=== PATIENT | female | born 1960 | race Two or more races ===

== ENCOUNTER 2022-02-13 15:09 | Emergency (ER) | payer MEDICAID, SELFPAY ==
--- NOTE | ~2022-02-13 | CT_ITS ---
EXAMINATION: CT ABDOMEN AND PELVIS WITHOUT CONTRAST CLINICAL INFORMATION: Right upper quadrant pain. Epigastric pain. History of prior cholecystectomy. COMPARISON: None TECHNIQUE: Multidetector volumetric imaging was performed from the superior aspect of the liver through the pubic symphysis. Sagittal and coronal reformatted images were obtained on the technologist's workstation. This CT examination was performed using dose optimization techniques as appropriate, variously including the following: *Automated exposure control *Adjustment of mA and/or kV according to patient size (this includes techniques or standardized protocols for targeted exams where dose is matched to indication/reason for exam; i.e. extremities or head) *Use of iterative reconstruction technique DLP: 368 mGy-cm FINDINGS: LUNG BASES: The visualized lung bases are unremarkable. LIVER, GALLBLADDER, AND BILIARY TREE: The liver is normal in size, shape, and attenuation. No focal hepatic lesion or biliary ductal dilatation is present. Coarse calcification consistent with granuloma right lobe of liver. Status post cholecystectomy. PANCREAS: Unremarkable. SPLEEN: Unremarkable. ADRENAL GLANDS: Unremarkable. KIDNEYS AND URETERS: The kidneys are normal in size, shape, and attenuation. No hydronephrosis, hydroureter, or calculi seen. No perinephric stranding. BLADDER: Unremarkable. GASTROINTESTINAL TRACT: No acute abnormality of the bowel. There is no bowel wall thickening /edema. There is no bowel obstruction. There is a moderate to large volume of stool in the colon. The appendix is surgically absent . Surgical clips in right lower quadrant. No inflammatory change of the mesentery The small bowel loops are unremarkable. The stomach is normal. There is no hiatal hernia. ABDOMINAL WALL: No significant hernia is appreciated. LYMPH NODES: Normal. VASCULAR: Unremarkable. PELVIC VISCERA: Status post hysterectomy. OSSEOUS STRUCTURES: Unremarkable. CT/CT abdomen pelvis wo IV con IMPRESSION: No acute abnormality CT scan abdomen pelvis. Fleischner guidelines were followed.
[2022-02-13 16:40] VITALS: BP 113/42; PULSE 67; RESP 18; TEMP 36.7; O2SAT 99; BMI 23.8
[2022-02-13 16:56] LABS: MANUAL DIFF FLAG NO
[2022-02-13 16:59] LABS: Basophils Absolute Auto 0.1 X10*3/uL (0.0-0.2); Basophils Percent Auto 1.5 % (0-2); Eosinophils Absolute Auto 0.2 X10*3/uL (0.0-0.4); Eosinophils Percent Auto 1.9 % (0-4); Hematocrit 40.4 % (37.0-47.0); Hemoglobin 13.9 g/dl (12.0-16.0); Imm Gran Abs Auto 0.03 X10*3/uL (0.00-0.03); Imm Gran Pct Auto 0.4 % (0.0-0.4); Lymphocytes Absolute Auto 2.9 X10*3/uL (1.2-4.9); Lymphocytes Percent Auto 37.2 % (20-40); Mean Corpuscular HGB Conc 34.4 g/dl (31.0-35.0); Mean Platelet Volume 11.5 fL (9.4-12.3); Monocytes Absolute Auto 0.5 X10*3/uL (0.1-1.2); Monocytes Percent Auto 6.3 % (2-11); Neutrophils Absolute Auto 4.1 x10*3/uL (2.0-8.3); Neutrophils Percent Auto 52.7 % (45-73); Platelet Count 285 X10*3/uL (160-400); Red Blood Count 4.49 X10*6/uL (4.20-5.50); Red Cell Distribution Width 12.2 % (11.0-16.0); White Blood Count 7.8 X10*3/uL (4.8-10.8)
[2022-02-13 17:12] LABS: Alanine Aminotransferase 21 U/L (0-31); Albumin Level 4.3 g/dL (3.5-5.0); Alkaline Phosphatase 86 U/L (39-117); Anion Gap 13 (12-20); Aspartate Amino Transferase 19 U/L (5-31); Bilirubin Total 0.3 mg/dL (0.0-1.0); Blood Urea Nitrogen 22 mg/dL (9-16); Calcium 9.9 mg/dL (8.4-10.2); Carbon Dioxide 29 mmol/L (22-29); Chloride 105 mmol/L (96-108); Creatinine Clr Calc Pharmacy 54.9; Estimated Glomerular Filt Rate > 60; Glucose Random 87 mg/dL (60-115); Potassium 4.5 mmol/L (3.3-5.1); Sodium 142 mmol/L (135-145); Total Protein 7.5 g/dL (6.5-8.0)
--- NOTE | 2022-02-13 20:43 | ED.ABDPAIN ---
HPI - Abdominal Pain General Chief Complaint: Abdominal Pain Stated Complaint: abd pain Time Seen by Provider: 02/13/22 20:16 Source: patient and family Mode of arrival: ambulatory Limitations: language barrier ([place]-speaking) History of Present Illness HPI narrative: 61-year-old female with a past medical history Liver issues although is very vague [place]speaking presenting to the ED c c/o right upper quadrant/epigastric abdominal pain with abdominal distension that has been present for a few months although worse in the past 2 days and constant. She reports it is usually worse after she eats. She reports that she does not have a gallbladder. She reports associated nausea. She denies any fevers, chills, dizziness, headaches, neck pain/stiffness, trouble swallowing or breathing, chest pain or shortness of breath, vomiting, radiation of the abdominal pain, back pain, flank pain, dysuria, hematuria, abnormal vaginal discharge, black or bloody stools, diarrhea constipation, recent travel or sick contacts travel lower extremity edema or calf tenderness or any other symptoms complaints or concerns at this time. MD elicited complaint: abdominal pain Pertinent past history: other (See above) Onset (ago): day(s) (2) Pain Consistency: constant Location: epigastric and RUQ Severity: mild Quality: cramping, aching and fullness Radiation: none Migration to: no migration Exacerbating factors: eating Relieving factors: nothing Associated symptoms: nausea Related Data Previous Rx's Medication Instructions Recorded omeprazole 20 mg tablet,delayed 20 mg PO DAILY GERD #30 tabs 02/13/22 release Allergies Allergy/AdvReac Type Severity Reaction Status Date / Time ceftriaxone [From Rocephin] Allergy Rash Verified 02/13/22 16:42 Review of Systems Review of Systems Constitutional : No Fever, No Chills, No Night Sweats, No Fatigue, No Malaise Cardiovascular : No Chest Pain, No SOB Respiratory : No Cough, No Sputum, No Wheezing, No Dyspnea Gastrointestinal : + Nausea, No Vomiting, No Diarrhea, + abdominal Pain, No Hematochezia, No Melena Genitourinary : No irregular bleeding, No Dysuria, No Urinary Frequency, No Hematuria,No Urinary Incontinence, No Urgency, No Flank Pain Musculoskeletal : No joint pain, No Myalgias, No Joint Swelling Skin : No Skin Lesions, No rash Neuro : No Weakness, No Numbness, No Paresthesias, No Loss of Consciousness, No Dizziness, No Headache Heme/Lymph: No Lymphadenopathy Endocrine : No Temperature Intolerance Yes all other systems are reviewed and are negative [facility] Past Medical History Attestation statement: The following information was validated with the patient. Source: old records reviewed, obtained from family and nursing notes reviewed Social History Social History Advance Directives: No Advance Directives Information Provided: No Physical Exam ED Vital Signs: Vital Signs - 24 hr 02/13/22 16:40 02/13/22 21:19 Temperature 98.0 F 98.1 F Pulse Rate 67 71 Respiratory Rate 18 16 Blood Pressure 113/42 L 129/64 Pulse Oximetry 99 99 Oxygen Delivery Method Room Air Room Air BMI result Body Mass Index 23.8 Vital signs reviewed patient blood pressure 113/42. Otherwise all other vitals are within normal limits. Appearance: Alert. Oriented X3. No acute distress. Head: Normal external exam. Normocephalic. Eyes: PERRLA. EOMI. Conjunctiva and sclera normal. Eyelids normal. ENT: Pharynx normal. Uvula midline. Moist mucous membranes. No trismus noted. No drooling noted. No muffled voice noted. Neck: Normal inspection. Neck supple. FROM. No adenopathy. No meningeal signs. CVS: Normal heart rate and rhythm. Heart sound normal. No murmurs noted. Pulses normal throughout. Respiratory: No respiratory distress. Painless inspiration. Breath sounds normal. No wheezes/rales/rhonchi noted. Chest nontender. No accessory muscle usage noted or decreased air movement noted. Abdomen: Soft and mild tenderness palpation to right upper quadrant/epigastric area with guarding. She does appear mildly distended. No rigidity. Bowel sounds normal in all 4 quadrants. No distention noted. No organomegaly noted. No visible injury noted. No rebound tenderness. Negative Rovsing sign. Negative obturator's sign. Negative psoas sign. Negative Garrido sign. Back: No CVA tenderness. Full range of motion noted. Skin: Skin warm and dry. Normal skin color. Normal skin turgor. No rashes/lesions/lacerations noted. Extremities: Extremities exhibit normal range of motion. Extremities nontender. Neuro: Oriented X 3. No motor deficit. No sensory deficit. Reflexes normal. Normal steady gait. CN's II-XII intact bilaterally? Course Course Course Narrative: 20:10PM - 61-year-old female with a past medical history Liver issues although is very vague [place]speaking presenting to the ED c c/o right upper quadrant/epigastric abdominal pain with abdominal distension that has been present for a few months although worse in the past 2 days and constant. She reports it is usually worse after she eats. She reports that she does not have a gallbladder. She reports associated nausea. Patient had labs a she was in the waiting room BUN 22 otherwise all other labs are within normal limits. Therefore at this time will obtain a CT scan abdomen pelvis without IV contrast and UA and re-evaluate. Reevaluation(s) Reevaluation #1: - CT scan abdomen pelvis without IV contrast negative for any acute processes. - UA revealed blood otherwise no evidence of UTI. - therefore at this time patient most likely muscular skeletal pain will DC home with symptomatic treatment instructions return if any new or worsening symptoms to follow up with primary care provider. Patient understands agrees with this plan. Time: 21:51 [facility] - Abdominal Pain Medical Records Attestation: I reviewed the patient's medical records. Lab Data Attestation: I reviewed the patient's lab results. Result diagrams: 02/13/22 16:51 02/13/22 16:51 Labs: Lab Results 02/13/22 02/13/22 02/13/22 Range/Units 16:51 16:51 20:43 WBC 7.8 (4.8-10.8) X10*3/uL RBC 4.49 (4.20-5.50) X10*6/uL Hgb 13.9 (12.0-16.0) g/dl Hct 40.4 (37.0-47.0) % MCV 90.0 (80.0-98.0) fL MCH 31.0 (27.0-33.0) pg MCHC 34.4 (31.0-35.0) g/dl RDW 12.2 (11.0-16.0) % Plt Count 285 (160-400) X10*3/uL MPV 11.5 (9.4-12.3) fL Immature Gran % (Auto) 0.4 (0.0-0.4) % Neut % (Auto) 52.7 (45-73) % Lymph % (Auto) 37.2 (20-40) % Mercer % (Auto) 6.3 (2-11) % Eos % (Auto) 1.9 (0-4) % Baso % (Auto) 1.5 (0-2) % Lymph # (Auto) 2.9 (1.2-4.9) X10*3/uL [place] # (Auto) 0.5 (0.1-1.2) X10*3/uL Eos # (Auto) 0.2 (0.0-0.4) X10*3/uL Baso # (Auto) 0.1 (0.0-0.2) X10*3/uL Abs Immat Gran (auto) 0.03 (0.00-0.03) X10*3/uL Absolute Neuts (auto) 4.1 (2.0-8.3) x10*3/uL Absolute Nucleated RBC 0.000 (0.0-0.012) X10*3/uL Nucleated RBC % (auto) 0.0 (0.0-0.2) /100WBC Sodium 142 (135-145) mmol/L Potassium 4.5 (3.3-5.1) mmol/L Chloride 105 (96-108) mmol/L Carbon Dioxide 29 (22-29) mmol/L Anion Gap 13 (12-20) BUN 22 H (9-16) mg/dL Creatinine 0.85 (0.5-1.4) mg/dL Estim Creat Clear Calc 54.9 Estimated GFR > 60 Random Glucose 87 (60-115) mg/dL Calcium 9.9 (8.4-10.2) mg/dL Total Bilirubin 0.3 (0.0-1.0) mg/dL AST 19 (5-31) U/L ALT 21 (0-31) U/L Alkaline Phosphatase 86 (39-117) U/L Total Protein 7.5 (6.5-8.0) g/dL Albumin 4.3 (3.5-5.0) g/dL Lipase 30 (8-78) U/L Urine Color Yellow Urine Appearance Clear Urine pH 6.5 (5.0-9.0) Ur Specific [place] 1.020 (1.005-1.025) Urine Protein Negative (Neg-Trace) mg/dL Urine Glucose (UA) Negative (Negative) mg/dL Urine Ketones Negative (Negative) mg/dL Urine Blood Small (1+) H (Negative) Urine Nitrite Negative (Negative) Ur Leukocyte Esterase Negative (Negative) Urine RBC 6-10 H (0-2) /HPF Urine WBC 0-5 (0-5) /HPF Ur Squamous Epith Cells 0-2 (0-2) /HPF Urine Bacteria None Seen (None Seen) Hyaline Casts 0-2 (0-2) /LPF Imaging Data CT scan abdomen pelvis without IV contrast: Attestation: I personally reviewed and interpreted this imaging study as follows: Radiologist's impression: FINDINGS: LUNG BASES: The visualized lung bases are unremarkable.? LIVER, GALLBLADDER, AND BILIARY TREE: The liver is normal in size, shape, and attenuation. No focal hepatic lesion or biliary ductal dilatation is present. Coarse calcification consistent with granuloma right lobe of liver. Status post cholecystectomy.? PANCREAS: Unremarkable.? SPLEEN: Unremarkable.? ADRENAL GLANDS: Unremarkable.? KIDNEYS AND URETERS: The kidneys are normal in size, shape, and attenuation. No hydronephrosis, hydroureter, or calculi seen. No perinephric stranding. ? BLADDER: Unremarkable.? GASTROINTESTINAL TRACT: No acute abnormality of the bowel. There is no bowel wall thickening /edema. There is no bowel obstruction. There is a moderate to large volume of stool in the colon. The appendix is surgically absent . Surgical clips in right lower quadrant. No inflammatory change of the mesentery The small bowel loops are unremarkable. The stomach is normal. There is no hiatal hernia.? ABDOMINAL WALL: No significant hernia is appreciated.? LYMPH NODES: Normal. VASCULAR: Unremarkable. PELVIC VISCERA: Status post hysterectomy.? OSSEOUS STRUCTURES: Unremarkable.? CT/CT abdomen pelvis wo IV con IMPRESSION: No acute abnormality CT scan abdomen pelvis. ? Fleischner guidelines were followed. Discharge Plan Discharge Clinical Impression: Abdominal pain Patient Disposition: Home, Self-Care Instructions: Gastroesophageal Reflux Disease (ED), Abdominal Pain (ED) Prescriptions: New omeprazole 20 mg tablet,delayed release (DR/EC) 20 mg PO DAILY Qty: 30 0RF Referrals: Physician,Unknown J [Primary Care Provider] - (your pcp as needed) Print Language: [place]
[2022-02-13 21:19] VITALS: BP 129/64; PULSE 71; RESP 16; TEMP 36.7; O2SAT 99
[2022-02-13 21:33] LABS: Appearance Urine Clear; Color Urine Yellow; Glucose Urine UA Negative (Negative); Leukocyte Esterase Urine Negative (Negative); Nitrite Urine Negative (Negative); PH 6.5 (5.0-9.0); UMIC TRIGGER UACC YES; Urine Blood Small (1+) (Negative); Urine Ketones Negative (Negative); Urine Protein Negative (Neg-Trace)
[2022-02-13 21:35] LABS: Lipase 30 U/L (8-78)
[2022-02-13 21:39] LABS: Bacteria Urine None Seen (None Seen); Hyaline Casts Urine 0-2 /LPF (0-2); Squamous Epithelial Cell Urine 0-2 /HPF (0-2); WBC Urine 0-5 /HPF (0-5)
== END 2022-02-13 22:09 | disposition home or self-care (01) ==
PROVIDERS: Physician Assistant Medical; Emergency Provider Emergency Medicine
DX: R10.11 Right upper quadrant pain (principal); R10.13 Epigastric pain
CPT/HCPCS: 36415; 74176; 80053; 81001; 83690; 85025; 99282; 99284

== ENCOUNTER 2023-01-10 08:56 | Outpatient (REF) | payer MEDICAID, SELFPAY ==
--- NOTE | ~2023-01-10 | XR_ITS ---
EXAMINATION: XR LUMBOSACRAL SPINE CLINICAL INFORMATION: Lumbar pain COMPARISON: None available. TECHNIQUE: Three views of the lumbosacral spine. FINDINGS: There is no fracture or destructive process or alignment abnormality. Disc space heights appear preserved. Surgical clips are seen overlying the pelvis and in the right mid abdomen upper quadrant. XR/XR lumbar spine 2-3V IMPRESSION: Unremarkable plain film evaluation.
== END 2023-01-10 08:57 | disposition home or self-care (01) ==
LOC: HO.HHCX 08:56
PROVIDERS: Visit Provider Emergency Medicine
DX: M54.59 Other low back pain (principal)
CPT/HCPCS: 72100

== ENCOUNTER 2023-01-13 10:47 | Emergency (ER) | payer MEDICAID, SELFPAY ==
[2023-01-13 11:01] VITALS: BP 118/54; PULSE 91; RESP 19; TEMP 37.2; O2SAT 97; BMI 23.0
--- NOTE | 2023-01-13 11:03 | ED_ITS ---
HPI - Dizziness General Chief Complaint: Dizziness Stated Complaint: lower back pain Time Seen by Provider: 01/13/23 13:21 Related Data Previous Rx's Medication Instructions Recorded omeprazole 20 mg tablet,delayed 20 mg PO DAILY GERD #30 tabs 02/13/22 release acetaminophen 500 mg tablet 1,000 mg (2 x 500 mg) PO Q6H PRN 01/13/23 (Tylenol Extra Strength) fever or pain #20 tabs cyclobenzaprine 10 mg tablet 10 mg PO TID PRN muscle pain or 01/13/23 spasm #20 tabs oxycodone 5 mg tablet 5 mg PO Q6H PRN pain #14 tabs 01/13/23 Allergies Allergy/AdvReac Type Severity Reaction Status Date / Time ceftriaxone [From Rocephin] Allergy Rash Verified 01/13/23 11:01 seafood Allergy Rash Verified 01/13/23 11:01 [facility] Social History Social History Advance Directives: No Physical Exam 2 Vital Signs: Vital Signs: Last Vital Signs Temp 98.9 F 01/13/23 11:01 Pulse 72 01/13/23 12:23 Resp 14 01/13/23 12:23 BP 113/68 01/13/23 12:23 Pulse Ox 98 01/13/23 12:23 O2 Del Method Room Air 01/13/23 12:23 BMI result Body Mass Index 23.0 Course Course Course Narrative: RME - 62 yo German speaking female presenting to the ER for evaluation of ongoing dizziness and lightheadedness for the last 3 days. She had a fall due to dizziness 3 days ago and hit her head, hurt her back. She has felt weak with URI symptoms as well. She reports 8/10 lower back pain since she fell as well. No chest pain, SOB, SANCHEZ. VSS in triage. Plan: EKG, orthos, viral studies, labs, CT head and lumbar x-ray Medical Decision Making Lab Data 01/13/23 11:38 01/13/23 11:38 Labs: Lab Results 01/13/23 Range/Units 11:38 WBC 7.6 (4.8-10.8) X10*3/uL RBC 4.55 (4.20-5.50) X10*6/uL Hgb 14.0 (12.0-16.0) g/dl Hct 39.9 (37.0-47.0) % MCV 87.7 (80.0-98.0) fL MCH 30.8 (27.0-33.0) pg MCHC 35.1 H (31.0-35.0) g/dl RDW 13.1 (11.0-16.0) % Plt Count 276 (160-400) X10*3/uL MPV 11.5 (9.4-12.3) fL Immature Gran % (Auto) 0.3 (0.0-0.4) % Neut % (Auto) 64.5 (45-73) % Lymph % (Auto) 26.3 (20-40) % [place] % (Auto) 6.7 (2-11) % Eos % (Auto) 1.3 (0-4) % Baso % (Auto) 0.9 (0-2) % Lymph # (Auto) 2.0 (1.2-4.9) X10*3/uL [place] # (Auto) 0.5 (0.1-1.2) X10*3/uL Eos # (Auto) 0.1 (0.0-0.4) X10*3/uL Baso # (Auto) 0.1 (0.0-0.2) X10*3/uL Abs Immat Gran (auto) 0.02 (0.00-0.03) X10*3/uL Absolute Neuts (auto) 4.9 (2.0-8.3) x10*3/uL Absolute Nucleated RBC 0.000 (0.0-0.012) X10*3/uL Nucleated RBC % (auto) 0.0 (0.0-0.2) /100WBC Sodium 141 (135-145) mmol/L Potassium 3.9 (3.3-5.1) mmol/L Chloride 111 H (96-108) mmol/L Carbon Dioxide 22 (22-29) mmol/L Anion Gap 12 (12-20) BUN 17 H (9-16) mg/dL Creatinine 0.80 (0.5-1.4) mg/dL Estim Creat Clear Calc 60.3 Estimated GFR > 60 Random Glucose 87 (60-115) mg/dL Calcium 9.5 (8.4-10.2) mg/dL Magnesium 2.3 (1.6-2.6) mg/dL Total Bilirubin 0.5 (0.0-1.0) mg/dL Direct Bilirubin 0.1 (0.0-0.5) mg/dL AST 19 (5-31) U/L ALT 15 (0-31) U/L Alkaline Phosphatase 79 (39-117) U/L Troponin I High Sens < 2.7 (<3.5-17.0) ng/L Total Protein 7.3 (6.5-8.0) g/dL Albumin 4.1 (3.5-5.0) g/dL Urine Color Yellow Urine Appearance Clear Urine pH 7.5 (5.0-9.0) Ur Specific [place] 1.015 (1.005-1.025) Urine Protein Negative (Neg-Trace) mg/dL Urine Glucose (UA) Negative (Negative) mg/dL Urine Ketones Negative (Negative) mg/dL Urine Blood Small (1+) H (Negative) Urine Nitrite Negative (Negative) Ur Leukocyte Esterase Trace H (Negative) Urine RBC 6-10 H (0-2) /HPF Urine WBC 0-5 (0-5) /HPF Ur Squamous Epith Cells 0-2 (0-2) /HPF Urine Bacteria None Seen (None Seen) Hyaline Casts 0-2 (0-2) /LPF Influenza Type A (PCR) NEGATIVE (Negative) Influenza Type B (PCR) NEGATIVE (Negative) RSV RNA Qual (PCR) NEGATIVE (Negative) SARS-CoV-2 RNA (RT-PCR) NEGATIVE (Negative) Radiology Impression Discussion of test interpretation with radiology: I have reviewed the radiologist's reading. Radiologist Impression: CT head/brain wo IV con IMPRESSION: No evidence of acute intracranial hemorrhage or edematous territorial infarction. Dictated By: Tunde Mota DO XR lumbar spine 2-3V IMPRESSION: * Vertebral body heights are maintained. * Osteopenia. Dictated By: Diane Thomason MD Discharge Plan Discharge Clinical Impression: Fall Qualifiers: Encounter type: initial encounter Qualified Code(s): W19.XXXA - Unspecified fall, initial encounter Closed head injury Qualifiers: Encounter type: initial encounter Qualified Code(s): S09.90XA - Unspecified injury of head, initial encounter Back pain Qualifiers: Chronicity: acute Back pain laterality: bilateral Patient Disposition: Home, Self-Care Instructions: Head Injury (ED), Acute Low Back Pain (ED) Additional Instructions: The CT scan of your brain revealed no skull fracture or bleeding in the brain The x-ray of your back revealed no broken bones. Your blood work was normal. Your pain in your back is consistent with soft tissue injury (muscles, joints, tendons, ligaments) Take Tylenol (acetaminophen) 500 mg pills, 2 pills every 6 hours as needed for pain. For pain not relieved by Tylenol take oxycodone 5 mg pills, 1 pill every 4 hours as needed for pain. Do not drive or work while taking this medication since they can cause sleepiness. Oxycodone is a narcotic medication that can be addicting. If you are concerned about addiction you can ask the pharmacist for less pills or do not get this prescription filled. Take Flexeril (cyclobenzaprine) 10 mg pills, 1 pill every 6-8 hours as needed for pain or spasm. This medication will make you sleepy. Do not drive or work while taking this medication. Follow-up with your doctor in 2 days. Please return to the emergency department if your symptoms get worse or if you develop any symptoms that are concerning to you. Prescriptions: New cyclobenzaprine 10 mg tablet 10 mg PO TID PRN (Reason: muscle pain or spasm) Qty: 20 0RF oxycodone 5 mg tablet 5 mg PO Q6H PRN (Reason: pain) Qty: 14 0RF Rx Instructions: Patient may request partial refill; Partial Fill upon patient request. acetaminophen [Tylenol Extra Strength] 500 mg tablet 1,000 mg PO Q6H PRN (Reason: fever or pain) Qty: 20 0RF No Action omeprazole 20 mg tablet,delayed release (DR/EC) 20 mg PO DAILY Qty: 30 0RF Interventions: ED Discharge Assessment Last Done: 01/13/23 15:18 Discharge Date/Time: 01/13/23 15:18
[2023-01-13 12:21] VITALS: BP 101/51; BP 104/59; PULSE 67
[2023-01-13 12:22] VITALS: BP 113/68; PULSE 72
[2023-01-13 12:23] VITALS: BP 113/68; PULSE 72; RESP 14; O2SAT 98
== END 2023-01-13 15:18 | disposition home or self-care (01) ==
PROVIDERS: Emergency Provider Emergency Medicine Emergency Medical Services
DX: R42 Dizziness and giddiness (principal); S09.90XA Unspecified injury of head, initial encounter; W19.XXXA Unspecified fall, initial encounter; M54.50 Low back pain, unspecified; Y93.9 Activity, unspecified; Y92.9 Unspecified place or not applicable; Y99.9 Unspecified external cause status
CPT/HCPCS: 0241U; 36415; 70450; 72100; 80048; 80076; 81001; 83735; 84484; 85025; 93005; 99284

== ENCOUNTER 2023-02-12 16:22 | Outpatient (REF) | payer MEDICAID, SELFPAY ==
[2023-02-14 15:23] LABS: H Pylori Breath Test Negative (Negative)
== END 2023-02-12 16:23 | disposition home or self-care (01) ==
LOC: HO.LNP 16:22
PROVIDERS: Visit Provider Student in an Organized Health Care Education/Training Program
DX: K29.70 Gastritis, unspecified, without bleeding (principal)
CPT/HCPCS: 83013

== ENCOUNTER 2023-02-13 10:19 | Outpatient (REF) | payer MEDICAID, SELFPAY ==
[2023-02-13 11:34] LABS: Estimated Average Glucose 100 mg/dL; Hematocrit 45.1 % (37.0-47.0); Hemoglobin 15.4 g/dl (12.0-16.0); Hemoglobin A1c % 5.1 % (<6.0); Mean Corpuscular HGB Conc 34.1 g/dl (31.0-35.0); Mean Corpuscular Hemoglobin 30.3 pg (27.0-33.0); Mean Corpuscular Volume 88.6 fL (80.0-98.0); Mean Platelet Volume 11.9 fL (9.4-12.3); Platelet Count 310 X10*3/uL (160-400); Red Blood Count 5.09 X10*6/uL (4.20-5.50); Red Cell Distribution Width 12.6 % (11.0-16.0); White Blood Count 7.1 X10*3/uL (4.8-10.8)
[2023-02-13 12:16] LABS: Alanine Aminotransferase 17 U/L (0-31); Albumin Level 4.2 g/dL (3.5-5.0); Alkaline Phosphatase 96 U/L (39-117); Anion Gap 12 (12-20); Aspartate Amino Transferase 19 U/L (5-31); Bilirubin Total 0.8 mg/dL (0.0-1.0); Blood Urea Nitrogen 20 mg/dL (9-16); Calcium 9.6 mg/dL (8.4-10.2); Carbon Dioxide 28 mmol/L (22-29); Chloride 106 mmol/L (96-108); Cholesterol 263 mg/dL (<200); Estimated Glomerular Filt Rate > 60; Glucose Random 88 mg/dL (60-115); HDL Cholesterol 58 mg/dL (>40); LDL Cholesterol Calculated 180 mg/dL (<100); Potassium 4.2 mmol/L (3.3-5.1); Sodium 142 mmol/L (135-145); Total Protein 7.9 g/dL (6.5-8.0); Triglycerides 127 mg/dL (<150)
[2023-02-13 12:26] LABS: HBS Num1 64.56 mIU/mL (0-7.99); HBc Num1 0.09 S/CO (0.00-0.79); HIV AB/AG Nonreactive (Nonreactive); HIV Num 1 0.06 S/CO (0.00-0.99); Hepatitis B Core Antibody Nonreactive (Nonreactive); ~HepC Num1 0.08 S/CO (0.00-0.79); ~Hepatitis B Surface Antibody REACTIVE (Nonreactive); ~Hepatitis C Antibody Nonreactive (Nonreactive)
[2023-02-13 12:32] LABS: HBsAGNum1 0.26 S/CO (0.00-0.99); Hepatitis B Surface Antigen Negative (Negative)
[2023-02-13 12:34] LABS: Folate 13.5 ng/mL (> or = 4.0); Vitamin B12 417 pg/mL (200-900)
[2023-02-13 12:38] LABS: Syphilis Screen Nonreactive (Nonreactive)
[2023-02-13 12:42] LABS: TSH reflex Free T4 0.68 uIU/mL (0.32-4.0)
[2023-02-13 12:47] LABS: CT PCR NOT DETECTED (Not Detect.); NG PCR NOT DETECTED (Not Detect.)
[2023-02-18 01:19] LABS: VITAMIN D (1,25 OH) D3 46 pg/mL; Vit D (1,25-Dihydroxy) Total 46 pg/mL (18-72); Vitamin D (1,25 OH) D2 <8 pg/mL
== END 2023-02-13 10:20 | disposition home or self-care (01) ==
LOC: HO.HHCL 10:19
PROVIDERS: Visit Provider Student in an Organized Health Care Education/Training Program
DX: Z00.00 Encounter for general adult medical examination without abnormal findings (principal)
CPT/HCPCS: 0353U; 36415; 80053; 80061; 82607; 82652; 82746; 83036; 84443; 85027; 86704; 86706; 86780; 86803; 87340; 87389

== ENCOUNTER 2023-03-28 01:13 | Emergency (ER) | payer MEDICAID, SELFPAY ==
[2023-03-28 01:14] VITALS: BP 136/75; PULSE 113; RESP 18; TEMP 36.8; O2SAT 100; BMI 22.9
[2023-03-28 01:41] LABS: IDNOW Serial# BCCEAD1C; Strep A Nucleic Acid Negative (Negative)
[2023-03-28 02:10] VITALS: BP 117/64; PULSE 89; RESP 18; TEMP 36.6; O2SAT 98
[2023-03-28 02:10] LABS: Influenza A PCR NEGATIVE (Negative); Influenza B PCR NEGATIVE (Negative); Resp Syncy Virus RNA Qual PCR NEGATIVE (Negative); SARS COV2 PCR INHOUSE POSITIVE (Negative)
[2023-03-28 02:41] LABS: Appearance Urine Clear; Color Urine Yellow; Glucose Urine UA Negative (Negative); Leukocyte Esterase Urine Trace (Negative); Nitrite Urine Negative (Negative); Specific Gravity - Urine 1.015 (1.005-1.025); UMIC TRIGGER UACC YES; Urine Blood Moderate (2+) (Negative); Urine Ketones Negative (Negative); Urine Protein Negative (Neg-Trace)
[2023-03-28] MEDS: Acetaminophen 325 MG TABLET 650 MG PO (02:47)
[2023-03-28] MEDS: oxyCODONE HCl Immed Release 5 MG TABLET PO (02:48)
[2023-03-28] MEDS: Ondansetron ODT 4 MG TAB.RAPDIS TRANSLINGU (02:48)
--- NOTE | 2023-03-28 02:48 | ED_ITS ---
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 She also notes some mild low back pain. Unsure why she came for headache tonight reports she just cannot get it to go away with tylenol. No head injury or thinners MD elicited complaint: headache Pertinent past history: other (chronic headaches) Onset (ago): month(s) Onset description: gradually Location: right, left, frontal and band-like Severity: severe Quality & Timing: throbbing Exacerbating factors: light and noise Relieving factors: nothing Associated symptoms: photophobia Treatments prior to arrival: none Related Data Previous Rx's Medication Instructions Recorded omeprazole 20 mg tablet,delayed 20 mg PO DAILY GERD #30 tabs 02/13/22 release acetaminophen 500 mg tablet 1,000 mg (2 x 500 mg) PO Q6H PRN 01/13/23 (Tylenol Extra Strength) fever or pain #20 tabs cyclobenzaprine 10 mg tablet 10 mg PO TID PRN muscle pain or 01/13/23 spasm #20 tabs oxycodone 5 mg tablet 5 mg PO Q6H PRN pain #14 tabs 01/13/23 hydrocodone 5 mg-acetaminophen 325 1 tab PO Q6H PRN pain #10 tabs 03/28/23 mg tablet ondansetron 4 mg disintegrating 4 mg PO Q8H PRN nausea and 03/28/23 tablet vomiting #20 tabs Allergies Allergy/AdvReac Type Severity Reaction Status Date / Time ceftriaxone [From Rocephin] Allergy Rash Verified 03/28/23 01:20 seafood Allergy Rash Verified 03/28/23 01:20 Review of Systems Review of Systems: Constitutional : No Fever, No Chills, No Fatigue ENT/Mouth : pos sore throat, No Rhinorrhea Eyes: No Eye Pain, No Swelling, No Redness Cardiovascular : No Chest Pain, No SOB, No Dyspnea on Exertion Respiratory : pos Cough, No Sputum Gastrointestinal : No Nausea, No Vomiting, No Diarrhea, No abdominal Pain Genitourinary : No Dysuria, No Urinary Frequency, No Hematuria, Musculoskeletal : No joint pain, No Myalgias, No Joint Swelling, pos low back pain Skin : No Skin Lesions, No rash Neuro : No Weakness, No Numbness, No Dizziness, positive Headache Psych : No Anxiety/Panic, No Depression Heme/Lymph: No Bruising, No Bleeding,No Lymphadenopathy Endocrine : No Polyuria, No Polydipsia All other systems reviewed and are negative [facility] Past Medical History Attestation statement: The following information was validated with the patient. Source: old records reviewed Medical History Headache Social History Social History (Updated 03/28/23 @ 02:50 by Cami Maher DO) Patient Tobacco Use Status: Never used Tobacco Advance Directives: No Advance Directives Information Provided: No Physical Exam Vital Signs: Vital Signs: Last Vital Signs Temp 97.8 F 03/28/23 02:10 Pulse 89 03/28/23 02:10 Resp 18 03/28/23 02:10 BP 117/64 03/28/23 02:10 Pulse Ox 98 03/28/23 02:10 O2 Del Method Room Air 03/28/23 02:10 BMI result Body Mass Index 22.9 Appearance: Alert. Oriented X3. No acute distress. Eyes: Pupils equal, round and reactive to light. ENT: Pharynx normal. TMs normal bilaterally Neck: Normal inspection. Neck supple. no meningeal signs CVS: Normal heart rate and rhythm. Pulses normal. Respiratory: No respiratory distress. Breath sounds normal. Abdomen: Soft and nontender. Skin: Skin warm and dry. Normal skin color. Normal skin turgor. Extremities: No lower extremity edema. No calf ttp Neuro: Oriented X 3. No motor deficit. No sensory deficit. Medications Administered Discontinued Medications Generic Name Dose Route Start Last Admin Trade Name Freq PRN Reason Stop Dose Admin Acetaminophen 650 mg 03/28/23 02:31 03/28/23 02:47 Acetaminophen 325 Mg Tablet PO 03/28/23 02:32 650 mg ONCE ONE Administration Ondansetron HCl 4 mg 03/28/23 02:31 03/28/23 02:48 Ondansetron Odt 4 Mg Tab.Rapdis TRANSLINGU 03/28/23 02:32 4 mg ONCE ONE Administration Oxycodone HCl 5 mg 03/28/23 02:31 03/28/23 02:48 Oxycodone Hcl Immed Release 5 Mg Tablet PO 03/28/23 02:32 5 mg ONCE ONE Administration Medical Decision Making Medical Decision Making [facility] Narrative: 62 yo female with PMH of headaches for several months had normal CT scan in January during that time - 10 days of covid symptoms now here with persistent headaches - at this time afebrile, normal neuro exam just states headaches won't go away, no meningeal signs, not on thinners has had daily headaches - not consistent with [employer] infection or SAH. COVID + 10 days ago, has mild sore throat and dry cough. Also c/o some low back pain. At this time overall not toxic, PO medications ordered. Differential Diagnosis Differential Diagnoses: The differential diagnosis associated with the presentation includes tension headache, viral syndrome, migraine Admission/Observation Consideration of admission/observation: Escalation of care including admission/observation considered feels better stable for DC Lab Data [facility] Lab Attestation statement: I reviewed the patient's lab results. Labs: Lab Results 03/28/23 03/28/23 Range/Units 01:26 02:33 Urine Color Yellow Urine Appearance Clear Urine pH 6.0 (5.0-9.0) Ur Specific Shields 1.015 (1.005-1.025) Urine Protein Negative (Neg-Trace) mg/dL Urine Glucose (UA) Negative (Negative) mg/dL Urine Ketones Negative (Negative) mg/dL Urine Blood Moderate (2+) H (Negative) Urine Nitrite Negative (Negative) Ur Leukocyte Esterase Trace H (Negative) Urine RBC 6-10 H (0-2) /HPF Urine WBC 0-5 (0-5) /HPF Ur Squamous Epith Cells 0-2 (0-2) /HPF Urine Bacteria None Seen (None Seen) Hyaline Casts 0-2 (0-2) /LPF Influenza Type A (PCR) NEGATIVE (Negative) Influenza Type B (PCR) NEGATIVE (Negative) RSV RNA Qual (PCR) NEGATIVE (Negative) SARS-CoV-2 RNA (RT-PCR) POSITIVE A (Negative) S. pyogenes GrpA ELAN Negative (Negative) External Record Review External record reviewed: Inpatient record Prescription Management I considered prescription management with: Pain Medication and Other Discharge Plan Discharge Clinical Impression: Acute headache Qualifiers: Headache type: tension-type Intractability: not intractable Qualified Code(s): G44.209 - Tension-type headache, unspecified, not intractable Patient Disposition: Home, Self-Care Instructions: General Headache (ED) Additional Instructions: return for numbness, weakness, vision loss or any other concerns. talk to your doctor about daily headache medications or referral to a neurologist Regrese por entumecimiento, debilidad, p?rdida de visi?n o cualquier otra inquietud. hable con severino m?dico sobre los medicamentos diarios para el dolor de harley o rem?talo a un neur?logo Prescriptions: New hydrocodone-acetaminophen 5-325 mg tablet 1 tab PO Q6H PRN (Reason: pain) Qty: 10 0RF Rx Instructions: partial fill okay; Partial Fill upon patient request. ondansetron 4 mg tablet,disintegrating 4 mg PO Q8H PRN (Reason: nausea and vomiting) Qty: 20 0RF No Action omeprazole 20 mg tablet,delayed release (DR/EC) 20 mg PO DAILY Qty: 30 0RF cyclobenzaprine 10 mg tablet 10 mg PO TID PRN (Reason: muscle pain or spasm) Qty: 20 0RF oxycodone 5 mg tablet 5 mg PO Q6H PRN (Reason: pain) Qty: 14 0RF Rx Instructions: Patient may request partial refill; Partial Fill upon patient request. acetaminophen [Tylenol Extra Strength] 500 mg tablet 1,000 mg PO Q6H PRN (Reason: fever or pain) Qty: 20 0RF
[2023-03-28 03:29] LABS: Bacteria Urine None Seen (None Seen); Hyaline Casts Urine 0-2 /LPF (0-2); Squamous Epithelial Cell Urine 0-2 /HPF (0-2); WBC Urine 0-5 /HPF (0-5)
== END 2023-03-28 04:00 | disposition home or self-care (01) ==
PROVIDERS: Emergency Provider Emergency Medicine; PCP Student in an Organized Health Care Education/Training Program
DX: G44.209 Tension-type headache, unspecified, not intractable (principal); Z20.822 Contact with and (suspected) exposure to COVID-19; Z20.828 Contact with and (suspected) exposure to other viral communicable diseases; Z79.899 Other long term (current) drug therapy
CPT/HCPCS: 0241U; 81001; 87651; 99283

== ENCOUNTER 2023-05-10 09:34 | Outpatient (REF) | payer MEDICAID, SELFPAY ==
--- NOTE | ~2023-05-10 | MM_ITS ---
EXAMINATION: MM SCREENING DIGITAL BREAST TOMOSYNTHESIS, BILATERAL CLINICAL INFORMATION: Screening. Asymptomatic. COMPARISON: Mammography: There are no prior mammograms available for comparison. TECHNIQUE: Digital breast tomosynthesis is performed in both the craniocaudal and mediolateral oblique views along with computer-aided detection (CAD). Synthesized 2D images are generated from the tomosynthesis. FINDINGS: There are scattered areas of fibroglandular density (ACR BI-RADS breast composition Category b). There are no significant masses, abnormal calcifications, or other abnormalities. MM/MM tomosynthesis screening BI IMPRESSION: No mammographic evidence of malignancy. ASSESSMENT: BI-RADS BI-RADS 1 - Negative RECOMMENDATION: Routine annual mammography screening. 1 year F/U This examination should not preclude the clinical evaluation of a suspicious palpable abnormality. This patient's information was entered into a reminder system with a target due date for their next mammogram.
--- NOTE | ~2023-05-10 | MM_ITS ---
EXAMINATION: BONE DENSITOMETRY CLINICAL INDICATION: Patient with oophorectomy and chronic pain in bones. Encounter for screening for osteoporosis COMPARISON: This is the patient's baseline examination. TECHNIQUE: Using a [employer] TEK DXA System (software version: 13.1) manufactured by [email or web address], dual-energy x-ray absorptiometry was performed of the lumbar spine and left hip. The images are of good technical quality. Summary results are attached. FINDINGS: LEFT FEMUR, NECK: BMD 0.577 g/cm2, Z-score -1.8, T-score -3.3, osteoporosis. LEFT FEMUR, TOTAL: BMD 0.584 g/cm2, Z-score -2.1, T-score -3.4, osteoporosis. AP SPINE L1-L4: BMD 0.836 g/cm2, Z-score -1.2, T-score -2.9, osteoporosis. IDENTIFIED RISK FACTORS: Early menopause, secondary osteoporosis, hysterectomy, bilateral oophorectomy, recurrent falls. HISTORY OF FRACTURE: None listed. MEDICATIONS: Vitamin D. MM/XR DEXA axial skeleton IMPRESSION: 1. DIAGNOSIS: Osteoporosis based on the lowest T-score value of -3.4 in the total femur applying World Health Organization criteria. 2. 10-YEAR FRACTURE RISK PREDICTION, FRAX: According to the guidelines, FRAX calculation should only be performed on patients in the osteopenia bone density category. Therefore, FRAX was not performed on this patient. 3. Treatment Recommendations: NOF guidelines recommend consideration for treatment in postmenopausal women and men age 50 and older presenting with the following: -A hip or vertebral (clinical or morphometric) fracture. -T-score less than or equal to -2.5 at the femoral neck or spine after appropriate evaluation to exclude secondary causes. -Low bone mass at the hip or spine and a 10-year fracture probability by FRAX of greater than or equal to 3% for hip fracture or greater than or equal to 20% for major osteoporotic fracture based on the [place] adapted WHO algorithm. 4. Other Recommendations: All treatment decisions require clinical judgment and consideration of individual patient factors, including patient preferences, comorbidities, previous drug use, risk factors not captured in the FRAX model (e.g. frailty, falls, vitamin D deficiency, increased bone turnover, interval significant decline in bone density) and possible under or overestimation of fracture risk by FRAX. Additional medical evaluation for secondary cause of low bone mineral density may be appropriate. FUTURE SCAN RECOMMENDATION: People with diagnosed cases of osteoporosis or at high risk for fracture should have regular bone mineral density tests. For patients eligible for Medicare, routine testing is allowed once every 2 years. The testing frequency can be increased to one year for patients who have rapidly progressing disease, those who are receiving or discontinuing medical therapy to restore bone mass, or have additional risk factors.
== END 2023-05-10 09:35 | disposition home or self-care (01) ==
LOC: HO.MAMMO 09:34
PROVIDERS: PCP Student in an Organized Health Care Education/Training Program; Visit Provider Student in an Organized Health Care Education/Training Program
DX: Z12.31 Encounter for screening mammogram for malignant neoplasm of breast (principal); Z13.820 Encounter for screening for osteoporosis; Z78.0 Asymptomatic menopausal state; Z90.722 Acquired absence of ovaries, bilateral
CPT/HCPCS: 77063; 77067; 77080

== ENCOUNTER → 2023-05-10 10:00 | Outpatient (BNV) | payer MEDICAID, SELFPAY | PROVIDERS: PCP Student in an Organized Health Care Education/Training Program; Visit Provider Radiology Diagnostic Radiology | DX: Z12.31 Encounter for screening mammogram for malignant neoplasm of breast (principal) | CPT/HCPCS: 77063; 77067 ==

== ENCOUNTER 2023-05-23 | Outpatient (REF) | payer MEDICAID, SELFPAY ==
[2023-05-28 23:32] LABS: HPV mRNA E6/E7 rflx Not Detected (Not Detected)
== END 2023-05-23 00:01 | disposition home or self-care (01) ==
LOC: HO.HHCLNP
PROVIDERS: Visit Provider Advanced Practice Midwife
DX: Z01.419 Encounter for gynecological examination (general) (routine) without abnormal findings (principal)
CPT/HCPCS: 87624; 88142

== ENCOUNTER 2023-06-01 15:31 | Outpatient (REF) | payer MEDICAID, SELFPAY ==
--- NOTE | ~2023-06-01 | CT_ITS ---
EXAMINATION: CT ABDOMEN AND PELVIS WITHOUT CONTRAST CLINICAL INFORMATION: Chronic hematuria. COMPARISON: CT abdomen and pelvis without IV contrast 02/13/2022. TECHNIQUE: Multidetector volumetric imaging was performed from the superior aspect of the liver through the pubic symphysis. Sagittal and coronal reformatted images were obtained on the technologist's workstation. This CT examination was performed using dose optimization techniques as appropriate, variously including the following: *Automated exposure control *Adjustment of mA and/or kV according to patient size (this includes techniques or standardized protocols for targeted exams where dose is matched to indication/reason for exam; i.e. extremities or head) *Use of iterative reconstruction technique DLP: 348 mGy-cm FINDINGS: LUNG BASES: The visualized lung bases are unremarkable. LIVER, GALLBLADDER, AND BILIARY TREE: The liver is normal in size, shape, and attenuation. Few scattered calcifications are seen in the right hepatic lobe. No focal lesion seen. No intrahepatic biliary ductal dilatation is present. The gallbladder has been removed. PANCREAS: Unremarkable. SPLEEN: Unremarkable. ADRENAL GLANDS: Unremarkable. KIDNEYS AND URETERS: The kidneys are normal in size, shape, and attenuation. No hydronephrosis, hydroureter seen. There is a 2 mm radiopaque calculi mid pole right kidney. No additional radiopaque calculi or caliectasis seen. There is no hydronephrosis. There is a 1.3 cm hypodense simple cyst in the mid pole posterior cortex right kidney. No additional cyst seen. No further workup needed. No perinephric stranding. BLADDER: Unremarkable. GASTROINTESTINAL TRACT: There is scattered stool and gas seen throughout the colon without any significant distention. The small bowel loops are normal caliber. The stomach is nondistended. Surgical ryann are seen adjacent to the medial cecum likely from appendectomy. In addition, there are more ryann seen in the mid pelvis. ABDOMINAL WALL: No significant hernia is appreciated. LYMPH NODES: Normal. VASCULAR: Unremarkable. PELVIC VISCERA: There are postsurgical ryann in the abdomen from previous intervention. OSSEOUS STRUCTURES: There is mild osteopenia. No aggressive lytic or sclerotic process seen. CT/CT abdomen pelvis wo IV con IMPRESSION: 1. Nonobstructive 2 mm radiopaque calculi mid pole right kidney. There is no hydronephrosis. 2. Mild constipation. 3. Likely appendectomy. There are more surgical ryann in the [id number] pelvis from previous intervention. Correlate with clinical exam. Fleischner guidelines were followed.
== END 2023-06-01 15:32 | disposition home or self-care (01) ==
LOC: HO.CT 15:31
PROVIDERS: PCP Student in an Organized Health Care Education/Training Program; Visit Provider Student in an Organized Health Care Education/Training Program
DX: R10.2 Pelvic and perineal pain (principal); N20.0 Calculus of kidney; R31.9 Hematuria, unspecified
CPT/HCPCS: 74176

== ENCOUNTER 2023-06-03 13:52 | Emergency (ER) | payer MEDICAID, SELFPAY ==
--- NOTE | ~2023-06-03 | US_ITS ---
EXAMINATION: US RETROPERITONEAL LIMITED (RENAL ONLY) CLINICAL INFORMATION: Bilateral kidney pain with blood on urinalysis.. COMPARISON: CT abdomen pelvis dated 06/01/2023. TECHNIQUE: Renal ultrasound was performed. FINDINGS: RIGHT KIDNEY: 8.5 x 3.5 x 3.9 cm (SAG x AP x TRV). The kidney is normal in size, contour, and echogenicity. Renal cortical thickness is normal. No calculi or focal parenchymal lesions. No hydronephrosis. There is a lower pole cyst measuring 1.5 x 1.6 x 1.3 cm. LEFT KIDNEY: 10.5 x 5.1 x 5.1 cm (SAG x AP x TRV). The kidney is normal in size, contour, and echogenicity. Renal cortical thickness is normal. No calculi or focal parenchymal lesions. No hydronephrosis. There is an upper pole cyst measuring 0.6 x 0.3 x 0.5 cm. US/US renal BI IMPRESSION: There are bilateral simple renal cysts as described. No renal calculus. No hydronephrosis.
--- NOTE | ~2023-06-03 | CT_ITS ---
EXAMINATION: CT ABDOMEN AND PELVIS WITHOUT CONTRAST CLINICAL INFORMATION: Patient with chronic hematuria and chronic pelvic pain. History of nephrolithiasis COMPARISON: CT abdomen and pelvis 06/01/2023 TECHNIQUE: Multidetector volumetric imaging was performed from the superior aspect of the liver through the pubic symphysis. Sagittal and coronal reformatted images were obtained on the technologist's workstation. This CT examination was performed using dose optimization techniques as appropriate, variously including the following: *Automated exposure control *Adjustment of mA and/or kV according to patient size (this includes techniques or standardized protocols for targeted exams where dose is matched to indication/reason for exam; i.e. extremities or head) *Use of iterative reconstruction technique DLP: 412 mGy-cm FINDINGS: LUNG BASES: The visualized lung bases are unremarkable. LIVER, GALLBLADDER, AND BILIARY TREE: The liver is normal in size, shape, and attenuation. No focal hepatic lesion or biliary ductal dilatation is present. Punctate calcification in the right lobe of the liver, possibly sequela of prior granulomatous infection. The gallbladder is surgically absent. PANCREAS: Unremarkable. SPLEEN: Unremarkable. ADRENAL GLANDS: Unremarkable. KIDNEYS AND URETERS: The kidneys are normal in size. Punctate bilateral renal stones the largest of which measures 2 mm in the right kidney. Ureters appear normal bilaterally. BLADDER: Unremarkable. GASTROINTESTINAL TRACT: The small and large bowel are unremarkable. The appendix is unremarkable. ABDOMINAL WALL: Surgical clips in the lower abdomen LYMPH NODES: Normal. VASCULAR: Unremarkable. PELVIC VISCERA: Unremarkable. OSSEOUS STRUCTURES: Diffuse osteopenia. Mild degenerative changes of the lumbar spine CT/CT abdomen pelvis wo IV con IMPRESSION: Punctate nonobstructing renal stones measuring up to 2 mm in the right kidney. Fleischner guidelines were followed.
[2023-06-03 14:08] VITALS: BP 129/82; PULSE 85; RESP 20; TEMP 36.7; O2SAT 98; BMI 22.8
[2023-06-03 14:25] LABS: Appearance Urine Clear; Color Urine Yellow; Glucose Urine UA Negative (Negative); Leukocyte Esterase Urine Negative (Negative); Nitrite Urine Negative (Negative); PH 7.5 (5.0-9.0); Specific Gravity - Urine 1.015 (1.005-1.025); UMIC TRIGGER UACC YES; Urine Blood Small (1+) (Negative); Urine Ketones Negative (Negative); Urine Protein Negative (Neg-Trace)
[2023-06-03 14:30] LABS: Bacteria Urine None Seen (None Seen); Hyaline Casts Urine 0-2 /LPF (0-2); Squamous Epithelial Cell Urine 0-2 /HPF (0-2); WBC Urine 0-5 /HPF (0-5)
--- NOTE | 2023-06-03 14:42 | ED.GENADULT ---
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 Admits that two family members were ill with similar symptoms last week. She has been taking Tylenol without relief. Denies recent travel or long car rides. Denies chills, sore throat, sputum production, abdominal pain, N/V, diarrhea, constipation. Additionally she endorses kidney pain , frequent urination and dark/foul smelling urine. Endorses history of renal stones in which she has undergone 5 lithotripsies in [place]. She is not currently on medication for this. Denies dysuria or hematuria. bracer utilized during visit to communicate with patient. Related Data Previous Rx's Medication Instructions Recorded omeprazole 20 mg tablet,delayed 20 mg PO DAILY GERD #30 tabs 02/13/22 release acetaminophen 500 mg tablet 1,000 mg (2 x 500 mg) PO Q6H PRN 01/13/23 (Tylenol Extra Strength) fever or pain #20 tabs cyclobenzaprine 10 mg tablet 10 mg PO TID PRN muscle pain or 01/13/23 spasm #20 tabs oxycodone 5 mg tablet 5 mg PO Q6H PRN pain #14 tabs 01/13/23 hydrocodone 5 mg-acetaminophen 325 1 tab PO Q6H PRN pain #10 tabs 03/28/23 mg tablet ondansetron 4 mg disintegrating 4 mg PO Q8H PRN nausea and 03/28/23 tablet vomiting #20 tabs tamsulosin 0.4 mg capsule (Flomax) 0.4 mg PO BEDTIME #14 caps 06/03/23 Allergies Allergy/AdvReac Type Severity Reaction Status Date / Time ceftriaxone [From Rocephin] Allergy Rash Verified 06/03/23 14:06 seafood Allergy Rash Verified 06/03/23 14:06 Review of Systems Review of Systems: Constitutional: +fever, No chills, fatigue, night sweats, weight changes ENT/Mouth: No ear pain, hearing loss, nasal congestion, sinus pain, rhinorrhea, sore throat Eyes: No eye pain, swelling, redness, vision changes, discharge Cardio: No chest pain, palpitations, SANCHEZ, orthopnea, peripheral edema Pulm: No SOB, +cough, No sputum, wheezing, dyspnea, hemoptysis GI: No nausea, vomiting, hematemesis, abdominal pain, diarrhea, constipation, hematochezia, melena : No irregular bleeding, dysuria, +frequency, No urgency, hesitancy, hematuria, +flank pain, No urinary flow changes, urinary incontinence or retention MSK: No back pain, neck pain, joint pain, myalgias Skin: No lesions, rashes Neuro: No weakness, numbness, paresthesias, LOC, dizziness, headache Psych: No anxiety/panic, depression, SI/HI, AH/VH All other systems reviewed and are negative. [facility] Past Medical History Attestation statement: The following information was validated with the patient. Source: old records reviewed and nursing notes reviewed Medical History Headache Social History Social History Patient Tobacco Use Status: Never used Tobacco Physical Exam ED Vital Signs: Vital Signs - 24 hr 06/03/23 14:08 06/03/23 15:57 Temperature 98.0 F 98 F Pulse Rate 85 62 Respiratory Rate 20 16 Blood Pressure 129/82 139/65 Pulse Oximetry 98 100 Oxygen Delivery Method Room Air Room Air BMI result Body Mass Index 22.8 Vital signs stable, afebrile. Const General: cooperative, healthy appearing, comfortable and no acute distress Orientation/consciousness: patient oriented x3 Limitations: no limitations HENMT Other: posterior oropharynx without erythema or edema, no tonsillar exudates, uvula midline, controlling secretions, speaking in complete sentences Head: Yes normal to inspection, Yes normocephalic and Yes atraumatic Ears: hearing grossly normal bilaterally, external ears normal, TM's normal bilaterally, TM normal on the left, EAC's normal, mastoids normal and no periauricular adenopathy Eyes General: appearance normal, both eyes and all related structures Conjunctivae: conjunctivae normal Sclerae: sclerae normal Pupils: Equal, round and reactive pupils present Neck Neck: Yes normal visual inspection and Yes no lymphadenopathy Resp Effort & Inspection: normal respiratory effort Auscultation: clear to auscultation bilaterally Cardio Rate: regular rate Rhythm: regular rhythm GI Other: abdomen soft, nondistended, nontender, no rebound or guarding. normoactive bs x4. General: Yes no CVA tenderness Back/Spine/Pelvis Other: No midline spinous tenderness or step off deformity. No paraspinal muscle tenderness. Back: no CVA tenderness Skin General skin exam: no rashes or lesions noted Neuro General: patient oriented x3 and gait normal Cranial nerves: Yes Equal, round and reactive pupils present Extrem General: Yes normal to inspection and Yes capillary refill normal Course Course Course Narrative: 1630-- CBC without leukocytosis or anemia. H&H stable. No left shift. Chemistry without acute electrolyte abnormality requiring intervention. Normal renal function. Normal liver function. Urine does not demonstrate infection or . It does show a small amount of blood and RBCs which may indicate renal stone passage. She tested negative for influenza, COVID, RSV. Ultrasound of bilateral kidneys shows a simple renal cyst however there are no calculi or hydronephrosis noted. Low suspicion for obstructive uropathy. Results discussed with patient. Tylenol ordered for pain. > will obtain CT abdomen/pelvis to assess for ureteral or UVJ stone. 1800-- CT abdomen showing punctate nonobstructing renal stones in each kidney, the largest measuring up to 2 mm within the right kidney. There is no evidence of ureteral stone or obstruction. > discussed these results with patient. will send flomax to pharmacy. advised to take at night before bed. advised to follow up with her urologist as planned. > she also likely has a viral upper respiratory infection. Vital signs are stable here and she has not febrile. She received IVFs in ED. I offered to send home Tessalon Perles and Cepacol throat lozenges however patient declines. Advised her to take Tylenol and ibuprofen as needed for fevers or body aches. Patient has remained stable throughout ED visit today. Discussed worrisome signs and symptoms and when to return to the ED. All questions answered at this time. Patient is agreeable with disposition and stable for discharge. Medications Administered Discontinued Medications Generic Name Dose Route Start Last Admin Trade Name Freq PRN Reason Stop Dose Admin Acetaminophen 975 mg 06/03/23 16:29 06/03/23 17:22 Acetaminophen 325 Mg Tablet PO 06/03/23 16:30 975 mg ONCE ONE Administration Sodium Chloride 1,000 mls @ 999 mls/hr 06/03/23 15:15 06/03/23 17:20 Ns IV 06/03/23 16:15 Infused .Q1H1M EDDIE Infusion Medical Decision Making Medical Decision Making [facility] Narrative: 63 year old female with pmhx significant for neprholithiasis presents to the ED today for evaluation of subjective fevers, body aches, and cough x5 days. Vital signs stable, afebrile. Patient is nontoxic-appearing and in no acute distress. B/l EACs and TMs wnl. Posterior oropharynx wnl. Abdomen soft, ND/NT, no rebound tenderness or guarding. No CVAT bilateral. No rashes. Differential includes viral syndrome, bronchitis, urinary tract infection, renal colic, renal stones, obstructive uropathy Plan for labs, IVF, renal ultrasound, and pain control Differential Diagnosis Differential Diagnoses: The differential diagnosis associated with the presentation includes As above. Admission/Observation Not indicated. Lab Data [facility] Lab Attestation statement: I reviewed the patient's lab results. As above. 06/03/23 14:59 06/03/23 14:59 Labs: Lab Results 06/03/23 06/03/23 06/03/23 Range/Units 14:19 14:59 16:54 WBC 9.3 (4.8-10.8) X10*3/uL RBC 4.70 (4.20-5.50) X10*6/uL Hgb 14.4 (12.0-16.0) g/dl Hct 42.2 (37.0-47.0) % MCV 89.8 (80.0-98.0) fL MCH 30.6 (27.0-33.0) pg MCHC 34.1 (31.0-35.0) g/dl RDW 12.3 (11.0-16.0) % Plt Count 314 (160-400) X10*3/uL MPV 11.2 (9.4-12.3) fL Immature Gran % (Auto) 0.3 (0.0-0.4) % Neut % (Auto) 57.3 (45-73) % Lymph % (Auto) 33.1 (20-40) % [place] % (Auto) 6.9 (2-11) % Eos % (Auto) 1.4 (0-4) % Baso % (Auto) 1.0 (0-2) % Lymph # (Auto) 3.1 (1.2-4.9) X10*3/uL [place] # (Auto) 0.6 (0.1-1.2) X10*3/uL Eos # (Auto) 0.1 (0.0-0.4) X10*3/uL Baso # (Auto) 0.1 (0.0-0.2) X10*3/uL Abs Immat Gran (auto) 0.03 (0.00-0.03) X10*3/uL Absolute Neuts (auto) 5.3 (2.0-8.3) x10*3/uL Absolute Nucleated RBC 0.000 (0.0-0.012) X10*3/uL Nucleated RBC % (auto) 0.0 (0.0-0.2) /100WBC Sodium 139 (135-145) mmol/L Potassium 4.5 (3.3-5.1) mmol/L Chloride 107 (96-108) mmol/L Carbon Dioxide 25 (22-29) mmol/L Anion Gap 12 (12-20) BUN 18 H (9-16) mg/dL Creatinine 0.94 (0.5-1.4) mg/dL Estim Creat Clear Calc 50.7 Estimated GFR > 60 Random Glucose 92 (60-115) mg/dL Calcium 9.9 (8.4-10.2) mg/dL Total Bilirubin 0.3 (0.0-1.0) mg/dL AST 19 (5-31) U/L ALT 22 (0-31) U/L Alkaline Phosphatase 104 (39-117) U/L Total Protein 8.0 (6.5-8.0) g/dL Albumin 4.3 (3.5-5.0) g/dL Urine Color Yellow Urine Appearance Clear Urine pH 7.5 (5.0-9.0) Ur Specific [place] 1.015 (1.005-1.025) Urine Protein Negative (Neg-Trace) mg/dL Urine Glucose (UA) Negative (Negative) mg/dL Urine Ketones Negative (Negative) mg/dL Urine Blood Small (1+) H (Negative) Urine Nitrite Negative (Negative) Ur Leukocyte Esterase Negative (Negative) Urine RBC 6-10 H (0-2) /HPF Urine WBC 0-5 (0-5) /HPF Ur Squamous Epith Cells 0-2 (0-2) /HPF Urine Bacteria None Seen (None Seen) Hyaline Casts 0-2 (0-2) /LPF Urine Test NEGATIVE (NEGATIVE) Influenza Type A (PCR) NEGATIVE (Negative) Influenza Type B (PCR) NEGATIVE (Negative) RSV RNA Qual (PCR) NEGATIVE (Negative) SARS-CoV-2 RNA (RT-PCR) NEGATIVE (Negative) Independent Interpretation I performed an independent interpretation of an: Ultrasound and CT Scan Interpretation: I personally reviewed ultrasound and agree with radiologist's interpretation. I personally reviewed CT scan and agree with radiologist's interpretation. Radiology Impression Discussion of test interpretation with radiology: I have reviewed the radiologist's reading. Radiologist Impression: US/US renal BI IMPRESSION: There are bilateral simple renal cysts as described. No renal calculus. No hydronephrosis. CT abdomen pelvis wo IV con IMPRESSION: Punctate nonobstructing renal stones measuring up to 2 mm in the right kidney. Fleischner guidelines were followed. Prescription Management I considered prescription management with: Pain Medication Social Determinants Patient?s care significantly limited by Social Determinants of Health including: Other Social Determinant of Health Discharge Plan Discharge Clinical Impression: Renal calculus, Upper respiratory infection Patient Disposition: Home, Self-Care Instructions: Kidney Stones (ED), Upper Respiratory Infection (ED), Viral Syndrome (ED) Additional Instructions: Your labs today are reassuring. Your urine showed blood however no infection. This may be indicative of passing a kidney stone. The ultrasound of both of your kidneys was normal. The CT scan of your abdomen/pelvis shows kidney stones in both of your kidneys with the largest measuring 2 mm within your right kidney. This stone is nonobstucting. Flomax is a medication that has been sent to your pharmacy. Take this at night as discussed as it can affect your blood pressure. You may take Tylenol and Ibuprofen as needed for pain. Please follow up with your urologist. You tested negative for flu, covid, rsv. You likely have a viral infection. You may take tylenol or ibuprofen for pain/ fevers. Please follow up with your PCP as needed. Return for new or worsening symptoms. In the case of emergency call 911. Priti an?lisis de hoy son tranquilizadores. Winter orina mostr? sarita, chacho no hubo infecci?n. [place] puede ser indicativo de la expulsi?n de un c?lculo renal. La ecograf?a de ambos ri?ones fue normal. La tomograf?a computarizada de winter abdomen/pelvis muestra c?lculos renales en ambos ri?ones y el m?s sandor mide 2 mm dentro del ri??n derecho. Esta oscar no obstruye. Flomax es un medicamento que jacobo sido enviado a winter farmacia. Maynard esto por la noche aki se mencion?, ya que puede afectar winter presi?n arterial. Puede loren Tylenol e ibuprofeno seg?n sea necesario para el dolor. Por favor preston un seguimiento con winter ur?logo. Rajeev negativo en gripe, covid, rsv. Probablemente tengas damon infecci?n viral. Puede loren tylenol o ibuprofeno para el dolor o la fiebre. [place] un seguimiento con winter PCP seg?n sea necesario. Regrese si los s?ntomas son nuevos o empeoran. En christine de emergencia llame al 911. Prescriptions: New tamsulosin [Flomax] 0.4 mg capsule 0.4 mg PO BEDTIME Qty: 14 0RF No Action omeprazole 20 mg tablet,delayed release (DR/EC) 20 mg PO DAILY Qty: 30 0RF hydrocodone-acetaminophen 5-325 mg tablet 1 tab PO Q6H PRN (Reason: pain) Qty: 10 0RF Rx Instructions: partial fill okay; Partial Fill upon patient request. ondansetron 4 mg tablet,disintegrating 4 mg PO Q8H PRN (Reason: nausea and vomiting) Qty: 20 0RF cyclobenzaprine 10 mg tablet 10 mg PO TID PRN (Reason: muscle pain or spasm) Qty: 20 0RF oxycodone 5 mg tablet 5 mg PO Q6H PRN (Reason: pain) Qty: 14 0RF Rx Instructions: Patient may request partial refill; Partial Fill upon patient request. acetaminophen [Tylenol Extra Strength] 500 mg tablet 1,000 mg PO Q6H PRN (Reason: fever or pain) Qty: 20 0RF Interventions: ED Discharge Assessment Last Done: 06/03/23 18:35 Discharge Date/Time: 06/03/23 18:35 Print Language: Citizen [place]
[2023-06-03 15:03] LABS: MANUAL DIFF FLAG NO
[2023-06-03 15:04] LABS: Basophils Absolute Auto 0.1 X10*3/uL (0.0-0.2); Eosinophils Absolute Auto 0.1 X10*3/uL (0.0-0.4); Eosinophils Percent Auto 1.4 % (0-4); Hematocrit 42.2 % (37.0-47.0); Hemoglobin 14.4 g/dl (12.0-16.0); Imm Gran Abs Auto 0.03 X10*3/uL (0.00-0.03); Imm Gran Pct Auto 0.3 % (0.0-0.4); Lymphocytes Absolute Auto 3.1 X10*3/uL (1.2-4.9); Lymphocytes Percent Auto 33.1 % (20-40); Mean Corpuscular HGB Conc 34.1 g/dl (31.0-35.0); Mean Corpuscular Hemoglobin 30.6 pg (27.0-33.0); Mean Corpuscular Volume 89.8 fL (80.0-98.0); Mean Platelet Volume 11.2 fL (9.4-12.3); Monocytes Absolute Auto 0.6 X10*3/uL (0.1-1.2); Monocytes Percent Auto 6.9 % (2-11); Neutrophils Absolute Auto 5.3 x10*3/uL (2.0-8.3); Neutrophils Percent Auto 57.3 % (45-73); Platelet Count 314 X10*3/uL (160-400); Red Cell Distribution Width 12.3 % (11.0-16.0); White Blood Count 9.3 X10*3/uL (4.8-10.8)
[2023-06-03 15:05] LABS: Influenza A PCR NEGATIVE (Negative); Influenza B PCR NEGATIVE (Negative); Resp Syncy Virus RNA Qual PCR NEGATIVE (Negative); SARS COV2 PCR INHOUSE NEGATIVE (Negative)
[2023-06-03 15:18] LABS: Alanine Aminotransferase 22 U/L (0-31); Albumin Level 4.3 g/dL (3.5-5.0); Alkaline Phosphatase 104 U/L (39-117); Anion Gap 12 (12-20); Aspartate Amino Transferase 19 U/L (5-31); Bilirubin Total 0.3 mg/dL (0.0-1.0); Blood Urea Nitrogen 18 mg/dL (9-16); Calcium 9.9 mg/dL (8.4-10.2); Carbon Dioxide 25 mmol/L (22-29); Chloride 107 mmol/L (96-108); Creatinine Clr Calc Pharmacy 50.7; Estimated Glomerular Filt Rate > 60; Glucose Random 92 mg/dL (60-115); Potassium 4.5 mmol/L (3.3-5.1); Sodium 139 mmol/L (135-145)
[2023-06-03] MEDS: 0.9 % Sodium Chloride 1,000 ML 999 ML IV (15:45)
[2023-06-03 15:57] VITALS: BP 139/65; PULSE 62; RESP 16; TEMP 36.6; O2SAT 100
[2023-06-03 17:04] LABS: UPreg QC Valid YES; Urine Pregnancy NEGATIVE (NEGATIVE)
[2023-06-03] MEDS: Acetaminophen 325 MG TABLET 975 MG PO (17:22)
== END 2023-06-03 18:35 | disposition home or self-care (01) ==
PROVIDERS: Physician Assistant Medical; Emergency Provider Emergency Medicine; PCP Student in an Organized Health Care Education/Training Program
DX: N20.0 Calculus of kidney (principal); J06.9 Acute upper respiratory infection, unspecified; R50.9 Fever, unspecified; M79.10 Myalgia, unspecified site; R11.2 Nausea with vomiting, unspecified; R05.9 Cough, unspecified; Z20.822 Contact with and (suspected) exposure to COVID-19; Z11.52 Encounter for screening for COVID-19; Z79.899 Other long term (current) drug therapy
CPT/HCPCS: 0241U; 36415; 74176; 76775; 80053; 81001; 81025; 85025; 96360; 96361; 99284

== ENCOUNTER 2023-06-06 13:00 | Outpatient (RCR) | payer MEDICAID, SELFPAY | END 2023-06-06 16:25 | disposition home or self-care (01) | LOC: HO.PT 13:00 | PROVIDERS: PCP Student in an Organized Health Care Education/Training Program; Visit Provider Emergency Medicine | DX: M54.59 Other low back pain (principal) | CPT/HCPCS: 97014; 97110; 97140; 97161; 97530 ==

== ENCOUNTER 2023-06-17 15:04 | Emergency (ER) | payer MEDICAID, SELFPAY ==
--- NOTE | ~2023-06-17 | CT_ITS ---
EXAMINATION: CT ABDOMEN AND PELVIS WITHOUT CONTRAST CLINICAL INFORMATION: Flank pain COMPARISON: 06/03/2023 TECHNIQUE: Multidetector volumetric imaging was performed from the superior aspect of the liver through the pubic symphysis. Sagittal and coronal reformatted images were obtained on the technologist's workstation. This CT examination was performed using dose optimization techniques as appropriate, variously including the following: *Automated exposure control *Adjustment of mA and/or kV according to patient size (this includes techniques or standardized protocols for targeted exams where dose is matched to indication/reason for exam; i.e. extremities or head) *Use of iterative reconstruction technique DLP: 363 mGy-cm FINDINGS: LUNG BASES: The visualized lung bases are unremarkable. LIVER, GALLBLADDER, AND BILIARY TREE: Granulomata noted again. The liver is otherwise normal in size, shape, and attenuation. No focal hepatic lesion or biliary ductal dilatation is present. Clips consistent cholecystectomy. PANCREAS: Unremarkable. SPLEEN: Unremarkable. ADRENAL GLANDS: Unremarkable. KIDNEYS AND URETERS: Punctate 2 mm nonobstructing stone within the right kidney centrally similar. No hydronephrosis. No left-sided abnormality. No perinephric fluid. Cyst again noted on the right. BLADDER: Unremarkable. GASTROINTESTINAL TRACT: Staple is noted within the anterior pelvis consistent previous surgery. No obstruction. No inflammatory changes. ABDOMINAL WALL: No significant hernia is appreciated. LYMPH NODES: Normal. VASCULAR: Unremarkable. PELVIC VISCERA: Unremarkable. OSSEOUS STRUCTURES: Unremarkable. CT/CT abdomen pelvis wo IV con IMPRESSION: Nonobstructing right-sided renal stone. No hydronephrosis. Fleischner guidelines were followed.
[2023-06-17 16:00] VITALS: BP 132/47; PULSE 86; RESP 19; TEMP 36.6; O2SAT 98; BMI 22.7
--- NOTE | 2023-06-17 16:28 | ED.FEMALEGU ---
HPI - Female Genitourinary General Chief complaint: Urogenital-Female Stated complaint: Kidney Stones Related Data Previous Rx's Medication Instructions Recorded omeprazole 20 mg tablet,delayed 20 mg PO DAILY GERD #30 tabs 02/13/22 release acetaminophen 500 mg tablet 1,000 mg (2 x 500 mg) PO Q6H PRN 01/13/23 (Tylenol Extra Strength) fever or pain #20 tabs cyclobenzaprine 10 mg tablet 10 mg PO TID PRN muscle pain or 01/13/23 spasm #20 tabs oxycodone 5 mg tablet 5 mg PO Q6H PRN pain #14 tabs 01/13/23 hydrocodone 5 mg-acetaminophen 325 1 tab PO Q6H PRN pain #10 tabs 03/28/23 mg tablet ondansetron 4 mg disintegrating 4 mg PO Q8H PRN nausea and 03/28/23 tablet vomiting #20 tabs tamsulosin 0.4 mg capsule (Flomax) 0.4 mg PO BEDTIME #14 caps 06/03/23 Allergies Allergy/AdvReac Type Severity Reaction Status Date / Time ceftriaxone [From Rocephin] Allergy Rash Verified 06/17/23 15:59 seafood Allergy Rash Verified 06/17/23 15:59 [facility] Past Medical History Medical History Headache Social History Social History Patient Tobacco Use Status: Never used Tobacco Advance Directives: No Advance Directives Information Provided: No Physical Exam Vital Signs: Vital Signs: Last Vital Signs Temp 98 F 06/17/23 16:00 Pulse 86 06/17/23 16:00 Resp 19 06/17/23 16:00 BP 132/47 L 06/17/23 16:00 Pulse Ox 98 06/17/23 16:00 O2 Del Method Room Air 06/17/23 16:00 BMI result Body Mass Index 22.7 Course Course Course Narrative: This is a rapid medical exam. Defer additional HPI, ROS, PE to primary provider. 63-year-old female with history of kidney stones here with complaints of right flank pain/abdominal pain, hematuria less than 24 hrs. Will obtain labs, UA, CT VSS Medical Decision Making Lab Data 06/17/23 16:44 06/17/23 16:44 Labs: Lab Results 06/17/23 Range/Units 16:44 WBC 8.6 (4.8-10.8) X10*3/uL RBC 4.67 (4.20-5.50) X10*6/uL Hgb 14.1 (12.0-16.0) g/dl Hct 41.1 (37.0-47.0) % MCV 88.0 (80.0-98.0) fL MCH 30.2 (27.0-33.0) pg MCHC 34.3 (31.0-35.0) g/dl RDW 12.9 (11.0-16.0) % Plt Count 314 (160-400) X10*3/uL MPV 11.6 (9.4-12.3) fL Immature Gran % (Auto) 0.4 (0.0-0.4) % Neut % (Auto) 66.9 (45-73) % Lymph % (Auto) 26.0 (20-40) % [place] % (Auto) 5.4 (2-11) % Eos % (Auto) 0.5 (0-4) % Baso % (Auto) 0.8 (0-2) % Lymph # (Auto) 2.2 (1.2-4.9) X10*3/uL [place] # (Auto) 0.5 (0.1-1.2) X10*3/uL Eos # (Auto) 0.0 (0.0-0.4) X10*3/uL Baso # (Auto) 0.1 (0.0-0.2) X10*3/uL Abs Immat Gran (auto) 0.03 (0.00-0.03) X10*3/uL Absolute Neuts (auto) 5.7 (2.0-8.3) x10*3/uL Absolute Nucleated RBC 0.000 (0.0-0.012) X10*3/uL Nucleated RBC % (auto) 0.0 (0.0-0.2) /100WBC Sodium 142 (135-145) mmol/L Potassium 3.9 (3.3-5.1) mmol/L Chloride 107 (96-108) mmol/L Carbon Dioxide 25 (22-29) mmol/L Anion Gap 14 (12-20) BUN 20 H (9-16) mg/dL Creatinine 0.88 (0.5-1.4) mg/dL Estim Creat Clear Calc 54.1 Estimated GFR > 60 Random Glucose 96 (60-115) mg/dL Calcium 9.7 (8.4-10.2) mg/dL Total Bilirubin 0.3 (0.0-1.0) mg/dL Direct Bilirubin 0.1 (0.0-0.5) mg/dL AST 19 (5-31) U/L ALT 16 (0-31) U/L Alkaline Phosphatase 97 (39-117) U/L Total Protein 7.5 (6.5-8.0) g/dL Albumin 4.2 (3.5-5.0) g/dL Urine Color Yellow Urine Appearance Clear Urine pH 8.0 (5.0-9.0) Ur Specific [place] 1.015 (1.005-1.025) Urine Protein Negative (Neg-Trace) mg/dL Urine Glucose (UA) Negative (Negative) mg/dL Urine Ketones Negative (Negative) mg/dL Urine Blood Large (3+) H (Negative) Urine Nitrite Negative (Negative) Ur Leukocyte Esterase Negative (Negative) Urine RBC >20 H (0-2) /HPF Urine WBC 0-5 (0-5) /HPF Ur Squamous Epith Cells 0-2 (0-2) /HPF Urine Bacteria None Seen (None Seen) Hyaline Casts 0-2 (0-2) /LPF Discharge Plan Discharge Clinical Impression: Acute flank pain Patient Disposition: Left W/O Completing Treatment Prescriptions: No Action omeprazole 20 mg tablet,delayed release (DR/EC) 20 mg PO DAILY Qty: 30 0RF hydrocodone-acetaminophen 5-325 mg tablet 1 tab PO Q6H PRN (Reason: pain) Qty: 10 0RF Rx Instructions: partial fill okay; Partial Fill upon patient request. ondansetron 4 mg tablet,disintegrating 4 mg PO Q8H PRN (Reason: nausea and vomiting) Qty: 20 0RF cyclobenzaprine 10 mg tablet 10 mg PO TID PRN (Reason: muscle pain or spasm) Qty: 20 0RF oxycodone 5 mg tablet 5 mg PO Q6H PRN (Reason: pain) Qty: 14 0RF Rx Instructions: Patient may request partial refill; Partial Fill upon patient request. acetaminophen [Tylenol Extra Strength] 500 mg tablet 1,000 mg PO Q6H PRN (Reason: fever or pain) Qty: 20 0RF tamsulosin [Flomax] 0.4 mg capsule 0.4 mg PO BEDTIME Qty: 14 0RF Discharge Date/Time: 06/17/23 19:25
[2023-06-17 17:03] LABS: MANUAL DIFF FLAG NO
[2023-06-17 17:05] LABS: Basophils Absolute Auto 0.1 X10*3/uL (0.0-0.2); Basophils Percent Auto 0.8 % (0-2); Eosinophils Percent Auto 0.5 % (0-4); Hematocrit 41.1 % (37.0-47.0); Hemoglobin 14.1 g/dl (12.0-16.0); Imm Gran Abs Auto 0.03 X10*3/uL (0.00-0.03); Imm Gran Pct Auto 0.4 % (0.0-0.4); Lymphocytes Absolute Auto 2.2 X10*3/uL (1.2-4.9); Mean Corpuscular HGB Conc 34.3 g/dl (31.0-35.0); Mean Corpuscular Hemoglobin 30.2 pg (27.0-33.0); Mean Platelet Volume 11.6 fL (9.4-12.3); Monocytes Absolute Auto 0.5 X10*3/uL (0.1-1.2); Monocytes Percent Auto 5.4 % (2-11); Neutrophils Absolute Auto 5.7 x10*3/uL (2.0-8.3); Neutrophils Percent Auto 66.9 % (45-73); Platelet Count 314 X10*3/uL (160-400); Red Blood Count 4.67 X10*6/uL (4.20-5.50); Red Cell Distribution Width 12.9 % (11.0-16.0); White Blood Count 8.6 X10*3/uL (4.8-10.8)
[2023-06-17 17:06] LABS: Appearance Urine Clear; Color Urine Yellow; Glucose Urine UA Negative (Negative); Leukocyte Esterase Urine Negative (Negative); Nitrite Urine Negative (Negative); Specific Gravity - Urine 1.015 (1.005-1.025); UMIC TRIGGER UACC YES; Urine Blood Large (3+) (Negative); Urine Ketones Negative (Negative); Urine Protein Negative (Neg-Trace)
[2023-06-17 17:11] LABS: Bacteria Urine None Seen (None Seen); Hyaline Casts Urine 0-2 /LPF (0-2); RBC Urine >20 /HPF (0-2); Squamous Epithelial Cell Urine 0-2 /HPF (0-2); WBC Urine 0-5 /HPF (0-5)
[2023-06-17 17:19] LABS: Alanine Aminotransferase 16 U/L (0-31); Albumin Level 4.2 g/dL (3.5-5.0); Alkaline Phosphatase 97 U/L (39-117); Anion Gap 14 (12-20); Aspartate Amino Transferase 19 U/L (5-31); Bilirubin Direct 0.1 mg/dL (0.0-0.5); Bilirubin Total 0.3 mg/dL (0.0-1.0); Blood Urea Nitrogen 20 mg/dL (9-16); Calcium 9.7 mg/dL (8.4-10.2); Carbon Dioxide 25 mmol/L (22-29); Chloride 107 mmol/L (96-108); Creatinine Clr Calc Pharmacy 54.1; Estimated Glomerular Filt Rate > 60; Glucose Random 96 mg/dL (60-115); Potassium 3.9 mmol/L (3.3-5.1); Sodium 142 mmol/L (135-145); Total Protein 7.5 g/dL (6.5-8.0)
== END 2023-06-17 19:25 | disposition left against medical advice (07) ==
PROVIDERS: Nurse Practitioner Family; Emergency Provider Emergency Medicine; PCP Student in an Organized Health Care Education/Training Program
DX: R10.9 Unspecified abdominal pain (principal); R31.9 Hematuria, unspecified; Z79.899 Other long term (current) drug therapy; Z87.442 Personal history of urinary calculi
CPT/HCPCS: 36415; 74176; 80048; 80076; 81001; 85025; 99282; 99284

== ENCOUNTER 2023-07-06 13:55 | Outpatient (AMB) | payer MEDICAID, SELFPAY ==
--- NOTE | 2023-07-06 14:16 | MHC.OFFVIS ---
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 Accompanied by: Self / Same As Patient Allergies ceftriaxone [From Rocephin] Allergy (Verified 07/06/23 14:38) Rash seafood Allergy (Verified 07/06/23 14:38) Rash Medication List - Last Reconciled 07/06/23 by Lisa Hanson MD acetaminophen (Tylenol Extra Strength) 1,000 mg (2 x 500 mg) PO Q6H PRN alendronate (Fosamax) PO atorvastatin (Lipitor) PO cholecalciferol (vitamin D3) PO cyclobenzaprine 10 mg PO TID PRN omeprazole 20 mg PO DAILY ondansetron 8 mg PO BID-TID tamsulosin (Flomax) 0.4 mg PO BEDTIME HPI HPI Comments History of Present Illness Details pain right side went to ED twice punctate stones unable to take NSAIDS refilled flomax 24 hr urine, need Tonya to call [facility] Medical History Postmenopausal Chronic back pain Depression with anxiety Hyperlipidemia, unspecified Moderate episode of recurrent major depressive disorder Bipolar 1 disorder Mass of skin of back Other microscopic hematuria Gastro-esophageal reflux disease without esophagitis Headache Social History Patient Tobacco Use Status: Never used Tobacco Review of Systems Const All systems reviewed & are unremarkable except as noted in HPI and below Reports no additional complaints Eyes Reports no additional complaints ENT Reports no additional complaints Card Reports no additional complaints Resp Reports no additional complaints GI Reports no additional complaints Reports as per HPI Musc Reports no additional complaints Skin/Breast Reports system reviewed and no additional complaints, except as documented Neuro Reports no additional complaints Psych Reports no additional complaints Endo Reports no additional complaints Charlie/Lymph Reports no additional complaints Aller/Immun Reports no additional complaints Physical Exam Const General: cooperative, healthy appearing and no acute distress Orientation/consciousness: patient oriented x3 HEENT Head: Yes normal to inspection, Yes normocephalic and Yes atraumatic Eyes Conjunctivae: conjunctivae normal Neck Neck: Yes normal visual inspection and Yes trachea midline Chest Chest palpation & inspection: normal inspection of the chest Resp Effort & Inspection: normal respiratory effort Cardio Rate: regular rate GI Inspection: Yes normal to inspection Skin General skin exam: no rashes or lesions noted Neuro General: patient oriented x3 Extrem General: No edema Psych Appearance: grossly normal Results AMB Urinalysis, Automated UA Leukoctes 0 Yazan/uL Last Edit by Lisa Canales [facility] on 07/06/23 14:41 UA Nitrite Negative Last Edit by Lisa Canales [facility] on 07/06/23 14:41 UA Urobilinogen 0.2 mg/dL Last Edit by Lisa Canaleslinda Canales [facility] on 07/06/23 14:41 UA Protein 0 mg/dL Last Edit by Lisa Canales [facility] on 07/06/23 14:41 UA pH 6.5 Last Edit by Lisa Canales [facility] on 07/06/23 14:41 UA Blood 80 Enzo/uL Last Edit by iLsa Canales [facility] on 07/06/23 14:41 UA Specific [place] 1.020 Last Edit by Lisa Canales [facility] on 07/06/23 14:41 UA Ketone Negative Last Edit by Lisa Canales [facility] on 07/06/23 14:41 UA Bilirubin 0 mg/dL Last Edit by Lisa Canales [facility] on 07/06/23 14:41 UA Glucose 0 mg/dL Last Edit by Lisa Canales [facility] on 07/06/23 14:41 Results Reviewed Results Reviewed: Laboratory Last Values Urine pH (Auto) 6.5 07/06/23 14:40 Specific [place] (Auto) 1.020 07/06/23 14:40 Urine Protein (Auto) 0 mg/dL 07/06/23 14:40 Glucose (UA)(Auto) 0 mg/dL 07/06/23 14:40 Urine Ketones (Auto) Negative 07/06/23 14:40 Urine Blood (Auto) 80 Enzo/uL 07/06/23 14:40 Urine Nitrite (Auto) Negative 07/06/23 14:40 Urine Bilirubin (Auto) 0 mg/dL 07/06/23 14:40 Urine Urobilinogen (Auto) 0.2 mg/dL 07/06/23 14:40 Leukocyte Esterase (Auto) 0 Yazan/uL 07/06/23 14:40 Date of Service: 06/17/23 EXAMINATION: CT ABDOMEN AND PELVIS WITHOUT CONTRAST CLINICAL INFORMATION: Flank pain COMPARISON: 06/03/2023 TECHNIQUE: Multidetector volumetric imaging was performed from the superior aspect of the liver through the pubic symphysis. Sagittal and coronal reformatted images were obtained on the technologist's workstation. This CT examination was performed using dose optimization techniques as appropriate, variously including the following: *Automated exposure control *Adjustment of mA and/or kV according to patient size (this includes techniques or standardized protocols for targeted exams where dose is matched to indication/reason for exam; i.e. extremities or head) *Use of iterative reconstruction technique DLP: 363 mGy-cm FINDINGS: LUNG BASES: The visualized lung bases are unremarkable. LIVER, GALLBLADDER, AND BILIARY TREE: Granulomata noted again. The liver is otherwise normal in size, shape, and attenuation. No focal hepatic lesion or biliary ductal dilatation is present. Clips consistent cholecystectomy. PANCREAS: Unremarkable. SPLEEN: Unremarkable. ADRENAL GLANDS: Unremarkable. KIDNEYS AND URETERS: Punctate 2 mm nonobstructing stone within the right kidney centrally similar. No hydronephrosis. No left-sided abnormality. No perinephric fluid. Cyst again noted on the right. BLADDER: Unremarkable. GASTROINTESTINAL TRACT: Staple is noted within the anterior pelvis consistent previous surgery. No obstruction. No inflammatory changes. ABDOMINAL WALL: No significant hernia is appreciated. LYMPH NODES: Normal. VASCULAR: Unremarkable. PELVIC VISCERA: Unremarkable. OSSEOUS STRUCTURES: Unremarkable. IMPRESSION: Nonobstructing right-sided renal stone. No hydronephrosis. Assessment & Plan Assessment & Plan (1) Renal calculus: Code(s): N20.0 - Calculus of kidney (2) Hematuria: Code(s): R31.9 - Hematuria, unspecified Plan 24 hr urine, flomax prn, Orders: Orders AMB Urinalysis Automated 07/06/23 R33.9 - Retention of urine, unspecified Medications: New ondansetron 8 mg PO BID-TID 30 tabs 0RF nausea Refilled tamsulosin (Flomax) 0.4 mg PO BEDTIME 30 caps 0RF to help pass stones Patient Instructions: The patient had an opportunity to ask questions regarding treatment plan. All questions were answered. Imaging, Laboratory studies and physical exam results were discussed and reviewed in detail. No major barriers to understanding were identified. The patient expressed understanding and agreement with the above treatment plan. The patient is aware they should contact our office by phone for worsening of their current condition or the appearance of new symptoms. Compliance is encouraged with any medications and followup testing that is ordered. It is a privilege to be allowed the opportunity to participate in the urologic care of your patient. If you have any questions or concerns regarding treatment for the above conditions please do not hesitate to contact me. The office telephone contact is [phone]. This note is constructed in part using voice recognition software. While every effort has been made to ensure accuracy import export agent errors may have been included. Yours sincerely, Lisa Hanson MD Coding Level of Care Code New Pt Level 3 (41397) Diagnoses Renal calculus N20.0 Hematuria R31.9
== END 2023-07-06 15:19 | disposition home or self-care (01) ==
PROVIDERS: PCP Student in an Organized Health Care Education/Training Program; Visit Provider Urology
DX: N20.0 Calculus of kidney (principal); R31.9 Hematuria, unspecified
CPT/HCPCS: 99203

== ENCOUNTER → 2023-07-06 13:55 | Outpatient (BNVA) | payer MEDICAID, SELFPAY | PROVIDERS: PCP Student in an Organized Health Care Education/Training Program; Visit Provider Urology | DX: R31.9 Hematuria, unspecified (principal); N20.0 Calculus of kidney; R33.9 Retention of urine, unspecified | CPT/HCPCS: 81003; 99202 ==

== ENCOUNTER 2023-08-17 13:01 | Outpatient (REF) | payer MEDICAID, SELFPAY ==
--- NOTE | ~2023-08-17 | XR_ITS ---
EXAMINATION: XR SINUSES CLINICAL INFORMATION: Patient with headache, sinus tenderness. Order states nonintractable headache, sinus tenderness chronic. Patient stated she had pain for years in her sinus area. Patient had limited mobility in back and neck, best attempt for submental vertex view per technologist statement. Limited visualization. COMPARISON: None available. TECHNIQUE: 6 views of the paranasal sinuses. Patient had limited mobility in back and neck, best attempt for submental vertex view per technologist statement. Limited visualization. FINDINGS: No gross air-fluid level identified in the maxillary sinuses. Frontal sinuses appear clear. Limited visualization due to overlying bone and soft tissue structures. Ethmoid sinuses appear hazy. XR/XR sinus min 3V IMPRESSION: 1. No gross air-fluid level identified in the maxillary sinuses. Frontal sinuses appear clear. Limited visualization due to overlying bone and soft tissue structures. 2. Ethmoid sinuses appear hazy. 3. CT scan recommended for further evaluation as CT scan is much more sensitive for detection of intracranial/sinus pathology.
== END 2023-08-17 13:02 | disposition home or self-care (01) ==
LOC: HO.HHCX 13:01
PROVIDERS: Visit Provider Student in an Organized Health Care Education/Training Program
DX: R51.9 Headache, unspecified (principal)
CPT/HCPCS: 70220

== ENCOUNTER 2023-08-30 14:35 | Outpatient (AMB) | payer MEDICAID, SELFPAY ==
--- NOTE | 2023-08-30 14:43 | MHC.OFFVIS ---
Vital Signs 08/30/23 14:44 Height 5 ft 3 in Weight 132 lb 4.438 oz BMI 23.4 BP 123/58 L Blood Pressure Location Lt brachial Position Sitting Pulse 89 Intake Visit Reasons: Constipation / Gerd Intake Note: Leandra presents to in office visit today as a new patient for constipation and GERD. CC: Patient c/o GERD and constipation. She states that she takes Omeprazole and and pantoprazole but she still has symptoms. Last EGD and colonoscopy was 2 years ago in [place]. Patient also c/o nausea, vomiting once a week d/t heartburn, abdominal bloating, and cough. She also states that she has a hiatal hernia. 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 She is referred by [facility]. 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 She takes omeparzole and protonix. She has been having dysphagia at the GE jxn and bloating of the upper stomach. The dysphagia is with solid foods, even applesauce and she has a lot of hiccups. She also has CIC and she uses Miralax but this does not work very well as she is only moving her bowels q3 days. But when she takes OTC laxative pills she has cramping and bloating a nd pain. She will have intermittent LLQ pain. She generally has very hard stools and only passes small amts. She had a colonoscopy in 2020 in [place] - she was told everything was ok yet they had some difficulties passing the scope adn she had a CT colonoscopy. She had and EGD also with the colon and she was told she had HH and reflux. She has a hoarse voice r/t gerd. She is on fosamax which is usually contraindicated with severe chronic GERD. Start Linzess 145mcg and titrate. FHX of ovarian, breast and prostate ca but no known CRC or polyps Doorknob itching/painful hemorrhoids;, proctosol cream sent [facility] Medical History Endometriosis Postmenopausal Chronic back pain Depression with anxiety Hyperlipidemia, unspecified Moderate episode of recurrent major depressive disorder Bipolar 1 disorder Mass of skin of back Other microscopic hematuria Gastro-esophageal reflux disease without esophagitis Headache Surgical History History of esophagogastroduodenoscopy (EGD) H/O colonoscopy History of hysterectomy Family History Father Prostate cancer Mother Leukemia Social History Alcohol intake: former Patient Tobacco Use Status: Never used Tobacco Review of Systems Const Denies fatigue, Denies fever(s), Denies night sweats, Denies poor appetite and Denies weight loss ENT Reports Normal hearing present, Denies dental pain, Reports dysphagia, Denies hearing loss, Denies mouth pain, Denies odynophagia, Denies throat swelling, Denies tongue swelling and Reports other (Dentition adequate) Card Reports no additional complaints Resp Reports no additional complaints GI Details: Denies abdominal pain, Denies melena, Reports bloating, Denies hematochezia, Reports constipation, Denies GI cramping, Reports dysphagia, Denies excessive flatus, Denies early satiety, Reports heartburn, Denies diarrhea, Denies nausea, Denies odynophagia, Denies vomiting and Denies hematemesis Skin/Breast Denies pruritus, Denies lesions, Denies rash and Denies jaundice Neuro Reports Normal hearing present and Denies Abnormal speech present Endo Denies fatigue Aller/Immun Denies throat swelling and Denies tongue swelling Physical Exam Vital Signs: Last Vital Signs Pulse 89 08/30/23 14:44 BP 123/58 L 08/30/23 14:44 BMI result Body Mass Index 23.4 Const General: cooperative, no acute distress, well developed and well groomed Nutritional Appearance: average body habitus and well nourished Orientation/consciousness: oriented to person, oriented to place and oriented to time Limitations: language barrier HEENT Head: Yes normocephalic and Yes atraumatic Eyes General: appearance normal, both eyes and all related structures Pupils: Equal, round and reactive pupils present Neck Neck: Yes normal visual inspection and Yes no lymphadenopathy Thyroid: Thyroid normal Resp Effort & Inspection: normal respiratory effort and able to speak in complete sentences Auscultation: clear to auscultation bilaterally Cardio Rate: regular rate Rhythm: regular rhythm Heart sounds: Normal, physiologic split S2 sound present Peripheral pulses: radial pulses present and posterior tibial pulses present GI Inspection: No distended and No Abdominal panniculus present Palpation (GI): Soft to palpation, nontender, no guarding, not rigid and No hepatosplenomegaly present Percussion: Yes normal to percussion Auscultation: normal bowel sounds Rectal Exam - Female: deferred Skin General skin exam: no rashes or lesions noted, turgor normal, skin not dry, no jaundice, No spider nevi and no striae Rashes: no rashes Nails: normal Neuro General: oriented to person, oriented to place and oriented to time Cranial nerves: Yes Equal, round and reactive pupils present and Yes Normal hearing present Speech: No Abnormal speech present Extrem General: Yes normal to inspection, No clubbing, No cyanosis and No edema Psych Appearance: grossly normal and well kempt Mental Status: mental status grossly normal Speech and movement: Normal speech and movement present Affect: normal affect Attitude: cooperative Thought process: Normal thought process present and not confabulating Thought content: Normal thought content present Insight: Limited insight present (Psych) Judgement: Limited judgement present (Psych) Results Reviewed Results Reviewed: Laboratory Tests 06/17/23 16:44 WBC 8.6 Hgb 14.1 Hct 41.1 Plt Count 314 Estimated GFR > 60 Total Bilirubin 0.3 Direct Bilirubin 0.1 AST 19 ALT 16 Alkaline Phosphatase 97 Assessment & Plan Assessment & Plan (1) Chronic idiopathic constipation: Code(s): K59.04 - Chronic idiopathic constipation Category: Medical (2) Gastro-esophageal reflux disease without esophagitis: Code(s): K21.9 - Gastro-esophageal reflux disease without esophagitis Category: Medical (3) Upper abdominal pain: Code(s): R10.10 - Upper abdominal pain, unspecified Category: Medical Plan [employer] [facility] [employer] She says she has chronic reflux and HH pretty much her life. She takes omeprazole and protonix. She has been having dysphagia at the jxn and bloating of the upper stomach. The dysphagia is with solid foods, even applesauce and she has a lot of hiccups. She also has CIC and she uses Miralax but this does not work very well as she is only moving her bowels q3 days. But when she takes OTC laxative pills she has cramping and bloating a nd pain. She will have intermittent LLQ pain. She generally has very hard stools and only passes small amts. She had a colonoscopy in 2020 in [place] - she was told everything was ok yet they had some difficulties passing the scope adn she had a CT colonoscopy. She had and EGD also with the colon and she was told she had HH and reflux. She has a hoarse voice r/t gerd. She is on fosamax which is usually contraindicated with severe chronic GERD. Start Linzess 145mcg and titrate. FHX of ovarian, breast and prostate ca but no known CRC or polyps There are no prior problems with anesthesia or sedation. She denies any cardiac or respiratory problems. There are no infectious disease problems. Doorknob itching/painful hemorrhoids;, proctosol cream sent Orders: Orders H pylori Ag Stool 09/04/23 R10.10 - Upper abdominal pain, unspecified TSH reflex Free T4 08/30/23 K59.04 - Chronic idiopathic constipation EGD with Bowers - GI Use Only 08/30/23 R10.10 - Upper abdominal pain, unspecified [place] barium swallow 08/30/23 R10.10 - Upper abdominal pain, unspecified Medications: New linaclotide (Linzess) Take first thing in the morning with a full glass of water. 145 mcg PO QAM 30 caps 3RF K58.1 - Irritable bowel syndrome with constipation hydrocortisone 2.5% (Proctosol HC) BE SURE TO INCLUDE RECTAL APPICATOR!! 1 appl MO BID 30 grams 6RF hemorrhoids K64.9 - Unspecified hemorrhoids Coding Level of Care Code New Pt Level 3 (79404) Diagnoses Chronic idiopathic constipation K59.04 Gastro-esophageal reflux disease without esophagitis K21.9 Upper abdominal pain R10.10
[2023-08-30 14:44] VITALS: BP 123/58; PULSE 89; BMI 23.4
== END 2023-08-30 15:30 | disposition home or self-care (01) ==
PROVIDERS: PCP Student in an Organized Health Care Education/Training Program; Visit Provider Nurse Practitioner
DX: K59.04 Chronic idiopathic constipation (principal); K21.9 Gastro-esophageal reflux disease without esophagitis; R10.10 Upper abdominal pain, unspecified
CPT/HCPCS: 99203

== ENCOUNTER → 2023-08-30 14:35 | Outpatient (BNVA) | payer MEDICAID, SELFPAY | PROVIDERS: PCP Student in an Organized Health Care Education/Training Program; Visit Provider Nurse Practitioner | DX: K59.04 Chronic idiopathic constipation (principal); K21.9 Gastro-esophageal reflux disease without esophagitis; R10.10 Upper abdominal pain, unspecified | CPT/HCPCS: 99212 ==

== ENCOUNTER 2023-08-30 15:40 | Outpatient (REF) | payer MEDICAID, SELFPAY ==
[2023-08-30 19:39] LABS: Alanine Aminotransferase 23 U/L (0-31); Albumin Level 4.2 g/dL (3.5-5.0); Alkaline Phosphatase 88 U/L (39-117); Anion Gap 13 (12-20); Aspartate Amino Transferase 21 U/L (5-31); Bilirubin Total 0.3 mg/dL (0.0-1.0); Blood Urea Nitrogen 23 mg/dL (9-16); Calcium 9.8 mg/dL (8.4-10.2); Carbon Dioxide 27 mmol/L (22-29); Chloride 107 mmol/L (96-108); Cholesterol 247 mg/dL (<200); Estimated Glomerular Filt Rate > 60; Glucose Random 72 mg/dL (60-115); HDL Cholesterol 64 mg/dL (>40); LDL Cholesterol Calculated 161 mg/dL (<100); Potassium 4.1 mmol/L (3.3-5.1); Sodium 143 mmol/L (135-145); Total Protein 7.7 g/dL (6.5-8.0); Triglycerides 113 mg/dL (<150)
[2023-08-30 19:53] LABS: TSH reflex Free T4 0.34 uIU/mL (0.32-4.0)
== END 2023-08-30 15:41 | disposition home or self-care (01) ==
LOC: HO.LAB 15:40
PROVIDERS: PCP Student in an Organized Health Care Education/Training Program; Visit Provider Nurse Practitioner
DX: K59.04 Chronic idiopathic constipation (principal); E78.5 Hyperlipidemia, unspecified
CPT/HCPCS: 36415; 80053; 80061; 84443; 99212

== ENCOUNTER 2023-09-03 08:54 | Outpatient (REF) | payer MEDICAID, SELFPAY | END 2023-09-03 08:55 | disposition home or self-care (01) | LOC: HO.LNP 08:54 | PROVIDERS: Visit Provider Nurse Practitioner | DX: R10.10 Upper abdominal pain, unspecified (principal) | CPT/HCPCS: 87338 ==

== ENCOUNTER 2023-09-11 09:24 | Day surgery (SDC) | payer MEDICAID, SELFPAY ==
[2023-09-11 09:55] VITALS: BP 112/62; PULSE 90; RESP 18; TEMP 36.1; O2SAT 97
--- NOTE | 2023-09-11 09:56 | P.CONAN_ITS ---
[facility] Active Problems Active Problems: All Active Problems Upper abdominal pain (Acute) Gastro-esophageal reflux disease without esophagitis (Acute) Chronic idiopathic constipation (Acute) Chronic migraine with aura (Acute) Hematuria (Acute) Past Medical History Medical History Endometriosis Postmenopausal Chronic back pain Depression with anxiety Hyperlipidemia, unspecified Moderate episode of recurrent major depressive disorder Bipolar 1 disorder Mass of skin of back Other microscopic hematuria Gastro-esophageal reflux disease without esophagitis Headache Family History Family History Father Prostate cancer Mother Leukemia Family history of problems with anesthesia: No Surgical History Surgical History History of esophagogastroduodenoscopy (EGD) H/O colonoscopy History of hysterectomy History of Problems with Anesthesia: No Social History Social History Alcohol intake: former Patient Tobacco Use Status: Never used Tobacco Advance Directives: No Advance Directives Information Provided: Yes Meds Allergies Allergy/AdvReac Type Severity Reaction Status Date / Time ceftriaxone [From Rocephin] Allergy Rash Verified 08/30/23 14:55 seafood Allergy Rash Verified 08/30/23 14:55 Home Medications ?Medication ?Instructions ?Recorded ?Confirmed ?Last Taken ?Type alendronate 70 mg tablet 70 mg PO QWEEK 08/30/23 09/11/23 Unknown History alendronate [Fosamax] PO .once a week 08/30/23 Unknown History atorvastatin 10 mg tablet 10 mg PO QAM 08/30/23 09/11/23 Unknown History calcium carbonate 600 mg-vitamin 1 tab PO BID 08/30/23 09/11/23 Unknown History D3 20 mcg (800 unit) tablet magnesium oxide 400 mg (241.3 mg 400 mg PO QAM 08/30/23 09/11/23 Unknown History magnesium) tablet mirtazapine 7.5 mg tablet 7.5 mg PO BEDTIME 08/30/23 09/11/23 Unknown History pantoprazole 20 mg tablet,delayed 20 mg PO QAM 08/30/23 09/11/23 09/11/23 History release perphenazine 4 mg tablet 4 mg PO BID 08/30/23 09/11/23 Unknown History tobramycin 0.3 % eye drops 1 drp ophthalmic (eye) QID 08/30/23 09/11/23 Unknown History Exam Airway Mallampati Class: II Neck ROM: Full Loose/Missing/Broken Teeth: No Heart: rrr Lungs: cta Assessment and Plan Assessment Anesthesia Assessment: Anesthesia Plan Discussed and Chart Reviewed Final Anesthetic Review Family History of Problems with Anesthesia: No History of Problems with Anesthesia: No NPO: Yes ASA Class: II Final Preanesthetic Review: No Changes in Pt Med Stat, Meds/Allgs Chart Reviewed, Consent Obtained/Reviewed and Anes Risks/Benef Reviewed Patient Risk: Intermediate Procedure Risk: Intermediate Anesthetic Plan Anesthetic Plan: TIVA Disposition: Standard PACU
[2023-09-11 09:57] VITALS: BMI 23.0
[2023-09-11] MEDS: Lactated Ringers 1,000 ML 50 ML IVCONT (10:23)
--- NOTE | 2023-09-11 10:51 | MHC.SHP ---
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 Severe depression with anxiety and history of suicide ideation GERD Constipation GERD Endometriosis Nephrolithiasis Osteoporosis) History of Previous Operations: Relevant previous surgery/procedure and date(s) (Hysterectomy Colonoscopy-2020 cholecystectomy cataract surgery lymph node biospy renal stent s/p nephrolithiasis) Allergies: Allergies Allergy/AdvReac Type Severity Reaction Status Date / Time seafood Allergy Severe Anaphylaxis Verified 09/11/23 10:21 ceftriaxone [From Rocephin] Allergy Rash Verified 08/30/23 14:55 Review of Systems Sugical H&P ROS: Negative: Constitution, Cardiovascular, Respiratory, Neurological, Psychiatric, Hem-Onc, Allergic/Immunologic, Gastrointestinal, Genitourinary, Musculoskeletal, Integumentary, Endocrine and Eyes/Ears/Nose/Throat Exam Surgical H&P Exam: Normal: HEENT, Normal: Heart, Normal: Lungs, Normal: Extremities, Normal: Abdomen, Normal: Skin and Normal: Neurological Plan Diagnosis/Plan: Unchanged I have reviewed the history and physical and performed a pertinent physical examination on my patient. No changes have occurred unless specified. Time Spent With Patient Time: Total time managing care of this patient today ____ minutes.
--- NOTE | 2023-09-11 11:25 | W.PM.OPN ---
Operative Note Operative Note Date of Service: 09/11/23 Narrative: Procedure Description: EGD Indication: epigastric pain and sensation of food sticking in epigastrium Anesthesia: MAC FLEXIBLE TRANSORAL UPPER GASTROINTESTINAL ENDOSCOPY UPPER ENDOSCOPY Consent: Indications for the procedure and potential complications of bleeding, perforation, reaction to medications and missed diagnosis were discussed with the patient and informed consent was obtained. Instrument: Olympus GIF H 190 J mid size upper endoscope Monitoring: Vital signs and clinical assessment, continuous EKG monitoring, Pulse oximetry, Carbon Dioxide monitoring and blood pressure monitoring were done throughout the procedure. Procedure: The patient was placed in the left lateral decubitis position and pre-procedure medications were administered and a bite block was placed. The endoscope was inserted into the mouth and advanced under direct vision to the third part of duodenum. A careful inspection was made as the upper endoscope was withdrawn including a retroflexed examination of the proximal stomach; Findings and interventions are described below. Findings: Larynx:normal Esophagus: GE junction at 38 cm, diaphragm hiatus at 38 cm, normal mucosa, bx taken from distal esophagus --balloon dilation done at LES and UES to 20 mm with some heme noted at LES Stomach: patchy erythema and fundic gland polyps noted . Biopsies were obtained. Grade 2 flap valve on retroflexed examination of the cardia. The pylorus was stretched with wire guided balloon to 20 mm and heme noted around the pylorus Duodenum: Normal bulb and descending duodenum, bx taken Intervention: Biopsies as noted above, wire guided balloon dilation Impression/Findings: gastritis pyloric stricture PLAN: cont with PPI as doing GERD precautions
[2023-09-11 11:34] VITALS: BP 98/44; PULSE 93; RESP 16; TEMP 36.4; O2SAT 97
[2023-09-11 11:49] VITALS: BP 103/64; PULSE 90; RESP 18; TEMP 36.4; O2SAT 98
[2023-09-11 12:01] VITALS: BP 119/71; PULSE 87; RESP 16; TEMP 36.4; O2SAT 98
== END 2023-09-11 14:00 | disposition home or self-care (01) ==
PROVIDERS: PCP Student in an Organized Health Care Education/Training Program; Visit Provider Internal Medicine Gastroenterology
PROC: 0DJ08ZZ Inspection of Upper Intestinal Tract, Via Natural or Artificial Opening Endoscopic (ICD-10-PCS; CPT 43235; principal; 2023-09-11 11:40)
DX: R10.10 Upper abdominal pain, unspecified (principal); K21.9 Gastro-esophageal reflux disease without esophagitis; K31.1 Adult hypertrophic pyloric stenosis; K29.70 Gastritis, unspecified, without bleeding; J45.909 Unspecified asthma, uncomplicated; Z79.899 Other long term (current) drug therapy; Z88.1 Allergy status to other antibiotic agents
CPT/HCPCS: 43249; 43245; 43239; 88305; 88313; 88342; C1726; J1596; J2704

== ENCOUNTER → 2023-09-11 09:24 | Outpatient (BNV) | payer MEDICAID, SELFPAY | PROVIDERS: PCP Student in an Organized Health Care Education/Training Program; Visit Provider Internal Medicine Gastroenterology | DX: R10.13 Epigastric pain (principal); K29.70 Gastritis, unspecified, without bleeding; K31.1 Adult hypertrophic pyloric stenosis; R13.14 Dysphagia, pharyngoesophageal phase | CPT/HCPCS: 43239; 43245; 43249 ==

== ENCOUNTER 2023-09-25 14:14 | Outpatient (AMB) | payer MEDICAID, SELFPAY ==
[2023-09-25 14:16] VITALS: BP 106/42; PULSE 80; BMI 23.0
--- NOTE | 2023-09-25 14:16 | A.OFFVIS_ITS ---
Vital Signs 09/25/23 14:16 Height 5 ft 3 in Weight 130 lb 1.164 oz BMI 23.0 BP 106/42 L Blood Pressure Location Lt brachial Position Sitting Pulse 80 Intake Visit Reasons: s/p EGD 09/11/23 Intake Note: Leandra presents to in office visit today in follow up s/p EGD. CC: Patient reports that she was told that her esophagus was dilated but she continues to feel that the food stays stuck in her esophagus. She states that she takes the Linzess every 4 weeks because otherwise she gets watery diarrhea. She states that she continues to have N/V, GERD, and abdominal pain. Geodetic Survey Director Required: Yes Accompanied by: Self / Same As Patient Allergies seafood Allergy (Severe, Verified 09/25/23 14:25) Anaphylaxis ceftriaxone [From Rocephin] Allergy (Verified 09/25/23 14:25) Rash HPI HPI s/p EGD 09/11/23: Details: Assessment & Plan (1) Chronic idiopathic constipation: Code(s): K59.04 - Chronic idiopathic constipation Category: Medical (2) Gastro-esophageal reflux disease without esophagitis: Code(s): K21.9 - Gastro-esophageal reflux disease without esophagitis Category: Medical (3) Upper abdominal pain: Code(s): R10.10 - Upper abdominal pain, unspecified Category: Medical Plan [place] # Morris Live She says she has chronic reflux and HH pretty much her life. She takes omeprazole and protonix. She has been having dysphagia at the GE jxn and bloating of the upper stomach. The dysphagia is with solid foods, even applesauce and she has a lot of hiccups. She also has CIC and she uses Miralax but this does not work very well as she is only moving her bowels q3 days. But when she takes OTC laxative pills she has cramping and bloating and pain. She will have intermittent LLQ pain. She generally has very hard stools and only passes small amts. She had a colonoscopy in 2020 in [place] - she was told everything was ok yet they had some difficulties passing the scope adn she had a CT colonoscopy. She had and EGD also with the colon and she was told she had HH and reflux. She has a hoarse voice r/t gerd. She is on fosamax which is usually contraindicated with severe chronic GERD. Start Linzess 145mcg and titrate. FHX of ovarian, breast and prostate ca but no known CRC or polyps There are no prior problems with anesthesia or sedation. She denies any cardiac or respiratory problems. There are no infectious disease problems. Doorknob itching/painful hemorrhoids;, proctosol cream sent Orders: Orders H pylori Ag Stool 09/04/23 R10.10 - Upper abdominal pain, unspecified TSH reflex Free T4 08/30/23 K59.04 - Chronic idiopathic constipation EGD with Bowers - GI Use Only 08/30/23 R10.10 - Upper abdominal pain, unspecified FL barium swallow 08/30/23 R10.10 - Upper abdominal pain, unspecified Medications: New linaclotide (Linzess) Take first thing in the morning with a full glass of water. 145 mcg PO QAM 30 caps 3RF K58.1 - Irritable bowel syndrome with constipation hydrocortisone 2.5% (Proctosol HC) BE SURE TO INCLUDE RECTAL APPICATOR!! 1 appl [place] BID 30 grams 6RF hemorrhoids K64.9 - Unspecified hemorrhoids LABS: Laboratory Tests 08/30/23 09/03/23 16:02 11:45 TSH 0.34 Stool H. pylori Ag NEGATIVE BARIUM SWALLOW SCHEDULED FOR 11/02/2023 EGD 09/11/23 Findings: Larynx:normal Esophagus: GE junction at 38 cm, diaphragm hiatus at 38 cm, normal mucosa, bx taken from distal esophagus --balloon dilation done at LES and UES to 20 mm with some heme noted at LES Stomach: patchy erythema and fundic gland polyps noted . Biopsies were obtained. Grade 2 flap valve on retroflexed examination of the cardia. The pylorus was stretched with wire guided balloon to 20 mm and heme noted around the pylorus Duodenum: Normal bulb and descending duodenum, bx taken Intervention: Biopsies as noted above, wire guided balloon dilation Impression/Findings: gastritis pyloric stricture PLAN: cont with PPI as doing GERD precautions BIOPSY Received: 09/11/23 Diagnosis A. Duodenum, biopsy: Duodenal mucosa with predominantly preserved villi and no specific change. B. Stomach, biopsy: Gastric antral and body mucosa with minimal chronic inactive gastritis; negative for H pylori, intestinal metaplasia and dysplasia. C. Esophagus, distal, biopsy: Squamous mucosa with scant detached columnar mucosa; negative for intestinal metaplasia and dysplasia TODAY'S VISIT [place] # Garcia Salazar She has not had any relief with her GERD or her swallowing with the dilations. This is despite taking omeoprazole qam and pantoprazole qhs. I will try to switch her to Aciphex. She has a great deal of gas and bloating despite LInzess 145mcg being too strong (she was taking it only q3 days as it gave her diarrhea and made her weak). Will decrease to 72mcg and add creon and simehticone. ROV 6 weeks, also get GES to see if this is part of a problems. If we can not stabilize her swallowing medically may need to consider surgery. Keep alendronate in mind as well. [facility] Medical History Endometriosis Postmenopausal Chronic back pain Depression with anxiety Hyperlipidemia, unspecified Moderate episode of recurrent major depressive disorder Bipolar 1 disorder Mass of skin of back Other microscopic hematuria Gastro-esophageal reflux disease without esophagitis Headache Surgical History History of esophagogastroduodenoscopy (EGD) H/O colonoscopy History of hysterectomy Family History Father Prostate cancer Mother Leukemia Social History Alcohol intake: former Patient Tobacco Use Status: Never used Tobacco Review of Systems Const Denies fatigue, Denies fever(s), Denies night sweats, Reports poor appetite and Denies weight loss ENT Reports Normal hearing present, Denies dental pain, Reports dysphagia, Denies hearing loss, Denies mouth pain, Denies odynophagia, Denies throat swelling, Denies tongue swelling and Reports other (Dentition adequate) Card Reports no additional complaints Resp Reports no additional complaints GI Details: Denies abdominal pain, Denies melena, Reports bloating, Denies hematochezia, Reports constipation, Denies GI cramping, Reports dysphagia, Denies excessive flatus, Reports early satiety, Denies heartburn, Denies diarrhea, Reports nausea, Denies odynophagia, Denies vomiting and Denies hematemesis Skin/Breast Denies pruritus, Denies lesions, Denies rash and Denies jaundice Neuro Reports Normal hearing present and Denies Abnormal speech present Endo Denies fatigue Aller/Immun Denies throat swelling and Denies tongue swelling Physical Exam Vital Signs: Last Vital Signs Pulse 80 09/25/23 14:16 BP 106/42 L 09/25/23 14:16 BMI result Body Mass Index 23.0 Const General: cooperative, no acute distress, well developed and well groomed Nutritional Appearance: average body habitus and well nourished Orientation/consciousness: oriented to person, oriented to place and oriented to time Limitations: language barrier HEENT Head: Yes normocephalic and Yes atraumatic Eyes General: appearance normal, both eyes and all related structures Pupils: Equal, round and reactive pupils present Neck Neck: Yes normal visual inspection and Yes no lymphadenopathy Thyroid: Thyroid normal Resp Effort & Inspection: normal respiratory effort and able to speak in complete sentences Auscultation: clear to auscultation bilaterally Cardio Rate: regular rate Rhythm: regular rhythm Heart sounds: Normal, physiologic split S2 sound present Peripheral pulses: radial pulses present and posterior tibial pulses present GI Inspection: No distended and No Abdominal panniculus present Palpation (GI): Soft to palpation, nontender, no guarding, not rigid and No hepatosplenomegaly present Percussion: Yes normal to percussion Auscultation: normal bowel sounds Rectal Exam - Female: deferred Skin General skin exam: no rashes or lesions noted, turgor normal, skin not dry, no jaundice, No spider nevi and no striae Rashes: no rashes Nails: normal Neuro General: oriented to person, oriented to place and oriented to time Cranial nerves: Yes Equal, round and reactive pupils present and Yes Normal hearing present Speech: No Abnormal speech present Extrem General: Yes normal to inspection, No clubbing, No cyanosis and No edema Psych Appearance: grossly normal and well kempt Mental Status: mental status grossly normal Speech and movement: Normal speech and movement present Affect: normal affect Attitude: cooperative Thought process: Normal thought process present and not confabulating Thought content: Normal thought content present Insight: Limited insight present (Psych) Judgement: Limited judgement present (Psych) Results Reviewed Results Reviewed: Laboratory Tests 08/30/23 09/03/23 16:02 11:45 TSH 0.34 Stool H. pylori Ag NEGATIVE BARIUM SWALLOW SCHEDULED FOR 11/02/2023 EGD 09/11/23 Findings: Larynx:normal Esophagus: GE junction at 38 cm, diaphragm hiatus at 38 cm, normal mucosa, bx taken from distal esophagus --balloon dilation done at LES and UES to 20 mm with some heme noted at LES Stomach: patchy erythema and fundic gland polyps noted . Biopsies were obtained. Grade 2 flap valve on retroflexed examination of the cardia. The pylorus was stretched with wire guided balloon to 20 mm and heme noted around the pylorus Duodenum: Normal bulb and descending duodenum, bx taken Intervention: Biopsies as noted above, wire guided balloon dilation Impression/Findings: gastritis pyloric stricture PLAN: cont with PPI as doing GERD precautions BIOPSY Received: 09/11/23 Diagnosis A. Duodenum, biopsy: Duodenal mucosa with predominantly preserved villi and no specific change. B. Stomach, biopsy: Gastric antral and body mucosa with minimal chronic inactive gastritis; negative for H pylori, intestinal metaplasia and dysplasia. C. Esophagus, distal, biopsy: Squamous mucosa with scant detached columnar mu cosa; negative for intestinal metaplasia and dysplasia Assessment & Plan Assessment & Plan (1) Upper abdominal pain: Code(s): R10.10 - Upper abdominal pain, unspecified Category: Medical (2) Gastro-esophageal reflux disease without esophagitis: Code(s): K21.9 - Gastro-esophageal reflux disease without esophagitis Category: Medical (3) Chronic idiopathic constipation: Code(s): K59.04 - Chronic idiopathic constipation Category: Medical (4) IBS (irritable bowel syndrome): Code(s): K58.9 - Irritable bowel syndrome without diarrhea Category: Medical (5) Dysphagia: Code(s): R13.10 - Dysphagia, unspecified Category: Medical Plan [place] # Garcia LIve She has not had any relief with her GERD or her swallowing with the dilations. This is despite taking omeoprazole qam and pantoprazole qhs. I will try to switch her to Aciphex. She has a great deal of gas and bloating despite LInzess 145mcg being too strong (she was taking it only q3 days as it gave her diarrhea and made her weak). Will decrease to 72mcg and add creon and simehticone. ROV 6 weeks, also get GES to see if this is part of a problems. If we can not stabilize her swallowing medically may need to consider surgery. Keep alendronate in mind as well. Orders: Orders NM gastric emptying study Today K58.9 - Irritable bowel syndrome without diarrhea FL barium swallow Today R13.10 - Dysphagia, unspecified Medications: New linaclotide (Linzess) 72 mcg PO QAM 30 caps 6RF rabeprazole (AcipHex) 20 mg PO BID 60 tabs 6RF K21.9 - Gastro-esophageal reflux disease without esophagitis simethicone after meals 180 mg PO TID 90 caps 3RF 30 days [id number] 24,000-76,000 -120,000 unit (Creon) 2 caps PO BID 120 caps 1RF 30 days K58.9 - Irritable bowel syndrome without diarrhea Discontinued linaclotide (Linzess) Take first thing in the morning with a full glass of water. Discontinued Reason: Doctor's Order 145 mcg PO QAM 30 caps 3RF K58.1 - Irritable bowel syndrome with constipation Patient Instructions: Quiero cambiar algunos de magi medicamentos; 1. Suspender el omeprazol y el pantoprazol 2. Empiece a loren un nuevo medicamento llamado rabeprazol dos veces al d?a. 3. Inicie damon enzima digestiva llamada Creon: tome 2 c?psulas dos veces al d?a. 4. Refugio damon pastilla para los gases, simeticona 3 veces al d?a. Estoy ordenando damon prueba llamada estudio de vaciamiento g?strico para antoni si hay alg?n problema con severino est?jaylene. Coding Level of Care Code Est Pt Level 4 (55479) Diagnoses Upper abdominal pain R10.10 Gastro-esophageal reflux disease without esophagitis K21.9 Chronic idiopathic constipation K59.04 IBS (irritable bowel syndrome) K58.9 Dysphagia R13.10
== END 2023-09-25 15:50 | disposition home or self-care (01) ==
PROVIDERS: PCP Student in an Organized Health Care Education/Training Program; Visit Provider Nurse Practitioner
DX: R10.10 Upper abdominal pain, unspecified (principal); K21.9 Gastro-esophageal reflux disease without esophagitis; K59.04 Chronic idiopathic constipation; K58.9 Irritable bowel syndrome, unspecified; R13.10 Dysphagia, unspecified
CPT/HCPCS: 99214

== ENCOUNTER → 2023-09-25 14:14 | Outpatient (BNVA) | payer MEDICAID, SELFPAY | PROVIDERS: PCP Student in an Organized Health Care Education/Training Program; Visit Provider Nurse Practitioner | DX: R10.10 Upper abdominal pain, unspecified (principal); K21.9 Gastro-esophageal reflux disease without esophagitis; K59.04 Chronic idiopathic constipation; K58.9 Irritable bowel syndrome, unspecified; R13.10 Dysphagia, unspecified; K31.1 Adult hypertrophic pyloric stenosis; K29.70 Gastritis, unspecified, without bleeding; Z98.890 Other specified postprocedural states | CPT/HCPCS: 99212 ==

== ENCOUNTER 2023-11-02 08:15 | Outpatient (REF) | payer MEDICAID, SELFPAY ==
--- NOTE | ~2023-11-02 | FL_ITS ---
EXAMINATION: XR FLUOROSCOPY UPPER GI WITH AIR CLINICAL INFORMATION: Epigastric/mid chest discomfort after eating COMPARISON: None TECHNIQUE: Fluoroscopic air contrast upper GI examination was performed utilizing standard techniques with thin and thick barium and effervescent granules. Numerous spot images were obtained. FINDINGS: Images of the oropharynx and hypopharynx demonstrate normal swallow mechanism with normal epiglottic inversion and soft palate elevation. No tracheal penetration, glottic or subglottic aspiration identified. No nasopharyngeal reflux present. Hypopharyngeal structures appear normal without evidence of mass or diverticulum. Mild cricopharyngeal achalasia is present. Dual and single contrast images of the esophagus demonstrate normal caliber, contour, and mucosal pattern. No evidence of stricture, mass, or ulcerations identified. Esophageal peristalsis was normal. A very small type I hiatal hernia is present. No significant gastroesophageal reflux was seen during the course of the examination and on reflux views. Dual contrast and single contrast images of the stomach demonstrated a normal contour. The gastric rugal folds have a mildly thickened appearance. There are multiple tiny foci of contrast pooling in the fundus of the stomach that may represent small superficial ulcers. No masses are present. Contrast freely passed into the gastric antrum and duodenal bulb without delay. Cholecystectomy clips are present in the right upper quadrant. Single and air-contrast images of the duodenal bulb demonstrate no abnormality. The duodenal sweep has a normal appearance, course, and mucosal fold appearance. The imaged proximal jejunum has a normal fold pattern and caliber. FLUOROSCOPY TIME: 4 minutes 24 seconds Number of Spot Images: 9 Number of Cine: 14 DOSE AREA PRODUCT: 1840 uGy-m2 (microgray-meter squared) FL/FL barium swallow with air IMPRESSION: 1. Mild cricopharyngeal achalasia. 2. Very small type I hiatal hernia. 3. Mildly thickened gastric rugal folds. In addition there are multiple tiny foci of contrast pooling in the fundus of the stomach. These findings are suggestive of erosive gastritis. Recommend correlation with EGD. This procedure was performed by Justin Hung PA-C, and supervised by Dr. Maddox
== END 2023-11-02 08:16 | disposition home or self-care (01) ==
LOC: HO.XRAY 08:15
PROVIDERS: Visit Provider Nurse Practitioner
DX: R13.10 Dysphagia, unspecified (principal)
CPT/HCPCS: 74221

== ENCOUNTER → 2023-11-02 08:18 | Outpatient (BNV) | payer MEDICAID, SELFPAY | PROVIDERS: Visit Provider Physician Assistant Surgical | DX: R10.13 Epigastric pain (principal) | CPT/HCPCS: 74246 ==

== ENCOUNTER 2023-11-05 15:55 | Outpatient (REF) | payer MEDICAID, SELFPAY | END 2023-11-05 15:56 | disposition home or self-care (01) | LOC: HO.HHCX 15:55 | PROVIDERS: Visit Provider Internal Medicine | DX: Z13.89 Encounter for screening for other disorder (principal) ==

== ENCOUNTER 2023-11-07 14:07 | Outpatient (REF) | payer MEDICAID, SELFPAY | END 2023-11-07 14:08 | disposition home or self-care (01) | LOC: HO.HHCX 14:07 | PROVIDERS: Visit Provider Internal Medicine | DX: Z13.89 Encounter for screening for other disorder (principal) ==

== ENCOUNTER 2023-11-09 16:44 | Outpatient (REF) | payer MEDICAID, SELFPAY ==
--- NOTE | ~2023-11-09 | MR_ITS ---
EXAMINATION: MR LUMBAR SPINE WITHOUT CONTRAST CLINICAL INFORMATION: Worsening low back pain with radiation into extremities COMPARISON: None available. TECHNIQUE: MRI of the lumbar spine was obtained using routine sequences without contrast. FINDINGS: Mild dextrocurvature of the lumbar spine. Preservation of the normal lumbar lordosis. No listhesis. No acute bone marrow abnormality. The vertebral body heights are preserved. Multilevel disc desiccation without significant disc height loss. T12-L1: Shallow left paracentral disc protrusion. No significant spinal canal or neural foraminal narrowing. L1-2: Central disc protrusion. No significant spinal canal or neural foraminal narrowing. L2-3: Left foraminal disc protrusion and bilateral facet arthrosis. No significant spinal canal or neural foraminal narrowing. L3-4: Diffuse disc bulge and bilateral facet arthrosis. Mild bilateral neural foraminal narrowing with the disc abutting the exiting L3 nerve roots bilaterally. No significant spinal canal stenosis. L4-5: Shallow disc bulge with superimposed annular fissure. Bilateral facet arthrosis. Mild right neural foraminal narrowing with the disc abutting the exiting L4 nerve as bilaterally. L5-S1: Shallow disc bulge and bilateral facet arthrosis. No significant spinal canal or neural foraminal narrowing. The paravertebral soft tissues are unremarkable. Bilateral renal cysts. MR/MR lumbar spine wo con IMPRESSION: 1. Mild degenerative changes of the lumbar spine without significant spinal canal stenosis. 2. Mild neural foraminal narrowing at L3-L4 and L4-L5 with the disc abutting the exiting L3 and L4 nerve roots bilaterally. 3. L4-L5 annular fissure. Electronically signed by: Donna Rodriguez MD 12/06/2023 03:12 PM EDT
== END 2023-11-09 16:45 | disposition home or self-care (01) ==
LOC: HO.MRI 16:44
PROVIDERS: PCP Student in an Organized Health Care Education/Training Program; Visit Provider Student in an Organized Health Care Education/Training Program
DX: M54.9 Dorsalgia, unspecified (principal); G89.29 Other chronic pain
CPT/HCPCS: 72148

== ENCOUNTER → 2023-12-06 07:01 | Outpatient (REF) | payer MEDICAID, SELFPAY ==
--- NOTE | ~2023-12-06 | NM_ITS ---
EXAMINATION: NM RADIONUCLIDE SOLID FOOD GASTRIC EMPTYING 4-HOUR STUDY CLINICAL INFORMATION: Irritable bowel syndrome without diarrhea. COMPARISON: None TECHNIQUE: A standard meal consisting of 4 oz of Egg Beaters brand tagged with 1000 microcuries Tc-99m Sulfur Colloid, 8 oz water and one slice of toast with jelly was administered orally to the patient. Images were obtained using a dual head gamma camera in the anterior and posterior projections over of the stomach immediately post ingestion and at hourly intervals up to 4 hours post ingestion. The anterior and posterior counts at each time interval were averaged using the geometric mean and expressed as percentage of the immediate post ingestion counts. FINDINGS: There is good visualization of activity in the stomach immediately post ingestion. As the study progresses, there is good clearance of activity from the stomach and visualization of progressively increasing small bowel activity. By the end of the study, there is almost no retention noted in the stomach. Retention in the stomach at each time interval was: 1 hour 50% (normal 37%-90%) 2 hours 2% (normal 30%-60%) 3 hours 2% 4 hours estimation was not performed since only 2% retention was noted at 3 hours interval. NM/NM gastric emptying study IMPRESSION: Normal 4-hour solid food gastric emptying study. For solid meal, rapid gastric emptying is less than 30% at 60 minutes. Delayed gastric emptying criteria is more than 60% remaining at 120 minutes or more than 10% at 240 minutes. The 4-hour value is the best discriminator of a normal or abnormal result). Gastric emptying study grading per JNMT Consensus Recommendations in 2008 (https://tech.snmjournals.org/content/36//44) Grade 1 (mild retention): 11-20% at 4h Grade 2 (moderate retention): 21-35% at 4h Grade 3 (severe retention): 36-50% at 4h Grade 4 (very severe retention): >50% retention at 4h Electronically signed by: Lenny Fine MD 12/06/2023 02:51 PM EDT
== END ==
LOC: HO.NUCMED 07:01
PROVIDERS: PCP Student in an Organized Health Care Education/Training Program; Visit Provider Nurse Practitioner
DX: K58.9 Irritable bowel syndrome, unspecified (principal)
CPT/HCPCS: 78264; A9541

== ENCOUNTER 2023-12-06 21:57 | Emergency (ER) | payer MEDICAID, SELFPAY ==
--- NOTE | ~2023-12-06 | XR_ITS ---
EXAMINATION: XR CHEST CLINICAL INFORMATION: Chest pain status post fall COMPARISON: None available. TECHNIQUE: 2 views of the chest were obtained. FINDINGS: No significant abnormality is noted involving the heart, lungs, mediastinum, bony thorax or soft tissues. XR/XR chest 2V IMPRESSION: Unremarkable examination. Electronically signed by: Isaías Sharma DO 12/07/2023 01:59 AM EDT
[2023-12-06 23:10] VITALS: BP 105/56; PULSE 80; RESP 16; TEMP 36.3; O2SAT 100; BMI 23.6
[2023-12-06 23:33] LABS: MANUAL DIFF FLAG NO
[2023-12-06 23:34] LABS: Basophils Absolute Auto 0.1 X10*3/uL (0.0-0.2); Basophils Percent Auto 0.8 % (0-2); Eosinophils Absolute Auto 0.1 X10*3/uL (0.0-0.4); Eosinophils Percent Auto 0.5 % (0-4); Hematocrit 40.1 % (37.0-47.0); Hemoglobin 13.8 g/dl (12.0-16.0); Imm Gran Abs Auto 0.04 X10*3/uL (0.00-0.03); Imm Gran Pct Auto 0.4 % (0.0-0.4); Lymphocytes Percent Auto 27.5 % (20-40); Mean Corpuscular HGB Conc 34.4 g/dl (31.0-35.0); Mean Corpuscular Hemoglobin 30.3 pg (27.0-33.0); Mean Corpuscular Volume 88.1 fL (80.0-98.0); Mean Platelet Volume 11.3 fL (9.4-12.3); Monocytes Absolute Auto 0.6 X10*3/uL (0.1-1.2); Monocytes Percent Auto 5.9 % (2-11); Neutrophils Percent Auto 64.9 % (45-73); Platelet Count 290 X10*3/uL (160-400); Red Blood Count 4.55 X10*6/uL (4.20-5.50); Red Cell Distribution Width 12.9 % (11.0-16.0); White Blood Count 10.8 X10*3/uL (4.8-10.8)
[2023-12-06 23:48] LABS: IDNOW Serial# 08D9AD1C
[2023-12-06 23:49] LABS: Strep A Nucleic Acid Negative (Negative)
[2023-12-06 23:55] LABS: Anion Gap 12 (12-20); Blood Urea Nitrogen 18 mg/dL (9-16); Calcium 9.7 mg/dL (8.4-10.2); Carbon Dioxide 25 mmol/L (22-29); Chloride 109 mmol/L (96-108); Creatinine Clr Calc Pharmacy 51.2; Estimated Glomerular Filt Rate > 60; Glucose Fasting 93 mg/dL (60-99); Potassium 3.9 mmol/L (3.3-5.1); Sodium 142 mmol/L (135-145)
[2023-12-07 00:14] LABS: Influenza A PCR NEGATIVE (Negative); Influenza B PCR NEGATIVE (Negative); Resp Syncy Virus RNA Qual PCR NEGATIVE (Negative); SARS COV2 PCR INHOUSE NEGATIVE (Negative)
[2023-12-07 00:38] VITALS: BP 128/64; PULSE 71; RESP 17; TEMP 36.6; O2SAT 100
--- NOTE | 2023-12-07 01:34 | ED_ITS ---
HPI - General Adult General Chief complaint: General Medical Stated complaint: ear pain Time Seen by Provider: 12/07/23 01:06 Source: patient, RN notes reviewed and old records reviewed Mode of arrival: ambulatory Limitations: no limitations History of Present Illness ED Provider: Florence KING narrative: 63-year-old female with past medical history significant for IBS, GERD constipation, migraines presents for evaluation of sore throat Sore throat for about 1 month She also has pain radiating to her left ear Patient states that she has ?a white spot on the left side. ? She states that has also been there for a few weeks She saw her doctor and was referred to ear nose and throat and she has an appointment next week Denies any fevers or chills. She does have a dry cough The patient also reports that she slipped in the shower today and fell onto her chest She complains of mild chest pain in the center of her chest that does not radiate She did not hit her head or lose consciousness Related Data Home Medications ?Medication ?Instructions ?Recorded ?Confirmed alendronate 70 mg tablet 70 mg PO QWEEK 08/30/23 09/11/23 calcium carbonate 600 mg-vitamin 1 tab PO BID 08/30/23 09/11/23 D3 20 mcg (800 unit) tablet magnesium oxide 400 mg (241.3 mg 400 mg PO QAM 08/30/23 09/11/23 magnesium) tablet mirtazapine 7.5 mg tablet 7.5 mg PO BEDTIME 08/30/23 09/11/23 perphenazine 4 mg tablet 4 mg PO BID 08/30/23 09/11/23 atorvastatin 40 mg tablet 40 mg PO DAILY 09/25/23 Previous Rx's ?Medication ?Instructions ?Recorded acetaminophen 500 mg tablet 1,000 mg (2 x 500 mg) PO Q6H PRN 01/13/23 (Tylenol Extra Strength) fever or pain #20 tabs cyclobenzaprine 10 mg tablet 10 mg PO TID PRN muscle pain or 01/13/23 spasm #20 tabs ondansetron 8 mg disintegrating 8 mg PO BID-TID nausea #30 tabs 07/06/23 tablet tamsulosin 0.4 mg capsule (Flomax) 0.4 mg PO BEDTIME to help pass 07/06/23 stones #30 caps hydrocortisone 2.5 % topical cream 1 appl [place] BID hemorrhoids #30 grams 08/30/23 with perineal applicator (Proctosol HC) linaclotide 72 mcg capsule 72 mcg PO QAM #30 caps 09/25/23 (Linzess) [id number] 2 cap PO BID 30 days #120 caps 09/25/23 24,000-76,000-120,000 unit capsule,delayed rel (Creon) rabeprazole 20 mg tablet,delayed 20 mg PO BID #60 tabs 09/25/23 release (AcipHex) simethicone 180 mg capsule 180 mg PO TID 30 days #90 caps 09/25/23 sennosides 8.6 mg tablet (Senna 17.2 mg (2 x 8.6 mg) PO BEDTIME 12/14/23 Laxative) #60 tabs Allergies Allergy/AdvReac Type Severity Reaction Status Date / Time seafood Allergy Severe Anaphylaxis Verified 12/14/23 13:49 ceftriaxone [From Rocephin] Allergy Rash Verified 12/14/23 13:49 Review of Systems 2 Constitutional: Constitutional: Denies body ache(s), Denies chills, Denies fever(s), Denies frequent falls and Denies headache(s) Eyes: Eyes: Denies blurry vision ENT: Denies ear discharge, Reports otalgia, Denies headache(s) and Reports sore throat Cardiovascular: Cardiovascular: Reports chest pain and Denies dyspnea Respiratory: Respiratory: Denies cough and Denies dyspnea Gastrointestinal: Gastrointestinal: Denies abdominal pain, Denies nausea and Denies vomiting Musculoskeletal: Musculoskeletal: Denies back pain Integumentary/Breasts: Skin/Breast: Denies wounds Neurologic: Denies frequent falls and Denies headache(s) [facility] Past Medical History Medical History Endometriosis Postmenopausal Chronic back pain Depression with anxiety Hyperlipidemia, unspecified Moderate episode of recurrent major depressive disorder Bipolar 1 disorder Mass of skin of back Other microscopic hematuria Gastro-esophageal reflux disease without esophagitis Headache Surgical History History of esophagogastroduodenoscopy (EGD) H/O colonoscopy History of hysterectomy Family History Family History Father Prostate cancer Mother Leukemia Social History Social History Alcohol intake: former Patient Tobacco Use Status: Never used Tobacco Physical Exam ED Vital Signs: Vital Signs - 24 hr 12/06/23 23:10 12/07/23 00:38 12/07/23 02:00 Temperature 97.3 F 97.8 F 99.0 F Pulse Rate 80 71 71 Respiratory Rate 16 17 19 Blood Pressure 105/56 L 128/64 117/65 Pulse Oximetry 100 100 99 Oxygen Delivery Method Room Air Room Air Room Air BMI result Body Mass Index 23.6 Const General: healthy appearing, comfortable, no acute distress, alert and awake Nutritional Appearance: well nourished Orientation/consciousness: patient oriented x3 HENMT Other: Pharynx is diffusely erythematous. There does appear to be a tonsillolith on the left tonsil. No evidence of peritonsillar abscess. Head: Yes normocephalic and Yes atraumatic Ears: TM normal on the left Eyes Eyelids: Yes eyelids normal Conjunctivae: conjunctivae normal Sclerae: sclerae normal Corneas: corneas normal Pupils: Equal, round and reactive pupils present EOM: EOMs intact bilaterally Neck Neck: Yes full ROM Chest Chest palpation & inspection: normal inspection of the chest, normal palpation of entire chest wall and no crepitus Resp Effort & Inspection: normal respiratory effort, able to speak in complete sentences and not labored Skin General skin exam: elasticity normal Neuro General: patient oriented x3 Cranial nerves: Yes Equal, round and reactive pupils present and Yes Bilaterally intact EOM present Cognition (Neuro): normal cognition Extrem Other: Moving all extremities well without any obvious deformities Course Reevaluation(s) Reevaluation #1: 12/07/2023 0910 - see called, stating that they have a beta-lactam allergy as well as a cephalosporin allergy listed in patient's medical chart. Given findings, will switch patient over to azithromycin 500 mg on day 1, and 250 days 2 through 5. She tested negative for strep throat therefore this is appropriate treatment. Sent over new prescription. Medications Administered Discontinued Medications Generic Name Dose Route Start Last Admin Trade Name Freq PRN Reason Stop Dose Admin Amoxicillin/Clavulanate Potassium 875 mg 12/07/23 01:36 12/07/23 01:59 Amoxicillin/Potassium Clav 875 Mg Tablet PO 12/07/23 01:37 875 mg ONCE ONE Administration Medical Decision Making Medical Decision Making [facility] [place] Narrative: 63-year-old female presents for evaluation of sore throat, left ear pain. Clinically she does have pharyngitis with diffuse erythema, there was no evidence of abscess. We will treat with a course of amoxicillin was potassium clavulanate for 1 week and she will follow up with ENT next week as planned. There was no evidence of otitis media or otitis externa. Patient's chest x-ray shows no obvious fracture or pneumothorax. There is no crepitus on exam. Likely just a contusion from her fall today. Differential Diagnosis Differential Diagnoses: The differential diagnosis associated with the presentation includes Pharyngitis Upper respiratory infection Strep pharyngitis Mononucleosis Otitis media Otitis externa Chest contusion Rib fracture Lab Data [facility] [place] Lab Attestation statement: I reviewed the patient's lab results. No leukocytosis or anemia. Normal platelet count. No significant electrolyte abnormalities. Renal function at baseline. Viral swabs negative, strep swab negative 12/06/23 23:25 12/06/23 23:25 Labs: Lab Results 12/06/23 Range/Units 23:25 WBC 10.8 (4.8-10.8) X10*3/uL RBC 4.55 (4.20-5.50) X10*6/uL Hgb 13.8 (12.0-16.0) g/dl Hct 40.1 (37.0-47.0) % MCV 88.1 (80.0-98.0) fL MCH 30.3 (27.0-33.0) pg MCHC 34.4 (31.0-35.0) g/dl RDW 12.9 (11.0-16.0) % Plt Count 290 (160-400) X10*3/uL MPV 11.3 (9.4-12.3) fL Immature Gran % (Auto) 0.4 (0.0-0.4) % Neut % (Auto) 64.9 (45-73) % Lymph % (Auto) 27.5 (20-40) % [place] % (Auto) 5.9 (2-11) % Eos % (Auto) 0.5 (0-4) % Baso % (Auto) 0.8 (0-2) % Lymph # (Auto) 3.0 (1.2-4.9) X10*3/uL [place] # (Auto) 0.6 (0.1-1.2) X10*3/uL Eos # (Auto) 0.1 (0.0-0.4) X10*3/uL Baso # (Auto) 0.1 (0.0-0.2) X10*3/uL Abs Immat Gran (auto) 0.04 H (0.00-0.03) X10*3/uL Absolute Neuts (auto) 7.0 (2.0-8.3) x10*3/uL Absolute Nucleated RBC 0.000 (0.0-0.012) X10*3/uL Nucleated RBC % (auto) 0.0 (0.0-0.2) /100WBC Sodium 142 (135-145) mmol/L Potassium 3.9 (3.3-5.1) mmol/L Chloride 109 H (96-108) mmol/L Carbon Dioxide 25 (22-29) mmol/L Anion Gap 12 (12-20) BUN 18 H (9-16) mg/dL Creatinine 0.89 (0.5-1.4) mg/dL Estim Creat Clear Calc 51.2 Estimated GFR > 60 Fasting Glucose 93 (60-99) mg/dL Calcium 9.7 (8.4-10.2) mg/dL Influenza Type A (PCR) NEGATIVE (Negative) Influenza Type B (PCR) NEGATIVE (Negative) RSV RNA Qual (PCR) NEGATIVE (Negative) SARS-CoV-2 RNA (RT-PCR) NEGATIVE (Negative) S. pyogenes GrpA ELAN Negative (Negative) Independent Interpretation I performed an independent interpretation of an: Plain X-Ray (No acute cardiopulmonary pathology) Discharge Plan Discharge Clinical Impression: Pharyngitis Patient Disposition: Home, Self-Care Instructions: Pharyngitis (ED) Additional Instructions: Take the antibiotic twice daily for the next week Follow-up with ENT at your next appointment next week as planned To use saltwater gargles Follow-up with your primary doctor Return for new or worsening symptoms Prescriptions: No Action cyclobenzaprine 10 mg tablet 10 mg PO TID PRN (Reason: muscle pain or spasm) Qty: 20 0RF acetaminophen [Tylenol Extra Strength] 500 mg tablet 1,000 mg PO Q6H PRN (Reason: fever or pain) Qty: 20 0RF tamsulosin [Flomax] 0.4 mg capsule 0.4 mg PO BEDTIME Qty: 30 0RF ondansetron 8 mg tablet,disintegrating 8 mg PO BID-TID Qty: 30 0RF atorvastatin 40 mg tablet 40 mg PO DAILY Linzess 72 mcg capsule 72 mcg PO QAM Qty: 30 6RF rabeprazole [AcipHex] 20 mg tablet,delayed release (DR/EC) 20 mg PO BID Qty: 60 6RF Creon 24,000-76,000 -120,000 unit capsule,delayed release(DR/EC) 2 cap PO BID 30 Days Qty: 120 1RF simethicone 180 mg capsule 180 mg PO TID 30 Days Qty: 90 3RF Rx Instructions: after meals sennosides [Senna Laxative] 8.6 mg tablet 17.2 mg PO BEDTIME Qty: 60 6RF alendronate 70 mg tablet 70 mg PO QWEEK calcium carbonate-vitamin D3 600 mg-20 mcg (800 unit) tablet 1 tab PO BID mirtazapine 7.5 mg tablet 7.5 mg PO BEDTIME perphenazine 4 mg tablet 4 mg PO BID magnesium oxide 400 mg (241.3 mg magnesium) tablet 400 mg PO QAM hydrocortisone [Proctosol HC] 2.5 % cream with perineal applicator 1 appl [place] BID Qty: 30 6RF Rx Instructions: BE SURE TO INCLUDE RECTAL APPICATOR!! Interventions: ED Discharge Assessment Last Done: 12/07/23 02:00 Discharge Date/Time: 12/07/23 02:20 Print Language: Romanian
[2023-12-07] MEDS: Amoxicillin/Potassium Clav 875 MG TABLET PO (01:59)
[2023-12-07 02:00] VITALS: BP 117/65; PULSE 71; RESP 19; TEMP 37.2; O2SAT 99
== END 2023-12-07 02:20 | disposition home or self-care (01) ==
PROVIDERS: Emergency Provider Student in an Organized Health Care Education/Training Program; PCP Student in an Organized Health Care Education/Training Program
DX: J02.9 Acute pharyngitis, unspecified (principal); H92.02 Otalgia, left ear; R05.9 Cough, unspecified; R07.89 Other chest pain; Z03.818 Encounter for observation for suspected exposure to other biological agents ruled out; Z79.899 Other long term (current) drug therapy
CPT/HCPCS: 0241U; 71046; 80048; 85025; 87651; 99283; 99284

== ENCOUNTER 2023-12-14 13:30 | Outpatient (AMB) | payer MEDICAID, SELFPAY ==
--- NOTE | 2023-12-14 13:37 | A.OFFVIS_ITS ---
Vital Signs 12/14/23 13:39 Height 5 ft 2 in Weight 130 lb 1.164 oz BMI 23.8 BP 107/57 L Blood Pressure Location Lt brachial Position Sitting Pulse 92 Intake Visit Reasons: gastric empty study follow up Intake Note: Leandra presents to in office follow up of gastric emptying scan. CC: Leandra reports abdominal bloating, abdominal pain, N/V, and GERD. Denies other GI symptoms. Toe Former Stitchdowns Required: Yes Accompanied by: Self / Same As Patient Allergies seafood Allergy (Severe, Verified 12/14/23 13:49) Anaphylaxis ceftriaxone [From Rocephin] Allergy (Verified 12/14/23 13:49) Rash HPI HPI gastric empty study follow up: Details: Assessment & Plan (1) Upper abdominal pain: Code(s): R10.10 - Upper abdominal pain, unspecified Category: Medical (2) Gastro-esophageal reflux disease without esophagitis: Code(s): K21.9 - Gastro-esophageal reflux disease without esophagitis Category: Medical (3) Chronic idiopathic constipation: Code(s): K59.04 - Chronic idiopathic constipation Category: Medical (4) IBS (irritable bowel syndrome): Code(s): K58.9 - Irritable bowel syndrome without diarrhea Category: Medical (5) Dysphagia: Code(s): R13.10 - Dysphagia, unspecified Category: Medical Plan [place] # [place] LIve She has not had any relief with her GERD or her swallowing with the dilations. This is despite taking omeprazole qam and pantoprazole qhs. I will try to switch her to Aciphex. She has a great deal of gas and bloating despite LInzess 145mcg being too strong (she was taking it only q3 days as it gave her diarrhea and made her weak). Will decrease to 72mcg and add creon and simehticone. ROV 6 weeks, also get GES to see if this is part of a problems. If we can not stabilize her swallowing medically may need to consider surgery. Keep alendronate in mind as well. Orders: Orders NM gastric emptying study Today K58.9 - Irritable bowel syndrome without di arrhea FL barium swallow Today R13.10 - Dysphagia, unspecified Medications: New linaclotide (Linzess) 72 mcg PO QAM 30 caps 6RF rabeprazole (AcipHex) 20 mg PO BID 60 tabs 6RF K21.9 - Gastro-esophageal reflux disease without esophagitis simethicone after meals 180 mg PO TID 90 caps 3RF 30 days [id number] 24,000-76,000 -120,000 unit (Creon) 2 caps PO BID 120 caps 1RF 30 days K58.9 - Irritable bowel syndrome without diarrhea Discontinued linaclotide (Linzess) Take first thing in the morning with a full glass of water. Discontinued Reason: Doctor's Order 145 mcg PO QAM 30 caps 3RF K58.1 - Irritable bowel syndrome with constipation Patient Instructions: Quiero cambiar algunos de magi medicamentos; 1. Suspender el omeprazol y el pantoprazol 2. Empiece a loren un nuevo medicamento llamado rabeprazol dos veces al d?a. 3. Inicie damon enzima digestiva llamada Creon: tome 2 c?psulas dos veces al d?a. 4. [place] damon pastilla para los gases, simeticona 3 veces al d?a. Estoy ordenando damon prueba llamada estudio de vaciamiento g?strico para antoni si hay alg?n problema con severino est?jaylene. BARIUM SWALLOW 11/12/23 FINDINGS: Images of the oropharynx and hypopharynx demonstrate normal swallow mechanism with normal epiglottic inversion and soft palate elevation. No tracheal penetration, glottic or subglottic aspiration identified. No nasopharyngeal reflux present. Hypopharyngeal structures appear normal without evidence of mass or diverticulum. Mild cricopharyngeal achalasia is present. Dual and single contrast images of the esophagus demonstrate normal caliber, contour, and mucosal pattern. No evidence of stricture, mass, or ulcerations identified. Esophageal peristalsis was normal. A very small type I hiatal hernia is present. No significant gastroesophageal reflux was seen during the course of the examination and on reflux views. Dual contrast and single contrast images of the stomach demonstrated a normal contour. The gastric rugal folds have a mildly thickened appearance. There are multiple tiny foci of contrast pooling in the fundus of the stomach that may represent small superficial ulcers. No masses are present. Contrast freely passed into the gastric antrum and duodenal bulb without delay. Cholecystectomy clips are present in the right upper quadrant. Single and air-contrast images of the duodenal bulb demonstrate no abnormality. The duodenal sweep has a normal appearance, course, and mucosal fold appearance. The imaged proximal jejunum has a normal fold pattern and caliber. FLUOROSCOPY TIME: 4 minutes 24 seconds Number of Spot Images: 9 Number of Cine: 14 DOSE AREA PRODUCT: 1840 uGy-m2 (microgray-meter squared) FL/FL barium swallow with air IMPRESSION: 1. Mild cricopharyngeal achalasia. 2. Very small type I hiatal hernia. 3. Mildly thickened gastric rugal folds. In addition there are multiple tiny foci of contrast pooling in the fundus of the stomach. These findings are suggestive of erosive gastritis. Recommend correlation with EGD. GASTRIC EMPTYING STUDY 12/06/23 IMPRESSION: Normal 4-hour solid food gastric emptying study. TODAY'S VISIT [place] #[id number] At the last visit we decreased her Linzess to 72 micro g since she was having diarrhea, and we added Creon and simethicone for bloating. We also try changing her away from omeprazole and pantoprazole which she has failed and getting her rabeprazole twice a day. Also remember that if we can not get her GERD control she may need to stop her alendronate as this is contraindicated for patients who have uncontrolled GERD. Her GES and her barium swallow are fairly unremarkable as was her EGD in 09/2023 and she did not have much improvement in her swallowing with dialation. SHe also has pain across her upper abd that we can not find a GI cause for. SHe also has had [address] in 2023. Now she has a fairly unrevealing barium swallow along with a normal gastric emptying study. She received the LInzess at 72mcg and while she does not have diarrhea, she is not moving her bowels every day and her gas and bloating has not improved. She also is takign the creon and simethicone. With the aciphex despite bid dosing her GERD is not much improved. WIll add senna to the qhs and continue senna since her 145mcg dose was too strong. ROV 6 weeks. [facility] Medical History Endometriosis Postmenopausal Chronic back pain Depression with anxiety Hyperlipidemia, unspecified Moderate episode of recurrent major depressive disorder Bipolar 1 disorder Mass of skin of back Other microscopic hematuria Gastro-esophageal reflux disease without esophagitis Headache Surgical History History of esophagogastroduodenoscopy (EGD) H/O colonoscopy History of hysterectomy Family History Father Prostate cancer Mother Leukemia Social History Alcohol intake: former Patient Tobacco Use Status: Never used Tobacco Review of Systems Const Denies fatigue, Denies fever(s), Denies night sweats, Denies poor appetite and Denies weight loss Eyes Details: glasses Reports requires corrective lenses ENT Reports Normal hearing present, Denies dental pain, Reports dysphagia (But only rice), Denies hearing loss, Denies mouth pain, Denies odynophagia, Denies throat swelling, Denies tongue swelling and Reports other (Dentition adequate) Card Reports no additional complaints Resp Reports no additional complaints GI Details: Denies abdominal pain, Denies melena, Reports bloating, Denies hematochezia, Reports constipation, Denies GI cramping, Reports dysphagia (But only rice), Denies excessive flatus, Denies early satiety, Reports heartburn, Denies diarrhea, Denies nausea, Denies odynophagia, Denies vomiting and Denies hematemesis Skin/Breast Denies pruritus, Denies lesions, Denies rash and Denies jaundice Neuro Reports Normal hearing present and Denies Abnormal speech present Endo Denies fatigue Aller/Immun Denies throat swelling and Denies tongue swelling Physical Exam Vital Signs: Last Vital Signs Pulse 92 12/14/23 13:39 BP 107/57 L 12/14/23 13:39 BMI result Body Mass Index 23.8 Const General: cooperative, no acute distress, well developed and well groomed Nutritional Appearance: average body habitus and well nourished Orientation/consciousness: oriented to person, oriented to place and oriented to time Limitations: language barrier HEENT Head: Yes normocephalic and Yes atraumatic Eyes General: appearance normal, both eyes and all related structures Pupils: Equal, round and reactive pupils present Neck Neck: Yes normal visual inspection and Yes no lymphadenopathy Thyroid: Thyroid normal Resp Effort & Inspection: normal respiratory effort and able to speak in complete sentences Auscultation: clear to auscultation bilaterally Cardio Rate: regular rate Rhythm: regular rhythm Heart sounds: Normal, physiologic split S2 sound present Peripheral pulses: radial pulses present and posterior tibial pulses present GI Inspection: No distended and No Abdominal panniculus present Palpation (GI): Soft to palpation, nontender, no guarding, not rigid and No hepatosplenomegaly present Percussion: Yes normal to percussion Auscultation: normal bowel sounds Rectal Exam - Female: deferred Skin General skin exam: no rashes or lesions noted, turgor normal, skin not dry, no jaundice, No spider nevi and no striae Rashes: no rashes Nails: normal Neuro General: oriented to person, oriented to place and oriented to time Cranial nerves: Yes Equal, round and reactive pupils present and Yes Normal hearing present Speech: No Abnormal speech present Extrem General: Yes normal to inspection, No clubbing, No cyanosis and No edema Psych Appearance: grossly normal and well kempt Mental Status: mental status grossly normal Speech and movement: Normal speech and movement present Affect: normal affect Attitude: cooperative Thought process: Normal thought process present and not confabulating Thought content: Normal thought content present Insight: Limited insight present (Psych) Judgement: Limited judgement present (Psych) Results Reviewed Results Reviewed: BARIUM SWALLOW 11/12/23 FINDINGS: Images of the oropharynx and hypopharynx demonstrate normal swallow mechanism with normal epiglottic inversion and soft palate elevation. No tracheal penetration, glottic or subglottic aspiration identified. No nasopharyngeal reflux present. Hypopharyngeal structures appear normal without evidence of mass or diverticulum. Mild cricopharyngeal achalasia is present. Dual and single contrast images of the esophagus demonstrate normal caliber, contour, and mucosal pattern. No evidence of stricture, mass, or ulcerations identified. Esophageal peristalsis was normal. A very small type I hiatal hernia is present. No significant gastroesophageal reflux was seen during the course of the examination and on reflux views. Dual contrast and single contrast images of the stomach demonstrated a normal contour. The gastric rugal folds have a mildly thickened appearance. There are multiple tiny foci of contrast pooling in the fundus of the stomach that may represent small superficial ulcers. No masses are present. Contrast freely passed into the gastric antrum and duodenal bulb without delay. Cholecystectomy clips are present in the right upper quadrant. Single and air-contrast images of the duodenal bulb demonstrate no abnormality. The duodenal sweep has a normal appearance, course, and mucosal fold appearance. The imaged proximal jejunum has a normal fold pattern and caliber. FLUOROSCOPY TIME: 4 minutes 24 seconds Number of Spot Images: 9 Number of Cine: 14 DOSE AREA PRODUCT: 1840 uGy-m2 (microgray-meter squared) FL/FL barium swallow with air IMPRESSION: 1. Mild cricopharyngeal achalasia. 2. Very small type I hiatal hernia. 3. Mildly thickened gastric rugal folds. In addition there are multiple tiny foci of contrast pooling in the fundus of the stomach. These findings are suggestive of erosive gastritis. Recommend correlation with EGD. GASTRIC EMPTYING STUDY 12/06/23 IMPRESSION: Normal 4-hour solid food gastric emptying study. Assessment & Plan Assessment & Plan (1) Chronic idiopathic constipation: Code(s): K59.04 - Chronic idiopathic constipation Category: Medical (2) Gastro-esophageal reflux disease without esophagitis: Code(s): K21.9 - Gastro-esophageal reflux disease without esophagitis Category: Medical Plan [place] #[id number] At the last visit we decreased her Linzess to 72 micro g since she was having diarrhea, and we added Creon and simethicone for bloating. We also try changing her away from omeprazole and pantoprazole which she has failed and getting her rabeprazole twice a day. Also remember that if we can not get her GERD control she may need to stop her alendronate as this is contraindicated for patients who have uncontrolled GERD. Her GES and her barium swallow are fairly unremarkable as was her EGD in 09/2023 and she did not have much improvement in her swallowing with dialation. SHe also has pain across her upper abd that we can not find a GI cause for. SHe also has had [address]'s in 2023. Now she has a fairly unrevealing barium swallow along with a normal gastric emptying study. She received the LInzess at 72mcg and while she does not have diarrhea, she is not moving her bowels every day and her gas and bloating has not improved. She also is takign the creon and simethicone. With the aciphex despite bid dosing her GERD is not much improved. WIll add senna to the qhs and continue senna since her 145mcg dose was too strong. ROV 6 weeks. Medications: New sennosides (Senna Laxative) 17.2 mg (2 x 8.6 mg) PO BEDTIME 60 tabs 6RF K21.9 - Gastro-esophageal reflux disease without esophagitis, K59.04 - Chronic idiopathic constipation Coding Level of Care Code Est Pt Level 3 (31840) Diagnoses Chronic idiopathic constipation K59.04 Gastro-esophageal reflux disease without esophagitis K21.9
[2023-12-14 13:39] VITALS: BP 107/57; PULSE 92; BMI 23.8
== END 2023-12-14 14:49 | disposition home or self-care (01) ==
PROVIDERS: PCP Student in an Organized Health Care Education/Training Program; Visit Provider Nurse Practitioner
DX: K59.04 Chronic idiopathic constipation (principal); K21.9 Gastro-esophageal reflux disease without esophagitis
CPT/HCPCS: 99213

== ENCOUNTER → 2023-12-14 13:30 | Outpatient (BNVA) | payer MEDICAID, SELFPAY | PROVIDERS: PCP Student in an Organized Health Care Education/Training Program; Visit Provider Nurse Practitioner | DX: K58.1 Irritable bowel syndrome with constipation (principal); K21.9 Gastro-esophageal reflux disease without esophagitis; K59.04 Chronic idiopathic constipation; R14.0 Abdominal distension (gaseous); R10.10 Upper abdominal pain, unspecified | CPT/HCPCS: 99212 ==

== ENCOUNTER 2024-01-17 12:44 | Outpatient (AMB) | payer MEDICAID, SELFPAY ==
[2024-01-17 13:33] VITALS: BP 100/52; PULSE 73; O2SAT 97
--- NOTE | 2024-01-17 13:33 | A.OFFVIS_ITS ---
Vital Signs 01/17/24 13:33 Weight 130 lb BP 100/52 L Blood Pressure Location Lt brachial Position Sitting Pulse 73 Pulse Source Pulse Oximeter Pulse Oximetry (%) 97 Oxygen Delivery Method Room Air Intake Visit Reasons: Low back pain Allergies seafood Allergy (Severe, Verified 01/17/24 13:34) Anaphylaxis ceftriaxone [From Rocephin] Allergy (Verified 01/17/24 13:34) Rash Medication List - Last Reconciled 01/17/24 by Allison Lee acetaminophen (Tylenol Extra Strength) 1,000 mg (2 x 500 mg) PO Q6H PRN alendronate 70 mg PO QWEEK atorvastatin 40 mg PO DAILY calcium carbonate-vitamin D3 600 mg-20 mcg (800 unit) 1 tab PO BID cyclobenzaprine 10 mg PO TID PRN hydrocortisone 2.5% (Proctosol HC) 1 appl [place] BID linaclotide (Linzess) 72 mcg PO QAM [id number] 24,000-76,000 -120,000 unit (Creon) 2 caps PO BID 30 days magnesium oxide 400 mg PO QAM mirtazapine 7.5 mg PO BEDTIME ondansetron 8 mg PO BID-TID perphenazine 4 mg PO BID rabeprazole (AcipHex) 20 mg PO BID sennosides (Senna Laxative) 17.2 mg (2 x 8.6 mg) PO BEDTIME simethicone 180 mg PO TID 30 days tamsulosin (Flomax) 0.4 mg PO BEDTIME HPI Comments Details: Leandra is a very pleasant 63-year-old female who presents to the office today for evaluation management of her chronic lower back pain Visit was performed with clinical research coordinator #[id number] Cedric Recent MRI reviewed, results as per below Endorses 20 years of lower back pain radiation down both legs, left worse than right. Denies inciting injury, fall, trauma Completed physical therapy 3 months ago with no improvement of her pain. Continues with home exercise program She has tried Tylenol and nonsteroidal anti-inflammatory medications without improvement Pain is worse with sitting and standing Pain with forward flexion, pain is worse with extension Denies red flag symptoms including new loss of bowel, bladder or saddle anesthesia. In terms of muscle damage condition is described as aching, hot, burning, stabbing, sharp, shooting, cramping, squeezing, throbbing Pain is negatively impacting patient's enjoyment of life, general activity, normal work, recreational activities, sleep and walking Denies use of anticoagulants Denies implantable devices, pacemaker or defibrillator Denies current use of nicotine, tobacco, alcohol or illicit substances [facility] Medical History Endometriosis Postmenopausal Chronic back pain Depression with anxiety Hyperlipidemia, unspecified Moderate episode of recurrent major depressive disorder Bipolar 1 disorder Mass of skin of back Other microscopic hematuria Gastro-esophageal reflux disease without esophagitis Headache Surgical History History of esophagogastroduodenoscopy (EGD) H/O colonoscopy History of hysterectomy Family History Father Prostate cancer Mother Leukemia Social History Alcohol intake: former Patient Tobacco Use Status: Never used Tobacco Review of Systems Const All systems reviewed & are unremarkable except as noted in HPI and below Physical Exam Vital Signs: Last Vital Signs Pulse 73 01/17/24 13:33 BP 100/52 L 01/17/24 13:33 Pulse Ox 97 01/17/24 13:33 Oxygen Delivery Method Room Air 01/17/24 13:33 General: awake, alert, oriented. Answers questions appropriately. Fully engaged in examination. Skin: warm, dry, intact HEENT: Normocephalic. Hearing intact. Cardiac: External chest normal in appearance. Respiratory: No cough, audible wheezing or stridor. Abdomen: without gross distension. MS: No obvious swelling or deformities. Able to stand on bilateral tiptoes and bilateral heels.? Able to transition from sit to stand unassisted. Ambulates with bilaterally normal heel strike and toe off SLR positive bilaterally Tenderness over midline lumbar vertebrae and lumbar paraspinal muscles Minimally tender over bilateral PSIS Pain with forward flexion at 60 degrees, extension at 5 degrees. Negative footdrop, negative clonus Valsalva negative Neurological: Oriented to person, place, time and situation. Thought process intact. No gait abnormalities appreciated. Psychiatric: Appropriate mood and affect. Good judgment and insight. Results Reviewed Results Reviewed: 11/09/23 MRI LS FINDINGS: Mild dextrocurvature of the lumbar spine. Preservation of the normal lumbar lordosis. No listhesis. No acute bone marrow abnormality. The vertebral body heights are preserved. Multilevel disc desiccation without significant disc height loss. T12-L1: Shallow left paracentral disc protrusion. No significant spinal canal or neural foraminal narrowing. L1-2: Central disc protrusion. No significant spinal canal or neural foraminal narrowing. L2-3: Left foraminal disc protrusion and bilateral facet arthrosis. No significant spinal canal or neural foraminal narrowing. L3-4: Diffuse disc bulge and bilateral facet arthrosis. Mild bilateral neural foraminal narrowing with the disc abutting the exiting L3 nerve roots bilaterally. No significant spinal canal stenosis. L4-5: Shallow disc bulge with superimposed annular fissure. Bilateral facet arthrosis. Mild right neural foraminal narrowing with the disc abutting the exiting L4 nerve as bilaterally. L5-S1: Shallow disc bulge and bilateral facet arthrosis. No significant spinal canal or neural foraminal narrowing. The paravertebral soft tissues are unremarkable. Bilateral renal cysts. IMPRESSION: 1. Mild degenerative changes of the lumbar spine without significant spinal canal stenosis. 2. Mild neural foraminal narrowing at L3-L4 and L4-L5 with the disc abutting the exiting L3 and L4 nerve roots bilaterally. 3. L4-L5 annular fissure. Assessment & Plan Assessment & Plan (1) Lumbar radiculopathy: Code(s): M54.16 - Radiculopathy, lumbar region Category: Medical Plan Leandra is a very pleasant 63-year-old female who presented to the office today for evaluation and management of her chronic lower back pain MRI reviewed, results as per above History, physical exam and provocative testing consistent with lumbar spondylosis and lumbar radiculopathy Patient has exhausted conservative therapy including PT, home exercise program, [id number] medications, nonsteroidal anti-inflammatory medications all without improvement of her symptoms Discussed options for treatment including diagnostic interventional testing, epidural steroid injections, peripheral nerve stimulation with Sprint, RFA and more permanent neuromodulation. Will schedule for fluoroscopy guided bilateral L3-L4 transforaminal epidural steroid injections with local anesthetic. All questions and concerns have been answered and patient agrees with the plan. Follow up after injections and sooner if needed. Medications: New methocarbamol No driving while taking this medication. Do no take with alcohol or other [employer] Depressants 500 mg PO TID PRN 90 tabs 1RF muscle spasm Discontinued cyclobenzaprine Discontinued Reason: Doctor's Order 10 mg PO TID PRN 20 tabs 0RF muscle pain or spasm Coding Level of Care Code New Pt Level 4 (00190) Complex EM visit Add On G2211 Diagnoses Lumbar radiculopathy M54.16
== END 2024-01-17 13:51 | disposition home or self-care (01) ==
PROVIDERS: PCP Student in an Organized Health Care Education/Training Program; Visit Provider Registered Nurse Emergency
DX: M54.16 Radiculopathy, lumbar region (principal)
CPT/HCPCS: 99204

== ENCOUNTER → 2024-01-17 12:44 | Outpatient (BNVA) | payer MEDICAID, SELFPAY | PROVIDERS: PCP Student in an Organized Health Care Education/Training Program; Visit Provider Registered Nurse Emergency | DX: M54.16 Radiculopathy, lumbar region (principal) | CPT/HCPCS: 99212 ==

== ENCOUNTER 2024-02-08 20:38 | Emergency (ER) | payer MEDICAID, SELFPAY ==
--- NOTE | ~2024-02-08 | CT_ITS ---
EXAMINATION: CT HEAD WITHOUT CONTRAST CLINICAL INFORMATION: Change in mental status COMPARISON: 01/13/2023 TECHNIQUE: Contiguous axial imaging was performed from the skull base to vertex without intravenous administration of contrast. This CT examination was performed using dose optimization techniques as appropriate, variously including the following: *Automated exposure control *Adjustment of mA and/or kV according to patient size (this includes techniques or standardized protocols for targeted exams where dose is matched to indication/reason for exam; i.e. extremities or head) *Use of iterative reconstruction technique DLP: 667 mGy-cm FINDINGS: There is no evidence of acute intracranial hemorrhage or territorial infarction. No abnormal mass effect or midline shift is seen. Carranza to white matter differentiation is well preserved. No extra-axial fluid collections are identified. The ventricles are normal in size. There is no abnormal attenuation within the brain parenchyma. The osseous structures and soft tissues are normal. The mastoid air cells and visualized portions of the paranasal sinuses are well-aerated. CT/CT head/brain wo IV con IMPRESSION: No acute intracranial pathology. Electronically signed by: Rocael Lantigua MD 02/08/2024 08:53 PM EDT
--- NOTE | 2024-02-08 20:42 | ECG_ITS ---
Test Reason : AMS Blood Pressure : / mmHG Vent. Rate : 086 BPM Atrial Rate : 086 BPM P-R Int : 128 ms QRS Dur : 072 ms QT Int : 358 ms P-R-T Axes : 044 026 051 degrees QTc Int : 428 ms Normal sinus rhythm Normal ECG When compared with ECG of 13-JAN-2023 11:30, No significant change was found Referred By: Cami Maher Electronically Signed By:JOSE ENRIQUE NAVARRO
[2024-02-08 20:51] VITALS: BP 143/82; PULSE 74; O2SAT 90
--- NOTE | 2024-02-08 21:00 | PC.NURSE ---
patient awoke once moved into ER room. Patient very disoriented but once conference interpreter at bedside is able to answer some questions. patient is oriented to person, hospital and date. Patient reports taking sleeping medication tonight. pt states I just want to sleep and I am nauseaous . MD at bedside to reassess patient.
[2024-02-08 21:05] LABS: MANUAL DIFF FLAG NO
[2024-02-08 21:08] VITALS: BP 134/79; PULSE 79; RESP 22; TEMP 36.8; O2SAT 98; BMI 22.6
[2024-02-08 21:08] LABS: Venous Blood Gas Refer to POC result
[2024-02-08 21:09] LABS: Basophils Absolute Auto 0.1 X10*3/uL (0.0-0.2); Basophils Percent Auto 0.8 % (0-2); Eosinophils Absolute Auto 0.1 X10*3/uL (0.0-0.4); Eosinophils Percent Auto 1.2 % (0-4); Hematocrit 40.1 % (37.0-47.0); Imm Gran Abs Auto 0.03 X10*3/uL (0.00-0.03); Imm Gran Pct Auto 0.4 % (0.0-0.4); Lymphocytes Absolute Auto 2.6 X10*3/uL (1.2-4.9); Lymphocytes Percent Auto 30.5 % (20-40); Mean Corpuscular HGB Conc 34.9 g/dl (31.0-35.0); Mean Corpuscular Hemoglobin 30.6 pg (27.0-33.0); Mean Corpuscular Volume 87.7 fL (80.0-98.0); Mean Platelet Volume 11.2 fL (9.4-12.3); Monocytes Absolute Auto 0.5 X10*3/uL (0.1-1.2); Monocytes Percent Auto 6.3 % (2-11); Neutrophils Absolute Auto 5.1 x10*3/uL (2.0-8.3); Neutrophils Percent Auto 60.8 % (45-73); Platelet Count 307 X10*3/uL (160-400); Red Blood Count 4.57 X10*6/uL (4.20-5.50); Red Cell Distribution Width 13.1 % (11.0-16.0); White Blood Count 8.4 X10*3/uL (4.8-10.8)
[2024-02-08 21:13] LABS: Appearance Urine Clear; Color Urine Yellow; Glucose Urine UA Negative (Negative); Leukocyte Esterase Urine Negative (Negative); Nitrite Urine Negative (Negative); Specific Gravity - Urine <= 1.005 (1.005-1.025); UMIC TRIGGER UACC YES; Urine Blood Trace (Negative); Urine Ketones Negative (Negative); Urine Protein Negative (Neg-Trace)
[2024-02-08 21:17] LABS: INTERNATIONAL NORM RATIO 0.9 (0.9-1.1); Prothrombin Time 10.9 SEC (10.9-12.4)
[2024-02-08 21:18] LABS: Bacteria Urine None Seen (None Seen); Hyaline Casts Urine 0-2 /LPF (0-2); RBC Urine 0-2 /HPF (0-2); Squamous Epithelial Cell Urine 0-2 /HPF (0-2); WBC Urine 0-5 /HPF (0-5)
[2024-02-08 21:18] LABS: Ammonia 26 umol/L (13-55)
[2024-02-08 21:26] LABS: Alanine Aminotransferase 28 U/L (0-31); Albumin Level 4.1 g/dL (3.5-5.0); Alkaline Phosphatase 88 U/L (39-117); Anion Gap 12 (12-20); Aspartate Amino Transferase 23 U/L (5-31); Bilirubin Direct < 0.2 mg/dL (0.0-0.5); Bilirubin Total 0.2 mg/dL (0.0-1.0); Blood Urea Nitrogen 20 mg/dL (9-16); Calcium 9.9 mg/dL (8.4-10.2); Carbon Dioxide 25 mmol/L (22-29); Chloride 110 mmol/L (96-108); Creatinine Clr Calc Pharmacy 57.1; Estimated Glomerular Filt Rate > 60; Ethanol < 10 mg/dL; Glucose Random 97 mg/dL (60-115); Lipase 31 U/L (8-78); Magnesium 2.5 mg/dL (1.6-2.6); Potassium 4.2 mmol/L (3.3-5.1); Sodium 143 mmol/L (135-145); Total Protein 7.4 g/dL (6.5-8.0)
[2024-02-08 21:34] LABS: Troponin-I High Sensitivity < 2.7 ng/L (<3.5-17.0)
[2024-02-08 21:42] LABS: Influenza A PCR NEGATIVE (Negative); Influenza B PCR NEGATIVE (Negative); Resp Syncy Virus RNA Qual PCR NEGATIVE (Negative); SARS COV2 PCR INHOUSE NEGATIVE (Negative)
--- NOTE | 2024-02-08 21:45 | PC.NURSE ---
patient visitor at bedside. Patient alert and oriented to friend and reports how she wants to go home, friend at bedside is encouraging patient to stay in hospital for observation and left her phone number with RN to call for emergencies or a ride home.
[2024-02-08] MEDS: ondansetron HCL 4 MG/2 ML VIAL IVPUSH (21:46)
[2024-02-08 22:00] VITALS: BP 129/57; PULSE 68; RESP 13; TEMP 36.8; O2SAT 98
[2024-02-08 22:07] LABS: VBG pH 7.43 (7.32-7.43)
[2024-02-08 22:08] LABS: VBG Base Excess 4.7 mmol/L; VBG HCO3 29 mmol/L (22-26); VBG pCO2 44 mmHg; VBG pO2 58 mmHg
[2024-02-08 22:40] LABS: Amphetamine Screen Urine Not Detected (Not Detect); Barbiturates, Urine Not Detected (Not Detect); Benzodiazepines Screen Urine Not Detected (Not Detect); Buprenorphine Scr Not Detected (Not Detect); Cannabinoid Screen Urine Not Detected (Not Detect); Cocaine Screen Urine Not Detected (Not Detect); Fentanyl, urine Not Detected (Not Detect); Methadone Screen, Urine Not Detected (Not Detect); Opiate Screen Urine Not Detected (Not Detect); Oxycodone Screen Urine Not Detected (Not Detect); Phencyclidine Screen Urine Not Detected (Not Detect)
--- NOTE | 2024-02-08 22:40 | PC.NURSE ---
pt with outdoor emergency care technician attempted to stand and pivot to bedside commode with extreme weakness and fatigue. patient unable to ambulate safety on own at this time. aware.
--- NOTE | 2024-02-08 22:43 | ED.AMS ---
HPI - Altered Mental Status General Chief Complaint: Altered Mental Status Stated Complaint: AMS Time Seen by Provider: 02/08/24 20:42 Source: patient, EMS, old records reviewed and other (friend) Mode of arrival: EMS Limitations: altered mental status History of Present Illness ED Provider: NICKY KING narrative: 63 yo female with PMH of IBS, GERD, migraines, insomnia who has had a hard time sleeping so she was started on methocarbamol - friend notes she thinks she took an extra dose on accident tonight. No SI reported. The patient reported she took a sleeping pill. No trauma reported no falls no pain. She has no localizing symptoms - pupils has anisocoria but this is baseline per friend. No prior issues with sleeping medications or overdose in the past. MD complaint: altered mental status Onset (ago): hour(s) (1) Timing confirmed by: other (friend) Severity: moderate Consistency of symptoms: constant Context: change in medication Associated symptoms: denies other symptoms Related Data Home Medications ?Medication ?Instructions ?Recorded ?Confirmed alendronate 70 mg tablet 70 mg PO QWEEK 08/30/23 01/17/24 calcium carbonate 600 mg-vitamin 1 tab PO BID 08/30/23 01/17/24 D3 20 mcg (800 unit) tablet magnesium oxide 400 mg (241.3 mg 400 mg PO QAM 08/30/23 01/17/24 magnesium) tablet mirtazapine 7.5 mg tablet 7.5 mg PO BEDTIME 08/30/23 01/17/24 perphenazine 4 mg tablet 4 mg PO BID 08/30/23 01/17/24 atorvastatin 40 mg tablet 40 mg PO DAILY 09/25/23 01/17/24 Previous Rx's ?Medication ?Instructions ?Recorded acetaminophen 500 mg tablet 1,000 mg (2 x 500 mg) PO Q6H PRN 01/13/23 (Tylenol Extra Strength) fever or pain #20 tabs ondansetron 8 mg disintegrating 8 mg PO BID-TID nausea #30 tabs 07/06/23 tablet tamsulosin 0.4 mg capsule (Flomax) 0.4 mg PO BEDTIME to help pass 07/06/23 stones #30 caps hydrocortisone 2.5 % topical cream 1 appl [place] BID hemorrhoids #30 grams 08/30/23 with perineal applicator (Proctosol HC) linaclotide 72 mcg capsule 72 mcg PO QAM #30 caps 09/25/23 (Linzess) noazjx-zdalquhr-eszlzgz 2 cap PO BID 30 days #120 caps 09/25/23 24,000-76,000-120,000 unit capsule,delayed rel (Creon) rabeprazole 20 mg tablet,delayed 20 mg PO BID #60 tabs 09/25/23 release (AcipHex) simethicone 180 mg capsule 180 mg PO TID 30 days #90 caps 09/25/23 sennosides 8.6 mg tablet (Senna 17.2 mg (2 x 8.6 mg) PO BEDTIME 12/14/23 Laxative) #60 tabs methocarbamol 500 mg tablet 500 mg PO TID PRN muscle spasm #90 01/17/24 tabs Allergies Allergy/AdvReac Type Severity Reaction Status Date / Time seafood Allergy Severe Anaphylaxis Verified 02/08/24 21:12 ceftriaxone [From Rocephin] Allergy Rash Verified 02/08/24 21:12 Review of Systems Review of Systems: ROS unable to be obtained due to altered mental status [facility] Past Medical History Attestation statement: The following information was validated with the patient. Source: old records reviewed Medical History Endometriosis Postmenopausal Chronic back pain Depression with anxiety Hyperlipidemia, unspecified Moderate episode of recurrent major depressive disorder Bipolar 1 disorder Mass of skin of back Other microscopic hematuria Gastro-esophageal reflux disease without esophagitis Headache Surgical History History of esophagogastroduodenoscopy (EGD) H/O colonoscopy History of hysterectomy Family History Family History Father Prostate cancer Mother Leukemia Social History Social History Alcohol intake: former Patient Tobacco Use Status: Never used Tobacco Advance Directives: No Advance Directives Information Provided: No Do you have a plan to hurt others: No Plan Patient : No Physical Exam ED Vital Signs: Vital Signs - 24 hr 02/08/24 21:08 02/08/24 22:00 02/08/24 23:26 Temperature 98.2 F 98.2 F 98.1 F Pulse Rate 79 68 73 Respiratory Rate 22 H 13 18 Blood Pressure 134/79 129/57 L 108/47 L Pulse Oximetry 98 98 100 Oxygen Delivery Method Room Air Room Air Room Air BMI result Body Mass Index 22.6 Appearance: Somnolent but wakes to loud voice and tactile stimuli Oriented X3 but very slow to respond on arrival No acute distress. Eyes: Pupils R 3mm L pupil 2mm reactive ENT: Pharynx normal. atraumatic Neck: Normal inspection. Neck supple. CVS: Normal heart rate and rhythm. Pulses normal. Respiratory: No respiratory distress. Breath sounds normal. Abdomen: Soft and nontender. Skin: Skin warm and dry. Normal skin color. Normal skin turgor. Extremities: No lower extremity edema. No calf ttp Neuro: Oriented X 3. No motor deficit. No sensory deficit. very slow to respond to all questions and exam - no clonus no hyperreflexia Course Course Course Narrative: signed out to Dr. Avila pending clinical improvement Medications Administered Discontinued Medications Generic Name Dose Route Start Last Admin Trade Name Robertq PRN Reason Stop Dose Admin Ondansetron HCl 4 mg 02/08/24 21:35 02/08/24 21:46 Ondansetron Hcl 4 Mg/2 Ml Vial IVPUSH 02/08/24 21:36 4 mg ONCE ONE Administration Medical Decision Making Medical Decision Making [facility] Narrative: 63 yo female with PMH of IBS, GERD, migraines, insomnia here with c/o possible accidental ingestion of methocarbamol. No SI reported. She is somnolent on arrival but no localizing symptoms friend reports pupils unequal on baseline, metabolic/toxic labs ordered CT head for ICH will monitor until more awake. The patient admits to taking sleeping pill. Differential Diagnosis Differential Diagnoses: The differential diagnosis associated with the presentation includes ingestion, ICH, lyte abnormality Admission/Observation Consideration of admission/observation: Escalation of care including admission/observation considered physician observation started 1048pm pending improvement from medication Lab Data [facility] Lab Attestation statement: I reviewed the patient's lab results. 02/08/24 21:03 02/08/24 21:03 Labs: Lab Results 02/08/24 02/08/24 02/08/24 Range/Units 20:57 21:03 21:04 WBC 8.4 (4.8-10.8) X10*3/uL RBC 4.57 (4.20-5.50) X10*6/uL Hgb 14.0 (12.0-16.0) g/dl Hct 40.1 (37.0-47.0) % MCV 87.7 (80.0-98.0) fL MCH 30.6 (27.0-33.0) pg MCHC 34.9 (31.0-35.0) g/dl RDW 13.1 (11.0-16.0) % Plt Count 307 (160-400) X10*3/uL MPV 11.2 (9.4-12.3) fL Immature Gran % (Auto) 0.4 (0.0-0.4) % Neut % (Auto) 60.8 (45-73) % Lymph % (Auto) 30.5 (20-40) % Holmes % (Auto) 6.3 (2-11) % Eos % (Auto) 1.2 (0-4) % Baso % (Auto) 0.8 (0-2) % Lymph # (Auto) 2.6 (1.2-4.9) X10*3/uL Holmes # (Auto) 0.5 (0.1-1.2) X10*3/uL Eos # (Auto) 0.1 (0.0-0.4) X10*3/uL Baso # (Auto) 0.1 (0.0-0.2) X10*3/uL Abs Immat Gran (auto) 0.03 (0.00-0.03) X10*3/uL Absolute Neuts (auto) 5.1 (2.0-8.3) x10*3/uL Absolute Nucleated RBC 0.000 (0.0-0.012) X10*3/uL Nucleated RBC % (auto) 0.0 (0.0-0.2) /100WBC PT 10.9 (10.9-12.4) SEC INR 0.9 (0.9-1.1) VBG pH 7.43 (7.32-7.43) VBG pCO2 44 mmHg VBG pO2 58 mmHg VBG HCO3 29 H (22-26) mmol/L VBG O2 Saturation 83.0 % VBG Base Excess 4.7 mmol/L Sodium 143 (135-145) mmol/L Potassium 4.2 (3.3-5.1) mmol/L Chloride 110 H (96-108) mmol/L Carbon Dioxide 25 (22-29) mmol/L Anion Gap 12 (12-20) BUN 20 H (9-16) mg/dL Creatinine 0.87 (0.5-1.4) mg/dL Estim Creat Clear Calc 57.1 Estimated GFR > 60 Random Glucose 97 (60-115) mg/dL Lactic Acid 1.0 (0.5-2.0) mmol/L Calcium 9.9 (8.4-10.2) mg/dL Magnesium 2.5 (1.6-2.6) mg/dL Total Bilirubin 0.2 (0.0-1.0) mg/dL Direct Bilirubin < 0.2 (0.0-0.5) mg/dL AST 23 (5-31) U/L ALT 28 (0-31) U/L Alkaline Phosphatase 88 (39-117) U/L Ammonia 26 (13-55) umol/L Total Creatine Kinase 116 (26-140) U/L Troponin I High Sens < 2.7 (<3.5-17.0) ng/L Total Protein 7.4 (6.5-8.0) g/dL Albumin 4.1 (3.5-5.0) g/dL Lipase 31 (8-78) U/L Urine Color Urine Appearance Urine pH (5.0-9.0) Ur Specific [place] (1.005-1.025) Urine Protein (Neg-Trace) mg/dL Urine Glucose (UA) (Negative) mg/dL Urine Ketones (Negative) mg/dL Urine Blood (Negative) Urine Nitrite (Negative) Ur Leukocyte Esterase (Negative) Urine RBC (0-2) /HPF Urine WBC (0-5) /HPF Ur Squamous Epith Cells (0-2) /HPF Urine Bacteria (None Seen) Hyaline Casts (0-2) /LPF Urine Opiates Screen (Not Detect) Ur Buprenorphine Scrn (Not Detect) ng/mL Ur Oxycodone Screen (Not Detect) ng/mL Urine Methadone Screen (Not Detect) ng/mL Urine Fentanyl Screen (Not Detect) Ur Barbiturates Screen (Not Detect) Ur Phencyclidine Scrn (Not Detect) Ur Amphetamines Screen (Not Detect) U Benzodiazepines Scrn (Not Detect) Urine Cocaine Screen (Not Detect) U Marijuana (THC) Screen (Not Detect) Ethyl Alcohol < 10 mg/dL Influenza Type A (PCR) NEGATIVE (Negative) Influenza Type B (PCR) NEGATIVE (Negative) RSV RNA Qual (PCR) NEGATIVE (Negative) SARS-CoV-2 RNA (RT-PCR) NEGATIVE (Negative) 02/08/24 Range/Units 21:07 WBC (4.8-10.8) X10*3/uL RBC (4.20-5.50) X10*6/uL Hgb (12.0-16.0) g/dl Hct (37.0-47.0) % MCV (80.0-98.0) fL MCH (27.0-33.0) pg MCHC (31.0-35.0) g/dl RDW (11.0-16.0) % Plt Count (160-400) X10*3/uL MPV (9.4-12.3) fL Immature Gran % (Auto) (0.0-0.4) % Neut % (Auto) (45-73) % Lymph % (Auto) (20-40) % Holmes % (Auto) (2-11) % Eos % (Auto) (0-4) % Baso % (Auto) (0-2) % Lymph # (Auto) (1.2-4.9) X10*3/uL Holmes # (Auto) (0.1-1.2) X10*3/uL Eos # (Auto) (0.0-0.4) X10*3/uL Baso # (Auto) (0.0-0.2) X10*3/uL Abs Immat Gran (auto) (0.00-0.03) X10*3/uL Absolute Neuts (auto) (2.0-8.3) x10*3/uL Absolute Nucleated RBC (0.0-0.012) X10*3/uL Nucleated RBC % (auto) (0.0-0.2) /100WBC PT (10.9-12.4) SEC INR (0.9-1.1) VBG pH (7.32-7.43) VBG pCO2 mmHg VBG pO2 mmHg VBG HCO3 (22-26) mmol/L VBG O2 Saturation % VBG Base Excess mmol/L Sodium (135-145) mmol/L Potassium (3.3-5.1) mmol/L Chloride (96-108) mmol/L Carbon Dioxide (22-29) mmol/L Anion Gap (12-20) BUN (9-16) mg/dL Creatinine (0.5-1.4) mg/dL Estim Creat Clear Calc Estimated GFR Random Glucose (60-115) mg/dL Lactic Acid (0.5-2.0) mmol/L Calcium (8.4-10.2) mg/dL Magnesium (1.6-2.6) mg/dL Total Bilirubin (0.0-1.0) mg/dL Direct Bilirubin (0.0-0.5) mg/dL AST (5-31) U/L ALT (0-31) U/L Alkaline Phosphatase (39-117) U/L Ammonia (13-55) umol/L Total Creatine Kinase (26-140) U/L Troponin I High Sens (<3.5-17.0) ng/L Total Protein (6.5-8.0) g/dL Albumin (3.5-5.0) g/dL Lipase (8-78) U/L Urine Color Yellow Urine Appearance Clear Urine pH 7.0 (5.0-9.0) Ur Specific [place] <= 1.005 (1.005-1.025) Urine Protein Negative (Neg-Trace) mg/dL Urine Glucose (UA) Negative (Negative) mg/dL Urine Ketones Negative (Negative) mg/dL Urine Blood Trace H (Negative) Urine Nitrite Negative (Negative) Ur Leukocyte Esterase Negative (Negative) Urine RBC 0-2 (0-2) /HPF Urine WBC 0-5 (0-5) /HPF Ur Squamous Epith Cells 0-2 (0-2) /HPF Urine Bacteria None Seen (None Seen) Hyaline Casts 0-2 (0-2) /LPF Urine Opiates Screen Not Detected (Not Detect) Ur Buprenorphine Scrn Not Detected (Not Detect) ng/mL Ur Oxycodone Screen Not Detected (Not Detect) ng/mL Urine Methadone Screen Not Detected (Not Detect) ng/mL Urine Fentanyl Screen Not Detected (Not Detect) Ur Barbiturates Screen Not Detected (Not Detect) Ur Phencyclidine Scrn Not Detected (Not Detect) Ur Amphetamines Screen Not Detected (Not Detect) U Benzodiazepines Scrn Not Detected (Not Detect) Urine Cocaine Screen Not Detected (Not Detect) U Marijuana (THC) Screen Not Detected (Not Detect) Ethyl Alcohol mg/dL Influenza Type A (PCR) (Negative) Influenza Type B (PCR) (Negative) RSV RNA Qual (PCR) (Negative) SARS-CoV-2 RNA (RT-PCR) (Negative) Independent Interpretation I performed an independent interpretation of an: EKG and CT Scan (no ICH) Interpretation: Rate: 86 Rhythm: NSR Rock: normal Normal P waves. Normal DIPTI. Normal QRS complex. ST T wave : no EDMOND, inverted t waves V1-V2 qTC: 428 prior studies: no acute ischemia The study has been interpreted contemporaneously by me. . Radiology Impression Discussion of test interpretation with radiology: I have reviewed the radiologist's reading. Independent Historian Clinical information obtained from an independent historian. History obtained from or confirmed by: Friend and EMS External Record Review External record reviewed: Outpatient record Discharge Plan Discharge Clinical Impression: Altered mental status Qualifiers: Altered mental status type: somnolence Qualified Code(s): R40.0 - Somnolence Patient Disposition: Still a Patient Instructions: Altered Mental Status (ED) Additional Instructions: labs reassuring, CT head normal please monitor your medications and consider a pill box or safety plan for your medications cut your methocarbamol dose in half stay with responsible adult today Prescriptions: No Action acetaminophen [Tylenol Extra Strength] 500 mg tablet 1,000 mg PO Q6H PRN (Reason: fever or pain) Qty: 20 0RF tamsulosin [Flomax] 0.4 mg capsule 0.4 mg PO BEDTIME Qty: 30 0RF ondansetron 8 mg tablet,disintegrating 8 mg PO BID-TID Qty: 30 0RF atorvastatin 40 mg tablet 40 mg PO DAILY Linzess 72 mcg capsule 72 mcg PO QAM Qty: 30 6RF rabeprazole [AcipHex] 20 mg tablet,delayed release (DR/EC) 20 mg PO BID Qty: 60 6RF Creon 24,000-76,000 -120,000 unit capsule,delayed release(DR/EC) 2 cap PO BID 30 Days Qty: 120 1RF simethicone 180 mg capsule 180 mg PO TID 30 Days Qty: 90 3RF Rx Instructions: after meals sennosides [Senna Laxative] 8.6 mg tablet 17.2 mg PO BEDTIME Qty: 60 6RF alendronate 70 mg tablet 70 mg PO QWEEK calcium carbonate-vitamin D3 600 mg-20 mcg (800 unit) tablet 1 tab PO BID mirtazapine 7.5 mg tablet 7.5 mg PO BEDTIME perphenazine 4 mg tablet 4 mg PO BID magnesium oxide 400 mg (241.3 mg magnesium) tablet 400 mg PO QAM hydrocortisone [Proctosol HC] 2.5 % cream with perineal applicator 1 appl VT BID Qty: 30 6RF Rx Instructions: BE SURE TO INCLUDE RECTAL APPICATOR!! methocarbamol 500 mg tablet 500 mg PO TID PRN (Reason: muscle spasm) Qty: 90 1RF Rx Instructions: No driving while taking this medication. 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
[2024-02-08 23:26] VITALS: BP 108/47; PULSE 73; RESP 18; TEMP 36.7; O2SAT 100
[2024-02-09 01:06] VITALS: BP 100/48; PULSE 76; RESP 16; O2SAT 99
[2024-02-09 03:03] VITALS: BP 94/43; PULSE 75; RESP 16; O2SAT 96
[2024-02-09 04:53] VITALS: BP 94/56; PULSE 73; RESP 12; TEMP 36.8; O2SAT 97
--- NOTE | 2024-02-09 06:47 | PC.NURSE ---
Patient's BP's low when she is in a deep sleep, 100-106/50-55 when pt's is awake.
[2024-02-09 07:15] VITALS: BP 101/52; PULSE 80; RESP 12; TEMP 36.6; O2SAT 96
--- NOTE | 2024-02-09 07:19 | PC.NURSE ---
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
--- NOTE | 2024-02-09 09:38 | PC.NURSE ---
pt ambulated with stby assist, pt was able to ambulate with steady gait, pt states she felt ok to discharge, this nurse will call her friend for a ride.
[2024-02-09 09:56] VITALS: BP 106/53; PULSE 74; RESP 16; TEMP 36.7; O2SAT 97
== END 2024-02-09 09:56 | disposition still patient (30) ==
PROVIDERS: Emergency Provider Emergency Medicine
DX: R41.82 Altered mental status, unspecified (principal); G47.00 Insomnia, unspecified; Z03.818 Encounter for observation for suspected exposure to other biological agents ruled out; Z79.899 Other long term (current) drug therapy; Z51.81 Encounter for therapeutic drug level monitoring
CPT/HCPCS: 0241U; 36415; 70450; 80048; 80076; 80307; 81001; 82140; 82550; 82803; 83605; 83690; 83735; 84484; 85025; 85610; 93005; 99284; 99285; J2405

== ENCOUNTER → 2024-02-08 20:42 | Outpatient (BNV) | payer MEDICAID, SELFPAY | PROVIDERS: Emergency Provider Emergency Medicine; Visit Provider Internal Medicine | DX: R41.82 Altered mental status, unspecified (principal) | CPT/HCPCS: 93010 ==

== ENCOUNTER 2024-02-11 15:26 | Outpatient (REF) | payer MEDICAID, SELFPAY ==
--- NOTE | ~2024-02-11 | MR_ITS ---
EXAMINATION: MR BRAIN WITHOUT CONTRAST CLINICAL INFORMATION: Chronic headache. COMPARISON: CT head from 02/08/2024. TECHNIQUE: MRI of the brain was obtained using routine sequences without contrast. FINDINGS: No focal restricted diffusion is demonstrated to suggest acute or subacute cerebral ischemia. No evidence of acute or chronic hemorrhagic products on heme-sensitive imaging. Scattered and partially confluent periventricular, deep white matter, and brainstem T2 FLAIR hyperintensities consistent with mild to moderate underlying microangiopathy. The ventricles are normal in morphology and size. No abnormal mass effect. No midline shift. Normal appearance of the pituitary gland. Normal positioning of the cerebellar tonsils. Normal arterial and venous vascular flow voids are present. Normal, homogeneous marrow signal. Mild mucosal thickening of the paranasal sinuses. No signal abnormalities within the mastoids. Normal appearance of the internal auditory canals bilaterally. No demonstrated mass lesions along the cerebellopontine angles. Maintained normal T2 signal within the labyrinthine structures. Bilateral lens extractions. MR/MR head/brain wo con IMPRESSION: 1. No acute intracranial abnormalities. 2. Mild to moderate underlying microangiopathy. Electronically signed by: Toro Mota DO 03/19/2024 06:08 AM SAMREEN
== END 2024-02-11 15:27 | disposition home or self-care (01) ==
LOC: HO.MRI 15:26
PROVIDERS: PCP Student in an Organized Health Care Education/Training Program; Visit Provider Student in an Organized Health Care Education/Training Program
DX: R51.9 Headache, unspecified (principal)
CPT/HCPCS: 70551

== ENCOUNTER 2024-03-11 06:13 | Outpatient (REF) | payer MEDICAID, SELFPAY ==
--- NOTE | ~2024-03-11 | FL_ITS ---
EXAMINATION: FLUORO GUIDANCE IN TREATMENT ROOM CLINICAL INFORMATION: Radiculopathy, lumbar region. COMPARISON: None available. TECHNIQUE: Fluoroscopy supervised by: Dr. Michael Baker. Fluoroscopy time: 0.4 minutes. Cumulative Dose: 3.33 mGy. DAP: 0.0579 mGy-m2 (milligray-meter squared). Images: 5. FINDINGS: Bilateral transforaminal needles are seen overlying the lumbar spine at the same level. Contrast was injected bilaterally and is in the epidural space. The exact level cannot be ascertained from the provided spot films. FL/FL guidance in treatment room IMPRESSION: Fluoroscopy during procedure. Please see procedure report for additional information. Electronically signed by: Jamar Cerna MD 05/07/2024 04:14 PM [facility] JOSEPH
== END 2024-03-11 06:14 | disposition home or self-care (01) ==
LOC: CF 06:13
PROVIDERS: Visit Provider Anesthesiology
DX: M54.16 Radiculopathy, lumbar region (principal)
CPT/HCPCS: 64483; J2003; J3301; Q9967

== ENCOUNTER 2024-03-11 10:28 | Outpatient (AMB) | payer MEDICAID, SELFPAY ==
[2024-03-11 10:44] VITALS: BP 104/46; PULSE 75; O2SAT 99
--- NOTE | 2024-03-11 10:44 | A.OFFVIS_ITS ---
Vital Signs 03/11/24 10:44 03/11/24 11:16 BP 104/46 L 102/59 L Blood Pressure Location Lt brachial Lt brachial Position Sitting Sitting Pulse 75 79 Pulse Source Pulse Oximeter Pulse Oximeter Pulse Oximetry (%) 99 100 Oxygen Delivery Method Room Air Room Air Intake Visit Reasons: BILATERAL L3, L4, TFESI Allergies seafood Allergy (Severe, Verified 02/08/24 21:12) Anaphylaxis ceftriaxone [From Rocephin] Allergy (Verified 02/08/24 21:12) Rash PFSH Medical History Endometriosis Postmenopausal Chronic back pain Depression with anxiety Hyperlipidemia, unspecified Moderate episode of recurrent major depressive disorder Bipolar 1 disorder Mass of skin of back Other microscopic hematuria Gastro-esophageal reflux disease without esophagitis Headache Surgical History History of esophagogastroduodenoscopy (EGD) H/O colonoscopy History of hysterectomy Family History Father Prostate cancer Mother Leukemia Social History Alcohol intake: former Patient Tobacco Use Status: Never used Tobacco Physical Exam Vital Signs: Last Vital Signs Pulse 79 03/11/24 11:16 BP 102/59 L 03/11/24 11:16 Pulse Ox 100 03/11/24 11:16 Oxygen Delivery Method Room Air 03/11/24 11:16 Assessment & Plan Assessment & Plan (1) Lumbar radiculopathy: Code(s): M54.16 - Radiculopathy, lumbar region Category: Medical Plan Transforaminal L3-L4 bilateral epidural steroid injection Informed consent was thoroughly explained to the patient before the procedure. The risks were delineated as bleeding infection peripheral nerve damage spinal cord damage and headache. ? The patient came to the operating room. She was positioned prone on operating table with a pillow under his abdomen.? Time-out was performed delineating correct site and side of the procedure, nature of the injection, name and date of of the patient. The lower back of the patient was prepped with ChloraPrep and draped with sterile utility towels.? C-arm was brought over the operating field and sq picture of L3 vertebra were demonstrated on the screen.? The right side was chosen 1st as the side of the injection.? Tilting machine ipsilateral to the right at the level of L3 1st the most prominent picture of the right pedicle was obtained on the screen.? 3 mm below the level of the lowest point of the pedicle projection to the skin small amount of lidocaine 1% 2 cc was injected to anesthetize the skin.? After that 5 in 22 gauge Quincke point needle was inserted through the skin wheal and was advanced to were the L5-S1 foramina on anterior posterior , lateral and oblique views intermittently.? When tip of the needle entered foramina projection on AP view injection of the contrast was performed demonstrating epidural and perineural spread of the contrast.? On the lateral view contrast was spread in the epidural fashion. After that injection of the treatment medicine 4 cc of lidocaine 1% mixed with Kenalog 40 mg was inj ected into the foramina.? Injection of the contrast and injection of the treatment medicine was observed live on the screen.? No intrathecal and no intravascular spread of the contrast was noted. After that the procedure was performed in the mirroring fashion on L3-L4 level on the left Upon completion of the procedure sterile Band-Aids were applied. Patient tolerated procedure well she was taken outside of the operating room where she recovered uneventfully. She went home without immediate complications. Orders: Orders FL guidance in treatment room Today M54.16 - Radiculopathy, lumbar region Coding Level of Care Code Procedure Only Diagnoses Lumbar radiculopathy M54.16
[2024-03-11 11:16] VITALS: BP 102/59; PULSE 79; O2SAT 100
== END 2024-03-11 11:52 | disposition home or self-care (01) ==
LOC: HO.PMCPRC 10:28
PROVIDERS: Visit Provider Anesthesiology
DX: M54.16 Radiculopathy, lumbar region (principal)
CPT/HCPCS: 64483

== ENCOUNTER 2024-04-03 12:55 | Outpatient (AMB) | payer MEDICAID, SELFPAY ==
[2024-04-03 13:15] VITALS: BP 97/56; PULSE 83; O2SAT 98
--- NOTE | 2024-04-03 13:15 | MHC.OFFVIS ---
Vital Signs 04/03/24 13:15 Weight 128 lb BP 97/56 L Blood Pressure Location Rt brachial Position Sitting Pulse 83 Pulse Source Pulse Oximeter Pulse Oximetry (%) 98 Oxygen Delivery Method Room Air Intake Visit Reasons: BILATERAL L3, L4 TFESI Credit Collections Rep Required: Yes Credit Collections Rep Services: Credit Collections Rep Present Allergies seafood Allergy (Severe, Verified 04/03/24 13:16) Anaphylaxis ceftriaxone [From Rocephin] Allergy (Verified 04/03/24 13:16) Rash Medication List - Last Reconciled 04/03/24 by Cherelle Bello, PROJECT DEVELOPMENT MANAGER acetaminophen (Tylenol Extra Strength) 1,000 mg (2 x 500 mg) PO Q6H PRN alendronate 70 mg PO QWEEK atorvastatin 40 mg PO DAILY calcium carbonate-vitamin D3 600 mg-20 mcg (800 unit) 1 tab PO BID hydrocortisone 2.5% (Proctosol HC) 1 appl OR BID linaclotide (Linzess) 72 mcg PO QAM [id number]-ethsxkl 24,000-76,000 -120,000 unit (Creon) 2 caps PO BID 30 days magnesium oxide 400 mg PO QAM methocarbamol 500 mg PO TID PRN mirtazapine 7.5 mg PO BEDTIME ondansetron 8 mg PO BID-TID perphenazine 4 mg PO BID rabeprazole (AcipHex) 20 mg PO BID sennosides (Senna Laxative) 17.2 mg (2 x 8.6 mg) PO BEDTIME simethicone 180 mg PO TID 30 days tamsulosin (Flomax) 0.4 mg PO BEDTIME HPI Comments Details: Patient presents the office today for follow up, 3 weeks status post bilateral L3-L4 transforaminal epidural steroid injection with local anesthetic Visit was completed with rodeo rider [place], [id number] Pain today is rated as a 2/10. She endorses 70% pain relief with improvement in function and mobility. For several days after the procedure she states she felt unsteady and difficulty with initiating steps. This has since resolved and pain has improved. Prior: Leandra is a very pleasant 63-year-old female who presents to the office today for evaluation management of her chronic lower back pain Visit was performed with rodeo rider #[id number] Cedric Recent MRI reviewed, results as per below Endorses 20 years of lower back pain radiation down both legs, left worse than right. Denies inciting injury, fall, trauma Completed physical therapy 3 months ago with no improvement of her pain. Continues with home exercise program She has tried Tylenol and nonsteroidal anti-inflammatory medications without improvement Pain is worse with sitting and standing Pain with forward flexion, pain is worse with extension Denies red flag symptoms including new loss of bowel, bladder or saddle anesthesia. In terms of muscle damage condition is described as aching, hot, burning, stabbing, sharp, shooting, cramping, squeezing, throbbing Pain is negatively impacting patient's enjoyment of life, general activity, normal work, recreational activities, sleep and walking Denies use of anticoagulants Denies implantable devices, pacemaker or defibrillator Denies current use of nicotine, tobacco, alcohol or illicit substances [facility] Medical History Endometriosis Postmenopausal Chronic back pain Depression with anxiety Hyperlipidemia, unspecified Moderate episode of recurrent major depressive disorder Bipolar 1 disorder Mass of skin of back Other microscopic hematuria Gastro-esophageal reflux disease without esophagitis Headache Surgical History History of esophagogastroduodenoscopy (EGD) H/O colonoscopy History of hysterectomy Family History Father Prostate cancer Mother Leukemia Social History Alcohol intake: former Patient Tobacco Use Status: Never used Tobacco Review of Systems Const All systems reviewed & are unremarkable except as noted in HPI and below Physical Exam Vital Signs: Last Vital Signs Pulse 83 04/03/24 13:15 BP 97/56 L 04/03/24 13:15 Pulse Ox 98 04/03/24 13:15 Oxygen Delivery Method Room Air 04/03/24 13:15 General: awake, alert, oriented. Answers questions appropriately. Fully engaged in examination. Skin: warm, dry, intact HEENT: Normocephalic. Hearing intact. Cardiac: External chest normal in appearance. Respiratory: No cough, audible wheezing or stridor. Abdomen: without gross distension. MS: No obvious swelling or deformities. Ambulates with steady gait Neurological: Oriented to person, place, time and situation. Thought process intact. No gait abnormalities appreciated. Psychiatric: Appropriate mood and affect. Good judgment and insight. Results Reviewed Results Reviewed: 11/09/23 MRI LS FINDINGS: Mild dextrocurvature of the lumbar spine. Preservation of the normal lumbar lordosis. No listhesis. No acute bone marrow abnormality. The vertebral body heights are preserved. Multilevel disc desiccation without significant disc height loss. T12-L1: Shallow left paracentral disc protrusion. No significant spinal canal or neural foraminal narrowing. L1-2: Central disc protrusion. No significant spinal canal or neural foraminal narrowing. L2-3: Left foraminal disc protrusion and bilateral facet arthrosis. No significant spinal canal or neural foraminal narrowing. L3-4: Diffuse disc bulge and bilateral facet arthrosis. Mild bilateral neural foraminal narrowing with the disc abutting the exiting L3 nerve roots bilaterally. No significant spinal canal stenosis. L4-5: Shallow disc bulge with superimposed annular fissure. Bilateral facet arthrosis. Mild right neural foraminal narrowing with the disc abutting the exiting L4 nerve as bilaterally. L5-S1: Shallow disc bulge and bilateral facet arthrosis. No significant spinal canal or neural foraminal narrowing. The paravertebral soft tissues are unremarkable. Bilateral renal cysts. IMPRESSION: 1. Mild degenerative changes of the lumbar spine without significant spinal canal stenosis. 2. Mild neural foraminal narrowing at L3-L4 and L4-L5 with the disc abutting the exiting L3 and L4 nerve roots bilaterally. 3. L4-L5 annular fissure. Assessment & Plan Assessment & Plan (1) Lumbar radiculopathy: Code(s): M54.16 - Radiculopathy, lumbar region Category: Medical Plan Presented to the office today for follow up, 3 weeks status post bilateral L3-L4 transforaminal epidural steroid injection Endorses 70% pain relief with improvement in function and mobility. All questions and concerns were answered, patient agrees with the plan. Follow up when pain returns, sooner if needed Coding Level of Care Code Est Pt Level 3 (63235) Complex EM visit Add On G2211 Diagnoses Lumbar radiculopathy M54.16
== END 2024-04-03 13:21 | disposition home or self-care (01) ==
PROVIDERS: PCP Student in an Organized Health Care Education/Training Program; Visit Provider Registered Nurse Emergency
DX: M54.16 Radiculopathy, lumbar region (principal)
CPT/HCPCS: 99213

== ENCOUNTER → 2024-04-03 12:55 | Outpatient (BNVA) | payer MEDICAID, SELFPAY | PROVIDERS: PCP Student in an Organized Health Care Education/Training Program; Visit Provider Registered Nurse Emergency | DX: M54.16 Radiculopathy, lumbar region (principal) | CPT/HCPCS: 99212 ==

== ENCOUNTER 2024-06-10 14:27 | Outpatient (REF) | payer MEDICAID, SELFPAY ==
--- OUTSIDE RECORDS SUMMARY | 2024-06-10 18:21 | XMS_ITS | Clinical Summary ---
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 01/07/2024, 01/07/2024 Mammogram 05/10/2025 05/10/2023 Pap Smear 2026 2023 Cervical Cancer Screening 2028 HPV/Cotest 2028 2023 DTaP/Tdap/Td Vaccines (2 - T d or Tdap) 02/12/2033 02/12/2023 HIV Screening Completed 02/13/2023 Hepatitis C Screening Completed 02/13/2023 RSV Patients and Patients Aged 60 years or older Completed 05/24/2023 Zoster Vaccines Completed 07/26/2023, 05/24/2023 Influenza Vaccine Completed 12/20/2023, 02/12/2023, 01/27/2022 HIB Vaccines Aged Out No longer eligi ble based on patient's age to complete this topic HPV Vaccines Aged Out No longer eligi ble based on patient's age to complete this topic Hepatitis A Vaccines Aged Out No long er eligible based on patient's age to complete this topic Hepatitis B Vaccines Aged Out No long er eligible based on patient's age to complete this topic IPV Vaccines Aged Out No longer eligi ble based on patient's age to complete this topic Meningococcal Vaccine Aged Out No veda kingsley eligible based on patient's age to complete this topic RSV under 20 months Aged Out No longe r eligible based on patient's age to complete this topic Rotavirus Vaccines Aged Out No longer eligible based on patient's age to complete this topic Procedures Procedure Name Priority Date/Time Associated Diagnosis Comments HPV MRNA E6/E7 REFLEX TO HPV 16, 18/45 Routine 2023 11:31 AM EST PAP SMEAR Routine 2023 11:31 AM EST Cervical cancer screening BI MAMMOGRAM SCREENING TOMOSYNTHESIS BILATERAL Routine 05/10/2023 9:55 AM EST HEPATITIS C AB W/REFL TO HCV RNA, QN, PCR Routine 02/13/2023 10:20 AM EST Annual physical exam HIV 1/2 ANTIGEN/ANTIBODY, FOURTH GENERATION W/RFL Routine 02/13/2023 10:20 AM EST Annual physical exam from Last 3 Months or Most Recently Relevant to Health Maintenance Results * HPV mRNA E6/E7 w/Reflex to HPV Genotypes 16, 18/45 (2023 11:31 AM EST) HPV nRNA E6/E7 Not Detected Not Detected [facility] Comment:Methodology: Transcr iption-Mediated AmplificationThis assay detects E6/E7 viral messenger RNA (mRNA) from 14high-risk HPV types (16,18,31,33,35,39,45,51,52,56,58,59,66,68).Cervical sources are required for HPV testing.If a vaginal source from a patient who has had atotal hysterectomy with removal of cervix wassubmitted, please contact the testing laboratoryfor alternative testing options.For additional information, please refer [email or web address]/faq/UHV667n0(This link if provided for information/educational purposes only.)THIS TEST WAS PERFORMED AT:[employer] [place] [phone] COWART MD HPV mRNA E6/E7 [facility] HPV 16 RNA [facility] HPV 18/45 RNA TNP [facility] 2023 11:3 1 AM EST 05/24/2023 2:00 PM EST Eliud Bee CNM LAB CYTOLOGY ORDERABLES F inal Result [facility] [address] [place] [address] [phone] * Pap Smear (2023 11:31 AM EST) Swab 2023 11:3 1 AM EST 05/24/2023 2:00 PM EST Narrative [facility] - 06/12/2023 2:33 PM EST ----- ------- Name: Leandra Acevedo ? Age/Sex: 63/F ? : 1960 Unit#: [id number] ?? Attend Dr: ELIUD BEE CNM ?Re05/23/23 ?Status: DEP REF ? Location: HO.HHCLNP ? Disch: ? ----- ------- SPEC : [id number] ? RECD: 05/24/23-1400 ? STATUS: ??SOUT ? REQ NUM: [id number] ? ALFONSO: 05/23/23 ? SUBM DR: ELIUD BEE CNHumaira ? ENTERED: ??05/24/23 ?SP TYPE: Pap Smr ?OTHR : ? ORDERED: ??Pap Smear ? Interpretation ?? Satisfactory for evaluation. ?? Atrophic. ?? Negative for intraepithelial lesion or malignancy. ?HPV mRNA E6/E7: ?NOT DETECTED ? This assay detects E6/E7 viral messenger RNA (mRNA) from 14 high-risk HPV types (16, 18, ?? 31, 33, 35, 39, 45, 51, 52, 56, 58, 59, 66, 68) ?? HPV testing performed by [employer], [place], [place]. ??See reference laboratory ?? portion of the EMR for entire report. ?Clinical Information LMP: Unknown date Previous PAP test: Unknown date/findings ? Material Received ?? ThinPrep-Vaginal ----- ------- Signed (signature on file) MARCELLA Van ([facility]) 06/12/23 1433 ? ----- ------- ? END OF REPORT ? us Eliud Bee [facility] CYTOLOGY ORDERABLES F inal Result [facility] [address] [place] [phone] * BI Mammogram Screening Tomosynthesis Bilateral (05/10/2023 9:55 AM EST) Anatomical Region Laterality Modality Breast Bilateral Mammography 05/10/2023 9:55 AM EST Narrative 06/02/2023 1:19 PM EST ? [facility] [place] ? [address] [facility] ?[place] [address] ? Mammography Report ? Signed ? Patient: Leandra Acevedo ?MR#: [id number] ?? [id number] ? : 1960 ?Acct:[id number] ? Age/Sex: 62 / F ?ADM Date: 02/01/24 ? Loc: HO.MAMMO ? Attending Dr: Leandra Meng MD ? Ordering Physician: Leandra Orellana MD ?Re ?? sults: 1Negative ? Date of Service: 05/10/23 ?Follow Up: 1 Year From Orig ?? inal Mammogram ? Procedure(s): MM tomosynthesis screening BI ?? Accession Number(s): [id number] ? cc: Leandra Orellana MD ? EXAMINATION: ?? MM SCREENING DIGITAL BREAST TOMOSYNTHESIS, BILATERAL ? CLINICAL INFORMATION: ? Screening. Asymptomatic. ? COMPARISON: ?? Mammography: There are no prior mammograms available for comparison. ? TECHNIQUE: ?? Digital breast tomosynthesis is performed in both the craniocaudal and ?? mediolateral oblique views along with computer-aided detection (CAD). ?? Synthesized 2D images are generated from the tomosynthesis. ? FINDINGS: ?? There are scattered areas of fibroglandular density (ACR BI-RADS breast ?? composition Category b). ? There are no significant masses, abnormal calcifications, or other ?? abnormalities. ? MM/MM tomosynthesis screening BI ?? IMPRESSION: ?? No mammographic evidence of malignancy. ? ASSESSMENT: ? BI-RADS BI-RADS 1 - Negative ? RECOMMENDATION: ?? Routine annual mammography screening. ? 1 year F/U ? This examination should not preclude the clinical evaluation of a ?? suspicious palpable abnormality. ? This patient's information was entered into a reminder system with a ?? target due date for their next mammogram. ? Dictated By: ?Kylah Ly MD ? Signed By: ?<Electronically signed by Kylah Ly MD in OV> ? 06/02/23 1315 ? DD/ 4 ? TD/TT: ? Rehab Aide: ? Procedure Note Donmarioter, [facility] - [facility] [address] [place] [address] Mammography Report Signed Patient: Leandra AcevedoMR#: [id number] : 1Acct:[id number] Age/Sex: 62 / FADM Date: 05/10/23 Loc: [facility] Attending Dr: Leandra Meng MD Ordering Physician: Leandra Orellana sults: 1Negative Date of Service: 05/10/23Follow Up: 1 Year From Orig inal Mammogram Procedure(s): MM tomosynthesis screening BI Accession Number(s): [id number] cc: Leandra Orellana MD EXAMINATION: MM SCREENING DIGITAL BREAST TOMOSYNTHESIS, BILATERAL CLINICAL INFORMATION: Screening. Asymptomatic. COMPARISON: Mammography: There are no prior mammograms available for comparison. TECHNIQUE: Digital breast tomosynthesis is performed in both the craniocaudal and mediolateral oblique views along with computer-aided detection (CAD). Synthesized 2D images are generated from the tomosynthesis. FINDINGS: There are scattered areas of fibroglandular density (ACR BI-RADS breast composition Category b). There are no significant masses, abnormal calcifications, or other abnormalities. MM/MM tomosynthesis screening BI IMPRESSION: No mammographic evidence of malignancy. ASSESSMENT: BI-RADS BI-RADS 1 - Negative RECOMMENDATION: Routine annual mammography screening. 1 year F/U This examination should not preclude the clinical evaluation of a suspicious palpable abnormality. This patient's information was entered into a reminder system with a target due date for their next mammogram. Dictated By: Kylah Ly MD Signed By: <Electronically signed by Kylah Ly MD in OV> 06/02/23 1315 DD/ 0955 TD/TT: Rehab Aide: Leandra Meng MD IMG BI PROCEDURES Edited Result - Final * Hepatitis C Antibody with Reflex to HCV, RNA, Quantitative, Real-Time PCR (02/13/2023 10:20 AM EST) Hepatitis C Antibody Nonreactive Nonreactive [facility] Comment:Antibodies to HCV no t detected; does not exclude early acuteHCV infection. Blood Venous blood specimen / Unknown 02/13/2023 10:20 AM EST 02/13/2023 11:10 AM EST Leandra Meng MD LAB BLOOD ORDERAB LES Final Result Performing Organization Address [facility]/ZIP Co de Phone Number [facility] [address] [place] [phone] * HIV-1/2 Antigen and Antibodies, Fourth Generation, with Reflexes (02/13/2023 10:20 AM EST) HIV AB/AG Nonreactive Nonreactive [facility] Comment:HIV-1 p24 Ag and/or HIV-1/HIV-2 Ab not detected.A test result that is nonreactive does not exclude thepossibility of exposure to or infection with HIV-1 and/orHIV-2. Nonreactive results in this assay for individualswith prior exposure to HIV-1 and/or HIV-2 may be due toantigen and antibody levels that are below the limit ofdetection of this assay.The [employer] HIV Ag/Ab Combo assay result andsupplemental assay results should be interpreted inconjunction with the patient's clinical presentation,history and other laboratory results. If the results areinconsistent with clinical evidence, additional testing issuggested to confirm the result. Blood Venous blood specimen / Unknown 02/13/2023 10:20 AM EST 02/13/2023 11:10 AM EST us Leandra Meng MD LAB BLOOD ORDERAB LES Final Result Performing Organization Address City/[facility]/ZIP Co de Phone Number [facility] [address] [place] [phone] from Last 3 Months or Most Recently Relevant to Health Maintenance Insurance [facility] C3 HS FULL Care Teams Business Reporting Developer Relationship Specialty Start Date End Date Leandra Orellana MD [address] [place], [place] PCP - General Internal Medicine 02/12/23
--- OUTSIDE RECORDS SUMMARY | 2024-06-10 18:21 | XMS_ITS | Data Portability ---
Author Organization [place] - [facility], Allergy Address [address] [address] Care Team Providers Care Mortgage Branch Manager Name Role Phone KAYE GREEN Primary Care Provider [phone] Assessment Encounter Date Assessment Date Assessment LastModified by Organization Details LastModified Time 12/11/2023 12/11/2023 Patient has history and examination consistent with cryptic tonsils. Recommend symptomatic management. Consideration of topical rinses (with a recipe of 1 cup warm water, 1 tsp kosher/sea salt, 1/2 tsp baking soda) as well as trial of a WaterPik may be helpful to remove debris. Please avoid rigid instruments to dig into the tonsil surface as that may result in bleeding or scarring. Avoidance of alcohol based mouthwashes and smoking is encouraged. I see no indication for antibiotics at the present time. Given the risks of surgery to remove the tonsils, it would only be considered after maximal medical management was attempted. Offered followup in 4 months to review progress. At that time if the large left superior pole tonsil stone is present, could consider an extraction procedure in the office versus tonsillectomy [email or web address] Not available 12/11/2023 11:56:10 04/16/2024 04/16/2024 The patient meet s criteria for tonsillectomy. The surgery will be done under general anesthesia with no cuts through the skin. After the surgery the patient should expect temporary bad breath, ear aches, still neck and the worst sore throat of their life. It will typically last up to 2 weeks. There is a 5% risk of bleeding during the healing process when the scab falls off. If this occurs, they are encouraged to call the office to discuss management. Occasionally it requires a trip to the emergency room and or operating room to control the bleeding. Additional risks of dehydration, hospital readmission, throat pain, voice change, swallowing dysfunction and velopharyngeal insufficiency are also possible. Pain control with alternating doses of Tylenol (acetaminophen) and Motrin (ibuprofen) [id number] every 3 hours are recommended. Use of narcotics and antibiotics are not recommended. Usually 1 week out of school or work is needed to recover, and then they may return with light activities for an additional week before resuming regular routine. They will contact our office to schedule at a mutually convenient time. All questions were answered. [email or web address] Not available 04/16/2024 11:52:13 Plan of Treatment Reminders Order Date Submit Date Provider Last Modified By Organization Details Last Modified Time Details Appointments SURGERY 60 2024 01:45P M LYNDA WALLER MD Not available Not available Not available Lab None recorded. Referral None recorded. Procedures None recorded. Surgeries tonsillec britney (SURG) 2024 025 [email or web address] Not available 04/16/2024 16:02:20 Imaging None recorded. Medication Orders None recorded. Patient TargetsNo targets recorded. Patient InstructionsNo instructions recorded. Reason for Referral None Reported. 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 Medical Equipment None Reported. Allergies No known drug allergies Medications Name Sig Start Date Stop Date Status Note LastModified by Organization Details LastModified Time cyclobenzap rine 10 mg tablet TAKE 1 TABLET BY MOUTH THREE TIMES DAILY NEEDED FOR MUSCLE SPASMS (BACK) active Not Available Not Available No t Available atorvastati n 40 mg tablet TAKE 1 TABLET BY MOUTH EVERY DAY active Not Available Not Available No t Available methocarbam ol 500 mg tablet TAKE 1 TABLET BY MOUTH THREE TIMES DAILY NEEDED FOR MUSCLE SPASMS. DO NOT DRIVE WHILE TAKING. AVOID ALCOHOLIC BEVERAGES WHILE TAKING 04/16 completed Not Available Not Available Not Available perphenazin e 2 mg tablet TAKE 1 TABLET BY MOUTH TWICE DAILY 04/16 completed Not Available Not Available Not Available atorvastati n 10 mg tablet TAKE 1 TABLET BY MOUTH EVERY DAY IN THE MORNING active Not Available Not Available No t Available azithromyci n 250 mg tablet TAKE 2 TABLETS BY MOUTH ON DAY 1, THEN TAKE 1 TABLET DAILY ON DAYS 2-5 04/16 completed Not Available Not Available Not Available simethicone 180 mg capsule TAKE 1 CAPSULE ORALLY 3 TIMES A DAY FOR 30 DAYS AFTER MEALS active Not Available Not Available No t Available hydrocodone 5 mg-acetamin ophen 325 mg tablet TAKE 1 TABLET BY MOUTH EVERY 6 HOURS NEEDED FOR PAIN 12/10 completed Not Available Not Available Not Available senna 8.6 mg tablet TAKE 2 TABLET BY MOUTH AT BEDTIME active Not Available Not Available No t Available alendronate 70 mg tablet take 1 tablet by mouth once a week with 6 to 8 oz of water 30 min before first food of day. do not lie down for 30 minutes active Not Available Not Available No t Available sulfamethox azole 800 mg-trimetho prim 160 mg tablet TAKE 1 TABLET BY MOUTH TWICE DAILY FOR 3 DAYS active Not Available Not Available No t Available acetaminoph en 500 mg tablet TAKE 2 TABLETS BY MOUTH EVERY 6 HOURS NEEDED FOR PAIN OR FEVER 04/16 completed Not Available Not Available Not Available ondansetron 8 mg disintegrat ing tablet TAKE 1 TABLET BY MOUTH 2 TO 3 TIMES A DAY FOR NAUSEA active Not Available Not Available No t Available lidocaine-p rilocaine 2.5 %-2.5 % topical cream APPLY TOPICALLY TO THE AFFECTED AREA(S) ONCE DIRECTED active Not Available Not Available No t Available pantoprazol e 20 mg tablet,maryellen yed release TAKE 1 TABLET BY MOUTH EVERY DAY BEFORE BREAKFAST DO NOT BREAK, CRUSH, DISSOLVE OR CHEW active Not Available Not Available No t Available ketorolac 0.5 % eye drops INSTILL 1 DROP INTO LEFT EYE THREE TIMES A DAY START 2 DAYS PRIOR TO EYE SURGERY active Not Available Not Available No t Available meloxicam 7.5 mg tablet TAKE 1 TABLET BY MOUTH TWICE DAILY 12/10 completed Not Available Not Available Not Available hydrocortis one 2.5 % topical cream with perineal applicator APPLY RECTALLY 2 TIMES A DAY FOR HEMORRHOI DS active Not Available Not Available No t Available Deep Sea Nasal 0.65 % spray aerosol USE 1 SPRAY IN EACH NOSTRIL NEEDED FOR NASAL CONGESTIO N active Not Available Not Available No t Available famotidine 20 mg tablet TAKE 1 TABLET BY MOUTH TWICE DAILY 12/10 completed Not Available Not Available Not Available magnesium oxide 400 mg (241.3 mg magnesium) tablet TAKE 1 TABLET BY MOUTH EVERY DAY IN THE MORNING active Not Available Not Available No t Available tamsulosin 0.4 mg capsule TAKE 1 CAPSULE BY MOUTH EVERY DAY IN THE MORNING active Not Available Not Available No t Available erythromyci n 5 mg/gram (0.5 %) eye ointment APPLY 1 A SMALL AMOUNT ON EYELID EVERY NIGHT 12/10 completed Not Available Not Available Not Available tobramycin 0.3 % eye drops INSTILL 1 DROP INTO LEFT EYE 4 TIMES A DAY active Not Available Not Available No t Available perphenazin e 4 mg tablet TAKE 1 TABLET BY MOUTH TWICE DAILY active Not Available Not Available No t Available hydroxyzine HCl 10 mg tablet TAKE 1 TABLET BY MOUTH DAILY AT BEDTIME NEEDED FOR ITCHING 12/10 completed Not Available Not Available Not Available ondansetron 4 mg disintegrat ing tablet TAKE 1 TABLET BY MOUTH EVERY 8 HOURS NEEDED FOR NAUSEA AND VOMITING 12/10 completed Not Available Not Available Not Available fluticasone propionate 50 mcg/actuati on nasal spray,suspe nsion INSTILL 1-2 SPRAYS IN EACH NOSTRIL ONCE DAILY. SHAKE GENTLY active Not Available Not Available No t Available doxycycline hyclate 100 mg tablet TAKE 1 TABLET BY MOUTH TWICE DAILY FOR 7 DAYS. TAKE WITH A FULL GLASS OF WATER AND Do not lie down for 30 minutes after taking 04/16 completed Not Available Not Available Not Available Lotemax 0.5 % eye drops,suspe nsion INSTILL 1 DROP INTO BOTH EYES THREE TIMES A DAY TAPER DIRECTED 12/10 completed Not Available Not Available Not Available oxycodone 5 mg tablet TAKE 1 TABLET BY MOUTH EVERY 6 HOURS NEEDED FOR PAIN 12/10 completed Not Available Not Available Not Available mirtazapine 7.5 mg tablet TAKE 1 TABLET BY MOUTH ONCE DAILY AT BEDTIME active Not Available Not Available No t Available omeprazole active Not Available Not Av ailable Not Available Creon 24,000-76,0 00-120,000 unit capsule,del ayed release TAKE 2 CAPSULES BY MOUTH TWICE A DAY active Not Available Not Available No t Available calcium 600 mg (as carbonate)- vitamin D3 20 mcg (800 unit) tablet TAKE 1 TABLET BY MOUTH TWICE DAILY AT NOON AND IN THE EVENING active Not Available Not Available No t Available Linzess 145 mcg capsule TAKE 1 CAPSULE ORALLY EVERY MORNING TAKE FIRST THING IN THE MORNING WITH A FULL GLASS OF WATER. active Not Available Not Available No t Available Cepacol Sore Throat (benzocaine -menthol) 15 mg-2.6 mg lozenges DISSOLVE 1 LOZENGE BY MOUTH EVERY 2 HOURS NEEDED SORE THROAT active Not Available Not Available No t Available Vitals Date Recorded Body height Body mass index (BMI) Body weight Provider Name and Address Organization Details Last Updated DateTime 12/11/2023 160.02 cm 22.5 kg/m2 47628.23 g Samantha Mohamud [facility] 12/11/2023 11:24:38 Date Recorded Body height Body mass index (BMI) Body weight Provider Name and Address Organization Details Last Updated DateTime 04/16/2024 160.02 cm 22.1 kg/m2 28614.05 g Candi Green [facility] 04/16/2024 11:34:29 Social History None recorded. Functional Status None recorded. Mental Status None recorded. Family History Nothing Reported. Medical History No medical history recorded. Gynecological HistoryNo gynecological history recorded. Obstetrics History GPAL:G 0 P 0 0 0 0 Past Encounters Encounter ID Performer Location Encounter Start Date Encounter Closed Date Diagnosis/Indication Diagnosis SNOMED-CT Code Diagnosis ICD10 Code Diagnosis Note [id number] LYNDA WALLER MD [facility] [address] [address] 12/11/2023 11:16:49 12/11/2023 11:49:18 Amygdalolith 6940576 J35.8 [id number] LYNDA WALLER MD [facility] [address] [address] 04/16/2024 10:24:14 04/16/2024 11:57:42 Amygdalolith 7531358 J35.8 Patient has symptomati c left sided sore throat which is presumed related to tonsil stones. the tonsils are soft. possibilit y of malignancy was discussed but felt to be less likely Health Concerns Section Related Observation LastModified by Organization Detai ls LastModified Time None Recorded Concern Status LastModified by Organization Details LastModified Time None Recorded Advance Directives Directive None Recorded Payers Encounter Date Sequence Insurance Name Policy Number Policy [place] Covered Member ID [place] Member ID Guarantor Name 12/11/2023 1 [place] [facility] Leandra Glez [id number] Leandra Glez 04/16/2024 1 [place] Leandra Glez [id number] Leandra Glez Notes Date Note Type Note Provider Name and Address Organization Details Recorded Time 12/11/2023 text/html ipad - spanishso re throat on left sideradiates toward left earsees and feels a tonsil stonehas been present for 3 yearstrial of abx and saline gargle with no relief7/10 discomforttobacco - deniesno hemoptysischokes with solid food like rice, no difficulty with water works with GI for esophageal dilation with mild improvement last monthno improvement in throatno imaging with CT scans LYNDA WALLER MD [address] [facility],[address], [address], [place] - [facility] 12/11/2023 11:56:25 04/16/2024 text/html vietnamese - Friend translatingsore throat on left sideradiates toward left earsees and feels a tonsil stonehas been present for 3 yearstrial of abx and saline gargle with no relief7/10 discomforttobacco - deniesno hemoptysischokes with solid food like rice, no difficulty with waterno change with water pick and baking soda saline gargles works with GI for esophageal dilation with mild improvement last monthno improvement in throatno imaging with CT scans PV 12/11/23 Mary - left superior tonsil stone, advised conservative management LYNDA WALLER MD [address] [facility],[address], [address], [place] - [facility] 04/16/2024 11:55:03 OBGyn Episode No OBEpisode recorded.
--- OUTSIDE RECORDS SUMMARY | 2024-06-10 18:21 | XMS_ITS | Encounter Summary ---
Author Organization [employer] [facility] [employer] Address [address] [place] [address] [place] [address] Care Team Providers Care Marking Machine Tender Name Role Phone Leandra Orellana MD Primary Care Pro vider Reason for Visit * Reason Onset Date Comments Referral 06/05/2024 Encounter Details Date Type Department Care Team ([facility] Contact Info) Description 06/05/2024 Telephone [facility] MEDICINE [address] [place], [place] [phone] Leandra Orellana MD [address] [place], [place] [phone] Referral Social History Tobacco Use Types Packs/Day Years Used Date Smoking Tobacco: Never Passive Smoke Exposure: Never Smokeless Tobacco: Former Quit: 11/07/2022 Comments:Started at 20 y of age and [...] Orientation Straight 06/29/2023 11 :01 PM EDT documented as of this encounter Miscellaneous Notes * Telephone Encounter - Annie Donahue RN - 06/05/2024 2:52 PM EST TC placed to pt and LVM to call back the office * Telephone Encounter - Leta Yip - 06/05/2024 2:09 PM EST Pt walked in requesting a referral to digital account director in [facility]. documented in this encounter Plan of Treatment Upcoming Encounters Date Type Department Care Team (Late st Contact Info) Description 08/01/2024 1:45 PM EDT Office Visit [facility] MEDICINE [address] [place] [phone] Leandra Orellana MD [address], [place] [phone] documented as of this encounter Visit Diagnoses Not on filedocumented in this encounter Additional Health Concerns Assessment Noted Time PHQ-9 Depression Total Score: 17 024 8:34 AM EDT documented as of this encounter Care Teams Marking Machine Tender Relationship Specialty Start Date End Date Leandra Orellana MD [address] [place] [phone] PCP - General Internal Medicine 02/12/23 documented as of this encounter
--- OUTSIDE RECORDS SUMMARY | 2024-06-10 18:21 | XMS_ITS | Encounter Summary ---
Author Organization [employer] Address [address] [facility] 7t [place] [address] Care Team Providers Care Packager Head Name Role Phone Leandra Julien MD Primary Care Provide r Leandra Orellana MD Primary Care Pro vider Reason for Visit * Reason Onset Date Comments New Patient Appt 08/23/2022 Encounter Details Date Type Department Care Team ([facility] st Contact Info) Description 08/23/2022 Telephone [facility] MEDICINE [address] [place] [phone] Leandra Julien MD [address] [place], [place] [phone] New Patient Appt Social History Tobacco Use Types Packs/Day Years Used Date Smoking Tobacco: Never Smokeless Tobacco: Never Comments Unknown Sex and Gender Information Value Date Recorded Sex Assigned at Female 02/06/2022 10:40 AM EDT Legal Sex Female 10:40 AM EDT Gender Identity Female 02/06/2022 10:40 AM EDT Sexual Orientation Straight 06/29/2023 11 :01 PM EDT documented as of this encounter Miscellaneous Notes * Telephone Encounter - Lisa France - 08/23/2022 2:24 PM EDT PAR Lisa Ag[place] called pt to Offer HOUSEKEEPING ROOM ATTENDANT appt. Pt demographics and insurance information were verified. Pt reports has not seen a PCP before. Pt reports the following medical conditions: Asthma, Panics, Hernia (Stomach). Pt does not take medications at this time. Pt given HOUSEKEEPING ROOM ATTENDANT appt with on 09/26/2022 10:15 am . Pt will be sent appt reminder card and medical release form and agrees to complete and t o return to medical records prior to HOUSEKEEPING ROOM ATTENDANT appt. documented in this encounter Plan of Treatment Upcoming Encounters Date Type Department Care Team (Late st Contact Info) Description 08/01/2024 1:45 PM EDT Office Visit [facility] MEDICINE [address] [place], [place] [phone] Leandra Orellana MD [address] [place] [phone] documented as of this encounter Visit Diagnoses Not on filedocumented in this encounter Care Teams Packager Head Relationship Specialty Start Date End Date Leandra Julien MD [address] [place] [phone] PCP - General Internal Medicine 08/23/22 09/06/22 Leandra Orellana MD [address] [place] [phone] PCP - General Internal Medicine 02/12/23 documented as of this encounter
--- OUTSIDE RECORDS SUMMARY | 2024-06-10 18:21 | XMS_ITS | Encounter Summary ---
Author Organization [employer] Address [address] [facility] 7t [place] [address] Care Team Providers Care Drug And Alcohol Counsellor Name Role Phone Leandra Orellana MD Primary Care Pro vider Encounter Details Date Type Department Care Team ([facility] Contact Info) Description 06/27/2023 Telephone [facility] MEDICINE [address] [place] [address] Leandra Orellana MD [address] [place] [phone] Social History Tobacco Use Types Packs/Day Years Used Date Smoking Tobacco: Never Smokeless Tobacco: Former Quit: 11/07/2022 Comments:Started [...] Answer Date Recorded Patient Health Questionnaire-9 Score 14 05/08/2023 Patient Health Questionnaire-9 Score 14 05/08/2023 Last PHQ-9: Questionnaire Data Not on file 0 05/08/2023 Housing Stability Answer Date Recorded What is [...] Date Recorded Patient Health Questionnaire-2 Score 3 05/08/2023 Comments No Sex and Gender Information Value Date Recorded Sex Assigned at Female 02/06/2022 10:40 AM EDT Legal Sex Female 10:40 AM EDT Gender Identity Female 02/06/2022 10:40 AM EDT Sexual Orientation Straight 06/29/2023 11 :01 PM EDT documented as of this encounter Plan of Treatment Upcoming Encounters Date Type Department Care Team (Late st Contact Info) Description 08/01/2024 1:45 PM EDT Office Visit [facility] MEDICINE [address] [place] [phone] Leandra Orellana MD [address] [place] [phone] documented as of this encounter Visit Diagnoses Not on filedocumented in this encounter Additional Health Concerns Assessment Noted Time PHQ-9 Depression Total Score: 14 024 10:10 AM EST documented as of this encounter Care Teams Drug And Alcohol Counsellor Relationship Specialty Start Date End Date Leandra Orellana MD [address] [place] [phone] PCP - General Internal Medicine 02/12/23 documented as of this encounter
== END 2024-06-10 14:28 | disposition home or self-care (01) ==
LOC: HO.MAMMO 14:27
PROVIDERS: PCP Student in an Organized Health Care Education/Training Program; Visit Provider Student in an Organized Health Care Education/Training Program
DX: Z12.31 Encounter for screening mammogram for malignant neoplasm of breast (principal)
CPT/HCPCS: 77063; 77067

== ENCOUNTER → 2024-06-10 14:45 | Outpatient (BNV) | payer MEDICAID, SELFPAY | PROVIDERS: PCP Student in an Organized Health Care Education/Training Program; Visit Provider Internal Medicine | DX: Z12.31 Encounter for screening mammogram for malignant neoplasm of breast (principal) | CPT/HCPCS: 77063; 77067 ==

== ENCOUNTER 2024-08-06 11:18 | Outpatient (REF) | payer MEDICAID, SELFPAY ==
--- NOTE | ~2024-08-06 | XR_ITS ---
EXAMINATION: XR CERVICAL SPINE CLINICAL INFORMATION: PAIN COMPARISON: None available. TECHNIQUE: 3 views of the cervical spine were obtained. FINDINGS: Craniocervical junction is intact. Degenerative changes in the periodontal C1 region. Osteopenia versus osteoporosis. No acute cortical disruption or malalignment. Focal consolidation in the anterior intervertebral disc C5-C6. Upper airway is patent. XR/XR cervical spine 3V IMPRESSION: Mild cervical spondylosis. Electronically signed by: Yhair Brown MD 08/06/2024 12:51 PM EDT
--- OUTSIDE RECORDS SUMMARY | 2024-08-06 12:56 | XMS_ITS | Encounter Summary ---
Author Organization [employer] Address [address] [facility] [address] [place] [address] Care Team Providers Care Motor Analyst Name Role Phone Leandra Orellana MD Primary Care Pro vider Encounter Details Date Type Department Care Team (Latest Contact Info) Description 08/01/2024 Travel Social History Tobacco Use Types Packs/Day Years Used Date Smoking Tobacco: Never Passive Smoke Exposure: Never Smokeless Tobacco: Former Quit: 11/07/2022 Comments:Started at 20 y of age and stopped 60 y of age -4 y ago ( for 40 y) . Used to smoke 10 cig a day ---PQT niecy 20 a year Vape nicotine daily Alcohol Use Standard Drinks/Week Comments Not Currently 0 (1 standard drink = 0.6 oz pur e alcohol) -- hx of heavy alcohol use Depression Answer Date Recorded Patient Health Questionnaire-9 Score 17 08/01/2024 Patient Health Questionnaire-9 Score 17 08/01/2024 Last PHQ-9: Questionnaire Data Not on file 0 08/01/2024 Housing Stability Answer Date Recorded What is your housing situation today? I have [employer] [employer] 08/01/[address] you li ve. Do you have problems with any of the following? None of the above 08/01/2024 Food Insecurity Answer Date Recorded Within the past 12 months, y ou worried that your food would run out before you got money to buy more: Never True 08/01/2024 Within the past 12 months,th e food you bought just didn't last and you didn't have enough money to get more: Never True Transportation Answer Date Recorded In the past 12 months, has l ack of transportation kept you from medical appts, meetings, work or from getting things needed for daily living? No 08/01/2024 Utilities Answer Date Recorded In the past 12 months, has t he electric, gas, oil or water company threatened to shut off services in your home? No 08/01/2024 Depression Answer Date Recorded Patient Health Questionnaire-2 Score 5 08/01/2024 Internet Access Answer Date Recorded Internet Access Q1 No 08/01/2024 Internet Access Q2 I do not want or need it 07/09 Comments No Sex and Gender Information Value Date Recorded Sex Assigned at Female 02/06/2022 10:40 AM EDT Legal Sex Female 10:40 AM EDT Gender Identity Female 02/06/2022 10:40 AM EDT Sexual Orientation Straight 06/29/2023 11 :01 PM EDT documented as of this encounter Plan of Treatment Upcoming Encounters Date Type Department Care Team (Late st Contact Info) Description 10/09/2024 1:15 PM EDT Office Visit [facility] MEDICINE [address] [place] [phone] Leandra Orellana MD [address] [place] [phone] documented as of this encounter Visit Diagnoses Not on filedocumented in this encounter Additional Health Concerns Assessment Noted Time PHQ-9 Depression Total Score: 17 025 2:51 PM EDT documented as of this encounter Care Teams Motor Analyst Relationship Specialty Start Date End Date Leandra Orellana MD [address] [place] [phone] PCP - General Internal Medicine 02/12/23 documented as of this encounter
--- OUTSIDE RECORDS SUMMARY | 2024-08-06 12:56 | XMS_ITS | Clinical Summary ---
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 [facility] Comment:Antibodies to HCV no t detected; does not exclude early acuteHCV infection. Blood Venous blood specimen / Unknown 02/13/2023 10:20 AM EST 02/13/2023 11:10 AM EST us Leandra Meng MD LAB BLOOD ORDERAB LES Final Result Performing Organization Address [facility] Co de Phone Number [facility] [address] [place], [place] [phone] * HIV-1/2 Antigen and Antibodies, Fourth Generation, with Reflexes (02/13/2023 10:20 AM EST) HIV AB/AG Nonreactive Nonreactive [facility] Comment:HIV-1 p24 Ag and/or HIV-1/HIV-2 Ab not detected.A test result that is nonreactive does not exclude thepossibility of exposure to or infection with HIV-1 and/orHIV-2. Nonreactive results in this assay for individualswith prior exposure to HIV-1 and/or HIV-2 may be due toantigen and antibody levels that are below the limit ofdetection of this assay.The [employer] HIV Ag/Ab Combo assay result andsupplemental assay results should be interpreted inconjunction with the patient's clinical presentation,history and other laboratory results. If the results areinconsistent with clinical evidence, additional testing issuggested to confirm the result. Blood Venous blood specimen / Unknown 02/13/2023 10:20 AM EST 02/13/2023 11:10 AM EST us Leandra Meng MD LAB BLOOD ORDERAB LES Final Result [facility] [address] [place] [phone] from Last 3 Months or Most Recently Relevant to Health Maintenance Insurance [facility] C3 HSN FULL Care Teams Aircraft Maintenance Instructor Relationship Specialty Start Date End Date Leandra Orellana MD [address] [place] [phone] PCP - General Internal Medicine 02/12/23
--- OUTSIDE RECORDS SUMMARY | 2024-08-06 12:56 | XMS_ITS | Encounter Summary ---
Author Organization [employer] Address [address] [facility] 7t [place] [address] Care Team Providers Care Dock Manager Name Role Phone Leandra Julien MD Primary Care Provide r Leandra Orellana MD Primary Care Pro vider Reason for Visit * Reason Onset Date Comments New Patient Appt 08/23/2022 Encounter Details Date Type Department Care Team ([facility] st Contact Info) Description 08/23/2022 Telephone [facility] [address] [place], [place] [phone] Leandra Julien MD [address] [place], [place] [phone] New Patient Appt Social History Tobacco Use [...] - 08/23/2022 2:24 PM EDT PAR Lisa Aguayo called pt to Offer ALIGNMENT MECHANIC appt. Pt demographics and insurance information were verified. Pt reports has not seen a PCP before. Pt reports the following medical conditions: Asthma, Panics, Hernia (Stomach). Pt does not take medications at this time. Pt given ALIGNMENT MECHANIC appt with on 09/26/2022 10:15 am . Pt will be sent appt reminder card and medical release form and agrees to complete and t o return to medical records prior to ALIGNMENT MECHANIC appt. documented in this encounter Plan of Treatment Upcoming Encounters Date Type Department Care Team (Late st Contact Info) Description 10/09/2024 1:15 PM EDT Office Visit [facility] [address] [place] [address] [phone] Leandra Orellana MD [address] [place] [address] [phone] documented as of this encounter Visit Diagnoses Not on filedocumented in this encounter Care Teams Dock Manager Relationship Specialty Start Date End Date Leandra Julien MD [address] [place] [address] [phone] PCP - General Internal Medicine 08/23/22 09/06/22 Leandra Orellana MD [address] [place] [address] [phone] PCP - General Internal Medicine 02/12/23 documented as of this encounter
--- OUTSIDE RECORDS SUMMARY | 2024-08-06 12:56 | XMS_ITS | Encounter Summary ---
Author Organization [employer] Address [address] [facility] 7t [place] [address] Care Team Providers Care Hose Builder Name Role Phone Leandra Orellana MD Primary Care Pro vider Encounter Details Date Type Department Care Team ([facility] Contact Info) Description 06/27/2023 Telephone [facility] [address] [place], [place] [phone] Leandra Orellana MD [address] [place], [place] [phone] Social History Tobacco Use Types Packs/Day Years [...] Description 10/09/2024 1:15 PM EDT Office Visit [facility] [address] [place] [phone] Leandra Orellana MD [address] [place] [phone] documented as of this encounter Visit Diagnoses Not on filedocumented in this encounter Additional Health Concerns Assessment Noted Time PHQ-9 Depression Total Score: 14 024 10:10 AM EST documented as of this encounter Care Teams Hose Builder Relationship Specialty Start Date End Date Leandra Orellana MD [address] [place] [phone] PCP - General Internal Medicine 02/12/23 documented as of this encounter
--- OUTSIDE RECORDS SUMMARY | 2024-08-06 12:56 | XMS_ITS | Encounter Summary ---
Author Organization [employer] Address [address] [facility] 7 [place] [address] Care Team Providers Care Neighborhood Worker Name Role Phone Leandra Orellana MD Primary Care Pro vider Reason for Visit * Reason Onset Date Comments Lung screening Referral 08/05/2024 Encounter Details Date Type Department Care Team ([facility] st Contact Info) Description 08/05/2024 Telephone [facility] [address] [place] [phone] Leandra Orellana MD [address] [place] [phone] Lung screening Referral Social History Tobacco Use Types Packs/Day [...] encounter Miscellaneous Notes * Telephone Encounter - Lidia Pritchett [place] - 08/05/2024 9:03 AM EDT I faxed the Lung Screening Referral to [facility]. documented in this encounter Plan of Treatment Upcoming Encounters Date Type Department Care Team (Late st Contact Info) Description 10/09/2024 1:15 PM EDT Office Visit [facility] [address] [place] [phone] Leandra Orellana MD [address] [place] [phone] documented as of this encounter Visit Diagnoses Not on filedocumented in this encounter Additional Health Concerns Assessment Noted Time PHQ-9 Depression Total Score: 17 025 2:51 PM EDT documented as of this encounter Care Teams Neighborhood Worker Relationship Specialty Start Date End Date Leandra Orellana MD [address] [place] [phone] PCP - General Internal Medicine 02/12/23 documented as of this encounter
--- OUTSIDE RECORDS SUMMARY | 2024-08-06 12:56 | XMS_ITS | Data Portability ---
Author Organization [place] [facility], [facility] Address [address] [address] Care Team Providers Care Staff Electrical Engineer Name Role Phone KAEY GREEN Primary Care Provider Assessment Encounter Date Assessment Date Assessment LastModified [...] doses of Tylenol (acetaminophen) and Motrin (ibuprofen) [id number] every 3 hours are recommended. Use of [...] Organization Details Last Modified Time Details Appointments None recorded. Lab None recorded. Referral None recorded. Procedures None recorded. Surgeries tonsillecto my (SURG) 2024 025 [email or web address] Not available 16:02:20 Imaging None recorded. Medication Orders None recorded. Patient TargetsNo targets recorded. Patient InstructionsNo instructions recorded. Reason for Referral None Reported. Results Created Date Observation Date Name Description Value Unit Range Abnormal Flag Note LastModifiedBy Organization Detail LastModifiedTime Result Notes None recorded. Problems Name Problem SNOMED Code Status Onset Date Resolution Date Notes Provider Name and Address Organization Details Recorded Time [facility] 2232341 Active 024 LYNDA WALLER MD [address] [place] [address], [phone], [place] - [facility] 4 23:06:24 Problem Notes None recorded. Procedures Surgical History Date Name Laterality Status Provider Name and Address Organization Details Recorded Time 06/18/19 25 Removal of tonsils completed LYNDA WALLER MD [address] [place] [address], [phone], [place] - [facility] 06/17/2024 15:10:08 06/18/19 25 TONSILLECTOMY (SURG) completed Mehul Martin [place] - [facility] 06/20/2024 10:42:02 Imaging Results None recorded. Procedure Notes None recorded. Medical Equipment None Reported. [...] Updated DateTime 12/11/2023 160.02 cm 22.5 kg/m2 04140.23 g Samantha Mohamud [facility] 12/11/2023 11:24:38 Date Recorded Body height Body mass index (BMI) Body weight Provider Name and Address Organization Details Last Updated DateTime 04/16/2024 160.02 cm 22.1 kg/m2 30819.05 g Candi Green [facility] 04/16/2024 11:34:29 Social History None recorded. Functional Status None recorded. Mental Status None recorded. Family History Nothing Reported. Medical History No medical history recorded. Gynecological HistoryNo gynecological history recorded. Obstetrics History GPAL:G 0 P 0 0 0 0 Past Encounters Encounter ID Performer Location Encounter Start Date Encounter Closed Date Diagnosis/Indication Diagnosis SNOMED-CT Code Diagnosis ICD10 Code Diagnosis Note [id number] LYNDA WALLER MD [facility] [address] [phone] 12/11/2023 11:16:49 12/11/2023 11:49:18 [facility] 4835003 J35.8 [id number] LYNDA WALLER MD [facility] [address] [place] [address] 04/16/2024 10:24:14 04/16/2024 11:57:42 [facility] 5749750 J35.8 Patient has symptomati c left sided [...] Bedolla Member ID Guarantor Name 12/11/2023 1 [place] Leandra Glez [id number] Leandra Glez 04/16/2024 1 [place] Leandra Glez [id number] Leandra Glez Notes Date Note Type Note [...] with CT scans LYNDA WALLER MD [address], [phone], [place] - [facility] 12/11/2023 11:56:25 04/16/2024 text/html estonian - Friend translatingsore throat on left sideradiates [...] improvement in throatno imaging with CT scans 12/11/23 Mary - left superior tonsil stone, advised conservative management LYNDA WALLER MD [address] [place] [address], [place], [phone], [facility] - [facility] 04/16/2024 11:55:03 OBGyn Episode No OBEpisode recorded.
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
== END 2024-08-06 11:19 | disposition home or self-care (01) ==
LOC: HO.HHCX 11:18
PROVIDERS: Visit Provider Student in an Organized Health Care Education/Training Program
DX: M54.2 Cervicalgia (principal)
CPT/HCPCS: 72040

== ENCOUNTER → 2024-08-06 11:19 | Outpatient (BNV) | payer MEDICAID, SELFPAY | PROVIDERS: Visit Provider Radiology Diagnostic Radiology | DX: M54.2 Cervicalgia (principal) | CPT/HCPCS: 72040 ==

== ENCOUNTER 2024-09-10 10:24 | Outpatient (AMB) | payer OTHER, SELFPAY ==
--- NOTE | 2024-09-10 10:46 | A.OFFVIS_ITS ---
Vital Signs 09/10/24 11:05 Height 5 ft 2 in Weight 132 lb BMI 24.1 BP 118/57 L Blood Pressure Location Lt brachial Position Sitting Respiration 16 Pulse 80 Pulse Source Pulse Oximeter Pulse Oximetry (%) 99 Oxygen Delivery Method Room Air Intake Visit Reasons: Follow Up Customer Success Representative Required: Yes Customer Success Representative Name: jason sauceda [phone] Accompanied by: Self / Same As Patient Allergies seafood Allergy (Severe, Verified 09/10/24 11:09) Anaphylaxis ceftriaxone [From Rocephin] Allergy (Verified 09/10/24 11:09) Rash HPI Comments Details: Visit completed with sign language interpreter Jason, #[id number]. The patient is a 64-year-old female presenting with complaints of chronic low back pain, initially managed with bilateral L3-L4 transforaminal epidural steroid injections performed on 03/10/2024. At the follow-up visit dated 04/03/2024: She endorses 70% pain relief with improvement in function and mobility. For several days after the procedure she states she felt unsteady and difficulty with initiating steps. This has since resolved and pain has improved. Today she reports after the injection her pain did not improve but worsened thereafter, affecting her gait and mobility. She was then lost to follow-up due to loss of insurance. The pain is concentrated in the low back, radiating to both legs, particularly affecting the right side more than the left. Associated symptoms include a feeling of instability and heaviness in the legs when sitting or standing. The patient reports no recent trauma or physical exertion that could have exacerbated her condition but mentions the worsening condition post-injection. A n MRI revealed a disc bulge, not compressing nerve structures yet noted alongside spinal arthritis, suggesting a multifactorial etiology to her symptoms. There has been no surgical intervention, although the possibility of future surgical assessment was discussed as she has been referred by her PCP to [facility]. - Pain onset: Experienced significant increase post March' epidural inject ion - Quality and character: Severe, debilitating - Primary location: Low back - Areas of radiation: Bilateral legs, worse on the right - Exacerbating factors: Movement, sudden turning, standing, walking - Alleviating factors: Not specified; largely unrelieved by current measures - Activities impacted: Mobility, fear of falling, functional ambulation - Affect: Increased anxiety, fear of falling due to leg instability and severe pain - Analgesia: Previous epidural injections, with short-term relief; current efficacy significantly decreased - Adverse Effects: No specific medication side effects noted, though pain- regulating medication efficacy diminished post-injection - Activities of Daily Living: Greatly impacted; difficulty standing, walking, sitting without feeling instability - Aberrant Drug Related Behaviors: None reported or observed [facility] Medical History (Updated 09/10/24 @ 13:02 by Valeria Art, SCOOP FILLER, SPIRAL WINDER) Personal history of nicotine dependence Endometriosis Postmenopausal Chronic back pain Depression with anxiety Hyperlipidemia, unspecified Moderate episode of recurrent major depressive disorder Bipolar 1 disorder Mass of skin of back Other microscopic hematuria Gastro-esophageal reflux disease without esophagitis Headache Surgical History History of esophagogastroduodenoscopy (EGD) H/O colonoscopy History of hysterectomy Family History (Reviewed 12/14/23 @ 13:54 by Joy Castillo [facility]) Father Prostate cancer Mother Leukemia Social History Alcohol intake: former Patient Tobacco Use Status: Never used Tobacco Review of Systems Const Details: - Musculoskeletal: Reports low back pain, bilateral leg pain, leg instability, heaviness - Neurological: Reports numbness, tingling, leg weakness - Psychological: Reports anxiety related to worsening symptoms and mobility fear Physical Exam Vital Signs: Last Vital Signs Pulse 80 09/10/24 11:05 Resp 16 09/10/24 11:05 BP 118/57 L 09/10/24 11:05 Pulse Ox 99 09/10/24 11:05 Oxygen Delivery Method Room Air 09/10/24 11:05 BMI result Body Mass Index 24.1 General: awake, alert, oriented. Answers questions appropriately. Fully engaged in examination. Skin: warm, dry, intact HEENT: Normocephalic. Hearing intact. Cardiac: External chest normal in appearance. Respiratory: No cough, audible wheezing or stridor. Abdomen: without gross distension. MS: No obvious swelling or deformities. Ambulates with steady gait SLR negative bilaterally Bilateral lower extremity strength 5/5, negative footdrop, negative clonus Tenderness over midline lumbar vertebrae and lumbar paraspinal muscles Facet loading positive bilaterally Neurological: Oriented to person, place, time and situation. Thought process intact. No gait abnormalities appreciated. Psychiatric: Appropriate mood and affect. Good judgment and insight. Results Reviewed Results Reviewed: 11/09/23 MRI LS FINDINGS: Mild dextrocurvature of the lumbar spine. Preservation of the normal lumbar lordosis. No listhesis. No acute bone marrow abnormality. The vertebral body heights are preserved. Multilevel disc desiccation without significant disc height loss. T12-L1: Shallow left paracentral disc protrusion. No significant spinal canal or neural foraminal narrowing. L1-2: Central disc protrusion. No significant spinal canal or neural foraminal narrowing. L2-3: Left foraminal disc protrusion and bilateral facet arthrosis. No significant spinal canal or neural foraminal narrowing. L3-4: Diffuse disc bulge and bilateral facet arthrosis. Mild bilateral neural foraminal narrowing with the disc abutting the exiting L3 nerve roots bilaterally. No significant spinal canal stenosis. L4-5: Shallow disc bulge with superimposed annular fissure. Bilateral facet arthrosis. Mild right neural foraminal narrowing with the disc abutting the exiting L4 nerve as bilaterally. L5-S1: Shallow disc bulge and bilateral facet arthrosis. No significant spinal canal or neural foraminal narrowing. The paravertebral soft tissues are unremarkable. Bilateral renal cysts. IMPRESSION: 1. Mild degenerative changes of the lumbar spine without significant spinal canal stenosis. 2. Mild neural foraminal narrowing at L3-L4 and L4-L5 with the disc abutting the exiting L3 and L4 nerve roots bilaterally. 3. L4-L5 annular fissure. Assessment & Plan Assessment & Plan (1) Lumbar radiculopathy: Code(s): M54.16 - Radiculopathy, lumbar region Category: Medical (2) Lumbar facet arthropathy: Code(s): M47.816 - Spondylosis without myelopathy or radiculopathy, lumbar region Category: Medical (3) Degenerative disc disease, lumbar: Code(s): M51.369 - Other intervertebral disc degeneration, lumbar region without mention of lumbar back pain or lower extremity pain Category: Medical Plan We will proceed with diagnostic joint injections to evaluate and potentially treat the component of arthritis in the patient's symptomatology. These will be carried out without steroids to gauge responsiveness. The patient will consult with neurosurgery as referred by her primary care doctor for further evaluation of surgical possibilities. It was emphasized that an office visit with neurosurgery does not entail consent to surgery, allowing exploration of options with delineation of risks and benefits. Approval for these diagnostic procedures with her insurance will be requested, and I will follow up based on her results or worsening symptoms. I discussed extensively with the patient the chronic nature of her back pain and the limitations of previous treatments. The potential benefit of diagnostic injections to evaluate arthritis-related relief was explained, with emphasis on the safety and non-invasive nature of the procedure. The importance of neurosurgical consultation was also addressed, particularly for thorough assessment without immediate commitment to surgery, alleviating patient anxiety regarding this suggestion. The prospect of surgery remains contingent on symptom progression and response to current interventions. The patient expressed understanding and commitment to follow up with insurance approvals and making appointments as necessary. Will schedule for fluoroscopy guided diagnostic bilateral L3-L4 DR L5 medial bra nch blocks with local anesthetic Patient was informed and verbally consented to the use of an ambient scribe for clinic note documentation during this visit. Patient Instructions: - Await call to schedule diagnostic joint injections, pending insurance approval - Schedule a consultation with neurosurgery to discuss spinal issues per previous PCP referral. - Maintain communication regarding any changes or worsening of symptoms. - Keep a pain diary post-injections to inform us about symptom changes. Coding Level of Care Code Est Pt Level 3 (43807) Complex EM visit Add On G2211 Diagnoses Lumbar radiculopathy M54.16 Lumbar facet arthropathy M47.816 Degenerative disc disease, lumbar M51.369
--- OUTSIDE RECORDS SUMMARY | 2024-09-10 11:04 | XMS_ITS | Encounter Summary ---
Author Organization [employer] Address [address] [facility] [address] [place] [address] Care Team Providers Care Staff Readiness Officer Name Role Phone Leandra Julien MD Primary Care Provide r Leandra Orellana MD Primary Care Pro vider Reason for Visit * Reason Onset Date Comments New Patient Appt 08/23/2022 Encounter Details Date Type Department Care Team ([facility] st Contact Info) Description 08/23/2022 Telephone [facility] [address] [place], [place] [phone] Leandra Julien MD [address] [place], [place] [phone] New Patient Appt Social History Tobacco Use [...] PAR Lisa Aguayo called pt to Offer FINAL INSPECTION SUPERVISOR appt. Pt demographics and insurance information were verified. Pt reports has not seen a PCP before. Pt reports the following medical conditions: Asthma, Panics, Hernia (Stomach). Pt does not take medications at this time. Pt given FINAL INSPECTION SUPERVISOR appt with on 09/26/2022 10:15 am . Pt will be sent appt reminder card and medical release form and agrees to complete and t o return to medical records prior to FINAL INSPECTION SUPERVISOR appt. documented in this encounter Plan of Treatment Upcoming Encounters Date Type Department Care Team (Late st Contact Info) Description 10/09/2024 1:15 PM EDT Office Visit [facility] [address] [place] [address] [phone] Leandra Orellana MD [address] [place] [address] [phone] documented as of this encounter Visit Diagnoses Not on filedocumented in this encounter Care Teams Staff Readiness Officer Relationship Specialty Start Date End Date Leandra Julien MD [address] [place] [address] [phone] PCP - General Internal Medicine 08/23/22 09/06/22 Leandra Orellana MD [address] [place] [address] [phone] PCP - General Internal Medicine 02/12/23 documented as of this encounter
[2024-09-10 11:05] VITALS: BP 118/57; PULSE 80; RESP 16; O2SAT 99; BMI 24.1
== END 2024-09-10 11:39 | disposition home or self-care (01) ==
LOC: HO.PMC 10:25
PROVIDERS: Visit Provider Registered Nurse Emergency
DX: M54.16 Radiculopathy, lumbar region (principal); M47.816 Spondylosis without myelopathy or radiculopathy, lumbar region; M51.369 Other intervertebral disc degeneration, lumbar region without mention of lumbar back pain or lower extremity pain
CPT/HCPCS: 99213; G2211

== ENCOUNTER → 2024-09-10 10:24 | Outpatient (BNVA) | payer OTHER, SELFPAY | PROVIDERS: Visit Provider Registered Nurse Emergency | DX: M54.16 Radiculopathy, lumbar region (principal); M47.816 Spondylosis without myelopathy or radiculopathy, lumbar region; M51.369 Other intervertebral disc degeneration, lumbar region without mention of lumbar back pain or lower extremity pain | CPT/HCPCS: 99212 ==

== ENCOUNTER 2024-09-18 10:10 | Outpatient (AMB) | payer OTHER, SELFPAY ==
--- NOTE | 2024-09-18 10:22 | MHC.OFFVIS ---
Vital Signs 09/18/24 10:23 Height 5 ft 2 in Weight 132 lb BMI 24.1 BP 94/54 L Blood Pressure Location Rt brachial Position Sitting Pulse 78 Pulse Source Pulse Oximeter Pulse Oximetry (%) 97 Oxygen Delivery Method Room Air Intake Visit Reasons: CIC GERD Intake Note: Established patient for mgmt of GERD + CIC. CC; C.O. constipation persistence despite linzess. Pt is hoping for alternative or change in dose. Pt is doing OK with other meds. Needs refills of Rabeprazole, Simethicone, and Senna. Waiter/Waitress Club Required: Yes Waiter/Waitress Club Services: Waiter/Waitress Club Present Waiter/Waitress Club Name: [facility] Christiano Vazquez [id number] Accompanied by: Self / Same As Patient Allergies seafood Allergy (Severe, Verified 09/18/24 10:22) Anaphylaxis ceftriaxone [From Rocephin] Allergy (Verified 09/18/24 10:22) Rash HPI HPI CIC GERD: Details: Assessment & Plan (1) Chronic idiopathic constipation: Code(s): K59.04 - Chronic idiopathic constipation Category: Medical (2) Gastro-esophageal reflux disease without esophagitis: Code(s): K21.9 - Gastro-esophageal reflux disease without esophagitis Category: Medical Plan Bangl[place]hi #[id number] At the last visit we decreased her Linzess to 72 micro g since she was having diarrhea, and we added Creon and simethicone for bloating. We also try changing her away from omeprazole and pantoprazole which she has failed and getting her rabeprazole twice a day. Also remember that if we can not get her GERD control she may need to stop her alendronate as this is contraindicated for patients who have uncontrolled GERD. Her GES and her barium swallow are fairly unremarkable as was her EGD in 09/2023 and she did not have much improvement in her swallowing with dilation. She also has pain across her upper abd that we can not find a GI cause for. SHe also has had [address] in 2023. Now she has a fairly unrevealing barium swallow along with a normal gastric emptying study. She received the LInzess at 72mcg and while she does not have diarrhea, she is not moving her bowels every day and her gas and bloating has not improved. She also is taking the creon and simethicone. With the aciphex despite bid dosing her GERD is not much improved. WIll add senna to the qhs and continue senna since her 145mcg dose was too strong. ROV 6 weeks. Medications: New sennosides (Senna Laxative) 17.2 mg (2 x 8.6 mg) PO BEDTIME 60 tabs 6RF K21.9 - Gastro-esophageal reflux disease without esophagitis, K59.04 - Chronic idiopathic constipation TODAYS VISIT [place] [employer] She lost her insurance so this prevented her from follow up. She is outof all of her medications so all of he sx are uncontrolled. She feels that the GERD and the CIC was controlled with the aciphex and the LInzess/senna, but she still has a lot of bloating and she can't remember if the creon helped. We will re start and evaluate. She should be on Linzess, 72 micro g, senna 2 tablets at night, simethicone, AcipHex twice a day and Creon. She is due for a colonoscopy. Her last was in [place] but she is unsure of the exact date. No cardiac or respiratory problems. She was difficult to sedate in the past, but had no trouble during her 2023 EGD. No ID problems. She has a great deal of cancer in her family and is not entirely certain of who may have had CRC. Return office visit in 6 weeks [facility] Medical History (Updated 09/18/24 @ 12:10 by RAYNE Antonio) Upper abdominal pain Personal history of nicotine dependence Endometriosis Postmenopausal Chronic back pain Depression with anxiety Hyperlipidemia, unspecified Moderate episode of recurrent major depressive disorder Bipolar 1 disorder Mass of skin of back Other microscopic hematuria Gastro-esophageal reflux disease without esophagitis Headache Surgical History History of esophagogastroduodenoscopy (EGD) H/O colonoscopy History of hysterectomy Family History Father Prostate cancer Mother Leukemia Social History Alcohol intake: former Patient Tobacco Use Status: Never used Tobacco Review of Systems Const Details: glasses Denies fatigue, Denies fever(s), Denies night sweats, Denies poor appetite and Denies weight loss ENT Reports Normal hearing present, Denies dental pain, Denies dysphagia, Denies hearing loss, Denies mouth pain, Denies odynophagia, Denies throat swelling, Denies tongue swelling and Reports other (Dentition adequate) Card Reports no additional complaints Resp Reports no additional complaints GI Details: Reports abdominal pain, Denies melena, Reports bloating, Denies hematochezia, Reports constipation, Denies GI cramping, Denies dysphagia, Denies excessive flatus, Denies early satiety, Reports heartburn, Denies diarrhea, Reports loose stools, Reports nausea, Denies odynophagia, Denies vomiting and Denies hematemesis Skin/Breast Denies pruritus, Denies lesions, Denies rash and Denies jaundice Neuro Reports Normal hearing present and Denies Abnormal speech present Endo Denies fatigue Aller/Immun Denies throat swelling and Denies tongue swelling Physical Exam Vital Signs: Last Vital Signs Pulse 78 09/18/24 10:23 BP 94/54 L 09/18/24 10:23 Pulse Ox 97 09/18/24 10:23 Oxygen Delivery Method Room Air 09/18/24 10:23 BMI result Body Mass Index 24.1 Const General: cooperative, no acute distress, well developed and well groomed Nutritional Appearance: average body habitus and well nourished Orientation/consciousness: oriented to person, oriented to place and oriented to time Limitations: language barrier HEENT Head: Yes normocephalic and Yes atraumatic Eyes General: appearance normal, both eyes and all related structures Pupils: Equal, round and reactive pupils present Neck Neck: Yes normal visual inspection and Yes no lymphadenopathy Thyroid: Thyroid normal Resp Effort & Inspection: normal respiratory effort and able to speak in complete sentences Auscultation: clear to auscultation bilaterally Cardio Rate: regular rate Rhythm: regular rhythm Heart sounds: Normal, physiologic split S2 sound present Peripheral pulses: radial pulses present and posterior tibial pulses present GI Inspection: No distended and No Abdominal panniculus present Palpation (GI): Soft to palpation, nontender, no guarding, not rigid and No hepatosplenomegaly present Percussion: Yes normal to percussion Auscultation: normal bowel sounds Rectal Exam - Female: deferred Skin General skin exam: no rashes or lesions noted, turgor normal, skin not dry, no jaundice, No spider nevi and no striae Rashes: no rashes Nails: normal Neuro General: oriented to person, oriented to place and oriented to time Cranial nerves: Yes Equal, round and reactive pupils present and Yes Normal hearing present Speech: No Abnormal speech present Extrem General: Yes normal to inspection, No clubbing, No cyanosis and No edema Psych Appearance: grossly normal and well kempt Mental Status: mental status grossly normal Speech and movement: Normal speech and movement present Affect: normal affect Attitude: cooperative Thought process: Normal thought process present and not confabulating Thought content: Normal thought content present Insight: Limited insight present (Psych) Judgement: Limited judgement present (Psych) Assessment & Plan Assessment & Plan (1) Pre-op examination: Code(s): Z01.818 - Encounter for other preprocedural examination Category: Medical (2) Gastro-esophageal reflux disease without esophagitis: Code(s): K21.9 - Gastro-esophageal reflux disease without esophagitis Category: Medical (3) Chronic idiopathic constipation: Code(s): K59.04 - Chronic idiopathic constipation Category: Medical (4) IBS (irritable bowel syndrome): Code(s): K58.9 - Irritable bowel syndrome, unspecified Category: Medical Plan [place] #[employer] She lost her insurance so this prevented her from follow up. She is outof all of her medications so all of he sx are uncontrolled. She feels that the GERD and the CIC was controlled with the aciphex and the LInzess/senna, but she still has a lot of bloating and she can't remember if the creon helped. We will re start and evaluate. She should be on Linzess, 72 micro g, senna 2 tablets at night, simethicone, AcipHex twice a day and Creon. She is due for a colonoscopy. Her last was in [place] but she is unsure of the exact date. No cardiac or respiratory problems. She was difficult to sedate in the past, but had no trouble during her 2023 EGD. No ID problems. She has a great deal of cancer in her family and is not entirely certain of who may have had CRC. Return office visit in 6 weeks Orders: Orders Complete Blood Count no Diff 08/01/24 Z00.00 - Encounter for general adult medical examination without abnormal findings Comprehensive Met. Panel 08/01/24 Z00.00 - Encounter for general adult medical examination without abnormal findings Colonoscopy - GI Use Only Today Z01.818 - Encounter for other preprocedural examination Medications: New bisacodyl (Dulcolax (bisacodyl)) 10 mg (2 x 5 mg) PO BEDTIME 4 tabs 0RF 2 days peg 3350-electrolytes 236-22.74-6.74 -5.86 gram (Golytely) until fecal effluent is clear; do not exceed a total volume of 2,000 mL 240 mL PO Q10M 4,000 mL 0RF 1 day Z12.11 - Encounter for screening for malignant neoplasm of colon Refilled linaclotide (Linzess) 72 mcg PO QAM 30 caps 6RF [id number] 24,000-76,000 -120,000 unit (Creon) 2 caps PO BID 120 caps 1RF 30 days K58.9 - Irritable bowel syndrome, unspecified rabeprazole (AcipHex) 20 mg PO BID 60 tabs 6RF K21.9 - Gastro-esophageal reflux disease without esophagitis sennosides (Senna Laxative) 17.2 mg (2 x 8.6 mg) PO BEDTIME 60 tabs 6RF K21.9 - Gastro-esophageal reflux disease without esophagitis, K59.04 - Chronic idiopathic constipation simethicone after meals 180 mg PO TID 90 caps 3RF 30 days Coding Level of Care Code Est Pt Level 4 (59330) Diagnoses Pre-op examination Z01.818 Gastro-esophageal reflux disease without esophagitis K21.9 Chronic idiopathic constipation K59.04 IBS (irritable bowel syndrome) K58.9 Time Spent (min) 36
[2024-09-18 10:23] VITALS: BP 94/54; PULSE 78; O2SAT 97; BMI 24.1
--- OUTSIDE RECORDS SUMMARY | 2024-09-18 11:42 | XMS_ITS | Encounter Summary ---
Author Organization [employer] Address [address] [facility] [address] [place] [address] Care Team Providers Care Retail Receiving Clerk Name Role Phone Leandra Julien MD Primary Care Provide r Leandra Orellana MD Primary Care Pro vider Reason for Visit * Reason Onset Date Comments New Patient Appt 08/23/2022 Encounter Details Date Type Department Care Team ([facility] st Contact Info) Description 08/23/2022 Telephone [facility] [address] [place], [place] [phone] Leandra Julien MD [address] [place], [place] [phone] New Patient Appt Social History Tobacco Use [...] PAR Lisa Aguayo called pt to Offer SUPERVISOR HARD CANDY appt. Pt demographics and insurance information were verified. Pt reports has not seen a PCP before. Pt reports the following medical conditions: Asthma, Panics, Hernia (Stomach). Pt does not take medications at this time. Pt given SUPERVISOR HARD CANDY appt with on 09/26/2022 10:15 am . Pt will be sent appt reminder card and medical release form and agrees to complete and t o return to medical records prior to SUPERVISOR HARD CANDY appt. documented in this encounter Plan of Treatment Upcoming Encounters Date Type Department Care Team (Late st Contact Info) Description 10/09/2024 1:15 PM EDT Office Visit [facility] [address] [place] [address] [phone] Leandra Orellana MD [address] [place] [address] [phone] documented as of this encounter Visit Diagnoses Not on filedocumented in this encounter Care Teams Retail Receiving Clerk Relationship Specialty Start Date End Date Leandra Julien MD [address] [place] [address] [phone] PCP - General Internal Medicine 08/23/22 09/06/22 Leandra Orellana MD [address] [place] [address] [phone] PCP - General Internal Medicine 02/12/23 documented as of this encounter
== END 2024-09-18 10:57 | disposition home or self-care (01) ==
LOC: HO.HGI 10:11
PROVIDERS: Visit Provider Nurse Practitioner
DX: Z01.818 Encounter for other preprocedural examination (principal); Z12.11 Encounter for screening for malignant neoplasm of colon; K58.1 Irritable bowel syndrome with constipation; K21.9 Gastro-esophageal reflux disease without esophagitis
CPT/HCPCS: 99213

== ENCOUNTER → 2024-09-18 10:10 | Outpatient (BNVA) | payer OTHER, SELFPAY | PROVIDERS: Visit Provider Nurse Practitioner | DX: Z01.818 Encounter for other preprocedural examination (principal); K21.9 Gastro-esophageal reflux disease without esophagitis; K59.04 Chronic idiopathic constipation; K58.9 Irritable bowel syndrome, unspecified | CPT/HCPCS: 99212 ==

== ENCOUNTER 2024-10-06 08:33 | Outpatient (REF) | payer OTHER, SELFPAY ==
--- OUTSIDE RECORDS SUMMARY | 2024-10-06 08:47 | XMS_ITS | Encounter Summary ---
Author Organization [employer] Address 75 [facility] 7t [place] [address] Care Team Providers Care Teacher Dancing Name Role Phone Leandra Julien MD Primary Care Provide r Leandra Orellana MD Primary Care Pro vider Reason for Visit * Reason Onset Date Comments New Patient Appt 08/23/2022 Encounter Details Date Type Department Care Team ([facility] st Contact Info) Description 08/23/2022 Telephone [facility] MEDICINE [address] [place], [place] [phone] Leandra Julien MD [address] [place], [place] [phone] New Patient Appt Social History Tobacco Use [...] PAR Lisa Aguayo called pt to Offer FENCE BUILDER appt. Pt demographics and insurance information were verified. Pt reports has not seen a PCP before. Pt reports the following medical conditions: Asthma, Panics, Hernia (Stomach). Pt does not take medications at this time. Pt given FENCE BUILDER appt with on 09/26/2022 10:15 am . Pt will be sent appt reminder card and medical release form and agrees to complete and t o return to medical records prior to FENCE BUILDER appt. documented in this encounter Plan of Treatment Upcoming Encounters Date Type Department Care Team (Late st Contact Info) Description 10/09/2024 1:15 PM EDT Office Visit [facility] MEDICINE [address] [place] [address] [phone] Leandra Orellana MD [address] [place] [address] [phone] documented as of this encounter Visit Diagnoses Not on filedocumented in this encounter Care Teams Teacher Dancing Relationship Specialty Start Date End Date Leandra Julien MD [address] [place] [address] [phone] PCP - General Internal Medicine 08/23/22 09/06/22 Leandra Orellana MD [address] [place] [address] [phone] PCP - General Internal Medicine 02/12/23 documented as of this encounter
[2024-10-06 11:22] LABS: Hemoglobin 14.1 g/dl (12.0-16.0); Mean Corpuscular HGB Conc 33.6 g/dl (31.0-35.0); Mean Corpuscular Hemoglobin 30.5 pg (27.0-33.0); Mean Corpuscular Volume 90.7 fL (80.0-98.0); Mean Platelet Volume 12.7 fL (9.4-12.3); Platelet Count 296 X10*3/uL (160-400); Red Blood Count 4.63 X10*6/uL (4.20-5.50); Red Cell Distribution Width 13.2 % (11.0-16.0); White Blood Count 8.4 X10*3/uL (4.8-10.8)
[2024-10-06 11:50] LABS: Estimated Average Glucose 103 mg/dL; Hemoglobin A1c % 5.2 % (<6.0); Total Hemoglobin (HGBA1C) 3775.6406 umol/L
[2024-10-06 11:55] LABS: Alanine Aminotransferase 27 U/L (0-31); Alkaline Phosphatase 78 U/L (39-117); Anion Gap 10 (12-20); Aspartate Amino Transferase 26 U/L (5-31); Bilirubin Total 0.3 mg/dL (0.0-1.0); Blood Urea Nitrogen 18 mg/dL (9-16); Calcium 9.5 mg/dL (8.4-10.2); Carbon Dioxide 29 mmol/L (22-29); Chloride 107 mmol/L (96-108); Cholesterol 250 mg/dL (<200); Estimated Glomerular Filt Rate 57; Glucose Random 95 mg/dL (60-115); HDL Cholesterol 57 mg/dL (>40); LDL Cholesterol Calculated 162 mg/dL (<100); Potassium 4.4 mmol/L (3.3-5.1); Sodium 142 mmol/L (135-145); Total Protein 7.1 g/dL (6.5-8.0); Triglycerides 159 mg/dL (<150)
[2024-10-06 11:56] LABS: Vitamin D 25-OH Total 36.5 ng/mL (>30)
[2024-10-06 12:02] LABS: Syphilis Screen Nonreactive (Nonreactive)
[2024-10-06 12:04] LABS: HBS Num1 47.47 mIU/mL (0-7.99); HBc Num1 0.06 S/CO (0.00-0.79); HBsAGNum1 0.69 S/CO (0.00-0.99); HIV AB/AG Nonreactive (Nonreactive); HIV Num 1 0.06 S/CO (0.00-0.99); Hepatitis B Core Antibody Nonreactive (Nonreactive); Hepatitis B Surface Antigen Negative (Negative); ~HepC Num1 0.12 S/CO (0.00-0.79); ~Hepatitis B Surface Antibody REACTIVE (Nonreactive); ~Hepatitis C Antibody Nonreactive (Nonreactive)
[2024-10-06 12:10] LABS: Folate 9.4 ng/mL (> or = 4.0); Vitamin B12 316 pg/mL (200-900)
[2024-10-06 15:16] LABS: CT PCR Urine NOT DETECTED (Not Detect.); NG PCR Urine NOT DETECTED (Not Detect.)
== END 2024-10-06 08:34 | disposition home or self-care (01) ==
LOC: HO.HHCL 08:33
PROVIDERS: PCP Student in an Organized Health Care Education/Training Program; Referring Provider Nurse Practitioner; Visit Provider Student in an Organized Health Care Education/Training Program
DX: Z00.00 Encounter for general adult medical examination without abnormal findings (principal)
CPT/HCPCS: 36415; 80053; 80061; 82306; 82607; 82746; 83036; 84443; 85027; 86704; 86706; 86780; 86803; 87340; 87389; 87491; 87591

== ENCOUNTER 2024-10-28 06:14 | Outpatient (REF) | payer OTHER, SELFPAY ==
--- NOTE | ~2024-10-28 | FL_ITS ---
EXAMINATION: FL GUIDANCE ONLY HISTORY: M47.816 - Spondylosis without myelopathy or radiculopathy, lumbar region COMPARISON: None available. TECHNIQUE: Fluoroscopy time: 0.4 minutes. Cumulative Dose: 3.65 mGy. DAP: 0.0570 mGym2 Images: 6. FINDINGS: Fluoroscopic spot films of the lumbar spine in the AP projection demonstrate needles and contrast material in the regions of the bilateral L3-4, L4-5, and L5-S1 facet joints. FL/FL guidance in treatment room IMPRESSION: Fluoroscopy during procedure. Please see procedure report for additional information. Electronically signed by: Gus Shetty MD 10/28/2024 03:27 PM EDT
--- OUTSIDE RECORDS SUMMARY | 2024-10-28 06:16 | XMS_ITS | Data Portability ---
Author Organization [place] - [facility], Allergy Address [address] [address] Care Team Providers Care Packaging Inspector Name Role Phone KAYE GREEN Primary Care Provider Assessment Encounter Date [...] doses of Tylenol (acetaminophen) and Motrin (ibuprofen) [id number] every 3 hours are recommended. Use of [...] recorded. Surgeries tonsillecto my (SURG) 2024 025 [email or web address] [id number] Not available 16:02:20 Imaging None recorded. [...] and Address Organization Details Recorded Time [facility]gdal[facility] [id number] Active 024 LYNDA WALLER MD [address] [place] [address], [phone], [place] - [facility] 4 23:06:24 Problem Notes None recorded. Procedures Surgical History Date Name Laterality Status Provider Name and Address Organization Details Recorded Time 06/18/19 25 Removal of tonsils completed LYNDA WALLER MD [address] [place] [address], [phone], [place] - [facility] 06/17/2024 15:10:08 06/18/19 25 TONSILLECTOMY (SURG) completed Mehul Martin [place] - [facility] 06/20/2024 10:42:02 Imaging Results None recorded. [...] Updated DateTime 04/16/2024 160.02 cm 22.1 kg/m2 [address]39.[address] [facility] 04/16/2024 11:34:29 Date Recorded Body height Body mass index (BMI) Body weight Provider Name and Address Organization Details Last Updated DateTime 12/11/2023 160.02 cm 22.5 kg/m2 25450.[address] [facility] 12/11/2023 11:24:38 Social History None recorded. Functional Status None recorded. Mental Status None recorded. Family History Nothing Reported. Medical History No medical history recorded. Gynecological HistoryNo gynecological history recorded. Obstetrics History GPAL:G 0 P 0 0 0 0 Past Encounters Encounter ID Performer Location Encounter Start Date Encounter Closed Date Diagnosis/Indication Diagnosis SNOMED-CT Code Diagnosis ICD10 Code Diagnosis Note [id number] LYNDA WALLER MD [facility] [address] [address] 12/11/2023 11:16:49 12/11/2023 11:49:18 [facility] 6757329 J35.8 [id number] LYNDA WALLRE MD [facility] [address] [place] [address] 04/16/2024 10:24:14 04/16/2024 11:57:42 [facility] [id number] J35.8 Patient has symptomati c left sided sore throat which is presumed related to tonsil stones. the tonsils are soft. possibilit y of malignancy was discussed but felt to be less likely Health Concerns Section Related Observation LastModified by Organization Detai ls LastModified Time None Recorded Concern Status LastModified by Organization Details LastModified Time None Recorded Advance Directives Directive None Recorded Payers Insurance Date Sequence Insurance Name Policy Number Policy Bedolla Covered Member ID Bedolla Member ID Guarantor Name 10/29/2023 1 [place] [facility] Leandra Doyle [id number] Leandra Glez 06/12/2024 1 [place] [facility] Leandra Glez [id number] Leandra Glez Notes Date Note Type Note Provider Name and Address Organization Details Recorded Time 12/11/2023 text/html ipad - spanishso re throat on left sideradiates toward left earsees and feels a tonsil stonehas been present for 3 yearstrial of abx and saline gargle with no relief710 discomforttobacco - deniesno hemoptysischokes with solid food like rice, no difficulty with water works with GI for esophageal dilation with mild improvement last monthno improvement in throatno imaging with CT scans LYNDA WALLER MD [address], [address], [place] - [facility] 12/11/2023 11:56:25 04/16/2024 text/html turkish - Friend translatingsore throat on left sideradiates toward left earsees and feels a tonsil stonehas been present for 3 yearstrial of abx and saline gargle with no relief710 discomforttobacco - deniesno hemoptysischokes with solid food like rice, no difficulty with waterno change with water pick and baking soda saline gargles works with GI for esophageal dilation with mild improvement last monthno improvement in throatno imaging with CT scans 12/11/23 Mary - left superior tonsil stone, advised conservative management LYNDA WALLER MD [address] [place] [address], [place], [phone], [place] [facility] 04/16/2024 11:55:03 OBGyn Episode No OBEpisode recorded.
--- OUTSIDE RECORDS SUMMARY | 2024-10-28 06:16 | XMS_ITS | Encounter Summary ---
Author Organization [employer] Address 75 [facility] 7t [place] [address] Care Team Providers Care Wrapper Stemmer Operator Name Role Phone Leandra Orellana MD Primary Care Pro vider Encounter Details Date Type Department Care Team ([facility] Contact Info) Description 10/24/2024 Telephone [facility] MED & PEDS [address] [place], [place] [phone] Nataliia Ambriz, RN [address] [place], [place] [phone] Social History Tobacco Use Types Packs/Day Years [...] Answer Date Recorded Patient Health Questionnaire-9 Score 18 10/09/2024 Patient Health Questionnaire-9 Score 18 10/09/2024 Last PHQ-9: Questionnaire Data Not on file 0 10/09/2024 Housing Stability Answer Date Recorded What is [...] Answer Date Recorded Patient Health Questionnaire-2 Score 6 10/09/2024 Internet Access Answer Date Recorded Internet Access [...] encounter Miscellaneous Notes * Telephone Encounter - Nataliia Ambriz RN - 10/24/2024 8:45 AM EDT .What TOLL LINE INSPECTOR Tier would you like this patient to be? Tier 1 = HIGH RISK, Monthly TOLL LINE INSPECTOR visits Tier 2 = MODerate RISK, Q3 Month visits Tier 3 = LOW RISK = Q4-6 month visits documented in this encounter Plan of Treatment Upcoming Encounters Date Type Department Care Team (Late st Contact Info) Description 01/02/2025 9:30 AM EDT Clinical Support [facility] MEDICINE [address] [place] [address] Nataliia Ambriz RN [address] [place], [place] [phone] documented as of this encounter Visit Diagnoses Not on filedocumented in this encounter Additional Health Concerns Assessment Noted Time PHQ-9 Depression Total Score: 18 025 2:00 PM EDT documented as of this encounter Care Teams Wrapper Stemmer Operator Relationship Specialty Start Date End Date Leandra Orellana MD [address] [place] [address] PCP - General Internal Medicine 02/12/23 documented as of this encounter
== END 2024-10-28 06:15 | disposition home or self-care (01) ==
LOC: CF 06:14
PROVIDERS: Visit Provider Anesthesiology
DX: M47.816 Spondylosis without myelopathy or radiculopathy, lumbar region (principal)
CPT/HCPCS: 64493; 64494; A9585; J2003; J2795

== ENCOUNTER 2024-10-28 14:29 | Outpatient (AMB) | payer OTHER, SELFPAY ==
--- NOTE | 2024-10-28 14:47 | A.OFFVIS_ITS ---
Vital Signs 10/28/24 14:59 Weight 135 lb BP 118/51 L Blood Pressure Location Lt brachial Position Sitting Respiration 18 Pulse 80 Pulse Source Pulse Oximeter Pulse Oximetry (%) 99 Oxygen Delivery Method Room Air Intake Visit Reasons: BILATERAL DIAGNOSTIC L3 L4 DR L5 MBB Skating Rink Ice Maker Required: Yes Allergies seafood Allergy (Severe, Verified 09/18/24 10:22) Anaphylaxis ceftriaxone (From Rocephin) Allergy (Verified 09/18/24 10:22) Rash [facility] Medical History (Updated 10/29/24 @ 08:03 by Michael Baker MD) Upper abdominal pain Personal history of nicotine dependence Endometriosis Postmenopausal Chronic back pain Depression with anxiety Hyperlipidemia, unspecified Moderate episode of recurrent major depressive disorder Bipolar 1 disorder Mass of skin of back Other microscopic hematuria Gastro-esophageal reflux disease without esophagitis Headache Surgical History History of esophagogastroduodenoscopy (EGD) H/O colonoscopy History of hysterectomy Family History Father Prostate cancer Mother Leukemia Social History Alcohol intake: former Patient Tobacco Use Status: Never used Tobacco Physical Exam Vital Signs: Last Vital Signs Pulse 80 10/28/24 14:59 Resp 18 10/28/24 14:59 BP 118/51 L 10/28/24 14:59 Pulse Ox 99 10/28/24 14:59 Oxygen Delivery Method Room Air 10/28/24 14:59 Assessment & Plan Assessment & Plan (1) Spondylosis of lumbar region without myelopathy or radiculopathy: Code(s): M47.816 - Spondylosis without myelopathy or radiculopathy, lumbar region Category: Medical Plan Diagnostic medial branch block L3,L4 dorsal ramus L5 bilateral.? ? ?Informed consent was explained to the patient. All questions were explained and? answered.? The patient was taken inside the operating room where she was positioned prone on the operating table. Time-out was performed delineating correct site, side, the nature of the procedure, patient's allergy, . All operating room staff was participating in OR time-out procedure. Allergy to iodine contrast was noted. ? ? The lower back was prepped with ChloraPrep and draped with sterile towels.? C- arm was brought over the operating field and sq picture of L4-, L5 vertebra and S1 AREA were delineated on the screen.? Point of interest were delineated as c onfluence of superior articular process of L4 and L5 vertebra bilaterally with corresponding transverse processes as well as confluence of the sacral alae bilaterally with superior articular process of S1.? The projection of the point of interest to the skin were injected with the small amount of local anesthetic lidocaine 2% mixed with ropivacaine 0.5% 1-1 approximately 1 cc.? After that 22 gauge 5 inch spinal needle was driven sequentially to the points of interest in tunnel vision fashion. After needles gently contacted the bone at the point of interests the needle was injected with small amount of the contrast Gadavist.? The injection of the contrast did not demonstrate any intravascular or intrathecal spread of the contrast.? After that injection of the? ropivacaine 0.5%-1cc was performed at each needle location. ?after that the needles were removed and Bandaids were applied. Orders: Orders FL guidance in treatment room 10/28/24 M47.816 - Spondylosis without myelopathy or radiculopathy, lumbar region Coding Level of Care Code Procedure Only Diagnoses Spondylosis of lumbar region without myelopathy or radiculopathy M47.816
[2024-10-28 14:59] VITALS: BP 118/51; PULSE 80; RESP 18; O2SAT 99
--- OUTSIDE RECORDS SUMMARY | 2024-10-28 15:43 | XMS_ITS | Encounter Summary ---
Author Organization [employer] Address 75 [facility] 7t [place] [address] Care Team Providers Care Coo Name Role Phone Leandra Orellana MD Primary Care Pro vider Encounter Details Date Type Department Care Team ([facility] Contact Info) Description 10/24/2024 Telephone [facility] CHC MED & PEDS [address] [place], [place] [phone] Nataliia Ambriz, RN [address] [place], [place] [phone] Social History Tobacco Use Types Packs/Day Years [...] RN - 10/24/2024 8:45 AM EDT .What DRYWALL INSTALLER Tier would you like this patient to be? Tier 1 = HIGH RISK, Monthly DRYWALL INSTALLER visits Tier 2 = MODerate RISK, Q3 Month visits Tier 3 = LOW RISK = Q4-6 month visits documented in this encounter Plan of Treatment Upcoming Encounters Date Type Department Care Team (Late st Contact Info) Description 01/02/2025 9:30 AM EDT Clinical Support [facility] MEDICINE [address] [place] [address] Nataliia Ambriz RN [address] [place], [place] [phone] documented as of this encounter Visit Diagnoses Not on filedocumented in this encounter Additional Health Concerns Assessment Noted Time PHQ-9 Depression Total Score: 18 025 2:00 PM EDT documented as of this encounter Care Teams Coo Relationship Specialty Start Date End Date Leandra Orellana MD [address] [place] [address] PCP - General Internal Medicine 02/12/23 documented as of this encounter
== END 2024-10-28 15:45 | disposition home or self-care (01) ==
LOC: HO.PMCPRC 14:29
PROVIDERS: PCP Student in an Organized Health Care Education/Training Program; Visit Provider Anesthesiology
DX: M47.816 Spondylosis without myelopathy or radiculopathy, lumbar region (principal)
CPT/HCPCS: 64493; 64494

== ENCOUNTER 2024-10-31 09:46 | Outpatient (AMB) | payer OTHER, SELFPAY ==
--- NOTE | 2024-10-31 07:50 | A.OFFVIS_ITS ---
Intake Visit Reasons: LDCT Allergies seafood Allergy (Severe, Verified 09/18/24 10:22) Anaphylaxis ceftriaxone (From Rocephin) Allergy (Verified 09/18/24 10:22) Rash HPI HPI LDCT: Details: Initial visit for this 64yo smoker with a []PYH. Patient started smoking at age 25 for 39 years at 1-2ppd. Currently at 1/2ppd. . Denies marijuana use. Denies second hand smoke exposure. Denies exposure to chemicals or substances like asbestos. . Reports family history of lung cancer. Mother (non-smoker) Denies personal history of cancers. Denies chest CT in last year. . Denies recent travel outside the [place]. Denies recent respiratory illness or recent hospitalization for respiratory issues. Reports testing positive for COVID x3. Admits receiving COVID Vaccine. . Denies fever, chills, new/worsening cough, hemoptysis, hoarseness or dysphagia. Denies significant chest pain, significant dyspnea or unintentional weight loss. Patient Lung Cancer Screening Questionnaire reviewed with patient by provider. . Shared Decision Making Completed. Patient meets criteria. Discussed in detail with patient, the risk vs benefit of LDCT screening. Patient consents to proceed with scan. Discussed smoking cessation. REPLACED BY [facility] Medical History (Updated 10/31/24 @ 10:16 by Lidia Jones PA-C) Chronic back pain Spondylosis of lumbar region without myelopathy or radiculopathy Chronic migraine with aura Nicotine dependence, cigarettes, uncomplicated Endometriosis Postmenopausal Osteoporosis Hyperlipidemia, unspecified Gastro-esophageal reflux disease without esophagitis Upper abdominal pain Depression with anxiety Moderate episode of recurrent major depressive disorder Other microscopic hematuria Surgical History (Updated 10/31/24 @ 10:16 by Lidia Jones PA-C) History of hysterectomy History of cholecystectomy History of tonsillectomy History of esophagogastroduodenoscopy (EGD) H/O colonoscopy History of lipoma Family History Father Prostate cancer Mother Leukemia Lung cancer Social History (Updated 10/31/24 @ 10:04 by Lidia Jones PA-C) Alcohol intake: former Patient Tobacco Use Status: Current everyday Tobacco user Years Smoked: (onset 25yo, 1-2ppd x 39yrs, now 1/2ppd - 50pyh) Assessment & Plan Assessment & Plan (1) Nicotine dependence, cigarettes, uncomplicated: Comment: (onset 25yo, 1-2ppd x 39yrs, now 1/2ppd - 50pyh) Code(s): F17.210 - Nicotine dependence, cigarettes, uncomplicated Category: Medical Plan: - SDM visit completed today in office. - Patient meets criteria for LDCT for lung cancer screening purposes and is asymptomatic. - Smoking cessation counseling offered. Patients can always call [phone]. - Will arrange for a LDCT scan of the chest for screening purposes at [facility]. - Risks, benefits, and alternatives were discussed in detail and the patient agrees to proceed. - Risks discussed include but are not limited to: radiation exposure, anxiety during testing and while awaiting results, false negatives, false positives and possibility of additional intervention such as further imaging or surgical procedures for benign disease. - Benefits are obviously detection of lung cancer at an early stage which can lead to improved outcomes. - Discussed the importance of screening program compliance with adherence to yearly LDCT scan as scheduled - or sooner interval scans for personalized screening regimen. - Discussed follow up plan. Our office will send a letter discussing results and if needed set up phone call and office visit based on CT findings. - Patient educated on results categorization and the management decisions for suspicious findings potentially found on the screening LDCT scan. Any patient with a Lung RADS score of 3 or 4 will be reviewed by a multidisciplinary team at [facility] to form a plan of action in regards to scan findings. - If further work up is warranted for a suspicious lung finding this will be followed by the Lung Cancer Screening program in conjunction with the Thoracic Surgery Department at [facility]. - A copy of the office note and LDCT will be sent to the patient's PCP - as well as documentation on any associated further plans of care. - Incidental findings on LDCT are the PCP's responsibility. These findings are indicated with an S finding on the LDCT Assessment. A note discussing the findings will be sent to the PCP who is then responsible for further management. - All questions answered.? Coding Level of Care Code Lung Cancer Screening G0296 Diagnoses Nicotine dependence, cigarettes, uncomplicated F17.210
--- OUTSIDE RECORDS SUMMARY | 2024-10-31 10:01 | XMS_ITS | Encounter Summary ---
Author Organization [employer] Address 75 [facility] 7 [place] [address] Care Team Providers Care Rn Eligibility Name Role Phone Leandra Julien MD Primary Care Provide r Leandra Orellana MD Primary Care Pro vider Reason for Visit * Reason Onset Date Comments New Patient Appt 08/23/2022 Encounter Details Date Type Department Care Team (Late st Contact Info) Description 08/23/2022 Telephone [facility] MEDICINE [address] [place] [address] Leandra Julien MD [address] [place] [address] New Patient Appt Social History Tobacco Use [...] PAR Lisa Aguayo called pt to Offer SLUG PRESS OPERATOR appt. Pt demographics and insurance information were verified. Pt reports has not seen a PCP before. Pt reports the following medical conditions: Asthma, Panics, Hernia (Stomach). Pt does not take medications at this time. Pt given SLUG PRESS OPERATOR appt with on 09/26/2022 10:15 am . Pt will be sent appt reminder card and medical release form and agrees to complete and t o return to medical records prior to SLUG PRESS OPERATOR appt. documented in this encounter Plan of Treatment Upcoming Encounters Date Type Department Care Team (Late st Contact Info) Description 01/02/2025 9:30 AM EDT Clinical Support [facility] MEDICINE [address] [place] [address] Nataliia Ambriz, RACHELLE [address] [place] [address] documented as of this encounter Visit Diagnoses Not on filedocumented in this encounter Care Teams Rn Eligibility Relationship Specialty Start Date End Date Leandra Julien MD [address] [place] [address] PCP - General Internal Medicine 08/23/22 09/06/22 Leandra Orellana MD [address] [place] [address] PCP - General Internal Medicine 02/12/23 documented as of this encounter
--- OUTSIDE RECORDS SUMMARY | 2024-10-31 10:02 | XMS_ITS | Data Portability ---
Author Organization [place] - [facility], Allergy Address [address] [address] Care Team Providers Care Director Of Strategic Partnerships Name Role Phone KAYE GREEN Primary Care [...] doses of Tylenol (acetaminophen) and Motrin (ibuprofen) hhjwip-dpt-peial every 3 hours are recommended. Use of [...] recorded. Surgeries tonsillecto my (SURG) 2024 025 [id number] Not available 16:02:20 Imaging None recorded. 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 Procedures Surgical History Date Name Laterality Status Provider Name and Address Organization Details Recorded Time 06/18/19 25 Removal of tonsils completed LYNDA WALLER MD [address] [place] [address], [phone], [place] - [facility] 06/17/2024 15:10:08 06/18/19 25 TONSILLECTOMY (SURG) completed Mehul Martin [place] - [facility] 06/20/2024 10:42:02 Imaging Results None recorded. Procedure [...] Updated DateTime 04/16/2024 160.02 cm 22.1 kg/m2 90826.05 g Candi Green [facility] 04/16/2024 11:34:29 Date Recorded Body height Body mass index (BMI) Body weight Provider Name and Address Organization Details Last Updated DateTime 12/11/2023 160.02 cm 22.5 kg/m2 66953.23 g Samantha Mohamud [facility] 12/11/2023 11:24:38 Social History None recorded. Functional Status None recorded. Mental Status None recorded. Family History Nothing Reported. Medical History No medical history recorded. Gynecological HistoryNo gynecological history recorded. Obstetrics History GPAL:G 0 P 0 0 0 0 Past Encounters Encounter ID Performer Location Encounter Start Date Encounter Closed Date Diagnosis/Indication Diagnosis SNOMED-CT Code Diagnosis ICD10 Code Diagnosis Note [id number] LYNDA WALLER MD [facility] [address] [address] 12/11/2023 11:16:49 12/11/2023 11:49:18 Amygdalolith [id number] J35.8 [id number] LYNDA WALLER MD [facility] [address] [place] [address] 04/16/2024 10:24:14 04/16/2024 11:57:42 Amygdalolith [id number] J35.8 Patient has symptomati c left sided [...] Bedolla Member ID Guarantor Name 10/29/2023 1 [place] [facility] Leandra Doyle [id number] Leandra Glez 06/12/2024 1 [place] [facility] Leandra Glez [id number] Leandra Glez Notes Date Note Type Note Provider Name and Address Organization Details Recorded Time 12/11/2023 text/html ROS as noted in the HPI ipad - spanishsore throat on left sideradiates toward left earsees and feels a tonsil stonehas been present for 3 yearstrial of abx and saline gargle with no relief10/16 discomforttobacco - deniesno hemoptysischokes with solid food like rice, no difficulty with water works with GI for esophageal dilation with mild improvement last monthno improvement in throatno imaging with CT scans LYNDA WALLER MD [address] [place] [address], [phone], [place] - [facility] 12/11/2023 11:56:25 04/16/2024 text/html ROS as noted in the HPI malian - Friend translatingsore throat on left sideradiates [...] advised conservative management LYNDA WALLER MD [address] [facility],[place] [address], [place], [phone], [place] [facility] 04/16/2024 11:55:03 OBGyn Episode No OBEpisode recorded.
== END 2024-10-31 10:12 | disposition home or self-care (01) ==
LOC: HO.HPS 09:47
PROVIDERS: PCP Student in an Organized Health Care Education/Training Program; Referring Provider Student in an Organized Health Care Education/Training Program; Visit Provider Physician Assistant Medical
DX: F17.210 Nicotine dependence, cigarettes, uncomplicated (principal)
CPT/HCPCS: G0296

== ENCOUNTER 2024-10-31 10:03 | Outpatient (REF) | payer OTHER, SELFPAY ==
--- NOTE | ~2024-10-31 | CT_ITS ---
CLINICAL HISTORY: Z87.891 - Personal history of nicotine dependence CT lung cancer screening (LDCT) Comparison: None provided Technique: Axial CT images of the chest using low-dose technique. Referring provider counseled the patient on shared decision-making for LDCT screening. Additional counseling was provided on smoking cessation. Effective radiation dose total: DLP 28.6 mGycm, CTDIvol 0.9 mGy. Findings: Lung: There are no solid or semi solid lesions. Coronary artery calcifications: none Limited upper abdomen: Unremarkable Other: None Impression: Category 1:[ Normal ; Continue annual screening Category 1: Normal; continue annual screening Category 2: Benign appearance or behavior, continue annual screening Category 3: Probably benign, [address] recommended Category 4A: Suspicious, [address] recommended; may consider PET/CT Category 4B: Suspicious, Additional diagnostics and/or tissue sampling recommended Category 4X: Suspicious, Additional diagnostics and/or tissue sampling recommended Category 0: Recalls (incomplete screen due to Incomplete coverage, Noise, Respiratory motion, Expiration, Obscured by acute abnormality) This document has been electronically signed by: Jeff Matias MD on 11/01/2024 10:07:10
== END 2024-10-31 10:04 | disposition home or self-care (01) ==
LOC: HO.CT 10:03
PROVIDERS: PCP Student in an Organized Health Care Education/Training Program; Visit Provider Physician Assistant Medical
DX: Z12.2 Encounter for screening for malignant neoplasm of respiratory organs (principal); Z87.891 Personal history of nicotine dependence; M54.16 Radiculopathy, lumbar region; M47.816 Spondylosis without myelopathy or radiculopathy, lumbar region; M51.369 Other intervertebral disc degeneration, lumbar region without mention of lumbar back pain or lower extremity pain
CPT/HCPCS: 71271; 99212; G0296

== ENCOUNTER → 2024-10-31 10:05 | Outpatient (BNV) | payer OTHER, SELFPAY | PROVIDERS: PCP Student in an Organized Health Care Education/Training Program; Visit Provider Specialist | DX: Z12.2 Encounter for screening for malignant neoplasm of respiratory organs (principal); Z87.891 Personal history of nicotine dependence | CPT/HCPCS: 71271 ==

== ENCOUNTER 2024-10-31 13:41 | Outpatient (AMB) | payer OTHER, SELFPAY ==
[2024-10-31 13:43] VITALS: BP 120/66; PULSE 90; RESP 16; O2SAT 98; BMI 24.7
--- NOTE | 2024-10-31 13:43 | A.OFFVIS_ITS ---
Vital Signs 10/31/24 13:43 Height 5 ft 2 in Weight 135 lb BMI 24.7 BP 120/66 Blood Pressure Location Rt brachial Position Sitting Respiration 16 Pulse 90 Pulse Source Pulse Oximeter Pulse Oximetry (%) 98 Oxygen Delivery Method Room Air Intake Visit Reasons: BILATERAL DIAGNOSTIC L3 L4 DR L5 MBB Administrative Services Officer Required: Yes Administrative Services Officer Name: Kalia [id number] Accompanied by: Self / Same As Patient Allergies seafood Allergy (Severe, Verified 10/31/24 13:47) Anaphylaxis ceftriaxone (From Rocephin) Allergy (Verified 10/31/24 13:47) Rash HPI Comments Details: The patient is a 64-year-old female presenting with lumbar spine pain management. 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 She underwent bilateral diagnostic L3-L4 DR L5 medial branch blocks on October 28, 2024, which provided sustained 80% pain relief. Currently, her pain level is reported as 2 out of 10, indicating significant improvement post-procedure. The patient reports that while she can perform daily activities, she still experiences pain, particularly when pressure is applied to the affected area. - Onset: Pain is chronic due to arthritis in the lumbar spine. - Quality: Pain is significant but improved post-procedure. - Location: Lumbar spine, with pain exacerbated by pressure. - Exacerbating factors: Pressure on the affected area increases pain. - Relieving factors: Medial branch blocks provided temporary relief. - Affect: Pain impacts daily activities but is manageable. - Analgesia: Current pain level is 2/10 post-medial branch blocks. - Adverse Effects: No adverse effects from current pain management reported. - Activities of Daily Living: Patient can perform activities but with some pain. - Aberrant Drug Related Behaviors: No aberrant behaviors reported. - Current Medications: Tramadol is being used for pain management. [facility] Medical History (Updated 10/31/24 @ 10:16 by Lidia Jones PA-C) Chronic back pain Spondylosis of lumbar region without myelopathy or radiculopathy Chronic migraine with aura Nicotine dependence, cigarettes, uncomplicated Endometriosis Postmenopausal Osteoporosis Hyperlipidemia, unspecified Gastro-esophageal reflux disease without esophagitis Upper abdominal pain Depression with anxiety Moderate episode of recurrent major depressive disorder Other microscopic hematuria Surgical History (Updated 10/31/24 @ 10:17 by Lidia Jones PA-C) History of hysterectomy History of cholecystectomy History of tonsillectomy History of esophagogastroduodenoscopy (EGD) H/O colonoscopy History of lipoma Family History Father Prostate cancer Mother Leukemia Lung cancer Social History (Updated 10/31/24 @ 10:04 by Lidia Jones PA-C) Alcohol intake: former Patient Tobacco Use Status: Current everyday Tobacco user Years Smoked: (onset 25yo, 1-2ppd x 39yrs, now 1/2ppd - 50pyh) Review of Systems Const Details: - Musculoskeletal: Reports chronic lumbar spine pain, exacerbated by pressure. Physical Exam Exam Exam: General: awake, alert, oriented. Answers questions appropriately. Fully engaged in examination. Skin: warm, dry, intact HEENT: Normocephalic. Hearing intact. Cardiac: External chest normal in appearance. Respiratory: No cough, audible wheezing or stridor. Abdomen: without gross distension. MS: No obvious swelling or deformities. Neurological: Oriented to person, place, time and situation. Thought process intact. No gait abnormalities appreciated. Psychiatric: Appropriate mood and affect. Good judgment and insight. Vital Signs: Last Vital Signs Pulse 90 10/31/24 13:43 Resp 16 10/31/24 13:43 BP 120/66 10/31/24 13:43 Pulse Ox 98 10/31/24 13:43 Oxygen Delivery Method Room Air 10/31/24 13:43 BMI result Body Mass Index 24.7 Results Reviewed Results Reviewed: 11/09/23 MRI LS FINDINGS: Mild dextrocurvature of the lumbar spine. Preservation of the normal lumbar lordosis. No listhesis. No acute bone marrow abnormality. The vertebral body heights are preserved. Multilevel disc desiccation without significant disc height loss. T12-L1: Shallow left paracentral disc protrusion. No significant spinal canal or neural foraminal narrowing. L1-2: Central disc protrusion. No significant spinal canal or neural foraminal narrowing. L2-3: Left foraminal disc protrusion and bilateral facet arthrosis. No significant spinal canal or neural foraminal narrowing. L3-4: Diffuse disc bulge and bilateral facet arthrosis. Mild bilateral neural foraminal narrowing with the disc abutting the exiting L3 nerve roots bilaterally. No significant spinal canal stenosis. L4-5: Shallow disc bulge with superimposed annular fissure. Bilateral facet arthrosis. Mild right neural foraminal narrowing with the disc abutting the exiting L4 nerve as bilaterally. L5-S1: Shallow disc bulge and bilateral facet arthrosis. No significant spinal canal or neural foraminal narrowing. The paravertebral soft tissues are unremarkable. Bilateral renal cysts. IMPRESSION: 1. Mild degenerative changes of the lumbar spine without significant spinal canal stenosis. 2. Mild neural foraminal narrowing at L3-L4 and L4-L5 with the disc abutting the exiting L3 and L4 nerve roots bilaterally. 3. L4-L5 annular fissure. Assessment & Plan Assessment & Plan (1) Lumbar radiculopathy: Code(s): M54.16 - Radiculopathy, lumbar region Category: Medical (2) Lumbar facet arthropathy: Code(s): M47.816 - Spondylosis without myelopathy or radiculopathy, lumbar region Category: Medical (3) Degenerative disc disease, lumbar: Code(s): M51.369 - Other intervertebral disc degeneration, lumbar region without mention of lumbar back pain or lower extremity pain Category: Medical Plan Discussed with the patient options for treatment of her axial back pain given positive results of the diagnostic medial branch blocks including radiofrequency ablation and a sprint temporary nerve stimulator device. The radiofrequency ablation involves a single procedure where the nerves are ablated to provide pain relief. The temporary nerve stimulator device involves two procedures (each side performed individually per insurance requirements), with the device remain ing in place for eight weeks, providing relief for nine months to a year. The patient has expressed a preference for the temporary nerve stimulator device. I will submit the necessary paperwork to the insurance company for approval of the procedure. Once approved, the patient will be contacted to schedule the procedure. Additionally, a muscle relaxer will be prescribed to help alleviate muscle t ightness, with instructions to avoid driving and not to take it with tramadol. Patient was informed and verbally consented to the use of an ambient scribe for clinic note documentation during this visit. Medications: Refilled methocarbamol No driving while taking this medication. Do no take with alcohol or other INFORMATION RESOURCES DIRECTOR Depressants 500 mg PO TID PRN 90 tabs 1RF muscle spasm Patient Instructions: - Follow up with the clinic once the insurance approves the procedure. - Avoid driving when taking the prescribed muscle relaxer. - Do not take the muscle relaxer with tramadol. Coding Level of Care Code Est Pt Level 3 (10214) Complex EM visit Add On G2211 Diagnoses Lumbar radiculopathy M54.16 Lumbar facet arthropathy M47.816 Degenerative disc disease, lumbar M51.369
== END 2024-10-31 14:25 | disposition home or self-care (01) ==
LOC: HO.PMC 13:41
PROVIDERS: Visit Provider Registered Nurse Emergency
DX: M54.16 Radiculopathy, lumbar region (principal); M47.816 Spondylosis without myelopathy or radiculopathy, lumbar region; M51.369 Other intervertebral disc degeneration, lumbar region without mention of lumbar back pain or lower extremity pain
CPT/HCPCS: 99213; G2211

== ENCOUNTER 2024-11-04 13:23 | Outpatient (REF) | payer OTHER, SELFPAY ==
[2024-11-04 14:59] LABS: Appearance Urine Clear; Glucose Urine UA Negative (Negative); PH 7.0 (5.0-9.0); Specific Gravity - Urine 1.020 (1.005-1.025); UMIC TRIGGER UACC YES
[2024-11-04 15:31] LABS: Alanine Aminotransferase 31 U/L (0-31); Albumin Level 4.2 g/dL (3.5-5.0); Alkaline Phosphatase 72 U/L (39-117); Anion Gap 9 (12-20); Aspartate Amino Transferase 23 U/L (5-31); Blood Urea Nitrogen 16 mg/dL (9-16); Calcium 8.9 mg/dL (8.4-10.2); Carbon Dioxide 25 mmol/L (22-29); Chloride 111 mmol/L (96-108); Estimated Glomerular Filt Rate > 60; Potassium 4.3 mmol/L (3.3-5.1); Sodium 141 mmol/L (135-145); Total Protein 7.4 g/dL (6.5-8.0)
== END 2024-11-04 13:24 | disposition home or self-care (01) ==
LOC: HO.LAB 13:23
PROVIDERS: PCP Student in an Organized Health Care Education/Training Program; Visit Provider Nurse Practitioner
DX: Z01.818 Encounter for other preprocedural examination (principal); K21.9 Gastro-esophageal reflux disease without esophagitis; K59.04 Chronic idiopathic constipation; K58.9 Irritable bowel syndrome, unspecified; K30 Functional dyspepsia; R94.4 Abnormal results of kidney function studies
CPT/HCPCS: 36415; 80053; 81001; 99212

== ENCOUNTER 2024-11-04 13:23 | Outpatient (AMB) | payer OTHER, SELFPAY ==
--- NOTE | 2024-11-04 13:26 | A.OFFVIS_ITS ---
Vital Signs 11/04/24 13:28 Height 5 ft 2 in Weight 137 lb 2.04 oz BMI 25.1 BP 112/65 Blood Pressure Location Rt brachial Position Sitting Pulse 91 Intake Visit Reasons: 6w Intake Note: Leandra returns to in office follow up of constipation, GERD, lab results. CC: Pérez c/o left pelvic cramps, and abdominal bloating. Per patient she gets heartburn when she drinks coffee or some juices but when she takes her medication it helps. Analytical Data Miner Required: Yes Accompanied by: Self / Same As Patient Allergies seafood Allergy (Severe, Verified 11/04/24 13:45) Anaphylaxis ceftriaxone (From Rocephin) Allergy (Verified 11/04/24 13:45) Rash HPI HPI 6w: Details: Assessment & Plan (1) Pre-op examination: Code(s): Z01.818 - Encounter for other preprocedural examination Category: Medical (2) Gastro-esophageal reflux disease without esophagitis: Code(s): K21.9 - Gastro-esophageal reflux disease without esophagitis Category: Medical (3) Chronic idiopathic constipation: Code(s): K59.04 - Chronic idiopathic constipation Category: Medical (4) IBS (irritable bowel syndrome): Code(s): K58.9 - Irritable bowel syndrome, unspecified Category: Medical Plan Slovenian #[employer] She lost her insurance so this prevented her from follow up. She is outof all of her medications so all of he sx are uncontrolled. She feels that the GERD and the CIC was controlled with the aciphex and the LInzess/senna, but she still has a lot of bloating and she can't remember if the creon helped. We will re start and evaluate. She should be on Linzess, 72 micro g, senna 2 tablets at night, simethicone, AcipHex twice a day and Creon. She is due for a colonoscopy. Her last was in [place] but she is unsure of the exact date. No cardiac or respiratory problems. She was difficult to sedate in the past, but had no trouble during her 2023 EGD. No ID problems. She has a great deal of cancer in her family and is not entirely certain of who may have had CRC. Return office visit in 6 weeks Orders: Orders Complete Blood Count no Diff 08/01/24 Z00.00 - Encounter for general adult medical examination without abnormal findings Comprehensive Met. Panel 08/01/24 Z00.00 - Encounter for general adult medical examination without abnormal findings Colonoscopy - GI Use Only Today Z01.818 - Encounter for other preprocedural examination Medications: New bisacodyl (Dulcolax (bisacodyl)) 10 mg (2 x 5 mg) PO BEDTIME 4 tabs 0RF 2 days peg 3350-electrolytes 236-22.74-6.74 -5.86 gram (Golytely) until fecal effluent is clear; do not exceed a total volume of 2,000 mL 240 mL PO Q10M 4,000 mL 0RF 1 day Z12.11 - Encounter for screening for malignant neoplasm of colon Refilled linaclotide (Linzess) 72 mcg PO QAM 30 caps 6RF borenc-qhzosina-pwpxyqv 24,000-76,000 -120,000 unit (Creon) 2 caps PO BID 120 caps 1RF 30 days K58.9 - Irritable bowel syndrome, unspecified rabeprazole (AcipHex) 20 mg PO BID 60 tabs 6RF K21.9 - Gastro-esophageal reflux disease without esophagitis sennosides (Senna Laxative) 17.2 mg (2 x 8.6 mg) PO BEDTIME 60 tabs 6RF K21.9 - Gastro-esophageal reflux disease without esophagitis, K59.04 - Chronic idiopathic constipation simethicone after meals 180 mg PO TID 90 caps 3RF 30 days LABS: Laboratory Tests 10/06/24 08:40 WBC 8.4 Hgb 14.1 Hct 42.0 Plt Count 296 Estimated GFR 57 Total Bilirubin 0.3 AST 26 ALT 27 Alkaline Phosphatase 78 TSH 2.50 COLONOSCOPY BIOPSY TODAY'S VISIT Slovenian #Sylvia and Oumou Linzess, 72 micro g, senna 2 tablets at night, simethicone, AcipHex twice a day and Creon. She continues to have swelling after eating. It will take about 2 hours to resolve after a meal and is worse if she eats meat. Despite her normal GES in 2023, I want to try a trial of reglan qac. I note a decreased GFR which concerns me with bid PPI, she could have just been dry but I would like to get additional labs to investigate this. She only eats once a day, at times twice with a very small breakfast, so it seems likely she is not drinking enough. However, she says she drinks a lot of coconut water. ROV 4 weeks. [facility] Medical History Chronic back pain Spondylosis of lumbar region without myelopathy or radiculopathy Chronic migraine with aura Nicotine dependence, cigarettes, uncomplicated Endometriosis Postmenopausal Osteoporosis Hyperlipidemia, unspecified Gastro-esophageal reflux disease without esophagitis Upper abdominal pain Depression with anxiety Moderate episode of recurrent major depressive disorder Other microscopic hematuria Surgical History History of hysterectomy History of cholecystectomy History of tonsillectomy History of esophagogastroduodenoscopy (EGD) H/O colonoscopy History of lipoma Family History Father Prostate cancer Mother Leukemia Lung cancer Social History Alcohol intake: former Patient Tobacco Use Status: Current everyday Tobacco user Years Smoked: (onset 25yo, 1-2ppd x 39yrs, now 1/2ppd - 50pyh) Review of Systems Const Denies fatigue, Denies fever(s), Denies night sweats, Denies poor appetite and Denies weight loss Eyes Details: glasses Reports requires corrective lenses ENT Reports Normal hearing present, Denies dental pain, Denies dysphagia, Denies hearing loss, Denies mouth pain, Denies odynophagia, Denies throat swelling, Denies tongue swelling and Reports other (Dentition adequate) GI Details: Denies abdominal pain, Denies melena, Denies bloating, Denies hematochezia, Denies constipation, Denies GI cramping, Denies dysphagia, Denies excessive flatus, Denies early satiety, Denies heartburn, Denies diarrhea, Denies nausea, Denies odynophagia, Denies vomiting and Denies hematemesis Skin/Breast Denies pruritus, Denies lesions, Denies rash and Denies jaundice Neuro Reports Normal hearing present and Denies Abnormal speech present Endo Denies fatigue Aller/Immun Denies throat swelling and Denies tongue swelling Physical Exam Vital Signs: Last Vital Signs Pulse 91 11/04/24 13:28 BP 112/65 11/04/24 13:28 BMI result Body Mass Index 25.1 Const General: cooperative, no acute distress, well developed and well groomed Nutritional Appearance: average body habitus and well nourished Orientation/consciousness: oriented to person, oriented to place and oriented to time Limitations: language barrier HEENT Head: Yes normocephalic and Yes atraumatic Eyes General: appearance normal, both eyes and all related structures Pupils: Equal, round and reactive pupils present Neck Neck: Yes normal visual inspection and Yes no lymphadenopathy Thyroid: Thyroid normal Resp Effort & Inspection: normal respiratory effort and able to speak in complete sentences Auscultation: clear to auscultation bilaterally Cardio Rate: regular rate Rhythm: regular rhythm Heart sounds: Normal, physiologic split S2 sound present Peripheral pulses: radial pulses present and posterior tibial pulses present GI Inspection: No distended and No Abdominal panniculus present Palpation (GI): Soft to palpation, nontender, no guarding, not rigid and No hepatosplenomegaly present Percussion: Yes normal to percussion Auscultation: normal bowel sounds Rectal Exam - Female: deferred Skin General skin exam: no rashes or lesions noted, turgor normal, skin not dry, no jaundice, No spider nevi and no striae Rashes: no rashes Nails: normal Neuro General: oriented to person, oriented to place and oriented to time Cranial nerves: Yes Equal, round and reactive pupils present and Yes Normal hearing present Speech: No Abnormal speech present Extrem General: Yes normal to inspection, No clubbing, No cyanosis and No edema Psych Appearance: grossly normal and well kempt Mental Status: mental status grossly normal Speech and movement: Normal speech and movement present Affect: normal affect Attitude: cooperative Thought process: Normal thought process present and not confabulating Thought content: Normal thought content present Insight: Fair insight present (Psych) Judgement: Fair judgement present (Psych) Assessment & Plan Assessment & Plan (1) Functional dyspepsia: Code(s): K30 - Functional dyspepsia Category: Medical (2) Gastro-esophageal reflux disease without esophagitis: Code(s): K21.9 - Gastro-esophageal reflux disease without esophagitis Category: Medical (3) Chronic idiopathic constipation: Code(s): K59.04 - Chronic idiopathic constipation Category: Medical (4) IBS (irritable bowel syndrome): Code(s): K58.9 - Irritable bowel syndrome, unspecified Category: Medical (5) Decreased GFR: Code(s): R94.4 - Abnormal results of kidney function studies Category: Medical Plan Slovenian #Sylvia and Oumou Linzess, 72 micro g, senna 2 tablets at night, simethicone, AcipHex twice a day and Creon. She continues to have swelling after eating. It will take about 2 hours to resolve after a meal and is worse if she eats meat. Despite her normal GES in 2023, I want to try a trial of reglan qac. I note a decreased GFR which concerns me with bid PPI, she could have just been dry but I would like to get additional labs to investigate this. She only eats once a day, at times twice with a very small breakfast, so it seems likely she is not drinking enough. However, she says she drinks a lot of coconut water. ROV 4 weeks. Orders: Orders UA CC w/rflx Micro + Cult Today R94.4 - Abnormal results of kidney function studies Comprehensive Met. Panel Today R94.4 - Abnormal results of kidney function studies Medications: New metoclopramide HCl (Reglan) 5 mg PO .bidac 60 tabs 3RF K30 - Functional dyspepsia Coding Level of Care Code Est Pt Level 3 (53802) Diagnoses Functional dyspepsia K30 Gastro-esophageal reflux disease without esophagitis K21.9 Chronic idiopathic constipation K59.04 IBS (irritable bowel syndrome) K58.9 Decreased GFR R94.4
[2024-11-04 13:28] VITALS: BP 112/65; PULSE 91; BMI 25.1
--- OUTSIDE RECORDS SUMMARY | 2024-11-04 14:15 | XMS_ITS | Encounter Summary ---
Author Organization [employer] Address [address] [facility] 7 [place] [address] Care Team Providers Care Medicine Teacher Name Role Phone Leandra Julien MD Primary Care Provide r Leandra Orellana MD Primary Care Pro vider Reason for Visit * Reason Onset Date Comments New Patient Appt 08/23/2022 Encounter Details Date Type Department Care Team (Late st Contact Info) Description 08/23/2022 Telephone [facility] [address] [place] [address] Leandra Julien MD [address] [place] [address] New Patient Appt Social History Tobacco Use [...] PAR Lisa Aguayo called pt to Offer [address] STENOGRAPHER appt. Pt demographics and insurance information were verified. Pt reports has not seen a PCP before. Pt reports the following medical conditions: Asthma, Panics, Hernia (Stomach). Pt does not take medications at this time. Pt given [address] STENOGRAPHER appt with on 09/26/2022 10:15 am . Pt will be sent appt reminder card and medical release form and agrees to complete and t o return to medical records prior to [facility] STENOGRAPHER appt. documented in this encounter Plan of Treatment Upcoming Encounters Date Type Department Care Team (Late st Contact Info) Description 01/02/2025 9:30 AM EDT Clinical Support [facility] [address] [place] [id number] Nataliia Ambriz, RACHELLE [address] [place] [address] documented as of this encounter Visit Diagnoses Not on filedocumented in this encounter Care Teams Medicine Teacher Relationship Specialty Start Date End Date Leandra Julien MD [address] [place] [id number] PCP - General Internal Medicine 08/23/22 09/06/22 Leandra Orellana MD [address] [place] [address] PCP - General Internal Medicine 02/12/23 documented as of this encounter
--- OUTSIDE RECORDS SUMMARY | 2024-11-04 14:15 | XMS_ITS | Data Portability ---
Author Organization [place] - [facility], Allergy Address [address] [address] Care Team Providers Care Reticle Printer Name Role Phone KAYE GREEN Primary Care Provider [phone] Assessment Encounter Date Assessment Date Assessment LastModified [...] doses of Tylenol (acetaminophen) and Motrin (ibuprofen) [id number] every 3 hours are recommended. Use of [...] recorded. Surgeries tonsillecto my (SURG) 2024 025 [email or web address] Not available 16:02:20 Imaging None recorded. 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 Procedures Surgical History Date Name Laterality Status Provider Name and Address Organization Details Recorded Time 06/18/19 25 Removal of tonsils completed LYNDA WALLER MD [address] [place] [address], [id number], [place] - [facility] [...] Updated DateTime 04/16/2024 160.02 cm 22.1 kg/m2 86731.05 g Candi Green [facility] 04/16/2024 11:34:29 Date Recorded Body height Body mass index (BMI) Body weight Provider Name and Address Organization Details Last Updated DateTime 12/11/2023 160.02 cm 22.5 kg/m2 10029.23 g Samantha Mohamud [facility] [...] SNOMED-CT Code Diagnosis ICD10 Code Diagnosis Note [id number] LYNDA WALLER MD [facility] [address] [address] 12/11/2023 11:16:49 12/11/2023 11:49:18 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
== END 2024-11-04 14:12 | disposition home or self-care (01) ==
LOC: HO.HGI 13:24
PROVIDERS: Visit Provider Nurse Practitioner
DX: K30 Functional dyspepsia (principal); K21.9 Gastro-esophageal reflux disease without esophagitis; K59.04 Chronic idiopathic constipation; K58.9 Irritable bowel syndrome, unspecified; R94.4 Abnormal results of kidney function studies
CPT/HCPCS: 99213

== ENCOUNTER 2024-11-21 08:51 | Outpatient (AMB) | payer OTHER, SELFPAY ==
--- OUTSIDE RECORDS SUMMARY | 2024-11-21 09:08 | XMS_ITS | Encounter Summary ---
Author Organization [employer] Address [address] [facility] 7t [place] [address] Care Team Providers Care Diamond Wheel Edger Name Role Phone Leandra Julien MD Primary Care Provide r Leandra Orellana MD Primary Care Pro vider Reason for Visit * Reason Onset Date Comments New Patient Appt 08/23/2022 Encounter Details Date Type Department Care Team (Late st Contact Info) Description 08/23/2022 Telephone [facility] [address] [place] [address] Leandra Julien MD [address] [place] [address] New Patient Appt Social History Tobacco Use [...] PAR Lisa Aguayo called pt to Offer REGIONAL BUSINESS DEVELOPMENT MANAGER appt. Pt demographics and insurance information were verified. Pt reports has not seen a PCP before. Pt reports the following medical conditions: Asthma, Panics, Hernia (Stomach). Pt does not take medications at this time. Pt given REGIONAL BUSINESS DEVELOPMENT MANAGER appt with on 09/26/2022 10:15 am . Pt will be sent appt reminder card and medical release form and agrees to complete and t o return to medical records prior to REGIONAL BUSINESS DEVELOPMENT MANAGER appt. documented in this encounter Plan of Treatment Upcoming Encounters Date Type Department Care Team (Late st Contact Info) Description 01/02/2025 11:00 AM EDT Clinical Support [facility] MEDICINE [address] [place] [address] Nataliia Ambriz, RACHELLE [address] [place] [address] documented as of this encounter Visit Diagnoses Not on filedocumented in this encounter Care Teams Diamond Wheel Edger Relationship Specialty Start Date End Date Leandra Julien MD [address] [place] [address] PCP - General Internal Medicine 08/23/22 09/06/22 Leandra Orellana MD [address] [place] [address] PCP - General Internal Medicine 02/12/23 documented as of this encounter
[2024-11-21 09:31] VITALS: BP 113/54; PULSE 65; RESP 16; O2SAT 96; BMI 24.9
--- NOTE | 2024-11-21 09:31 | A.OFFVIS_ITS ---
Vital Signs 11/21/24 09:31 Height 5 ft 2 in Weight 136 lb BMI 24.9 BP 113/54 L Blood Pressure Location Lt brachial Position Sitting Respiration 16 Pulse 65 Pulse Source Pulse Oximeter Pulse Oximetry (%) 96 Oxygen Delivery Method Room Air Intake Visit Reasons: PROCEDURE DISCUSSION [employer] Supervisor Required: Yes [employer] Supervisor Name: Kalia [email or web address] Accompanied by: Self / Same As Patient Allergies seafood Allergy (Severe, Verified 11/21/24 09:32) Anaphylaxis ceftriaxone (From Rocephin) Allergy (Verified 11/21/24 09:32) Rash HPI Comments Details: Visit completed with public relations counselor Kalia Flores73. The patient is a 64-year-old female presenting with chronic back pain and bilateral leg heaviness. The chronic back pain has been persistent, with previous interventions including diagnostic injections that provided temporary relief. She underwent bilateral diagnostic L3-L4 DR L5 medial branch blocks on October 28, 2024, which provided sustained 80% pain relief. The pain initially improved with local diagnostic injections but has progressively worsened, leading to increased discomfort and heaviness in the legs. The leg heaviness is described as a sensation of heaviness from the hip down, with the right side being more affected than the left. The heaviness has been accompanied by a sensation of cracking in the bones and difficulty in initiating steps, which has progressively worsened over time. - Onset: Chronic, persistent pain - Quality: Heaviness and cracking sensation in legs - Location: From hip down, right side more affected - Exacerbating factors: Progressively worsens over time - Relieving factors: Temporary relief with local numbing medicine - Affect: Pain impacts daily activities and mobility - Analgesia: Previous diagnostic injections provided temporary relief - Activities of Daily Living: Difficulty in initiating steps due to leg heaviness [facility] Medical History Chronic back pain Spondylosis of lumbar region without myelopathy or radiculopathy Chronic migraine with aura Nicotine dependence, cigarettes, uncomplicated Endometriosis Postmenopausal Osteoporosis Hyperlipidemia, unspecified Gastro-esophageal reflux disease without esophagitis Upper abdominal pain Depression with anxiety Moderate episode of recurrent major depressive disorder Other microscopic hematuria Surgical History History of hysterectomy History of cholecystectomy History of tonsillectomy History of esophagogastroduodenoscopy (EGD) H/O colonoscopy History of lipoma Family History Father Prostate cancer Mother Leukemia Lung cancer Social History Alcohol intake: former Patient Tobacco Use Status: Current everyday Tobacco user Years Smoked: (onset 25yo, 1-2ppd x 39yrs, now 1/2ppd - 50pyh) Review of Systems Const Details: - Musculoskeletal: Reports chronic back pain and leg heaviness, right side more affected - Neurological: Denies numbness or tingling in extremities Physical Exam Exam Exam: General: awake, alert, oriented. Answers questions appropriately. Fully engaged in examination. Skin: warm, dry, intact HEENT: Normocephalic. Hearing intact. Cardiac: External chest normal in appearance. Respiratory: No cough, audible wheezing or stridor. Abdomen: without gross distension. MS: No obvious swelling or deformities. Rises from sit to stand without assistance SLR negative bilaterally Left lower extremity strength 5/5, right lower extremity strength 4/5. negative footdrop, negative clonus Tenderness over midline lumbar vertebrae and lumbar paraspinal muscles Facet loading positive bilaterally Neurological: Oriented to person, place, time and situation. Thought process intact. Antalgic gait. Psychiatric: Appropriate mood and affect. Good judgment and insight. Vital Signs: Last Vital Signs Pulse 65 11/21/24 09:31 Resp 16 11/21/24 09:31 BP 113/54 L 11/21/24 09:31 Pulse Ox 96 11/21/24 09:31 Oxygen Delivery Method Room Air 11/21/24 09:31 BMI result Body Mass Index 24.9 Results Reviewed Results Reviewed: 11/09/23 MRI LS FINDINGS: Mild dextrocurvature of the lumbar spine. Preservation of the normal lumbar lordosis. No listhesis. No acute bone marrow abnormality. The vertebral body heights are preserved. Multilevel disc desiccation without significant disc height loss. T12-L1: Shallow left paracentral disc protrusion. No significant spinal canal or neural foraminal narrowing. L1-2: Central disc protrusion. No significant spinal canal or neural foraminal narrowing. L2-3: Left foraminal disc protrusion and bilateral facet arthrosis. No significant spinal canal or neural foraminal narrowing. L3-4: Diffuse disc bulge and bilateral facet arthrosis. Mild bilateral neural foraminal narrowing with the disc abutting the exiting L3 nerve roots bilaterally. No significant spinal canal stenosis. L4-5: Shallow disc bulge with superimposed annular fissure. Bilateral facet arthrosis. Mild right neural foraminal narrowing with the disc abutting the exiting L4 nerve as bilaterally. L5-S1: Shallow disc bulge and bilateral facet arthrosis. No significant spinal canal or neural foraminal narrowing. The paravertebral soft tissues are unremarkable. Bilateral renal cysts. IMPRESSION: 1. Mild degenerative changes of the lumbar spine without significant spinal canal stenosis. 2. Mild neural foraminal narrowing at L3-L4 and L4-L5 with the disc abutting the exiting L3 and L4 nerve roots bilaterally. 3. L4-L5 annular fissure. Assessment & Plan Assessment & Plan (1) Lumbar radiculopathy: Code(s): M54.16 - Radiculopathy, lumbar region Category: Medical (2) Lumbar facet arthropathy: Code(s): M47.816 - Spondylosis without myelopathy or radiculopathy, lumbar region Category: Medical (3) Degenerative disc disease, lumbar: Code(s): M51.369 - Other intervertebral disc degeneration, lumbar region without mention of lumbar back pain or lower extremity pain Category: Medical (4) Spondylosis of lumbar region without myelopathy or radiculopathy: Code(s): M47.816 - Spondylosis without myelopathy or radiculopathy, lumbar region Category: Medical Plan The plan involves obtaining an MRI of the back to evaluate the cause of the chronic pain and leg heaviness. Once the MRI is approved and completed, the results will be reviewed to determine the next steps in management. The patient was informed about potential pain management options, including radiofrequency ablation, which targets the small nerves going to the joints and may provide long-term relief given patient's previously positive results of diagnostic medial branch blocks. The risks and benefits of this procedure, as well as alternative treatments like repeat steroid injections, were discussed. I discussed with the patient the denial of the Sprint device by the insurance and the alternative options available, including repeat steroid injections and radiofrequency ablation. I explained the procedure of radiofrequency ablation, its potential for long-term relief, and the associated risks such as bleeding and infection. We also discussed the temporary relief provided by steroid injections and their side effects, including increased blood sugar and osteoporosis risk. I proposed obtaining an MRI to further investigate the cause of the symptoms, and once approved, the patient will be contacted to schedule it. We agreed to review the MRI results before deciding on further procedures. Patient was informed and verbally consented to the use of an ambient scribe for clinic note documentation during this visit. Orders: Orders MR lumbar spine wo con Today M47.816 - Spondylosis without myelopathy or radiculopathy, lumbar region, M51.369 - Other intervertebral disc degeneration, lumbar region without mention of lumbar back pain or lower extremity pain, M54.16 - Radiculopathy, lumbar region Patient Instructions: - Await contact for MRI scheduling once insurance approval is obtained. - Follow up after MRI to discuss results and next steps. - Consider potential pain management options discussed, including radiofrequency ablation. Coding Level of Care Code Est Pt Level 3 (88243) Complex EM visit Add On G2211 Diagnoses Lumbar radiculopathy M54.16 Lumbar facet arthropathy M47.816 Degenerative disc disease, lumbar M51.369 Spondylosis of lumbar region without myelopathy or radiculopathy M47.816
== END 2024-11-21 10:04 | disposition home or self-care (01) ==
LOC: HO.PMC 08:52
PROVIDERS: PCP Student in an Organized Health Care Education/Training Program; Visit Provider Registered Nurse Emergency
DX: M54.16 Radiculopathy, lumbar region (principal); M47.816 Spondylosis without myelopathy or radiculopathy, lumbar region; M51.369 Other intervertebral disc degeneration, lumbar region without mention of lumbar back pain or lower extremity pain
CPT/HCPCS: 99213

== ENCOUNTER → 2024-11-21 08:51 | Outpatient (BNVA) | payer OTHER, SELFPAY | PROVIDERS: PCP Student in an Organized Health Care Education/Training Program; Visit Provider Registered Nurse Emergency | DX: M54.16 Radiculopathy, lumbar region (principal); M47.816 Spondylosis without myelopathy or radiculopathy, lumbar region; M51.369 Other intervertebral disc degeneration, lumbar region without mention of lumbar back pain or lower extremity pain | CPT/HCPCS: 99212 ==

== ENCOUNTER 2024-11-29 09:44 | Outpatient (REF) | payer OTHER, SELFPAY ==
--- OUTSIDE RECORDS SUMMARY | 2024-11-29 09:46 | XMS_ITS | Encounter Summary ---
Author Organization [employer] Address [address] [facility] 7t [place] [address] Care Team Providers Care Title Search Manager Name Role Phone Leandra Julien MD Primary Care Provide r Leandra Orellana MD Primary Care Pro vider Reason for Visit * Reason Onset Date Comments New Patient Appt 08/23/2022 Encounter Details Date Type Department Care Team (Late st Contact Info) Description 08/23/2022 Telephone [facility] MEDICINE [address] [place] [address] Leandra Julien MD [address] [place] [address] New Patient Appt Social History Tobacco Use [...] PAR Lisa Aguayo called pt to Offer PLACING JUDGE appt. Pt demographics and insurance information were verified. Pt reports has not seen a PCP before. Pt reports the following medical conditions: Asthma, Panics, Hernia (Stomach). Pt does not take medications at this time. Pt given PLACING JUDGE appt with on 09/26/2022 10:15 am . Pt will be sent appt reminder card and medical release form and agrees to complete and t o return to medical records prior to PLACING JUDGE appt. documented in this encounter Plan of Treatment Upcoming Encounters Date Type Department Care Team (Late st Contact Info) Description 01/02/2025 11:00 AM EDT Clinical Support [facility] MEDICINE [address] [place] [address] Nataliia Ambriz, RACHELLE [address] [place] [address] documented as of this encounter Visit Diagnoses Not on filedocumented in this encounter Care Teams Title Search Manager Relationship Specialty Start Date End Date Leandra Julien MD [address] [place] [address] PCP - General Internal Medicine 08/23/22 09/06/22 Leandra Orellana MD [address] [place] [address] PCP - General Internal Medicine 02/12/23 documented as of this encounter
== END 2024-11-29 09:45 | disposition home or self-care (01) ==
LOC: HO.CT 09:44
PROVIDERS: PCP Student in an Organized Health Care Education/Training Program; Visit Provider Family Medicine
DX: Z13.89 Encounter for screening for other disorder (principal)

== ENCOUNTER 2024-12-05 14:14 | Outpatient (AMB) | payer OTHER, SELFPAY ==
--- OUTSIDE RECORDS SUMMARY | 2024-12-05 14:16 | XMS_ITS | Encounter Summary ---
Author Organization [employer] Address [address] [facility] 7 [place] [address] Care Team Providers Care Range Examiner Name Role Phone Leandra Orellana MD Primary Care Pro vider Encounter Details Date Type Department Care Team ([facility] Contact Info) Description 10/06/2024 Results Follow-Up [facility] MEDICINE [address] [place] [address] Leandra Orellana MD [address] [place] [address] Hemoglobin A1c, Hepatitis B Core Antibody, Total, Hepatitis B Surface Antibody, Qualitative, Additional followed-up results: 8 Social History Tobacco Use Types Packs/Day Years [...] the past 12 months, has t he [email or web address], gas, oil or water company threatened to [...] PM EDT documented as of this encounter Functional Status * Over the past 2 weeks, how often have you been bothered by any of the following problems? Question Answer Date of Assessment Author Patient Health Questionnaire-2 Score 6 10/09/2024 2:00 PM EDT Ryan Hicks LICSW * Little interest or pleasure in doing things Answer Date of Assessment Author Nearly every day 10/09/2024 2:00 PM EDT Charisma Hicks LICSW * Feeling down, depressed, or hopeless Answer Date of Assessment Author Nearly every day 10/09/2024 2:00 PM EDT Charisma Hicks LICSW * Trouble falling or staying asleep, or sleeping too much Answer Date of Assessment Author Nearly every day 10/09/2024 2:00 PM EDT Charisma Hicks LICSW * Feeling tired or having little energy Answer Date of Assessment Author Nearly every day 10/09/2024 2:00 PM EDT Charisma Hicks LICSW * Poor appetite or overeating Answer Date of Assessment Author Not at all 10/09/2024 2:00 PM EDT Charisma Hicks LICSW * Feeling bad about yourself - or that you are a failure or have let yourself or your family down Answer Date of Assessment Author Nearly every day 10/09/2024 2:00 PM EDT Charisma Hicks LICSW * Trouble concentrating on things, such as reading the newspaper or watching television Answer Date of Assessment Author Nearly every day 10/09/2024 2:00 PM EDT Charisma Hicks LICSW * Moving or speaking so slowly that other people could have noticed? Or the opposite - being so fidgety or restless that you have been moving around a lot more than usual. Answer Date of Assessment Author Not at all 10/09/2024 2:00 PM EDT Charisma Hicks LICSW * Thoughts that you would be better off or hurting yourself in some way Answer Date of Assessment Author Not at all 10/09/2024 2:00 PM EDT Charisma Hicks LICSW * Patient Health Questionnaire-9 Score Answer Date of Assessment Author 18 10/09/2024 2:00 PM EDT Charisma Hicks LICSW * How difficult have these problems made it for you to do your work, take care of things at home, or get along with other people? Answer Date of Assessment Author Extremely difficult 10/09/2024 2:00 PM EDT Charisma Mallory LICSW documented as of this encounter Miscellaneous Notes * Result Encounter Note - Leandra Meng MD - 10/06/2024 3:19 PM EDT Please call patient to advise to come to already scheduled apt with me to go over abnormal labs Thanks documented in this encounter Plan of Treatment Upcoming Encounters Date Type Department Care Team (Late st Contact Info) Description 01/02/2025 11:00 AM EDT Clinical Support [facility] MEDICINE [address] [place] [address] Nataliia Ambriz RN [address] [place], [place] [phone] documented as of this encounter Visit Diagnoses Not on filedocumented in this encounter Additional Health Concerns Assessment Noted Time PHQ-9 Depression Total Score: 17 025 2:51 PM EDT documented as of this encounter Care Teams Range Examiner Relationship Specialty Start Date End Date Leandra Orellana MD [address] [place] [address] PCP - General Internal Medicine 02/12/23 documented as of this encounter
--- OUTSIDE RECORDS SUMMARY | 2024-12-05 14:16 | XMS_ITS | Encounter Summary ---
Author Organization [employer] Address [address] [facility] 7t [place] [address] Care Team Providers Care Printing Table Worker Name Role Phone Leandra Julien MD Primary Care Provide r Leandra Orellana MD Primary Care Pro vider Reason for Visit * Reason Onset Date Comments New Patient Appt 08/23/2022 Encounter Details Date Type Department Care Team (Late st Contact Info) Description 08/23/2022 Telephone [facility] MEDICINE [address] [place] [address] Leandra Julien MD [address] [place] [address] New Patient Appt Social History Tobacco Use [...] PAR Lisa Aguayo called pt to Offer COSMETIC CONSULTANT appt. Pt demographics and insurance information were verified. Pt reports has not seen a PCP before. Pt reports the following medical conditions: Asthma, Panics, Hernia (Stomach). Pt does not take medications at this time. Pt given COSMETIC CONSULTANT appt with on 09/26/2022 10:15 am . Pt will be sent appt reminder card and medical release form and agrees to complete and t o return to medical records prior to COSMETIC CONSULTANT appt. documented in this encounter Plan of Treatment Upcoming Encounters Date Type Department Care Team (Late st Contact Info) Description 01/02/2025 11:00 AM EDT Clinical Support [facility] MEDICINE [address] [place] [address] Nataliia Ambriz, RACHELLE [address] [place] [address] documented as of this encounter Visit Diagnoses Not on filedocumented in this encounter Care Teams Printing Table Worker Relationship Specialty Start Date End Date Leandra Julien MD [address] [place] [address] PCP - General Internal Medicine 08/23/22 09/06/22 Leandra Orellana MD [address] [place] [address] PCP - General Internal Medicine 02/12/23 documented as of this encounter
--- OUTSIDE RECORDS SUMMARY | 2024-12-05 14:17 | XMS_ITS | Encounter Summary ---
Author Organization [employer] Address [address] [facility] 7 [place] [address] Care Team Providers Care Education Professional Name Role Phone Leandra Orellana MD Primary Care Pro vider Encounter Details Date Type Department Care Team ([facility] st Contact Info) Description 11/03/2024 Results Follow-Up [facility] MEDICINE [address] [place] [address] Leandra Orellana MD [address] [place] [address] CT Lung Screening Low dose Social History Tobacco Use Types Packs/Day Years [...] Encounter Note - Leandra Meng MD - 11/03/2024 8:27 PM EDT Please inform pt of normal CT lung screening Thanks documented in this encounter Plan of Treatment Upcoming Encounters Date Type Department Care Team (Late st Contact Info) Description 01/02/2025 11:00 AM EDT Clinical Support [facility] MEDICINE [address] [place] [address] Nataliia Ambriz RN [address] [place], [place] [phone] documented as of this encounter Visit Diagnoses Not on filedocumented in this encounter Additional Health Concerns Assessment Noted Time PHQ-9 Depression Total Score: 18 025 2:00 PM EDT documented as of this encounter Care Teams Education Professional Relationship Specialty Start Date End Date Leandra Orellana MD [address] [place] [address] PCP - General Internal Medicine 02/12/23 documented as of this encounter
--- OUTSIDE RECORDS SUMMARY | 2024-12-05 14:17 | XMS_ITS | Encounter Summary ---
Author Organization [employer] Address [address] [facility] 7t [place] [address] Care Team Providers Care Supply Chain Engineer Name Role Phone Leandra Orellana MD Primary Care Pro vider Encounter Details Date Type Department Care Team ([facility] st Contact Info) Description 06/27/2023 Telephone [facility] MEDICINE [address] [place] [address] Leandra Orellana MD [address] [place] [address] Social History Tobacco Use Types Packs/Day Years [...] Description 01/02/2025 11:00 AM EDT Clinical Support [facility] MEDICINE [address] [place] [address] Nataliia Ambriz, RACHELLE [address] [place] [address] documented as of this encounter Visit Diagnoses Not on filedocumented in this encounter Additional Health Concerns Assessment Noted Time PHQ-9 Depression Total Score: 14 024 10:10 AM EST documented as of this encounter Care Teams Supply Chain Engineer Relationship Specialty Start Date End Date Leandra Orellana MD [address] [place] [address] PCP - General Internal Medicine 02/12/23 documented as of this encounter
--- OUTSIDE RECORDS SUMMARY | 2024-12-05 14:17 | XMS_ITS | Clinical Summary ---
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 ng/mL Insufficient> 30 ng/mL Sufficient*Rush SMITH. N Engl J Med. 2007;357:266-280There is no well-established upper level of normal vitamin Dlevels. Some laboratories use 50 ng/mL as an upper limit ofnormal. However, toxicity is patient-dependent and may occurat any level. Careful correlation with the patient'spresentation is necessary and, if there is concern forvitamin D toxicity, treatment should be consideredirrespective of the serum level.Care must be taken in interpreting Vitamin D results fromdifferent laboratories and methodologies. Published datademonstrated that results from patients undergoinghemodialysis may show a negative bias when tested withvarious automated 25-OH vitamin D assays when compared toLC-MS/MS.When testing samples from patients whose predominant form ofVitamin D is Vitamin D2, such as patients receiving VitaminD2 supplementation, results that are subtherapeutic shouldbe confirmed with another method such as LC-MS/MS. Blood Venous blood specimen / Unknown 10/06/2024 8:40 AM EDT 10/06/2024 10:59 AM EDT us Leandra Meng MD LAB BLOOD ORDERAB LES Final Result Performing Organization Address City/[facility]/ZIP Co de Phone Number [facility] [address] [place] [phone] * Vitamin B12 (Cobalamin) and Folate Panel, Serum (10/06/2024 8:40 AM EDT) Vitamin B12 316 200 - 900 pg/mL [facility] Comment:NORMAL 200-900 PG/ML INDETERMINATE 160-199 PG/ML DEFICIENT < 160 PG/ML Folate 9.4 > or = 4.0 ng/mL [facility] Comment:Reference Values:> o r = 4.0 ng/mL< 4.0 ng/mL suggests folate deficiency Methotrexate, aminopterin and folinic acid(leucovorin) are chemotherapeutic agents whose molecularstructures are similar to folate; therefore, the Architectfolate assay cannot be used for patients using these drugs. Blood 10/06/2024 8:40 AM EDT 10/06/2024 10:59 AM EDT Leandra Meng MD LAB BLOOD ORDERAB LES Final Result Performing Organization Address City/[facility]/ZIP Co de Phone Number [facility] [address] [place] [address] [phone] * TSH with Reflex to Free T4 (10/06/2024 8:40 AM EDT) TSH reflex Free T4 2.50 0.32 - 4.0 uIU/mL [facility] Blood 10/06/2024 8:40 AM EDT 10/06/2024 10:59 AM EDT Leandra Meng MD LAB BLOOD ORDERAB LES Final Result Performing Organization Address [facility] Co de Phone Number [facility] [address] [place] [phone] * Hepatitis C Antibody with Reflex to HCV, RNA, Quantitative, Real-Time PCR (10/06/2024 8:40 AM EDT) Hepatitis C Antibody Nonreactive Nonreactive [facility] Comment:Antibodies to HCV no t detected; does not exclude early acuteHCV infection. Blood Venous blood specimen / Unknown 10/06/2024 8:40 AM EDT 10/06/2024 10:59 AM EDT Leandra Meng MD LAB BLOOD ORDERAB LES Final Result Performing Organization Address City/[facility]/ZIP Co de Phone Number [facility] [address] [place] [phone] * Hepatitis B surface antigen, EIA (10/06/2024 8:40 AM EDT) Hepatitis B Surface Ag Negative Negative [facility] Blood Venous blood specimen / Unknown 10/06/2024 8:40 AM EDT 10/06/2024 10:59 AM EDT Leandra Meng MD LAB BLOOD ORDERAB LES Final Result Performing Organization Address [facility]/ZIP Co de Phone Number [facility] [address] [place] [phone] * Hepatitis B Core Antibody, Total (10/06/2024 8:40 AM EDT) Hepatitis B Core Antibody Nonreactive Nonreactive [facility] Blood Venous blood specimen / Unknown 10/06/2024 8:40 AM EDT 10/06/2024 10:59 AM EDT Leandra Meng MD LAB BLOOD ORDERAB LES Final Result Performing Organization Address City/[facility]/ZIP Co de Phone Number [facility] [address] [place] [phone] * HIV-1/2 Antigen and Antibodies, Fourth Generation, with Reflexes (10/06/2024 8:40 AM EDT) Pathologist [facility] [place] HIV AB/AG Nonreactive Nonreactive [facility] Comment:HIV-1 p24 Ag and/or HIV-1/HIV-2 Ab not detected.A test result that is nonreactive does not exclude thepossibility of exposure to or infection with HIV-1 and/orHIV-2. Nonreactive results in this assay for individualswith prior exposure to HIV-1 and/or HIV-2 may be due toantigen and antibody levels that are below the limit ofdetection of this assay.The [employer] HIV Ag/Ab Combo assay result andsupplemental assay results should be interpreted inconjunction with the patient's clinical presentation,history and other laboratory results. If the results areinconsistent with clinical evidence, additional testing issuggested to confirm the result. Blood Venous blood specimen / Unknown 10/06/2024 8:40 AM EDT 10/06/2024 10:59 AM EDT us Leandra Meng MD LAB BLOOD ORDERAB LES Final Result Performing Organization Address City/[facility]/ZIP Co de Phone Number [facility] [address] [place] [address] [phone] * Hepatitis B Surface Antibody, Qualitative (10/06/2024 8:40 AM EDT) Pathologist [facility] [place] ~Hepatitis B Surface Antibody REACTIVE Nonreactive [facility] Comment:REACTIVE: > 11.99 mI U/mL Blood Venous blood specimen / Unknown 10/06/2024 8:40 AM EDT 10/06/2024 10:59 AM EDT us Leandra Meng MD LAB BLOOD ORDERAB LES Final Result Performing Organization Address [facility]/ZIP Co de Phone Number [facility] [address] [place] [phone] * (ABNORMAL) CBC (10/06/2024 8:40 AM EDT) Pathologist [facility] [place] White Blood Count 8.4 4.8 - 10.8 X10*3/uL [facility] Red Blood Count 4.63 4.20 - 5.50 X10*6/uL [facility] Hemoglobin 14.1 12.0 - 16.0 g/dl [facility] Hematocrit 42.0 37.0 - 47.0 % [facility] Mean Corpuscular Volume 90.7 80.0 - 98.0 fL [facility] Mean Corpuscular Hemoglobin 30.5 27.0 - 33.0 pg [facility] Mean Corpuscular HGB Conc 33.6 31.0 - 35.0 g/dl [facility] Red Cell Distribution Width 13.2 11.0 - 16.0 % [facility] Platelet Count 296 160 - 400 X10*3/uL [facility] Mean Platelet Volume 12.7(H) 9.4 - 12.3 fL [facility] NRBC Pct Auto 0.0 0.0 - 0.2 /100WBC [facility] NRBC Abs Auto 0.000 0.0 - 0.012 X10*3/uL [facility] 10/06/2024 8:40 AM EDT 10/06/2024 11:33 AM EDT us Generic External Data Provider LAB BLOOD ORDERAB LES Final Result Performing Organization Address City/State/[facility] Co de Phone Number [facility] [address] [place] [phone] * Hemoglobin A1c (10/06/2024 8:40 AM EDT) Hemoglobin A1c 5.2 <6.0 % [facility] Comment:Hemoglobin A1C Refer ence Range Adults: 4.8 - 6.0 % Non diabetic: < 6.0 % Goal: < 7.0 %Additional Action Suggested: > 8.0 %Note: Hemoglobin A1c results are invalid for patients with abnormal amounts of HbF. Blood transfusions may impact the HbA1c concentration in the patient sample. Estimated Average Glucose 103 mg/dL [facility] Comment:eAG = Estimated ave rage glucose which is %A1C expressed asaverage glucose, using the formula of the M3B-PyjdxoxIjuhibd Glucose study (ADAG), Diabetes Care, Vol.31,#8,2007 Blood Venous blood specimen / Unknown 10/06/2024 8:40 AM EDT 10/06/2024 10:59 AM EDT us Leandra Meng MD LAB BLOOD ORDERAB LES Final Result Performing Organization Address City/[facility]/ZIP Co de Phone Number [facility] [address] [place] [phone] * (ABNORMAL) Lipid Panel, Standard (10/06/2024 8:40 AM EDT) Triglycerides 159(H) <150 mg/dL [facility] Comment:Desirable Triglyceri de: less than 150 mg/dLBorderline High Triglyceride 150-199 mg/dLHigh Triglyceride: 200-499 mg/dLVery High Triglyceride: greater than or equal to 5OO mg/dL Cholesterol 250(H) <200 mg/dL [facility] Comment:Desirable Cholestero l: less than 200 mg/dLBorderline High Cholesterol: 200-239 mg/dLHigh Cholesterol: greater than 239 mg/dL LDL Cholesterol Calculated 162(H) <100 mg/dL [facility] Comment:Desirable LDL: less than 100 mg/dLNear Optimal/Above Optimal LDL: 110- 129 mg/dLBorderline High LDL: 130-159 mg/dLHigh LDL: 160-189 mg/dLVery High LDL: greater than or equal to 190 mg/dL HDL Cholesterol 57 >40 mg/dL [facility] Comment:Desirable HDL: great er than 40 mg/dL Note: This HDL assay may give artificially low results in patients with liver disease. Blood Venous blood specimen / Unknown 10/06/2024 8:40 AM EDT 10/06/2024 10:59 AM EDT us Leandra Meng MD LAB BLOOD ORDERAB LES Final Result Performing Organization Address City/[facility]/ZIP Co de Phone Number [facility] [address] [place] [phone] * Chlamydia/Trichomonas/Neisseria gonorrhoeae, PCR, Urine (10/06/2024 8:38 AM EDT) CT PCR, Urine NOT DETECTED Not Detect. [facility] Comment:A not detected test result does not exclude the possibilityof infection because test results can be affected byimproper specimen collection, concurrent antibiotic therapy,or the number of organisms in the specimen which may bebelow the sensitivity of the test. As with many diagnostictests, results from the Xpert CT/NG assay should beinterpreted in conjunction with other laboratory andclinical data available to the clinician.The Xpert CT/NG assay should not be used for the evaluationof suspected sexual abuse or for other medico-legalindications. Additional testing is recommended in anycircumstance when false positive or false negative resultscould lead to adverse medical, social or psychologicalconsequences. NG PCR, Urine NOT DETECTED Not Detect. [facility] Comment:A not detected test result does not exclude the possibilityof infection because test results can be affected byimproper specimen collection, concurrent antibiotic therapy,or the number of organisms in the specimen which may bebelow the sensitivity of the test. As with many diagnostictests, results from the Xpert CT/NG assay should beinterpreted in conjunction with other laboratory andclinical data available to the clinician.The Xpert CT/NG assay should not be used for the evaluationof suspected sexual abuse or for other medico-legalindications. Additional testing is recommended in anycircumstance when false positive or false negative resultscould lead to adverse medical, social or psychologicalconsequences. 10/06/2024 8:38 AM EDT 10/06/2024 11:45 AM EDT Leandra Meng MD LAB URINE ORDERAB LES Final Result Performing Organization Address City/State/[facility] Co de Phone Number [facility] [address] [place] [phone] * BI Mammogram Screening Tomosynthesis Bilateral (06/10/2024 2:35 PM EST) Anatomical Region Laterality Modality Breast Bilateral Mammography 06/10/2024 2:35 PM EST Narrative 06/12/2024 11:46 AM EST [facility] [address] [place] [address] Mammography Report Signed Patient: Leandra Acevedo MR#: [id number] : 1960 Acct:[id number] Age/Sex: 64 / F ADM Date: 06/10/24 Loc: MAMMO Attending Dr: Leandra Meng MD Ordering Physician: Leandra Orellana MD Re sults: 1Negative Date of Service: 06/10/24 Follow Up: 1 Year From Orig inal Mammogram Procedure(s): MM tomosynthesis screening BI Accession Number(s): [id number] cc: Leandra Orellana MD EXAMINATION: MM SCREENING [...] 06/12/24 1144 DD/ 1435 TD/TT: 06/10/24 1450 Business Office Representative: Procedure Note Donotuseinterpreter, Image - 06/12/2024 [facility] [address] [place] [address] [place] [address] Mammography Report Signed Patient: Leandra AcevedoMR#: [id number] : 1Acct:[id number] Age/Sex: 64 / FADM Date: 06/10/24 Loc: MAMMO Attending Dr: Leandra Meng MD Ordering Physician: Leandra Orellana sults: 1Negative Date of Service: 06/10/24Follow Up: 1 Year From Orig inal Mammogram Procedure(s): MM tomosynthesis screening BI Accession Number(s): [id number] cc: Leandra Orellana MD EXAMINATION: MM SCREENING [...] 06/12/24 1144 DD/ 1435 TD/TT: 06/10/24 1450 Business Office Representative: Leandra Meng MD [facility] BI PROCEDURES Final Result * HPV mRNA E6/E7 w/Reflex to HPV Genotypes 16, 18/45 (2023 11:31 AM EST) HPV nRNA E6/E7 Not Detected Not Detected [facility] Comment:Methodology: Transcr iption-Mediated AmplificationThis assay detects E6/E7 viral messenger RNA (mRNA) from 14high-risk HPV types (16,18,31,33,35,39,45,51,52,56,58,59,66,68).Cervical sources are required for HPV testing.If a vaginal source from a patient who has had atotal hysterectomy with removal of cervix wassubmitted, please contact the testing laboratoryfor alternative testing options.For additional information, please refer [email or web address]/[email or web address](This link if provided for information/educational purposes only.)THIS TEST WAS PERFORMED AT:[facility] [place] [phone] COWART MD HPV mRNA E6/E7 TNP [facility] HPV 16 RNA TNP [facility] HPV 18/45 RNA [facility] 2023 11:3 1 AM EST 05/24/2023 2:00 PM EST Eliud Bee CNM LAB CYTOLOGY ORDERABLES F inal Result [facility] [address] [place] [phone] * Pap Smear (2023 11:31 AM EST) Swab 2023 11:3 1 AM EST 05/24/2023 2:00 PM EST [facility] - 06/12/2023 2:33 PM EST ----- ------- Name: Leandra Acevedo Age/Sex: 63/F : 1960 Unit#: [id number] Attend Dr: ELIUD BEE CNM Re05/23/23 Status: DEP REF Location: [facility] Disch: ----- ------- SPEC : [id number] RECD: 05/24/23-1399 STATUS: ALEXY HINES NUM: [id number] ALFONSO: 05/23/23-[address] [facility] [address]: ELIUD BEE [facility] ENTERED: 05/24/23141 SP TYPE: Pap Smr OTHR DR: ORDERED: Pap Smear Interpretation Satisfactory for evaluation. Atrophic. Negative for intraepithelial lesion or malignancy. HPV mRNA E6/E7: NOT DETECTED This assay detects E6/E7 viral messenger RNA (mRNA) from 14 high-risk HPV types (16, 18, 31, 33, 35, 39, 45, 51, 52, 56, 58, 59, 66, 68) HPV testing performed by [facility], [place], [place]. See reference laboratory portion of the EMR for entire report. 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
--- NOTE | 2024-12-05 14:50 | A.OFFVIS_ITS ---
Vital Signs 12/05/24 14:57 Height 5 ft 2 in Weight 137 lb BMI 25.1 BP 124/60 Blood Pressure Location Lt brachial Position Sitting Intake Visit Reasons: 4 wks f/u Func dyspesia , GFR reduced Administrative Library Assistant Required: Yes Administrative Library Assistant Services: Administrative Library Assistant Present (in person) Accompanied by: Self / Same As Patient Allergies seafood Allergy (Severe, Verified 12/05/24 14:59) Anaphylaxis ceftriaxone (From Rocephin) Allergy (Verified 12/05/24 14:59) Rash HPI HPI 4 wks f/u Func dyspesia , GFR reduced: Details: Assessment & Plan (1) Functional dyspepsia: Code(s): K30 - Functional dyspepsia Category: Medical (2) Gastro-esophageal reflux disease without esophagitis: Code(s): K21.9 - Gastro-esophageal reflux disease without esophagitis Category: Medical (3) Chronic idiopathic constipation: Code(s): K59.04 - Chronic idiopathic constipation Category: Medical (4) IBS (irritable bowel syndrome): Code(s): K58.9 - Irritable bowel syndrome, unspecified Category: Medical (5) Decreased GFR: Code(s): R94.4 - Abnormal results of kidney function studies Category: Medical Plan Malagasy #Sylvia and Oumou Lombardis, 72 micro g, senna 2 tablets at night, simethicone, AcipHex twice a day and Creon. She continues to have swelling after eating. It will take about 2 hours to resolve after a meal and is worse if she eats meat. Despite her normal GES in 2023, I want to try a trial of reglan qac. I note a decreased GFR which concerns me with bid PPI, she could have just been dry but I would like to get additional labs to investigate this. She only eats once a day, at times twice with a very small breakfast, so it seems likely she is not drinking enough. However, she says she drinks a lot of coconut water. ROV 4 weeks. Orders: Orders UA CC w/rflx Micro + Cult Today R94.4 - Abnormal results of kidney function studies Comprehensive Met. Panel Today R94.4 - Abnormal results of kidney function studies Medications: New metoclopramide HCl (Reglan) 5 mg PO .bidac 60 tabs 3RF K30 - Functional dyspepsia Laboratory Tests 11/04/24 14:31 Estimated GFR > 60 Total Bilirubin 0.4 AST 23 ALT 31 Alkaline Phosphatase 72 11/04/24-[address]: Minesh Meng,Leandra Herrera MD ORDERED: [facility] w Micros QUERIES: Source: Urine, Clean Catch Test Result Flag Reference Ur Color Yellow Ur Appear Clear PH 7.0 5.0-9.0 Ur Glu Negative Negative mg/dL Urine Blood Small (1+) H Negative Spec Elfrida Ur 1.020 1.005-1.025 Urine Protein Negative Neg-Trace mg/dL Urine Ketones Negative Negative mg/dL Ur Nitrite Negative Negative Ur Yazan Esterase Negative Negative Ur RBC 6-10 H 0-2 /HPF Ur WBC 0-5 0-5 /HPF Ur Squam Epi 0-2 0-2 /HPF Ur Bact None Seen None Seen Ur Hyaline Medical Management Specialist 0-2 0-2 /LPF [facility] Malagasy #Arsenio Live Linzess, 72 micro g, senna 2 tablets at night, simethicone, AcipHex twice a day and Creon. She feels that the reglan helped her bloating, but she only eats qd and is only taking it qd. I advise her that I want her to take it bid to mimic better the normal GI motility and give her better relief. she still has a LLQ pain that is usually there but is worse after a BM. SHe has success in treating this with external rubs like Gael Gqy. ROV 6 mos. COLONOSCOPY BIOSPY PFSH Medical History Chronic back pain Spondylosis of lumbar region without myelopathy or radiculopathy Chronic migraine with aura Nicotine dependence, cigarettes, uncomplicated Endometriosis Postmenopausal Osteoporosis Hyperlipidemia, unspecified Gastro-esophageal reflux disease without esophagitis Upper abdominal pain Depression with anxiety Moderate episode of recurrent major depressive disorder Other microscopic hematuria Surgical History History of hysterectomy History of cholecystectomy History of tonsillectomy History of esophagogastroduodenoscopy (EGD) H/O colonoscopy History of lipoma Family History Father Prostate cancer Mother Leukemia Lung cancer Social History Alcohol intake: former Patient Tobacco Use Status: Current everyday Tobacco user Years Smoked: (onset 25yo, 1-2ppd x 39yrs, now 1/2ppd - 50pyh) Review of Systems Const Denies fatigue, Denies fever(s), Denies night sweats, Denies poor appetite and Denies weight loss ENT Reports Normal hearing present, Denies dental pain, Denies dysphagia, Denies hearing loss, Denies mouth pain, Denies odynophagia, Denies throat swelling, Denies tongue swelling and Reports other (Dentition adequate) Card Reports no additional complaints Resp Reports no additional complaints GI Details: Reports abdominal pain, Denies melena, Reports bloating, Denies hematochezia, Reports constipation, Reports GI cramping, Denies dysphagia, Denies excessive flatus, Denies early satiety, Reports heartburn, Denies diarrhea, Denies nausea, Denies odynophagia, Denies vomiting and Denies hematemesis Skin/Breast Denies pruritus, Denies lesions, Denies rash and Denies jaundice Neuro Reports Normal hearing present and Denies Abnormal speech present Endo Denies fatigue Aller/Immun Denies throat swelling and Denies tongue swelling Physical Exam Vital Signs: Last Vital Signs BP 124/60 12/05/24 14:57 BMI result Body Mass Index 25.1 Const General: cooperative, no acute distress, well developed and well groomed Nutritional Appearance: average body habitus and well nourished Orientation/consciousness: oriented to person, oriented to place and oriented to time Limitations: No language barrier HEENT Head: Yes normocephalic and Yes atraumatic Eyes General: appearance normal, both eyes and all related structures Pupils: Equal, round and reactive pupils present Neck Neck: Yes normal visual inspection and Yes no lymphadenopathy Thyroid: Thyroid normal Resp Effort & Inspection: normal respiratory effort and able to speak in complete sen tences Auscultation: clear to auscultation bilaterally Cardio Rate: regular rate Rhythm: regular rhythm Heart sounds: Normal, physiologic split S2 sound present Peripheral pulses: radial pulses present and posterior tibial pulses present GI Inspection: No distended and No Abdominal panniculus present Palpation (GI): Soft to palpation, nontender, no guarding, not rigid and No hepa tosplenomegaly present Percussion: Yes normal to percussion Auscultation: normal bowel sounds Rectal Exam - Female: deferred Skin General skin exam: no rashes or lesions noted, turgor normal, skin not dry, no jaundice, No spider nevi and no striae Rashes: no rashes Nails: normal Neuro General: oriented to person, oriented to place and oriented to time Cranial nerves: Yes Equal, round and reactive pupils present and Yes Normal hearing present Speech: No Abnormal speech present Extrem General: Yes normal to inspection, No clubbing, No cyanosis and No edema Psych Appearance: grossly normal and well kempt Mental Status: mental status grossly normal Speech and movement: Normal speech and movement present Affect: normal affect Attitude: cooperative Thought process: Normal thought process present and not confabulating Thought content: Normal thought content present Insight: Good insight present (Psych) Judgement: Good judgement present (Psych) Results Reviewed Results Reviewed: Laboratory Tests 11/04/24 14:31 Estimated GFR > 60 Total Bilirubin 0.4 AST 23 ALT 31 Alkaline Phosphatase 72 11/04/24-[address]: Leandra Orellana MD ORDERED: [facility] w Micros QUERIES: Source: Urine, Clean Catch Test Result Flag Reference Ur Color Yellow Ur Appear Clear PH 7.0 5.0-9.0 Ur Glu Negative Negative mg/dL Urine Blood Small (1+) H Negative Spec Elfrida Ur 1.020 1.005-1.025 Urine Protein Negative Neg-Trace mg/dL Urine Ketones Negative Negative mg/dL Ur Nitrite Negative Negative Ur Yazan Esterase Negative Negative Ur RBC 6-10 H 0-2 /HPF Ur WBC 0-5 0-5 /HPF Ur Squam Epi 0-2 0-2 /HPF Ur Bact None Seen None Seen Ur Hyaline Medical Management Specialist 0-2 0-2 /LPF Assessment & Plan Assessment & Plan (1) Chronic idiopathic constipation: Code(s): K59.04 - Chronic idiopathic constipation Category: Medical (2) Gastro-esophageal reflux disease without esophagitis: Code(s): K21.9 - Gastro-esophageal reflux disease without esophagitis Category: Medical (3) Dysphagia: Code(s): R13.10 - Dysphagia, unspecified Category: Medical (4) IBS (irritable bowel syndrome): Code(s): K58.9 - Irritable bowel syndrome, unspecified Category: Medical (5) Functional dyspepsia: Code(s): K30 - Functional dyspepsia Category: Medical Plan Malagasy #Arsenio Live Linzess, 72 micro g, senna 2 tablets at night, simethicone, AcipHex twice a day and Creon. She feels that the reglan helped her bloating, but she only eats qd and is only taking it qd. I advise her that I want her to take it bid to mimic better the normal GI motility and give her better relief. she still has a LLQ pain that is usually there but is worse after a BM. SHe has success in treating this with external rubs like Gael Gqy. ROV 6 mos. COLONOSCOPY BIOSPY Coding Level of Care Code Est Pt Level 3 (70443) Diagnoses Chronic idiopathic constipation K59.04 Gastro-esophageal reflux disease without esophagitis K21.9 Dysphagia R13.10 IBS (irritable bowel syndrome) K58.9 Functional dyspepsia K30
[2024-12-05 14:57] VITALS: BP 124/60; BMI 25.1
== END 2024-12-05 15:22 | disposition home or self-care (01) ==
LOC: HO.HGI 14:15
PROVIDERS: PCP Student in an Organized Health Care Education/Training Program; Visit Provider Nurse Practitioner
DX: K59.04 Chronic idiopathic constipation (principal); K21.9 Gastro-esophageal reflux disease without esophagitis; R13.10 Dysphagia, unspecified; K58.9 Irritable bowel syndrome, unspecified; K30 Functional dyspepsia
CPT/HCPCS: 99213

== ENCOUNTER → 2024-12-05 14:14 | Outpatient (BNVA) | payer OTHER, SELFPAY | PROVIDERS: PCP Student in an Organized Health Care Education/Training Program; Visit Provider Nurse Practitioner | DX: K30 Functional dyspepsia (principal); R13.10 Dysphagia, unspecified; K59.04 Chronic idiopathic constipation; K21.9 Gastro-esophageal reflux disease without esophagitis; K58.9 Irritable bowel syndrome, unspecified; R94.4 Abnormal results of kidney function studies | CPT/HCPCS: 99212 ==

== ENCOUNTER → 2024-12-23 16:27 | Outpatient (BNV) | payer OTHER, SELFPAY | PROVIDERS: PCP Student in an Organized Health Care Education/Training Program; Visit Provider Radiology Diagnostic Radiology | DX: M54.16 Radiculopathy, lumbar region (principal) | CPT/HCPCS: 72148 ==

== ENCOUNTER 2024-12-23 16:40 | Outpatient (REF) | payer OTHER, SELFPAY ==
--- NOTE | ~2024-12-23 | MR_ITS ---
EXAM: MRI Lumbar Spine without Contrast. TECHNIQUE: Multiplanar multisequence MR imaging was performed through the lumbar spine without contrast. INDICATION: Lumbar radiculopathy. The 6 weeks conservative therapy PRIOR: November 09, 2023 FINDINGS: 5 non-rib bearing lumbar segments are assumed for numbering purposes. If level specific intervention is planned, correlate with an x-ray to ensure concordant numbering. Marrow and end-plates: There are no marrow replacing lesions. Alignment: L5-S1 demonstrates subtle retrolisthesis, unchanged Soft tissues: Benign simple renal cysts are present bilaterally, largest is in the mid right kidney. Conus: The termination of conus medullaris is within normal limits at the level of lower L1. T12-L1: Mild circumferential broad-based disc bulge with small cephalad central extrusion does not result in spinal stenosis or foraminal narrowing. Unchanged L1-L2: Mild circumferential broad-based disc bulge with small central protrusion indenting thecal sac does not cause spinal stenosis or foraminal narrowing, unchanged. L2-L3: Mild broad-based disc bulge does not cause spinal stenosis or foraminal narrowing. Unchanged L3-L4: Mild circumferential broad-based disc bulge is evident along with moderate facet degeneration and ligament flavum thickening not resulting in spinal stenosis. Mild right foraminal narrowing is unchanged. L4-L5: Again seen is circumferential broad-based disc bulge with central annular fissuring and mild facet arthropathy with ligament flavum thickening not resulting in spinal stenosis. Mild bilateral foraminal narrowing is unchanged. L5-S1: Circumferential broad-based disc bulge with right central extrusion indents the thecal sac and minimally narrows the right lateral recess. There is mild facet arthropathy. There is no foraminal narrowing. Unchanged. MR/MR lumbar spine wo con IMPRESSION: Stable mild degenerative changes without spinal stenosis or moderate foraminal narrowing. L3-L4: Mild right foraminal narrowing is unchanged. L4-L5: Mild bilateral foraminal narrowing is unchanged. L5-S1: Disc minimally narrows the right lateral recess. Unchanged. Electronically signed by: Troy Brown MD 12/23/2024 05:32 PM EDT
--- OUTSIDE RECORDS SUMMARY | 2024-12-23 19:10 | XMS_ITS | Encounter Summary ---
Author Organization [employer] Address [address] [place] [address] Care Team Providers Care Field Training Agent Name Role Phone Leandra Orellana MD Primary Care Pro vider Encounter Details Date Type Department Care Team ([facility] Contact Info) Description 12/23/2024 Orders Only [facility] External Provider, [facility] Social History Tobacco Use Types Packs/Day Years [...] Description 01/02/2025 11:00 AM EDT Clinical Support [facility] [address] [place] [address] Nataliia Ambriz, RACHELLE [address] [place] [address] documented as of this encounter Procedures Procedure Name Priority Date/Time Associated Diagnosis Comments MR LUMBAR SPINE WO CONTRAST Routine 12/23/2024 4:44 PM EDT documented in this encounter Results * MR Lumbar Spine w/o Contrast (12/23/2024 4:44 PM EDT) Anatomical Region Laterality Modality Spine, L-spine Magnetic Resonan ce 12/23/2024 4:44 PM EDT Narrative 12/23/2024 5:35 PM EDT [address] [address] Magnetic Resonance Report Signed Patient: Leandra Acevedo MR#: [id number] : 1960 Acct:[id number] Age/Sex: 64 / F ADM Date: 12/23/24 Loc: HO.MRI Attending Dr: Valeria Art APRN, CNP Ordering Physician: Valeria Art APRN, CNP Date of Service: 12/23/24 Procedure(s): MR lumbar spine wo con Accession Number(s): [id number] cc: Valeria Art APRN, PLAYER SERVICES REPRESENTATIVE; Leadnra Orellana MD Reason for Exam: M54.16 - Radiculopathy, lumbar region EXAM: MRI Lumbar Spine without Contrast. TECHNIQUE: Multiplanar multisequence MR imaging was performed through the lumbar spine without contrast. INDICATION: Lumbar radiculopathy. The 6 weeks conservative therapy PRIOR: November 09, 2023 FINDINGS: 5 non-rib bearing lumbar segments are assumed for numbering purposes. If level specific intervention is planned, correlate with an x-ray to ensure concordant numbering. Marrow and end-plates: There are no marrow replacing lesions. Alignment: L5-S1 demonstrates subtle retrolisthesis, unchanged Soft tissues: Benign simple renal cysts are present bilaterally, largest is in the mid right kidney. Conus: The termination of conus medullaris is within normal limits at the level of lower L1. T12-L1: Mild circumferential broad-based disc bulge with small cephalad central extrusion does not result in spinal stenosis or foraminal narrowing. Unchanged L1-L2: Mild circumferential broad-based disc bulge with small central protrusion indenting thecal sac does not cause spinal stenosis or foraminal narrowing, unchanged. L2-L3: Mild broad-based disc bulge does not cause spinal stenosis or foraminal narrowing. Unchanged L3-L4: Mild circumferential broad-based disc bulge is evident along with moderate facet degeneration and ligament flavum thickening not resulting in spinal stenosis. Mild right foraminal narrowing is unchanged. L4-L5: Again seen is circumferential broad-based disc bulge with central annular fissuring and mild facet arthropathy with ligament flavum thickening not resulting in spinal stenosis. Mild bilateral foraminal narrowing is unchanged. L5-S1: Circumferential broad-based disc bulge with right central extrusion indents the thecal sac and minimally narrows the right lateral recess. There is mild facet arthropathy. There is no foraminal narrowing. Unchanged. MR/MR lumbar spine wo con IMPRESSION: Stable mild degenerative changes without spinal stenosis or moderate foraminal narrowing. L3-L4: Mild right foraminal narrowing is unchanged. L4-L5: Mild bilateral foraminal narrowing is unchanged. L5-S1: Disc minimally narrows the right lateral recess. Unchanged. Electronically signed by: Troy Brown MD 12/23/2024 05:32 PM EDT RP Dictated By: Troy Brown MD Signed By: <Electronically signed by Troy Brown MD in OV> 12/23/24 1732 DD/ 1644 TD/TT: 12/23/24 1700 Legal Mediator: Procedure Note Donotuseinterpreter, Image - 12/23/[address] [address] Magnetic Resonance Report Signed Patient: Leandra AcevedoMR#: [id number] : 1960cct:[id number] Age/Sex: 64 / FADM Date: 12/23/24 Loc: HO.MRI Attending Dr: Valeria Art APRN, CNP Ordering Physician: Valeria Art APRN, CNP Date of Service: 12/23/24 Procedure(s): MR lumbar spine wo con Accession Number(s): [id number] cc: Valeria Art APRN, ERMELINDA; Leandra Orellana MD Reason for Exam: M54.16 - Radiculopathy, lumbar region EXAM: MRI Lumbar Spine without Contrast. TECHNIQUE: Multiplanar multisequence MR imaging was performed through the lumbar spine without contrast. INDICATION: Lumbar radiculopathy. The 6 weeks conservative therapy PRIOR: November 09, 2023 FINDINGS: 5 non-rib bearing lumbar segments are assumed for numbering purposes. If level specific intervention is planned, correlate with an x-ray to ensure concordant numbering. Marrow and end-plates: There are no marrow replacing lesions. Alignment: L5-S1 demonstrates subtle retrolisthesis, unchanged Soft tissues: Benign simple renal cysts are present bilaterally, largest is in the mid right kidney. Conus: The termination of conus medullaris is within normal limits at the level of lower L1. T12-L1: Mild circumferential broad-based disc bulge with small cephalad central extrusion does not result in spinal stenosis or foraminal narrowing. Unchanged L1-L2: Mild circumferential broad-based disc bulge with small central protrusion indenting thecal sac does not cause spinal stenosis or foraminal narrowing, unchanged. L2-L3: Mild broad-based disc bulge does not cause spinal stenosis or foraminal narrowing. Unchanged L3-L4: Mild circumferential broad-based disc bulge is evident along with moderate facet degeneration and ligament flavum thickening not resulting in spinal stenosis. Mild right foraminal narrowing is unchanged. L4-L5: Again seen is circumferential broad-based disc bulge with central annular fissuring and mild facet arthropathy with ligament flavum thickening not resulting in spinal stenosis. Mild bilateral foraminal narrowing is unchanged. L5-S1: Circumferential broad-based disc bulge with right central extrusion indents the thecal sac and minimally narrows the right lateral recess. There is mild facet arthropathy. There is no foraminal narrowing. Unchanged. MR/MR lumbar spine wo con IMPRESSION: Stable mild degenerative changes without spinal stenosis or moderate foraminal narrowing. L3-L4: Mild right foraminal narrowing is unchanged. L4-L5: Mild bilateral foraminal narrowing is unchanged. L5-S1: Disc minimally narrows the right lateral recess. Unchanged. Electronically signed by: Troy Brown MD 12/23/2024 05:32 PM EDT Dictated By: Troy Brown MD Signed By: <Electronically signed by Troy Brown MD in OV> 12/23/24 1732 DD/ 1644 TD/TT: 12/23/24 1700 Legal Mediator: [facility] External Provider IMG MRI PROCEDURES Edited Result - Final documented in this encounter Visit Diagnoses Not on filedocumented in this encounter Additional Health Concerns Assessment Noted Time PHQ-9 Depression Total Score: 18 025 2:00 PM EDT documented as of this encounter Care Teams Field Training Agent Relationship Specialty Start Date End Date Leandra Orellana MD [address] [place] [id number] PCP - General Internal Medicine 02/12/23 documented as of this encounter
--- OUTSIDE RECORDS SUMMARY | 2024-12-23 19:10 | XMS_ITS | Clinical Summary ---
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 Blood Venous blood specimen / Unknown 10/06/2024 8:40 AM EDT 10/06/2024 10:59 AM EDT us Leandra Meng MD LAB BLOOD ORDERAB LES Final Result [facility] [address] [place] [phone] * (ABNORMAL) Lipid Panel, Standard (10/06/2024 8:40 AM EDT) Triglycerides 159(H) <150 mg/dL [facility] Comment:Desirable Triglyceri de: less than 150 mg/dLBorderline High Triglyceride 150-199 mg/dLHigh Triglyceride: 200-499 mg/dLVery High Triglyceride: greater than or equal to 5OO mg/dL Cholesterol 250(H) <200 mg/dL [facility] Comment:Desirable Cholestero l: less than 200 mg/dLBorderline High Cholesterol: 200-239 mg/dLHigh Cholesterol: greater than 239 mg/dL LDL Cholesterol Calculated 162(H) <100 mg/dL [facility] Comment:Desirable LDL: less than 100 mg/dLNear Optimal/Above Optimal LDL: 110- 129 mg/dLBorderline High LDL: 130-159 mg/dLHigh LDL: 160-189 mg/dLVery High LDL: greater than or equal to 190 mg/dL HDL Cholesterol 57 >40 mg/dL [facility] Comment:Desirable HDL: great er than 40 mg/dL Note: This HDL assay may give artificially low results in patients with liver disease. Blood Venous blood specimen / Unknown 10/06/2024 8:40 AM EDT 10/06/2024 10:59 AM EDT us Leandra Meng MD LAB BLOOD ORDERAB LES Final Result [facility] [address] [place] [phone] * Chlamydia/Trichomonas/Neisseria gonorrhoeae, PCR, Urine (10/06/2024 8:38 AM EDT) CT PCR, Urine NOT DETECTED Not Detect. [facility] Comment:A not detected test result does [...] NG PCR, Urine NOT DETECTED Not Detect. [facility] Comment:A not detected test result does [...] ORDERAB LES Final Result Performing Organization Address City/[facility]/ZIP Co de Phone Number [facility] [address] [place] [phone] * BI Mammogram Screening Tomosynthesis Bilateral (06/10/2024 2:35 PM EST) Anatomical Region Laterality Modality Breast Bilateral Mammography 06/10/2024 2:35 PM EST Narrative 06/12/2024 11:46 AM EST [facility] [address] [place] [address] Mammography Report Signed Patient: Leandra Acevedo MR#: [id number] : 1960 Acct:[id number] Age/Sex: 64 / F ADM Date: 06/10/24 Loc: HO.MAMMO Attending Dr: Leandra Meng MD Ordering Physician: Leandra Orellana MD Re sults: 1Negative Date of Service: 06/10/24 Follow Up: 1 Year From Orig inal Mammogram Procedure(s): MM tomosynthesis screening BI Accession Number(s): [id number] cc: Leandra Orellana MD EXAMINATION: MM SCREENING [...] 06/12/24 1144 DD/ 1435 TD/TT: 06/10/24 1450 Grade Tamper: Procedure Note Donotuseinterpreter, Image - 06/12/2024 [facility] [address] [place] [address] Mammography Report Signed Patient: Leandra AcevedoMR#: [id number] : 1960cct:[id number] Age/Sex: 64 / FADM Date: 06/10/24 Loc: HO.MAMMO Attending Dr: Leandra Meng MD Ordering Physician: Leandra Orellana sults: 1Negative Date of Service: 06/10/24Follow Up: 1 Year From Orig inal Mammogram Procedure(s): MM tomosynthesis screening BI Accession Number(s): [id number] cc: Leandra Orellana MD EXAMINATION: MM SCREENING [...] 06/12/24 1144 DD/ 1435 TD/TT: 06/10/24 1450 Grade Tamper: us Leandra Meng MD IMG BI PROCEDURES Final Result * HPV mRNA E6/E7 w/Reflex to HPV Genotypes 16, 18/45 (2023 11:31 AM EST) HPV nRNA E6/E7 Not Detected Not Detected [facility] Comment:Methodology: Transcr iption-Mediated AmplificationThis assay detects E6/E7 viral messenger RNA (mRNA) from 14high-risk HPV types (16,18,31,33,35,39,45,51,52,56,58,59,66,68).Cervical sources are required for HPV testing.If a vaginal source from a patient who has had atotal hysterectomy with removal of cervix wassubmitted, please contact the testing laboratoryfor alternative testing options.For additional information, please refer tohttp://education.[employer]/faq/[email or web address](This link if provided for information/educational purposes only.)THIS TEST WAS PERFORMED AT:[facility] [place] [phone] COWART MD HPV mRNA E6/E7 [facility] HPV 16 RNA [facility] HPV 18/45 RNA [facility] 2023 11:3 1 AM EST 05/24/2023 2:00 PM EST Eliud HD[facility] LAB CYTOLOGY ORDERABLES F inal Result [facility] [address] [place] [phone] * Pap Smear (2023 11:31 AM EST) Swab 2023 11:3 1 AM EST 05/24/2023 2:00 PM EST Narrative [facility] - 06/12/2023 2:33 PM EST ----- ------- Name: Leandra Acevedo Age/Sex: 63/F : 1960 [id number] [id number] Attend Dr: [facility] Re05/23/23 Status: DEP [facility] Disch: ----- ------- SPEC : [id number] RECD: 05/24/23-1399 STATUS: ALEXY HINES NUM: [id number] ALFONSO: 05/23/23-[address] [facility] [address]: [facility] ENTERED: 05/24/23-1417 SP TYPE: Pap Smr OTHR DR: ORDERED: Pap Smear Interpretation Satisfactory for evaluation. Atrophic. Negative for intraepithelial lesion or malignancy. HPV mRNA E6/E7: NOT DETECTED This assay detects E6/E7 viral messenger RNA (mRNA) from 14 high-risk HPV types (16, 18, 31, 33, 35, 39, 45, 51, 52, 56, 58, 59, 66, 68) HPV testing performed by [facility], [place], [place]. See reference laboratory portion of the EMR for entire report. Clinical Information LMP: Unknown date Previous PAP test: Unknown date/findings Material Received ThinPrep-Vaginal ----- ------- Signed (signature on file) MARCELLA Van ([facility]) 06/12/23 1433 ----- ------- END OF REPORT us Eliud [facility] LAB CYTOLOGY ORDERABLES F inal Result [facility] [address] [place] [phone] from Last 3 Months or Most Recently Relevant to Health Maintenance Insurance [facility] [place] [address] , [place] [address] Care Teams Fur Finisher Tailor Relationship Specialty Start Date End Date Leandra Orellana MD [address] [place] [phone] PCP - General Internal Medicine 02/12/23
--- OUTSIDE RECORDS SUMMARY | 2024-12-23 19:10 | XMS_ITS | Encounter Summary ---
Author Organization [employer] Address [address] [facility] 7 [place] [address] Care Team Providers Care Statistics Manager Name Role Phone Leandra Orellana MD Primary Care Pro vider Reason for Visit * Reason Comments Med Refill Encounter Details Date Type Department Care Team ([facility] st Contact Info) Description 12/11/2024 Refill [facility] [address] [place], [place] [phone] Leandra Orellana MD [address] [place] [address] Chronic back pain, unspecified back location, unspecified back pain laterality Social History Tobacco Use Types Packs/Day Years [...] encounter Miscellaneous Notes * Telephone Encounter - Leandra Meng MD - 12/12/2024 11:07 PM EDT Med sent already documented in this encounter Plan of Treatment Upcoming Encounters Date Type Department Care Team (Late st Contact Info) Description 01/02/2025 11:00 AM EDT Clinical Support [facility] MEDICINE [address] [place] [address] Nataliia Ambriz RN [address] [place], [place] [phone] documented as of this encounter Visit Diagnoses Diagnosis Chronic back pain, unspecified back location, unspecified back pain laterality documented in this encounter Additional Health Concerns Assessment Noted Time PHQ-9 Depression Total Score: 18 025 2:00 PM EDT documented as of this encounter Care Teams Statistics Manager Relationship Specialty Start Date End Date Leandra Orellana MD [address] [place] [phone] PCP - General Internal Medicine 02/12/23 documented as of this encounter
--- OUTSIDE RECORDS SUMMARY | 2024-12-23 19:10 | XMS_ITS | Encounter Summary ---
Author Organization [employer] Address [address] [facility] 7t [place] [address] Care Team Providers Care Sheet Metal Shop Foreman Name Role Phone Leandra Julien MD Primary Care Provide r Leandra Orellana MD Primary Care Pro vider Reason for Visit * Reason Onset Date Comments New Patient Appt 08/23/2022 Encounter Details Date Type Department Care Team ([facility] st Contact Info) Description 08/23/[address] [facility] [address] [place] [address] Leandra Julien MD [address] [place] [address] New Patient Appt Social History Tobacco Use [...] PAR Lisa Aguayo called pt to Offer NEMATOLOGIST appt. Pt demographics and insurance information were verified. Pt reports has not seen a PCP before. Pt reports the following medical conditions: Asthma, Panics, Hernia (Stomach). Pt does not take medications at this time. Pt given NEMATOLOGIST appt with on 09/26/2022 10:15 am . Pt will be sent appt reminder card and medical release form and agrees to complete and t o return to medical records prior to NEMATOLOGIST appt. documented in this encounter Plan of Treatment Upcoming Encounters Date Type Department Care Team (Late st Contact Info) Description 01/02/2025 11:00 AM EDT Clinical Support [facility] [address] [place] [phone] Nataliia Ambriz, RACHELLE [address] [place] [phone] documented as of this encounter Visit Diagnoses Not on filedocumented in this encounter Care Teams Sheet Metal Shop Foreman Relationship Specialty Start Date End Date Leandra Julien MD [address] [place] [phone] PCP - General Internal Medicine 08/23/22 09/06/22 Leandra Orellana MD [address] [place] [phone] PCP - General Internal Medicine 02/12/23 documented as of this encounter
--- OUTSIDE RECORDS SUMMARY | 2024-12-23 19:10 | XMS_ITS | Encounter Summary ---
Author Organization [employer] Address [address] [facility] 7t [place] [address] Care Team Providers Care Nurse Receptionist Name Role Phone Leandra Orellana MD Primary Care Pro vider Encounter Details Date Type Department Care Team ([facility] Contact Info) Description 06/27/2023 Telephone [facility] MEDICINE [address] [place] [address] Leandra Orellana MD [address] [place] [address] Social History Tobacco Use Types Packs/Day Years [...] 11:00 AM EDT Clinical Support [facility] MEDICINE [address] [place] [phone] Nataliia Ambriz, RACHELLE [address] [place] [address] documented as of this encounter Visit Diagnoses Not on filedocumented in this encounter Additional Health Concerns Assessment Noted Time PHQ-9 Depression Total Score: 14 024 10:10 AM EST documented as of this encounter Care Teams Nurse Receptionist Relationship Specialty Start Date End Date Leandra Orellana MD [address] [place] [address] PCP - General Internal Medicine 02/12/23 documented as of this encounter
--- OUTSIDE RECORDS SUMMARY | 2024-12-23 19:10 | XMS_ITS | Encounter Summary ---
Author Organization [employer] Address [address] [facility] 7t [place] [address] Care Team Providers Care Makeup Artistry Instructor Name Role Phone Leandra Orellana MD Primary Care Pro vider Encounter Details Date Type Department Care Team ([facility] st Contact Info) Description 11/03/2024 Results Follow-Up [facility] [address] [place] [address] Leandra Orellana MD [address] [place] [address] CT Lung Screening Low dose Social History [...] 01/02/2025 11:00 AM EDT Clinical Support [facility] [address] [place] [address] Nataliia Ambriz RN [address] [place], [place] [phone] documented as of this encounter Visit Diagnoses Not on filedocumented in this encounter Additional Health Concerns Assessment Noted Time PHQ-9 Depression Total Score: 18 025 2:00 PM EDT documented as of this encounter Care Teams Makeup Artistry Instructor Relationship Specialty Start Date End Date Leandra Orellana MD [address] [place] [address] PCP - General Internal Medicine 02/12/23 documented as of this encounter
--- OUTSIDE RECORDS SUMMARY | 2024-12-23 19:10 | XMS_ITS | Encounter Summary ---
Author Organization [employer] Address [address] [facility] 7 [place] [address] Care Team Providers Care Umbrella Tipper Machine Name Role Phone Leandra Orellana MD Primary Care Pro vider Reason for Visit * Reason Onset Date Comments dec recall 12/19/2024 Encounter Details Date Type Department Care Team ([facility] Contact Info) Description 12/19/[address] [facility] MEDICINE [address] [place] [address] Leandra Orellana MD [address] [place] [address] dec recall Social History Tobacco Use Types Packs/Day Years [...] encounter Miscellaneous Notes * Telephone Encounter - Sushma Samson MA - 12/19/2024 3:43 PM EDT Telephone call to patient to schedule a recall appointment. No answer, Left voicemail to return call to clinic.. Recall letter sent. Visit type: Follow Up Appointment notes: f symptoms, will do chem,fasting lipids Month due: March With: Edge Please schedule appointment above if patient returns call documented in this encounter Plan of Treatment Upcoming Encounters Date Type Department Care Team ([facility] st Contact Info) Description 01/02/2025 11:00 AM EDT Clinical Support [facility] MEDICINE [address] [place], [place] [phone] Nataliia Ambriz, RACHELLE [address] [place], [place] [phone] documented as of this encounter Visit Diagnoses Not on filedocumented in this encounter Additional Health Concerns Assessment Noted Time PHQ-9 Depression Total Score: 18 025 2:00 PM EDT documented as of this encounter Care Teams Umbrella Tipper Machine Relationship Specialty Start Date End Date Leandra Orellana MD [address] [place] [phone] PCP - General Internal Medicine 02/12/23 documented as of this encounter
== END 2024-12-23 16:41 | disposition home or self-care (01) ==
LOC: HO.MRI 16:40
PROVIDERS: PCP Student in an Organized Health Care Education/Training Program; Visit Provider Registered Nurse Emergency
DX: M54.16 Radiculopathy, lumbar region (principal); M47.816 Spondylosis without myelopathy or radiculopathy, lumbar region; M51.369 Other intervertebral disc degeneration, lumbar region without mention of lumbar back pain or lower extremity pain
CPT/HCPCS: 72148

== ENCOUNTER 2025-02-06 10:23 | Outpatient (AMB) | payer OTHER, SELFPAY ==
[2025-02-06 10:52] VITALS: BP 131/64; PULSE 85; RESP 16; O2SAT 98; BMI 25.1
--- NOTE | 2025-02-06 10:52 | A.OFFVIS_ITS ---
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 The heaviness in her legs has been persistent, and recent MRI results show no significant changes from the previous. Physical therapy has been recommended to improve strength and function, although she reports there are issues with insurance coverage for this service. The patient also experiences back pain, which has been partially relieved by injections, though the relief is temporary. There is a consideration for repeating the injections and potentially proceeding with radiofrequency ablation if the initial injections provide significant relief. Initial diagnostic medial branch blocks provided her greater than 80% pain relief. - Heaviness in legs: Persistent, no new MRI findings to explain symptom. - Back pain: Partially relieved by injections, temporary relief. - Affect: Not explicitly discussed. - Analgesia: Tramadol taken once daily, injections provide temporary relief. - Adverse Effects: Not explicitly discussed. - Activities of Daily Living: Physical therapy recommended to improve leg function. - Aberrant Drug Related Behaviors: Not explicitly discussed. [facility] Medical History Chronic back pain Spondylosis of lumbar region without myelopathy or radiculopathy Chronic migraine with aura Nicotine dependence, cigarettes, uncomplicated Endometriosis Postmenopausal Osteoporosis Hyperlipidemia, unspecified Gastro-esophageal reflux disease without esophagitis Upper abdominal pain Depression with anxiety Moderate episode of recurrent major depressive disorder Other microscopic hematuria Surgical History History of hysterectomy History of cholecystectomy History of tonsillectomy History of esophagogastroduodenoscopy (EGD) H/O colonoscopy History of lipoma Family History Father Prostate cancer Mother Leukemia Lung cancer Social History Alcohol intake: former Patient Tobacco Use Status: Current everyday Tobacco user Years Smoked: (onset 25yo, 1-2ppd x 39yrs, now 1/2ppd - 50pyh) Review of Systems Narrative - Musculoskeletal: Reports heaviness in legs, back pain. Physical Exam Exam Exam: General: awake, alert, oriented. Answers questions appropriately. Fully engaged in examination. Skin: warm, dry, intact HEENT: Normocephalic. Hearing intact. Cardiac: External chest normal in appearance. Respiratory: No cough, audible wheezing or stridor. Abdomen: without gross distension. MS: No obvious swelling or deformities. Rises from sit to stand without assistance SLR negative bilaterally Left lower extremity strength 5/5, right lower extremity strength 4/5. negative footdrop, negative clonus Tenderness over midline lumbar vertebrae and lumbar paraspinal muscles Facet loading positive bilaterally Neurological: Oriented to person, place, time and situation. Thought process intact. Antalgic gait. Psychiatric: Appropriate mood and affect. Good judgment and insight. Vital Signs: Last Vital Signs Pulse 85 02/06/25 10:52 Resp 16 02/06/25 10:52 BP 131/64 02/06/25 10:52 Pulse Ox 98 02/06/25 10:52 Oxygen Delivery Method Room Air 02/06/25 10:52 BMI result Body Mass Index 25.1 Results Reviewed Results Reviewed: 12/23/2024 MR/MR lumbar spine wo con FINDINGS: 5 non-rib bearing lumbar segments are assumed for numbering purposes. If level specific intervention is planned, correlate with an x-ray to ensure concordant numbering. Marrow and end-plates: There are no marrow replacing lesions. Alignment: L5-S1 demonstrates subtle retrolisthesis, unchanged Soft tissues: Benign simple renal cysts are present bilaterally, largest is in the mid right kidney. Conus: The termination of conus medullaris is within normal limits at the level of lower L1. T12-L1: Mild circumferential broad-based disc bulge with small cephalad central extrusion does not result in spinal stenosis or foraminal narrowing. Unchanged L1-L2: Mild circumferential broad-based disc bulge with small central protrusion indenting thecal sac does not cause spinal stenosis or foraminal narrowing, unchanged. L2-L3: Mild broad-based disc bulge does not cause spinal stenosis or foraminal narrowing. Unchanged L3-L4: Mild circumferential broad-based disc bulge is evident along with moderate facet degeneration and ligament flavum thickening not resulting in spinal stenosis. Mild right foraminal narrowing is unchanged. L4-L5: Again seen is circumferential broad-based disc bulge with central annular fissuring and mild facet arthropathy with ligament flavum thickening not resulting in spinal stenosis. Mild bilateral foraminal narrowing is unchanged. L5-S1: Circumferential broad-based disc bulge with right central extrusion indents the thecal sac and minimally narrows the right lateral recess. There is mild facet arthropathy. There is no foraminal narrowing. Unchanged. IMPRESSION: Stable mild degenerative changes without spinal stenosis or moderate foraminal narrowing. L3-L4: Mild right foraminal narrowing is unchanged. L4-L5: Mild bilateral foraminal narrowing is unchanged. L5-S1: Disc minimally narrows the right lateral recess. Unchanged. 11/09/23 MRI LS FINDINGS: Mild dextrocurvature of the lumbar spine. Preservation of the normal lumbar lordosis. No listhesis. No acute bone marrow abnormality. The vertebral body heights are preserved. Multilevel disc desiccation without significant disc height loss. T12-L1: Shallow left paracentral disc protrusion. No significant spinal canal or neural foraminal narrowing. L1-2: Central disc protrusion. No significant spinal canal or neural foraminal narrowing. L2-3: Left foraminal disc protrusion and bilateral facet arthrosis. No significant spinal canal or neural foraminal narrowing. L3-4: Diffuse disc bulge and bilateral facet arthrosis. Mild bilateral neural foraminal narrowing with the disc abutting the exiting L3 nerve roots bilaterally. No significant spinal canal stenosis. L4-5: Shallow disc bulge with superimposed annular fissure. Bilateral facet arthrosis. Mild right neural foraminal narrowing with the disc abutting the exiting L4 nerve as bilaterally. L5-S1: Shallow disc bulge and bilateral facet arthrosis. No significant spinal canal or neural foraminal narrowing. The paravertebral soft tissues are unremarkable. Bilateral renal cysts. IMPRESSION: 1. Mild degenerative changes of the lumbar spine without significant spinal canal stenosis. 2. Mild neural foraminal narrowing at L3-L4 and L4-L5 with the disc abutting the exiting L3 and L4 nerve roots bilaterally. 3. L4-L5 annular fissure. Assessment & Plan Assessment & Plan (1) Lumbar radiculopathy: Code(s): M54.16 - Radiculopathy, lumbar region Category: Medical (2) Lumbar facet arthropathy: Code(s): M47.816 - Spondylosis without myelopathy or radiculopathy, lumbar region Category: Medical (3) Degenerative disc disease, lumbar: Code(s): M51.369 - Other intervertebral disc degeneration, lumbar region without mention of lumbar back pain or lower extremity pain Category: Medical (4) Spondylosis of lumbar region without myelopathy or radiculopathy: Code(s): M47.816 - Spondylosis without myelopathy or radiculopathy, lumbar region Category: Medical Plan The plan includes physical therapy to improve leg strength and function. Efforts will be made to coordinate with the insurance provider to secure approval for the therapy. For the back pain, the patient may undergo repeat diagnostic injections, and if effective, proceed with radiofrequency ablation to provide longer-term relief. Insurance approval will be sought for these procedures as well. Will schedule for repeat bilateral diagnostic fluoroscopy guided L3-L4 DR L5 medial branch blocks with local anesthetic. Patient was informed and verbally consented to the use of an ambient scribe for clinic note documentation during this visit. Patient Instructions: - Follow up with physical therapy as recommended. - Discuss tramadol use with primary care doctor if needed. - Await contact regarding insurance approval for procedures. Coding Level of Care Code Est Pt Level 3 (90285) Complex EM visit Add On G2211 Diagnoses Lumbar radiculopathy M54.16 Lumbar facet arthropathy M47.816 Degenerative disc disease, lumbar M51.369 Spondylosis of lumbar region without myelopathy or radiculopathy M47.816
--- OUTSIDE RECORDS SUMMARY | 2025-02-06 11:45 | XMS_ITS | Encounter Summary ---
Author Organization [employer] Address [address] [facility] 7t [place] [address] Care Team Providers Care Nuclear Engineering Technician Name Role Phone Leandra Orellana MD Primary Care Pro vider Encounter Details Date Type Department Care Team ([facility] st Contact Info) Description 01/06/2025 Orders Only [facility] MEDICINE [address] [place] [address] Leandra Orellana MD [address] [place] [address] Social History Tobacco Use Types Packs/Day Years [...] Care Team (Late st Contact Info) Description 03/18/2025 9:00 AM EST Office Visit [address] [address] Leandra Orellana MD [address] [place] [address] 03/27/2025 11:00 AM EST Clinical Support [facility] MEDICINE [address] [place] [address] Nataliia Ambriz RN [address] [place] [address] documented as of this encounter Visit Diagnoses Not on filedocumented in this encounter Additional Health Concerns Assessment Noted Time PHQ-9 Depression Total Score: 18 025 2:00 PM EDT documented as of this encounter Care Teams Nuclear Engineering Technician Relationship Specialty Start Date End Date Leanrda Orellana MD [address] [place] [id number] PCP - General Internal Medicine 02/12/23 documented as of this encounter
--- OUTSIDE RECORDS SUMMARY | 2025-02-06 11:45 | XMS_ITS | Encounter Summary ---
Author Organization [employer] Address [address] [facility] 7t [place] [address] Care Team Providers Care Beef Lugger Name Role Phone Leandra Julien MD Primary Care Provide r Leandra Orellana MD Primary Care Pro vider Reason for Visit * Reason Onset Date Comments New Patient Appt 08/23/2022 Encounter Details Date Type Department Care Team ([facility] st Contact Info) Description 08/23/2022 Telephone [facility] MEDICINE [address] [place] [address] Leandra Julien MD [address] [place] [address] New Patient Appt Social History Tobacco Use [...] PAR Lisa Aguayo called pt to Offer REGISTERED NURSE FIRST ASSISTANT appt. Pt demographics and insurance information were verified. Pt reports has not seen a PCP before. Pt reports the following medical conditions: Asthma, Panics, Hernia (Stomach). Pt does not take medications at this time. Pt given REGISTERED NURSE FIRST ASSISTANT appt with on 09/26/2022 10:15 am . Pt will be sent appt reminder card and medical release form and agrees to complete and t o return to medical records prior to REGISTERED NURSE FIRST ASSISTANT appt. documented in this encounter Plan of Treatment Upcoming Encounters Date Type Department Care Team (Late st Contact Info) Description 03/18/2025 9:00 AM EST Office Visit [address] [address] Leandra Orellana MD [address] [place] [address] 03/27/2025 11:00 AM EST Clinical Support [address] [address] Nataliia Ambriz, RN [address] [place] [address] documented as of this encounter Visit Diagnoses Not on filedocumented in this encounter Care Teams Beef Lugger Relationship Specialty Start Date End Date Leandra Julien MD [address] [place] [address] PCP - General Internal Medicine 08/23/22 09/06/22 Leandra Orellana MD [address] [place] [id number] PCP - General Internal Medicine 02/12/23 documented as of this encounter
--- OUTSIDE RECORDS SUMMARY | 2025-02-06 11:45 | XMS_ITS | Encounter Summary ---
Author Organization [employer] Address [address] [facility] 7t [place] [address] Care Team Providers Care Reed Maker Name Role Phone Leandra Orellana MD Primary Care Pro vider Encounter Details Date Type Department Care Team ([facility] Contact Info) Description 06/27/2023 Telephone [facility] MEDICINE [address] [place] [address] Leandra Orellana MD [address] [place] [address] Social History Tobacco Use Types Packs/Day Years [...] Description 03/18/2025 9:00 AM EST Office Visit [address] [address] Leandra Orellana MD [address] [place] [address] 03/27/2025 11:00 AM EST Clinical Support [address] [address] Nataliia Ambriz, RACHELLE [address] [place] [address] documented as of this encounter Visit Diagnoses Not on filedocumented in this encounter Additional Health Concerns Assessment Noted Time PHQ-9 Depression Total Score: 14 024 10:10 AM EST documented as of this encounter Care Teams Reed Maker Relationship Specialty Start Date End Date Leandra Orellana MD [address] [place] [id number] PCP - General Internal Medicine 02/12/23 documented as of this encounter
--- OUTSIDE RECORDS SUMMARY | 2025-02-06 11:45 | XMS_ITS | Data Portability ---
Author Organization [place] - [facility], Allergy Address [address] [address] Care Team Providers Care Varnish Maker Helper Name Role Phone KAYE GREEN Primary Care [...] doses of Tylenol (acetaminophen) and Motrin (ibuprofen) [id number] every 3 hours are recommended. Use of [...] recorded. Surgeries tonsillecto my (SURG) 2024 025 [email or web address] Not available 16:02:20 Imaging None recorded. [...] and Address Organization Details Recorded Time [facility] [id number] Active 024 LYNDA WALLER MD [address] [place] [address], [phone], [place] - [facility] 4 23:06:24 Problem Notes None recorded. Procedures Surgical History Date Name Laterality Status Provider Name and Address Organization Details Recorded Time 06/18/19 25 Removal of tonsils completed LYNDA WALLER MD [address] [place] [address], [phone], [place] - [facility] 06/17/2024 15:10:08 06/18/19 25 TONSILLECTOMY (SURG) completed Mehul Martin [place] - [facility] 06/20/2024 10:42:02 Imaging Results None recorded. Procedure [...] Updated DateTime 04/16/2024 160.02 cm 22.1 kg/m2 06768.05 g Candi Green [facility] 04/16/2024 11:34:29 Date Recorded Body height Body mass index (BMI) Body weight Provider Name and Address Organization Details Last Updated DateTime 12/11/2023 160.02 cm 22.5 kg/m2 58631.23 g Samantha Mohamud [facility] 12/11/2023 11:24:38 Social History None recorded. Functional Status None recorded. Mental Status None recorded. Family History Nothing Reported. Medical History No medical history recorded. Gynecological HistoryNo gynecological history recorded. Obstetrics History GPAL:G 0 P 0 0 0 0 Past Encounters Encounter ID Performer Location Encounter Start Date Encounter Closed Date Diagnosis/Indication Diagnosis SNOMED-CT Code Diagnosis ICD10 Code Diagnosis IMO Codes Diagnosis Note [id number] LYNDA WALLER MD [facility] [address] [address] 12/11/2023 11:16:49 12/11/2023 11:49:18 [facility] 2312295 J35.8 [id number] LYNDA WALLER MD [facility] [address] [place] [address] 04/16/2024 10:24:14 04/16/2024 11:57:42 [facility] [id number] J35.8 Patient has symptomati c left sided [...] [employer] Member ID Guarantor Name 10/29/2023 1 [place] [facility] Leandra Doyle [id number] Leandra Glez 06/12/2024 1 [place] [facility] Leandra Glez [id number] Leandra Glez Notes Date Note Type Note [...] imaging with CT scans LYNDA WALLER MD [address] [place] [address], [phone], [facility] - [facility] 12/11/2023 11:56:25 04/16/2024 text/html ROS as noted in the HPI cameroonian - Friend translatingsore throat on left sideradiates [...] advised conservative management LYNDA WALLER MD [address] [facility] [address], [place], [phone], [facility] - [facility] 04/16/2024 11:55:03 OBGyn Episode No OBEpisode recorded.
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
--- OUTSIDE RECORDS SUMMARY | 2025-02-06 11:45 | XMS_ITS | Encounter Summary ---
Author Organization [employer] Address [address] [facility] 7 [place] [address] Care Team Providers Care Tugboat Dispatcher Name Role Phone Leandra Orellana MD Primary Care Pro vider Reason for Visit * Reason Comments Med Refill Encounter Details Date Type Department Care Team ([facility] st Contact Info) Description 12/11/2024 Refill [facility] MED & PEDS [address] [place], [place] [phone] Leandra Orellana MD [address] [place] [address] Chronic back pain, unspecified back location, unspecified [...] Description 03/18/2025 9:00 AM EST Office Visit [facility] MEDICINE [address] [place] [phone] Leandra Orellana MD [address] [place] [phone] 03/27/2025 11:00 AM EST Clinical Support [facility] MEDICINE [address] [place] [phone] Nataliia Ambriz RN [address] [place] [address] documented as of this encounter Visit Diagnoses Diagnosis Chronic back pain, unspecified back location, unspecified back pain laterality documented in this encounter Additional Health Concerns Assessment Noted Time PHQ-9 Depression Total Score: 18 025 2:00 PM EDT documented as of this encounter Care Teams Tugboat Dispatcher Relationship Specialty Start Date End Date Leandra Orellana MD [address] [place] [phone] PCP - General Internal Medicine 02/12/23 documented as of this encounter
--- OUTSIDE RECORDS SUMMARY | 2025-02-06 11:45 | XMS_ITS | Encounter Summary ---
Author Organization [employer] Address [address] [facility] 7 [place] [address] Care Team Providers Care Golf Ball Cover Treater Name Role Phone Leandra Orellana MD Primary Care Pro vider Reason for Visit * Reason Comments Med Refill Encounter Details Date Type Department Care Team ([facility] st Contact Info) Description 02/05/2025 Refill [facility] MEDICINE [address] [place] [address] Leandra Orellana MD [address] [place] [address] Social History Tobacco Use Types Packs/Day Years [...] Description 03/18/2025 9:00 AM EST Office Visit [address] [phone] Leandra Orellana MD [address] [place] [phone] 03/27/2025 11:00 AM EST Clinical Support [address] [address] Nataliia Ambriz RN [address] [place] [address] documented as of this encounter Visit Diagnoses Not on filedocumented in this encounter Additional Health Concerns Assessment Noted Time PHQ-9 Depression Total Score: 18 025 2:00 PM EDT documented as of this encounter Care Teams Golf Ball Cover Treater Relationship Specialty Start Date End Date Leandra Orellana MD [address] [place] [phone] PCP - General Internal Medicine 02/12/23 documented as of this encounter
== END 2025-02-06 11:45 | disposition home or self-care (01) ==
LOC: HO.PMC 10:23
PROVIDERS: PCP Student in an Organized Health Care Education/Training Program; Visit Provider Registered Nurse Emergency
DX: M54.16 Radiculopathy, lumbar region (principal); M47.816 Spondylosis without myelopathy or radiculopathy, lumbar region; M51.369 Other intervertebral disc degeneration, lumbar region without mention of lumbar back pain or lower extremity pain
CPT/HCPCS: 99213

== ENCOUNTER → 2025-02-06 10:23 | Outpatient (BNVA) | payer OTHER, SELFPAY | PROVIDERS: PCP Student in an Organized Health Care Education/Training Program; Visit Provider Registered Nurse Emergency | DX: Z71.2 Person consulting for explanation of examination or test findings (principal); M54.16 Radiculopathy, lumbar region; M47.816 Spondylosis without myelopathy or radiculopathy, lumbar region; M51.369 Other intervertebral disc degeneration, lumbar region without mention of lumbar back pain or lower extremity pain | CPT/HCPCS: 99212 ==